=== PATIENT | male | born 1935 ===

== ENCOUNTER 2018-05-30 12:56 | Emergency (ER) | payer MEDICARE ==
[~2018-05-30] VITALS: Ht 154.9 cm; Wt 72.6 kg
--- NOTE | 2018-05-30 14:27 | Diagnostic Imaging Report ---
Examination: Single AP view of the chest. COMPARISON: None. INDICATION: Medical clearance, altered mental status DISCUSSION: The lungs are well-inflated. Left hemidiaphragmatic elevation with linear opacity in the left lower lobe. Right lung is clear. Tortuous thoracic aorta. Mild enlargement of the cardiac silhouette without overt pulmonary edema. No acute osseous abnormality. IMPRESSION: Elevated left hemidiaphragm with subsegmental atelectasis in the left lung base. Mild enlargement of the cardiac silhouette without vascular decompensation. Signed by: Dr. Brian Prasad M.D. on 05/30/2018 2:24 PM
[2018-05-30 14:31] LABS: BASOPHILS # (AUTO) 0.1 (0.0-0.1); BASOPHILS % 1.3 % (0.0-1.0); EOSINOPHILS # (AUTO) 0.3 (0.0-0.4); EOSINOPHILS % 4.3 % (0.0-6.0); HEMATOCRIT 37.1 % (38.2-49.6); HEMOGLOBIN 11.3 g/dL (14.0-18.0); LYMPHOCYTES # (AUTO) 1.7 (1.0-3.2); LYMPHOCYTES % 25.5 % (18.0-39.1); MEAN CORPUSCULAR HEMOGLOBIN 28.8 pg (28-32); MEAN CORPUSCULAR HGB CONC 30.5 g/dL (31-35); MEAN CORPUSCULAR VOLUME 94.4 fL (81-99); MONOCYTES # (AUTO) 0.7 (0.2-0.8); MONOCYTES % 10.9 % (4.4-11.3); NEUTROPHILS # (AUTO) 3.9 (2.1-6.9); NEUTROPHILS % 57.7 % (38.7-80.0); PLATELET COUNT 179 x10e3/uL (140-360); RED BLOOD COUNT 3.93 x10e6/uL (4.3-5.7); RED CELL DISTRIBUTION WIDTH 14.4 % (11.7-14.4)
[2018-05-30 14:36] LABS: ANION GAP 10.6 mmol/L (8-16); BLOOD UREA NITROGEN 27 mg/dL (7-26); BUN/CREATININE RATIO 33 (6-25); CALCIUM 9.8 mg/dL (8.4-10.2); CARBON DIOXIDE 23 mmol/L (22-29); CHLORIDE 108 mmol/L (98-107); CREATININE, SERUM 0.83 mg/dL (0.72-1.25); EST GLOMERULAR FILTRATION RATE > 60 ML/MIN (60-); GLUCOSE 86 mg/dL (74-118); POTASSIUM 3.6 mmol/L (3.5-5.1); SODIUM 138 mmol/L (136-145)
[2018-05-30 14:56] LABS: BILIRUBIN,URINE NEGATIVE (NEGATIVE); CLARITY,URINE SL CLOUDY (CLEAR); COLOR,URINE YELLOW (YELLOW); KETONES,URINE NEGATIVE (NEGATIVE); LEUKOCYTE ESTERASE ,URINE TRACE (NEGATIVE); NITRITE,URINE NEGATIVE (NEGATIVE); PROTEIN,URINE DIPSTICK TRACE (NEGATIVE); URINE UROBILINOGEN 0.2 mg/dL (0.2 - 1)
[2018-05-30 15:06] LABS: BACTERIA,URINE MODERATE /HPF; CALCIUM OXALATE CRYSTALS,UR FEW (FEW); EPITHELIAL CELLS,URINE FEW /LPF; MUCUS,URINE MODERATE (RARE)
[2018-05-30 15:41] VITALS: BP 138/79
== END 2018-05-30 16:02 | disposition home or self-care (01) ==
LOC: ER 12:56
DX: F31.60 Bipolar disorder, current episode mixed, unspecified (principal); N30.90 Cystitis, unspecified without hematuria
CPT/HCPCS: 36415; 71045; 80048; 81001; 85025; 99284

== ENCOUNTER 2018-06-01 14:00 | Inpatient (IN) | payer MEDICARE ==
[~2018-06-01] VITALS: Ht 170.2 cm; Wt 65.0 kg
[2018-06-01] MEDS ORDERED: PANTOPRAZOLE 40 MG 10ML VIAL IV STA (14:49)
[2018-06-01] MEDS ORDERED: PIPER-TAZ 3.375 GM 50 ML IV ONE (15:00)
[2018-06-01] MEDS ORDERED: VANCOMYCIN 1GM/NS 250 ML 250 ML IV ONE (15:00)
[2018-06-01] MEDS ORDERED: LORAZEPAM INJ 2 MG/ML VIAL IV ONE (15:00)
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
[2018-06-01 15:20] LABS: BASOPHILS # (AUTO) 0.1 (0.0-0.1); BASOPHILS % 1.5 % (0.0-1.0); EOSINOPHILS # (AUTO) 0.3 (0.0-0.4); EOSINOPHILS % 4.7 % (0.0-6.0); HEMATOCRIT 34.7 % (38.2-49.6); HEMOGLOBIN 11.1 g/dL (14.0-18.0); LYMPHOCYTES # (AUTO) 1.6 (1.0-3.2); LYMPHOCYTES % 27.5 % (18.0-39.1); MEAN CORPUSCULAR HEMOGLOBIN 28.6 pg (28-32); MEAN CORPUSCULAR VOLUME 89.4 fL (81-99); MONOCYTES # (AUTO) 0.9 (0.2-0.8); MONOCYTES % 15.3 % (4.4-11.3); NEUTROPHILS % 50.8 % (38.7-80.0); PLATELET COUNT 191 x10e3/uL (140-360); RED BLOOD COUNT 3.88 x10e6/uL (4.3-5.7); RED CELL DISTRIBUTION WIDTH 14.3 % (11.7-14.4)
[2018-06-01 15:30] LABS: INR 1.2; PROTHROMBIN TIME 14.3 seconds (11.9-14.5)
[2018-06-01 15:31] LABS: PARTIAL THROMBOPLASTIN TIME 36.4 seconds (23.8-35.5)
[2018-06-01 15:38] LABS: ALANINE AMINOTRANSFERASE 10 IU/L (0-55); ALBUMIN 2.9 g/dL (3.5-5.0); ALBUMIN/GLOBULIN RATIO 0.7 (0.8-2.0); ALKALINE PHOSPHATASE 59 IU/L (40-150); ANION GAP 15.1 mmol/L (8-16); BLOOD UREA NITROGEN 19 mg/dL (7-26); BUN/CREATININE RATIO 25 (6-25); CALCIUM 9.9 mg/dL (8.4-10.2); CARBON DIOXIDE 22 mmol/L (22-29); CHLORIDE 112 mmol/L (98-107); CREATINE KINASE 238 IU/L (30-200); CREATININE, SERUM 0.76 mg/dL (0.72-1.25); EST GLOMERULAR FILTRATION RATE > 60 ML/MIN (60-); GLUCOSE 89 mg/dL (74-118); MAGNESIUM 1.3 MG/DL (1.3-2.1); POTASSIUM 3.1 mmol/L (3.5-5.1); SODIUM 146 mmol/L (136-145)
[2018-06-01] MEDS ORDERED: POTASSIUM CHLORIDE 20MEQ/15ML UDC PO ONE (16:45)
[2018-06-01] MEDS ORDERED: ONDANSETRON HCL INJ 2MG/ML 2ML 2 MG/ML VIAL IV PRN (17:00)
[2018-06-01] MEDS ORDERED: MORPHINE SULFATE 2 MG/ML SYR 1ML IV PRN (17:00)
--- NOTE | 2018-06-01 18:41 | Diagnostic Imaging Report ---
EXAMINATION: CHEST SINGLE (PORTABLE) INDICATION: \S\AMS \S\[id number] \S\1800 COMPARISON: Chest radiograph 05/30/2018 FINDINGS: AP view TUBES and LINES: None. LUNGS: Lungs are well inflated. Increased interstitial lung markings in both lung bases may represent atelectasis. There is no evidence of pneumonia or pulmonary edema. PLEURA: No pleural effusion or pneumothorax. HEART AND MEDIASTINUM: The cardiac silhouette is within normal limits. Tortuous thoracic aorta. BONES AND SOFT TISSUES: Mild deformity of the left lower ribs, cannot exclude fracture. Soft tissues are unremarkable. UPPER ABDOMEN: No free air under the diaphragm. IMPRESSION: Mild deformity of the left lower ribs may be positional but cannot exclude fracture. Correlate with the region of pain. If clinical concern, consider further evaluation with left-sided rib series. Signed by: Dr. Karolyn Heath M.D. on 06/01/2018 6:37 PM
--- NOTE | 2018-06-01 18:42 | Diagnostic Imaging Report ---
PELVIS X-RAY - 1 VIEW HISTORY: \S\FALL \S\[id number] \S\1800 COMPARISON: None available. FINDINGS: Bones: No acute displaced fracture. Osseous alignment is within normal limits. Joints: The joint spaces are well-maintained. Soft tissues: The soft tissues appear unremarkable. IMPRESSION: No acute radiographic abnormality. Signed by: Dr. Karolyn Heath M.D. on 06/01/2018 6:39 PM
[2018-06-01] MEDS: FAMOTIDINE 20 MG/2 ML VIAL IV SCH (19:17)
--- NOTE | 2018-06-01 19:39 | Diagnostic Imaging Report ---
EXAMINATION: Head CT without contrast. HISTORY:Altered mental status, fall. COMPARISON:None. TECHNIQUE: Multidetector axial images were obtained from the foramen magnum to the vertex without contrast. The images were reconstructed using brain and bone algorithms. Thin section brain images were reformatted into coronal and sagittal planes. Dose modulation, iterative reconstruction, and/or weight based adjustment of the mA/kV was utilized to reduce the radiation dose to as low as reasonably achievable. Intravenous contrast: None IMAGE QUALITY: Acceptable. FINDINGS: Skull/scalp: No lytic or blastic. lesions. No surgical changes. Parenchyma: Nonspecific bilateral frontoparietal patchy white matter hypodensity are likely related to small vessel ischemic changes. Focal hypodensity in left singh radiata, right posterior periventricular white matter and left subinsular region represents old lacunar infarct. No acute hemorrhage, mass or acute major vascular territorial infarct. Arteries: No density suggestive of thrombosis. Dural sinuses: No abnormal density suggestive of thrombosis. Ventricles: Mild compensated dilatation due to volume loss. No hydrocephalus. Extra-axial spaces: No abnormal density. Brain volume: Generalized age-related cerebral volume loss. Craniocervical junction: No mass, Chiari malformation, or basilar invagination. Sella: No mass. Paranasal/mastoid sinuses: Mild mucosal thickening in right maxillary sinus and ethmoid sinus. Nonspecific superficial soft tissue defect in the left prezygomatic region at approximately measures 1.5 cm in maximum AP dimension may represent scar or ulceration. Mild left premaxillary soft tissue thickening. IMPRESSION: No acute intracranial abnormality. Mild supratentorial white matter microvascular ischemic changes and chronic lacunar infarcts as detailed above. Generalized age-related cerebral volume loss. Signed by: Dr. Terri Watkins M.D. on 06/01/2018 7:36 PM
[2018-06-01] MEDS ORDERED: VITAMIN C500 M1 PO (19:59)
[2018-06-01] MEDS ORDERED: FOLIC ACID1 MG PO (19:59)
[2018-06-01] MEDS ORDERED: METOPROLOL TART50 MG PO (19:59)
[2018-06-01] MEDS ORDERED: CHLORDIAZEPOXID25 MG PO (19:59)
[2018-06-01] MEDS ORDERED: ELIQUIS PO (19:59)
[2018-06-01] MEDS ORDERED: ULTRAM50 MG PO (19:59)
[2018-06-01] MEDS ORDERED: MULTI-VITAMIN1 EACH (19:59)
[2018-06-01] MEDS ORDERED: NAMENDA10 MG (19:59)
[2018-06-01] MEDS ORDERED: THIAMINE HCL100 MG PO (19:59)
[2018-06-01] MEDS ORDERED: OMEPRAZOLE40 MG PO (19:59)
[2018-06-01] MEDS ORDERED: LISINOPRIL10 MG PO (19:59)
[2018-06-01] MEDS ORDERED: ZINC SULFATE220 MG PO (19:59)
[2018-06-01] MEDS ORDERED: ATIVAN1 MG PO (19:59)
[2018-06-01 20:00] VITALS: BP 159/87
--- NOTE | 2018-06-01 20:06 | NUR ---
PT ARRIVING TO UNIT IN [facility]CH[facility] WITH STAFF TRANSPORT, PT RESTING WITH EYES CLOSED, NO DISTRESS NOTED, PT OPENS EYES WITH TACTILE STIMULATION, PT AAOX2-3, ASSESSMENT COMPLETE, WOUNDS NOTED TO LEFT CHEST, LEFT CHEEK, BILATERAL KNEES, BILATERAL EDEMA NOTED TO FEET WITH SHEDDING OF SKIN, WOUND CARE PROVIDED, BED LOCKED AND LOW, BILATERAL HEEL PROTECTORS APPLIED, AIR MATTRESS ACTIVATED, HEELS FLOATED FROM BED, PT HAS SLURRED SPEECH NOTED WITH MILD INTERMITTED AGITATION, PT COOPERATIVE, BED ALARM ACTIVATED, CALL LIGHT IN REACH, INSTRUCTED TO CALL WITH NEEDS
[2018-06-01 20:10] VITALS: BP 168/87
[2018-06-01] MEDS: PIPER-TAZ 3.375 GM 50 ML IV SCH (21:52)
[2018-06-01] MEDS ORDERED: SODIUM CHLORIDE 0.9% 250ML 250 ML ONE (21:52)
--- NOTE | 2018-06-01 23:50 | NUR ---
PRN GIVEN FOR PAIN
[2018-06-02] VITALS (8 sets, daily range): BP systolic 100–176; BP diastolic 52–95
[2018-06-02 00:31] LABS: CREATINE KINASE MB 8.5 ng/mL (0-5.0)
[2018-06-02] MEDS: PIPER-TAZ 3.375 GM 50 ML IV SCH ×4 (02:29→21:00)
--- NOTE | 2018-06-02 03:47 | NUR ---
PT RESTING IN BED WITH EYES CLOSED, NO DISTRESS NOTED, RISE AND FALL OF CHEST/ABD BREATHING NOTED, BED LOCKED AND LOW, CALL LIGHT IN REACH, BED ALARM ACTIVATED
[2018-06-02 05:17] LABS: BASOPHILS # (AUTO) 0.1 (0.0-0.1); BASOPHILS % 1.4 % (0.0-1.0); EOSINOPHILS # (AUTO) 0.3 (0.0-0.4); EOSINOPHILS % 6.1 % (0.0-6.0); HEMATOCRIT 32.2 % (38.2-49.6); HEMOGLOBIN 10.3 g/dL (14.0-18.0); LYMPHOCYTES # (AUTO) 1.7 (1.0-3.2); LYMPHOCYTES % 32.7 % (18.0-39.1); MEAN CORPUSCULAR HEMOGLOBIN 28.5 pg (28-32); MONOCYTES # (AUTO) 0.6 (0.2-0.8); NEUTROPHILS # (AUTO) 2.4 (2.1-6.9); NEUTROPHILS % 47.6 % (38.7-80.0); PLATELET COUNT 178 x10e3/uL (140-360); RED BLOOD COUNT 3.62 x10e6/uL (4.3-5.7); RED CELL DISTRIBUTION WIDTH 14.3 % (11.7-14.4)
[2018-06-02 05:37] LABS: ALANINE AMINOTRANSFERASE 10 IU/L (0-55); ALBUMIN 2.5 g/dL (3.5-5.0); ALBUMIN/GLOBULIN RATIO 0.7 (0.8-2.0); ALKALINE PHOSPHATASE 52 IU/L (40-150); ANION GAP 15.5 mmol/L (8-16); BLOOD UREA NITROGEN 15 mg/dL (7-26); BUN/CREATININE RATIO 19 (6-25); CALCIUM 9.3 mg/dL (8.4-10.2); CARBON DIOXIDE 20 mmol/L (22-29); CHLORIDE 116 mmol/L (98-107); CHOL/HDL RATIO 4.4 (3.9-4.7); CHOLESTEROL 164 MD/DL (0-199); CREATINE KINASE 132 IU/L (30-200); CREATININE, SERUM 0.77 mg/dL (0.72-1.25); EST GLOMERULAR FILTRATION RATE > 60 ML/MIN (60-); GLUCOSE 83 mg/dL (74-118); HDL CHOLESTEROL 37 MG/DL (40-60); LDL CHOLESTEROL 114 MG/DL (60-130); MAGNESIUM 1.3 MG/DL (1.3-2.1); POTASSIUM 3.5 mmol/L (3.5-5.1); SODIUM 148 mmol/L (136-145); TRIGLYCERIDES 67 MG/DL (0-149)
[2018-06-02] MEDS: FAMOTIDINE 20 MG/2 ML VIAL IV SCH ×2 (06:00→17:17)
--- NOTE | 2018-06-02 06:35 | NUR ---
PT RESTING IN BED ALERT WITH MILD CONFUSING NOTED, PT DENIES NEEDS, BED LOCKED AND LOW, BED ALARM ON, CALL LIGHT IN REACH
--- NOTE | 2018-06-02 08:30 | NUR ---
Received patient and alert, flight of ideas and calm but agitated and belligerant at times, presenting as unsafe, call light within reach, bed alarms in place.
--- NOTE | 2018-06-02 09:56 | NUR ---
Patient denies pains, bed alarms in place, call light within reach, making vulgar statements to staff but tolerated meds, attempting to get up and put his clothes on. Call to attending to report situation and left message.
--- NOTE | 2018-06-02 10:14 | NUR ---
Call back from attending and orders in place for 1:1 sitter and for seroquel,
--- NOTE | 2018-06-02 10:15 | NUR ---
Reviewed home meds with attending on the phone and restarted some
[2018-06-02] MEDS: QUETIAPINE FUMARATE 25 MG TAB PO SCH ×2 (10:22→17:00)
[2018-06-02] MEDS: TRAMADOL HCL 50 MG TAB PO SCH ×3 (10:22→23:11)
[2018-06-02] MEDS: LORAZEPAM INJ 2 MG/ML VIAL IV PRN (11:45)
[2018-06-02] MEDS: METOPROLOL TARTRATE 50 MG TAB PO SCH ×2 (15:00→21:00)
--- NOTE | 2018-06-02 17:04 | NUR ---
Patient responded to antianxiety medication positively
[2018-06-02] MEDS: PANTOPRAZOLE SOD 40 MG TABEC PO SCH (18:22)
[2018-06-02] MEDS: LISINOPRIL 10 MG TAB PO SCH (18:23)
--- NOTE | 2018-06-02 18:24 | NUR ---
Wound care provided to wounds on left cheek, bilateral knees and chest area and dressings applied
--- NOTE | 2018-06-02 19:10 | NUR ---
REPORT RECEIVED FROM OFF GOING NURSE, PT RESTING IN BED WITH EYES CLOSED, RISE AND FALL OF CHEST BREATHING NOTED, 1:1 SITTER AT BEDSIDE, BED ALARM ACTIVATED, PT BEING MONITORED, STABLE UPON DEPARTURE
--- NOTE | 2018-06-02 19:50 | NUR ---
SPOKE WITH DR. ZAPATA REGARDING ORDERED CONSULT, MADE AWARE, NO ORDERS GIVEN
--- NOTE | 2018-06-02 21:19 | History and Physical ---
PRIMARY CARE PHYSICIAN: Unknown. CHIEF COMPLAINT: Confusion. HISTORY OF PRESENT ILLNESS: This is an 82-year-old man, found on the floor at home, unclear as to what is the etiology of his symptom, but patient does have a history of bipolar disorder, brought to the hospital, found to have multiple ulcers throughout his body including his face. Patient is admitted for further evaluation and management. PAST MEDICAL HISTORY: Bipolar disorder, hypertension, alcoholism, anxiety disorder, dementia, Eliquis use, and GERD. PAST SURGICAL HISTORY: Unknown. ALLERGIES: PER ELECTRONIC MEDICAL RECORDS. FAMILY/SOCIAL HISTORY: Patient apparently lives alone. Does use alcohol, unclear as to quantity. Unknown cigarette history. MEDICATIONS: Per electronic medical records. REVIEW OF SYSTEMS: Unobtainable at this time. PHYSICAL EXAM VITAL SIGNS: Have been reviewed. GENERAL APPEARANCE: A tired-appearing man, resting in bed. HEENT: Anicteric. CARDIOVASCULAR: Normal S1 and S2. LUNGS: Bilateral breath sounds. ABDOMEN: Soft and nontender. EXTREMITIES: No edema. SKIN: Dry. He has deep ulcers on the left facial region, left chest wall, bilateral knees, and he has ulcers also on his back. PSYCHIATRIC: Flat affect, sedated. LABS: Reviewed. MEDICATIONS: Reviewed. ASSESSMENT: An 82-year-old man 1. Deep ulcers diffusely. 2. Alcoholism. 3. Fall. 4. Physical decondition. 5. Hypokalemia. 6. Hypernatremia. 7. Normocytic anemia. 8. Hypertension. 9. Acute psychosis. 10. Bipolar disorder. 11. Gastroesophageal reflux disease. PLAN 1. Control psychosis with Seroquel and lorazepam. 2. Psychiatric consultation. 3. Treat hypertension. 4. We will consult wound care, Dr. Grullon to assist with management of chronic wounds. 5. Obtain urine toxicology. 6. Obtain alcohol level in the blood. 7. [facility] facility evaluation. 8. We will treat with folic acid and thiamine. 9. We will use SCDs for DVT prophylaxis. 10. Use PPI for GI prophylaxis. 11. Physical therapy consultation. Job#: [id number] LPA
[2018-06-02 23:05] LABS: AMPHETAMINES SCREEN,URINE NEGATIVE (NEGATIVE); PHENCYCLIDINE SCREEN,URINE NEGATIVE (NEGATIVE)
[2018-06-02 23:06] LABS: BENZODIAZEPINES SCREEN,URINE POSITIVE (NEGATIVE)
[2018-06-03] VITALS (8 sets, daily range): BP systolic 121–175; BP diastolic 67–98
[2018-06-03] MEDS: PIPER-TAZ 3.375 GM 50 ML IV SCH ×5 (03:00→23:34)
[2018-06-03] MEDS: TRAMADOL HCL 50 MG TAB PO SCH ×3 (05:41→17:54)
[2018-06-03] MEDS: LORAZEPAM INJ 2 MG/ML VIAL IV PRN (05:41)
[2018-06-03] MEDS: FAMOTIDINE 20 MG/2 ML VIAL IV SCH ×2 (05:41→17:25)
--- NOTE | 2018-06-03 05:42 | NUR ---
PRN GIVEN FOR UNCONTROLLED AGITATION, PT YELLING IN CONFUSION AND CURSING STAFF, ATTEMPTING TO GET OUT OF BED
[2018-06-03] MEDS ORDERED: THIAMINE HCL 100 MG TAB PO SCH (09:00)
[2018-06-03] MEDS ORDERED: FOLIC ACID 1 MG TAB PO SCH (09:00)
[2018-06-03] MEDS: PANTOPRAZOLE SOD 40 MG TABEC PO SCH (09:35)
[2018-06-03] MEDS: FOLIC ACID 1 MG TAB PO SCH (09:35)
[2018-06-03] MEDS: MULTIVITAMINS/MINERALS TAB PO SCH (09:35)
[2018-06-03] MEDS: QUETIAPINE FUMARATE 25 MG TAB PO SCH ×2 (09:35→17:24)
[2018-06-03] MEDS: ZINC SULFATE 220 MG CAP PO SCH (09:35)
[2018-06-03] MEDS: THIAMINE HCL 100 MG TAB PO SCH (09:35)
[2018-06-03] MEDS: LISINOPRIL 10 MG TAB PO SCH ×2 (09:36→17:24)
[2018-06-03] MEDS: METOPROLOL TARTRATE 50 MG TAB PO SCH ×4 (09:36→22:34)
--- NOTE | 2018-06-03 14:18 | NUR ---
Patient has been calm and cooperative but just woke up and agitated, striking at staff at this time and attempted to redirect but has vulgar language, will medicate as ordered.
--- NOTE | 2018-06-03 14:52 | NUR ---
Wound care as ordered, dressings changed and no signs of infection, wounds beefy red. Patient OOB to recliner in the room , 1:[address]
[2018-06-03] MEDS: ZINC OXIDE 30 GM TUBE TOP SCH (17:24)
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
--- NOTE | 2018-06-03 19:31 | NUR ---
Received patient resting quietly. No s/s of pain or discomfort. Patient is resting quietly in recliner. Sitter is at chair side. IV to right forearm remains patent.
--- NOTE | 2018-06-03 20:41 | NUR ---
[id number] Progress Note Magnolia Tran, HEAVY EQUIPMENT SALES MANAGER-C
--- NOTE | 2018-06-03 22:38 | Progress Note ---
DATE: June 03, 2018 TIME OF SERVICE: 12:25. OVERNIGHT: No acute events. REVIEW OF SYSTEMS: Unreliable. PHYSICAL EXAMINATION VITAL SIGNS: T 96.7, P 99, R 16, BP 150/67, and SpO2 98% on room air. GENERAL APPEARANCE: This is tired-appearing man, resting supine in bed. HEENT: Normocephalic. No sinus tenderness. Positive lesions to the left cheek. Beefy red wound base with well demarcated wound edges. Nares patent. Oral mucosa moist and intact. NECK: Trachea midline without JVD. CV: S1 and S2 auscultated without extra cardiac sounds. LUNGS: Bilateral breath sounds, moderate in all tran. ABDOMEN: Soft, nontender, no distention or guarding. EXTREMITIES: No edema. Dry skin with multiple lesions. Crusting to lower extremities. SKIN: Dry. Notable ulcer as above to the left cheek, at bilateral knees. Sacral ulcer noted. Left chest wall ulcer with dressing which is clean and dry. PSYCHIATRIC: Labile conversation with flat affect. NEUROLOGIC: Alert, not oriented. Difficulty following 1-step commands. No motor defect noted on gross examination. LABS: Toxicology positive for opiate, barbiturate and benzodiazepine. Previous values reviewed, notable for elevated CK-MB. Triglycerides and cholesterol within limit. H and H 10.3 and 32.2 respectively on Monday's labs. MEDICATIONS 1. Ultram 50 mg p.o. q.6. 2. Pepcid 20 mg IV q.12. 3. Zinc oxide to wounds b.i.d. 4. Prinivil 20 mg p.o. b.i.d. 5. Seroquel 12.5 mg p.o. b.i.d. 6. Metoprolol 75 mg p.o. t.i.d. 7. Zosyn q.6 hours IV. 8. P.o. zinc 220 daily. 9. Thiamine 100 mg p.o. daily. 10. Protonix 40 mg a.c. breakfast. 11. MDI p.o. daily. 12. P.r.n. Ativan. 13. P.r.n. morphine. 14. Folic acid 1 mg p.o. daily. 15. P.r.n. Zofran. ASSESSMENT AND PLAN: This is an 82-year-old man with; 1. Deep ulcers scattered at face, chest wall, bilateral knees. In addition, the patient has DVT like old wound lesions to lower extremities. Wound consult reviewed and appreciated. 2. Ethanol/alcoholism. Has alcohol less than 10 upon review. Continue B vitamin repletion. 3. Fall. Physical therapy is consulting at bedside today during examination. 4. Poor physical deconditioning. Continue PT evaluation and treat. 5. Hypokalemia. Monitor and replace as needed. 6. Hypernatremia, asymptomatic. Continue to monitor. 7. Normocytic anemia. We will follow values in a.m. 8. Hypertension. Patient with unknown medication compliance prior to admission. We will continue current regimen prior to considering titration. 9. Acute psychosis. 10. Bipolar disorder. Psychiatric consultation pending for both acute psychosis and bipolar disorder 11. Gastroesophageal reflux disease. Continue with PPI. 12. Prophylaxis. Continue with Protonix and SCDs. 13. Disposition: SNF evaluation pending, case management notes reviewed with ATS case resource manager and process has been assigned. Continue wound care, follow up values in a.m. Dictated By: Mary Tran NP Job#: [id number] PRINCESS
[2018-06-04] VITALS (8 sets, daily range): BP systolic 147–163; BP diastolic 63–86
--- NOTE | 2018-06-04 00:40 | NUR ---
Patient resting quietly in bed. No distress noted. Bed alarm intact. Sitter at bedside.
[2018-06-04] MEDS: PIPER-TAZ 3.375 GM 50 ML IV SCH ×3 (02:57→16:36)
[2018-06-04] MEDS: TRAMADOL HCL 50 MG TAB PO SCH ×4 (05:44→17:39)
[2018-06-04] MEDS: FAMOTIDINE 20 MG/2 ML VIAL IV SCH ×2 (05:45→17:38)
[2018-06-04 06:06] LABS: BASOPHILS # (AUTO) 0.1 (0.0-0.1); BASOPHILS % 1.6 % (0.0-1.0); EOSINOPHILS # (AUTO) 0.6 (0.0-0.4); EOSINOPHILS % 10.3 % (0.0-6.0); HEMATOCRIT 33.8 % (38.2-49.6); HEMOGLOBIN 10.5 g/dL (14.0-18.0); LYMPHOCYTES # (AUTO) 1.8 (1.0-3.2); LYMPHOCYTES % 31.8 % (18.0-39.1); MEAN CORPUSCULAR HEMOGLOBIN 28.5 pg (28-32); MEAN CORPUSCULAR HGB CONC 31.1 g/dL (31-35); MEAN CORPUSCULAR VOLUME 91.8 fL (81-99); MONOCYTES # (AUTO) 0.8 (0.2-0.8); MONOCYTES % 13.7 % (4.4-11.3); NEUTROPHILS # (AUTO) 2.3 (2.1-6.9); NEUTROPHILS % 42.4 % (38.7-80.0); PLATELET COUNT 169 x10e3/uL (140-360); RED BLOOD COUNT 3.68 x10e6/uL (4.3-5.7); RED CELL DISTRIBUTION WIDTH 14.2 % (11.7-14.4)
[2018-06-04 06:12] LABS: ALANINE AMINOTRANSFERASE 9 IU/L (0-55); ALBUMIN 2.4 g/dL (3.5-5.0); ALBUMIN/GLOBULIN RATIO 0.7 (0.8-2.0); ALKALINE PHOSPHATASE 43 IU/L (40-150); ANION GAP 14.3 mmol/L (8-16); BLOOD UREA NITROGEN 10 mg/dL (7-26); BUN/CREATININE RATIO 12 (6-25); CALCIUM 8.9 mg/dL (8.4-10.2); CARBON DIOXIDE 21 mmol/L (22-29); CHLORIDE 113 mmol/L (98-107); CREATININE, SERUM 0.81 mg/dL (0.72-1.25); EST GLOMERULAR FILTRATION RATE > 60 ML/MIN (60-); GLUCOSE 74 mg/dL (74-118); POTASSIUM 3.3 mmol/L (3.5-5.1); SODIUM 145 mmol/L (136-145)
--- NOTE | 2018-06-04 08:00 | NUR ---
PATIENT IS ALERT TO SELF AND IS IN STABLE CONDITION WITH NO S/S OF RESPIRATORY DISTRESS. NO PAIN VOICED. HEEL PROTECTORS APPLIED. SITTER PRESENT IN ROOM. CALL LIGHT WITHIN REACH, INSTRUCTED TO CALL FOR ASSISTANCE NEEDED.
[2018-06-04] MEDS: PANTOPRAZOLE SOD 40 MG TABEC PO SCH (08:54)
[2018-06-04] MEDS: FOLIC ACID 1 MG TAB PO SCH (08:54)
[2018-06-04] MEDS: LISINOPRIL 10 MG TAB PO SCH (08:55)
[2018-06-04] MEDS: METOPROLOL TARTRATE 50 MG TAB PO SCH ×2 (08:55→15:00)
[2018-06-04] MEDS: ZINC SULFATE 220 MG CAP PO SCH (08:55)
[2018-06-04] MEDS: MULTIVITAMINS/MINERALS TAB PO SCH (08:55)
[2018-06-04] MEDS: THIAMINE HCL 100 MG TAB PO SCH (08:55)
[2018-06-04] MEDS: QUETIAPINE FUMARATE 25 MG TAB PO SCH ×2 (08:55→17:39)
[2018-06-04] MEDS: ZINC OXIDE 30 GM TUBE TOP SCH ×2 (08:55→17:39)
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
[2018-06-04] MEDS: HALOPERIDOL LACTATE 5 MG/ML VIAL IM PRN (13:17)
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
--- NOTE | 2018-06-04 14:08 | NUR ---
WOUND CARE CONSULTATION. 82 YEAR OLD MALE ADMITTED TO [facility] WITH DX OF BIPOLAR AFFECTIVE DISORDER WITH PS. HEAD TO TOE SKIN ASSESSMENT PERFORMED TODAY, PT PRESENTS WITH MULTIPLE ULCERS THROUGHOUT HIS BODY. MEASUREMENT AND DESCRIPTIONS ARE FOLLOWS: 1- LEFT BUCCAL, 2.2X3.5X0.2CM 100% GRANULAR. 2- LEFT 1ST MET HEAD. 1X1X0.1CM 100% ESCHAR. 3- RIGHT 5TH MET HEAD, 1X1X0.1CM 100% ESCHAR.. 4- LEFT CHEST: 7X8X.2CM. 100% GRANULAR. 5- RIGHT KNEE, 3X2.5X0.2 100% GRANULAR. 5- LEFT KNEE, 2X2.5X0.2CM 100% GRANULAR. 6- RIGHT ELBOW: 0.9X0.9X0.2, 100% GRANULAR. 7-BLANCHABLE REDNESS TO SACRUM . LABS: WBC: 5.53 ALB: 2.[address] SHIRLEY IN THE CASE, ORDERS IN CHART FOR RECOMMENDATIONS : CONTINUE WITH PURACOL TO ALL GRANULAR ULCERS INCLUDING THE CHEST ONE, CONTINUE WITH HYDROGEL TO ESCHARS ON RIGHTS 1 5TH MET HEAD AND AND LEFT 1ST MET HEAD. CONTINUE WITH ALTERNATING LOW AIR LOSS MATTRESS. MONITOR REDNESS ON SACRUM, MAY USE A FOAM DRESSING FOR EXTRA PRTECTION. CONTINUE WITH BILATERAL HEEL PROTECTORS AND PILLOW SUSPENSIONS. ENCOURAGE PT TO TURN EVERY 2 HOURS AND PRN. THANKS FOR THIS CONSULTATION. Addendum: 06/04/18 at 1434 by Sugey Ramesh RN Amended: Links added.
--- NOTE | 2018-06-04 14:17 | NUR ---
CALLED PCP CHANDRAKANT TREJO BUT HE HAS NO EMERGENCY CONTACTS LISTED WITH THEM PER THE MANAGER FEDERAL.
--- NOTE | 2018-06-04 14:26 | NUR ---
CALLED AND SPOKE WITH RATNA CHAVEZ [phone] NEIGHBOR AND HE STATES THE BEST PERSON TO SPEAK WITH IS MAYCO.
--- NOTE | 2018-06-04 15:37 | NUR ---
CALLED DR. LUO REGARDING METOPROLOL MEDICATION AND THE PATIENT'S HR OF 56. DR. LUO SAID TO HOLD THIS DOSE. ASKED DR. LUO FOR HR PARAMETER FOR METOPROLOL MEDICATION - NEW ORDER TO HOLD METOPROLOL DOSE IF HR <55.
--- NOTE | 2018-06-04 15:39 | NUR ---
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 [phone], DAUGHTER EPI AVENDANO STATES SHE WILL COME SEE THE PATIENT WHEN SHE LEAVES [facility] WITH HER MOTHER TO SEE IF SHE CAN VISIT HIM AND GET SOMETHING ABOUT HIS FAMILY IN [facility] FROM HIM. SHE DOES STATES THAT HE HAS A NIECE BUT SHE IS IN [facility] AND SHE HAS TWIN DAUGHTERS BUT CANNOT REMEMBER NAMES OR NUMBERS. SHE WILL ALSO LOOK AT HOME FOR FURTHER INFORMATION AND CALL BACK WITH ANY INFORMATION. CALLED [facility] OFFICE TO SEE IF PT HAS A RECORD OF EMERGENCY CONTACTS WITH THEM MR SHEETS STATES HE DOES NOT HAVE ANY INFORMATION FOR THAT NAME.
--- NOTE | 2018-06-04 16:08 | NUR ---
LESVIA FROM [facility] OFFICE CALLED BACK WITH SISTER MICHELLE RUSLAN AND NIECE CARISSA MERCER LOCATED AT [address] [facility] LISTED IN HIS LAST WILL AND TESTAMENT FROM SEP 06, 1995.
[2018-06-04] MEDS: LISINOPRIL 20 MG TAB PO SCH (17:39)
--- NOTE | 2018-06-04 19:18 | NUR ---
PATIENT IS SLEEPING IN BED- IN STABLE CONDITION WITH NO S/S OF RESPIRATORY DISTRESS. NO PAIN VOICED. SITTER PRESENT IN ROOM. HEEL PROTECTORS AND SCD'S APPLIED. CALL LIGHT WITHIN REACH, INSTRUCTED TO CALL FOR ASSISTANCE NEEDED. REPORT GIVEN TO ONCOMING NURSE.
--- NOTE | 2018-06-04 23:50 | Progress Note ---
DATE: June 04, 2018 TIME OF SERVICE: 1:35 p.m. OVERNIGHT: No events. REVIEW OF SYSTEMS: Unreliable. PHYSICAL EXAMINATION VITAL SIGNS: Reviewed. GENERAL: A tired-appearing man, resting in bed. HEENT: Anicteric. CARDIOVASCULAR: Normal S1, S2. LUNGS: Moderate breath sounds. ABDOMEN: Soft, nontender. EXTREMITIES: No edema. SKIN: He has deep ulcers on the left facial region and left chest wall. He has also on his back and other sites. PSYCHIATRIC: Flat affect. NEUROLOGIC: Alert, awake . LABS: Reviewed. MEDICATIONS: Reviewed. ASSESSMENT AND PLAN: An 82-year-old man. 1. Deep ulcers, diffuse. 2. Alcoholism. 3. Fall. 4. Physical deconditioning. 5. Hypokalemia. 6. Hypernatremia. 7. Normocytic anemia. 8. Hypertension. 9. Acute psychosis. 10. Bipolar disorder. 11. Gastroesophageal reflux disease. 12. Deep ulcer, diffuse, most of them are stage 3. PLAN 1. Continue treatment for psychosis. 2. Continue local wound care. 3. Continue antibiotics. 4. Continue nutritional support. 5. Skilled facility placement. 6. Appreciate psychiatric input. Job#: [id number] CQ
[2018-06-05] VITALS (8 sets, daily range): BP systolic 139–193; BP diastolic 71–96
[2018-06-05] MEDS: TRAMADOL HCL 50 MG TAB PO SCH ×4 (00:28→17:37)
[2018-06-05] MEDS: PIPER-TAZ 3.375 GM 50 ML IV SCH ×4 (03:24→21:40)
[2018-06-05] MEDS: FAMOTIDINE 20 MG/2 ML VIAL IV SCH ×2 (05:13→17:34)
--- NOTE | 2018-06-05 07:30 | NUR ---
PATIENT IS IN STABLE CONDITION WITH NO S/S OF RESPIRATORY DISTRESS. NO PAIN VOICED. WOUND DRESSINGS ARE DRY AND INTACT. HEEL PROTECTORS AND SCD'S APPLIED. SITTER PRESENT IN ROOM. CALL LIGHT IS WITHIN REACH OF PATIENT, PATIENT INSTRUCTED TO CALL FOR ASSISTANCE NEEDED.
[2018-06-05] MEDS ORDERED: POTASSIUM CHLORIDE 20MEQ/15ML UDC PO ONE (09:00)
[2018-06-05] MEDS: FOLIC ACID 1 MG TAB PO SCH (09:15)
[2018-06-05] MEDS: PANTOPRAZOLE SOD 40 MG TABEC PO SCH (09:15)
[2018-06-05] MEDS: MULTIVITAMINS/MINERALS TAB PO SCH (09:16)
[2018-06-05] MEDS: METOPROLOL TARTRATE 50 MG TAB PO SCH ×3 (09:16→21:40)
[2018-06-05] MEDS: ZINC SULFATE 220 MG CAP PO SCH (09:16)
[2018-06-05] MEDS: LISINOPRIL 20 MG TAB PO SCH ×2 (09:16→16:21)
[2018-06-05] MEDS: QUETIAPINE FUMARATE 25 MG TAB PO SCH ×2 (09:16→16:21)
[2018-06-05] MEDS: THIAMINE HCL 100 MG TAB PO SCH (09:16)
[2018-06-05] MEDS: ZINC OXIDE 30 GM TUBE TOP SCH ×2 (09:41→17:34)
[2018-06-05] MEDS: LORAZEPAM INJ 2 MG/ML VIAL IV PRN (12:05)
[2018-06-05] MEDS: HALOPERIDOL LACTATE 5 MG/ML VIAL IM PRN (12:25)
--- NOTE | 2018-06-05 14:05 | NUR ---
PATIENT BLOOD PRESSURE IS ELEVATED - REASSESSED BP 176/81 AND HR 68. CALL PLACED OUT TO DR. LUO REGARDING BP MEDICATION- AWAITING FOR CALLBACK.
[2018-06-05] MEDS ORDERED: LABETALOL HCL 20 ML ONE (14:24)
[2018-06-05] MEDS: LABETALOL HCL 5 MG/ML 20ML VIAL IV PRN (14:29)
--- NOTE | 2018-06-05 14:30 | NUR ---
RECEIVED CALLBACK FROM DR. LUO AT 1424- NEW ORDERS RECEIVED.
--- NOTE | 2018-06-05 15:14 | Progress Note ---
DATE: June 05, 2018 Patient evaluated and events noted. INTERVAL HISTORY: Patient is currently lying on his bed. He is alert, awake, oriented to self only. He is confused but not agitated. He claimed that he is sleeping and eating well. He claimed that he is taking his medications and denies any side effects from his medications. He denies any hallucinations and/or any suicidal ideations. As per the staff, patient has been intermittently confused and agitated. He is doing better now. IMPRESSION: [place] I: Unspecified psychosis/unspecified dementia with behavioral disturbances. PLAN OF CARE 1. Continue Seroquel. 2. Continue p.r.n. Seroquel. 3. Continue p.r.n. Ativan. 4. Continue p.r.n. IM Haldol. 5. Monitor for agitation. Job#: [id number] LICHA
--- NOTE | 2018-06-05 15:40 | NUR ---
SPOKE WITH BRITTNEY SMITH ABOUT PT HOME, SHE REPORTS SHE HAS PERSONALLY GONE TO THE HOME AND IT IS CLEAN AND LIVABLE. HE HAS UTILITIES. SHE WILL ASSIST WITH PLACING MALE PROVIDERS WITH HIM, WE WILL NEED TO CALL AND REINSTATE HOME HEALTH WITH [facility] UPON DISCHARGE. SHE WILL SEE PT SAME DATE OF DISCHARGE TO FOLLOW UP IN THE COMMUNITY. GAVE ALL INFORMATION FOUND IN RESEARCHING BACKGROUND OF PT TO APS.
--- NOTE | 2018-06-05 17:38 | Progress Note ---
DATE: June 05, 2018 MEDICINE PROGRESS NOTE TIME OF SERVICE: 7 a.m. SUBJECTIVE: Overnight no events. REVIEW OF SYSTEMS: Unreliable. VITAL SIGNS: Reviewed. PHYSICAL EXAMINATION GENERAL APPEARANCE: A tired-appearing man resting in bed. HEENT: Anicteric. CARDIOVASCULAR: Normal S1/S2. LUNGS: Moderate breath sounds. ABDOMEN: Soft, nontender. EXTREMITIES: No edema. SKIN: He has deep ulcers on the left facial region and left chest wall, bilateral knees and multiple other sites. Has at least stage 3 ulcers. PSYCHIATRIC: Flat affect. NEUROLOGICALLY: Awake. LABS: Reviewed. MEDICATIONS: Reviewed. ASSESSMENT: An 82-year-old man. 1. Stage 3 ulcers on multiple sites of the body. 2. Alcoholism. 3. Fall. 4. Physical deconditioning. 5. Hypokalemia. 6. Hypernatremia. 7. Normocytic anemia. 8. Hypertension. 9. Acute psychosis. 10. Bipolar disorder. 11. Gastroesophageal reflux disease. PLAN 1. Continue local wound care. 2. Continue treatment for acute psychosis. 3. Continue IV Zosyn. 4. Follow up metabolic acidosis. 5. Recheck electrolytes later this evening. 6. Discharge planning. Job#: [id number] EV
--- NOTE | 2018-06-05 19:21 | NUR ---
PATIENT IS RESTING IN BED- IN STABLE CONDITION WITH NO S/S OF RESPIRATORY DISTRESS. NO PAIN VOICED. WOUND DRESSINGS INTACT. DIAPER APPLIED. HEEL PROTECTORS AND SCD'S APPLIED. SITTER PRESENT IN ROOM. CALL LIGHT IS WITHIN REACH OF PATIENT, PATIENT INSTRUCTED TO CALL FOR ASSISTANCE NEEDED. REPORT GIVEN TO ONCOMING NURSE.
--- NOTE | 2018-06-05 19:36 | NUR ---
PT IS RESTING IN BED WITH 1:1 SITTER AT BEDSIDE. NO RESPIRATORY DISTRESS NOTED. BED IN THE LOWEST POSITION, LOCKED, BED ALARM ON, AND CALL LIGHT WITHIN REACH. WILL CONTINUE TO MONITOR.
[2018-06-05] MEDS ORDERED: SODIUM CHLORIDE 0.9% 50ML 50 ML ONE (21:26)
[2018-06-06] VITALS (7 sets, daily range): BP systolic 131–195; BP diastolic 74–92
--- NOTE | 2018-06-06 00:26 | NUR ---
PT REFUSE TO OPEN MOUTH TO TAKE MEDICINE.
[2018-06-06] MEDS: LABETALOL HCL 5 MG/ML 20ML VIAL IV PRN (01:46)
[2018-06-06] MEDS: PIPER-TAZ 3.375 GM 50 ML IV SCH ×4 (03:14→21:40)
[2018-06-06] MEDS: FAMOTIDINE 20 MG/2 ML VIAL IV SCH ×2 (06:20→18:00)
[2018-06-06] MEDS: TRAMADOL HCL 50 MG TAB PO SCH ×5 (06:25→23:41)
[2018-06-06] MEDS: PANTOPRAZOLE SOD 40 MG TABEC PO SCH (07:30)
[2018-06-06] MEDS: FOLIC ACID 1 MG TAB PO SCH (08:00)
[2018-06-06] MEDS: MULTIVITAMINS/MINERALS TAB PO SCH (08:00)
[2018-06-06] MEDS: LISINOPRIL 20 MG TAB PO SCH ×2 (08:00→16:30)
[2018-06-06] MEDS: METOPROLOL TARTRATE 50 MG TAB PO SCH ×4 (08:00→23:38)
[2018-06-06] MEDS: ZINC SULFATE 220 MG CAP PO SCH (08:00)
[2018-06-06] MEDS: QUETIAPINE FUMARATE 25 MG TAB PO SCH ×4 (08:00→22:40)
[2018-06-06] MEDS: THIAMINE HCL 100 MG TAB PO SCH (08:00)
--- NOTE | 2018-06-06 10:00 | NUR ---
ASSISTED PT UP TO BR MOD ASSIST ,DOES NOT FOLLOW COMMANDS WELL,
--- NOTE | 2018-06-06 11:31 | NUR ---
PT BACK IN BED BED ALARM ON LEVEL 2
--- NOTE | 2018-06-06 12:28 | NUR ---
PT REFUSED NOON MEDICATION
[2018-06-06] MEDS: ZINC OXIDE 30 GM TUBE TOP SCH ×2 (13:00→17:00)
--- NOTE | 2018-06-06 13:53 | Progress Note ---
DATE: June 06, 2018 PSYCHIATRIC PROGRESS NOTE SUBJECTIVE: Patient evaluated and events noted. INTERVAL HISTORY: Patient is currently lying on his bed. He is alert, awake, oriented to self only. He does not know where he is. He is intermittently restless and agitated as per the nursing staff. He claims that he has been sleeping and eating well. He denies any hallucinations and/or any suicidal ideations. He claims that he is taking his medications and denies any side effects from them. Patient has poor short-term memory. He does not know the date and the events that led to his current hospitalization. As per the nursing staff, patient has been intermittently agitated and threatening towards the staff. He is also sometimes sexually inappropriate and making inappropriate comments to the staff. DIAGNOSIS AXIS I: Unspecified psychosis/unspecified dementia with behavioral disturbances. PLAN OF CARE 1. Increase Seroquel to 3 times a day. 2. Continue p.r.n. Seroquel. 3. Continue p.r.n. Ativan. 4. Continue p.r.n. IM Haldol. 5. Add Namenda 5 mg p.o. daily for dementia. 6. Add Depakote 250 mg p.o. b.i.d. for inappropriate and impulsive behavior. 7. Monitor for agitation. Based on this clinical assessment, patient does not have the capacity to make decisions regarding his discharge planning at this time. He needs to be in a supervised setting. Job#: [id number] EV
--- NOTE | 2018-06-06 13:55 | Progress Note ---
DATE: June 06, 2018 TIME: 7:30 a.m. OVERNIGHT: No events. REVIEW OF SYSTEMS: Unreliable. VITAL SIGNS: Reviewed. PHYSICAL EXAMINATION GENERAL APPEARANCE: A tired-appearing man resting in bed. HEENT: Anicteric. CARDIOVASCULAR: Normal S1 and S2. LUNGS: Moderate breath sounds. ABDOMEN: Soft, nontender. EXTREMITIES: No edema. SKIN: He has deep ulcers on the left facial region, left chest wall, bilateral knees and multiple other lesions. The ulcers are stage 3. PSYCHIATRIC: Flat affect. NEUROLOGIC: Awake. Oriented times 3. Moves all extremities. LABS: Reviewed. MEDICATIONS: Reviewed. ASSESSMENT: An 82-year-old man. 1. Stage-3 ulcers on multiple sites of the body. 2. Alcoholism. 3. Fall. 4. Physical deconditioning. 5. Hypokalemia. 6. Hypernatremia. 7. Normocytic anemia. 8. Hypertension. 9. Acute psychosis and bipolar disorder. 10. Gastroesophageal reflux disease. PLAN 1. Continue local wound care. 2. Continue antibiotics. 3. Continue antipsychotic medication. 4. Replace electrolytes as appropriate. Obtain potassium level now and replace as appropriate. 5. Discharge planning. Discharge to skilled facility once approved. Job#: [id number]
--- NOTE | 2018-06-06 14:30 | NUR ---
DRSGR CHANGED ORDERED PT TOLERATED WELL,DENIES PAIN
--- NOTE | 2018-06-06 16:35 | NUR ---
Nutrition Intervention Note RD Recommendation(s) for Physician: - Continue Cardiac diet - Recommend Ensure Enlive BID for adequacy - Recommend Vitamin C 500 mg BID to promote wound healing - Recommend Jethro 1 packet BID to promote wound healing Plan of Care: RD following, ONS, monitor adequacy and tolerance Nutrition reason for involvement: LOS RD Assessment: 06/06: 82 YOM admitted for bipolar disorder with multiple stage III ulcers on body per MD notes and PMH of ETOH abuse, HTN, bipolar disorder, dementia, and anxiety. Pt with bouts of confusion, at time of visit reports good appetite and po intake- noted 25-75% meal intake since admit. RN reports no GI distress or difficulties chewing or swallowing. Pt does not know UBW, denies wt loss. No family at bedside currently. Principal Problems/Diagnoses: Bipolar disorder, HTN, GERD, anemia, deconditioning, hypernatremia PMH: ETOH abuse, HTN, bipolar disorder, dementia, and anxiety GI: WDL Skin: Multiple stage III ulcers on body per MD notes, noted 1 wound to knee per skin assessment- not pressure related Labs: (06/06) K 3.6, (06/04) Na 145, BUN 10, Cr 0.81, Gluc 74, Ca 8.9 Meds: MVI with minerals, folic acid, thiamine, abx, seroquel, zofran Ht: 67 in Wt: 136 lb BMI: 21.3 IBW: 148 lb Malnutrition Evaluation (06/06/18) The patient does not meet criteria for a specified degree of malnutrition at this time. Will re-evaluate at follow-up as appropriate. Nutrition Prescription (Diet Order): Cardiac Estimated Nutritional Needs: 4653-7072 calories/day (25-35 kcal/kg CBW) 62-93 g protein/day (1-1.5 g pro/kg CBW) Diet Adequacy: Not meeting calorie needs, Not meeting protein needs Diet Education Needs Assessment: Diet education indicated, but patient not appropriate for education at this time. Nutrition Care Level: Moderate Nutrition Diagnosis: Inadequate energy and protein intake related to current medical conditions as evidenced by multiple wounds and not meeting needs. Goal: Patient will meet 75-100% of estimated needs by follow up Progress: N/A Interventions: Mineral modified diet, Commercial beverage, Multivitamin/mineral supplement therapy Monitoring/Evaluation: Total energy intake, Total protein intake, Modified diet, Liquid supplement Signed: Aminata Hobson RD, LD
--- NOTE | 2018-06-06 16:45 | Consultation ---
DICTATION ENDS ABRUPTLY REASON FOR CONSULTATION: Multiple wounds, infected. HPI: This patient is known to me from previously. He was in [place]. He is an 82-year-old white male who was originally found Job#: [id number] CATRINA
--- NOTE | 2018-06-06 16:53 | Consultation ---
DATE OF CONSULTATION: June 06, 2018 HISTORY OF PRESENT ILLNESS: This patient is well known to me from before. He is an 82-year-old white male who was found on the floor at home for some time. The patient has history of bipolar disorder, does not able to provide any meaningful information. History of alcoholism, anxiety, hypertension, dementia. He was originally in [place] with multiple wounds and the patient was seen by wound care. He was seen by me and he was also seen by psych. The patient was in the hospital during his discharge to skilled care facility. Apparently, the patient was coming back again here at this time and he was seen by wound care. He was not able to provide any meaningful information of his wounds, also have multiple wounds on the bilateral legs, stage I on sacral, on the hand. The patient was admitted. Wound care was consulted. Infectious disease was asked to see him today to make a recommendation to his antibiotic. Patient does not really provide any meaningful information. PAST MEDICAL HISTORY: As mentioned above. PAST SURGICAL HISTORY: Multiple debridement. ALLERGIES: NKA. SOCIAL HISTORY: Apparently, no smoking, drug abuse or alcohol use, but he used to be a heavy drinker. REVIEW OF SYSTEMS: Could not be obtained. PHYSICAL EXAMINATION GENERAL: He is alert, confused. VITALS: Stable. Currently afebrile. HEENT: Not icteric. NECK: Supple. CHEST: Clear bilateral. COR: S1, S2. No murmur. ABDOMEN: Soft. Bowel sounds present. EXTREMITIES: He has multiple wounds. All documented in the wound care notes. LABORATORY DATA: Reviewed. The patient old records reviewed. When he was in [place], apparently he had sepsis, atrial fibrillation, DVT, dementia. He had acute kidney failure, which resolved, gastroesophageal reflux disease, bipolar disorder. IMPRESSION AND PLAN 1. Multiple wounds, infected. Wound care is following. He is currently on piperacillin and tazobactam. At the present time, I do not see any pus drainage. I do not see any redness in the wounds. His blood culture is negative. Wound cultures showed some gram-positive cocci. He says it is getting better with the current choice of antibiotic. We will follow. We will discuss with wound care. Further recommendations to follow up. 2. Dementia. 3. History of bipolar. 4. Anemia of chronic disease. 5. Prognosis is guarded. Job#: [id number] VAS
[2018-06-06] MEDS ORDERED: VALPROATE 250MG/5ML ORAL LIQ 5ml GT SCH (17:00)
--- NOTE | 2018-06-06 19:35 | NUR ---
Visited patient in room during nursing rounds. Patient asleep but easily arousable. Patient is alert and oriented x2 (person and place). Patient appear calm at this time. Bed alarm active (level 2). Will monitor patient closely.
--- NOTE | 2018-06-06 21:20 | NUR ---
Held Seroquel 12.5mg PO. Patient appears very sleepy and just barely wakes up when asked question and quickly goes back to sleep.
[2018-06-06] MEDS ORDERED: SODIUM CHLORIDE 0.9% 50ML 50 ML ONE (21:37)
--- NOTE | 2018-06-06 22:15 | NUR ---
Patient awake and more appear more lucid. Patient appears calm and has no discomfort at this time. Bed alarm active (Level 2).
--- NOTE | 2018-06-06 22:40 | NUR ---
Patient confused and attempted to get up and out of bed on his own. Bed alarm rang and nurses and leadite man at bedside quickly and assisted patient back in bed. Patient then give Seroquel 12.5mg PO (as ordered in [facility]). Bed alarm activated zone 2. Will monitor patient closely.
[2018-06-07] VITALS (7 sets, daily range): BP systolic 135–191; BP diastolic 76–93
[2018-06-07] MEDS ORDERED: SODIUM CHLORIDE 0.9% 50ML 50 ML ONE ×2 (02:56→21:56)
[2018-06-07] MEDS: PIPER-TAZ 3.375 GM 50 ML IV SCH ×4 (03:13→21:30)
[2018-06-07] MEDS: TRAMADOL HCL 50 MG TAB PO SCH ×3 (05:56→18:00)
[2018-06-07] MEDS: FAMOTIDINE 20 MG/2 ML VIAL IV SCH ×2 (05:57→17:47)
--- NOTE | 2018-06-07 07:45 | NUR ---
PT IN BED SLEEPING NO S/S DISCOMFORT.
[2018-06-07] MEDS: PANTOPRAZOLE SOD 40 MG TABEC PO SCH (08:00)
--- NOTE | 2018-06-07 08:58 | Consultation ---
DATE OF CONSULTATION: June 07, 2018 CHIEF COMPLAINT: Facial wound. HISTORY OF PRESENT ILLNESS: The patient is an 82-year-old male with history of bipolar disorder, was found at home with face down for unknown durations. The patient was subsequently diagnosed with pressure ulcer on face and trunk as well as extremities, and after debridement and wound care, has current open wound on the face and trunk and consultation requested for possible wound coverage with skin graft. PAST MEDICAL HISTORY: As mentioned is significant for hypertension, alcoholism, dementia, bipolar disorder. SURGICAL HISTORY: Recent debridement of wound on face and trunk and extremity. ALLERGIES: HE HAD NO DRUG ALLERGY. SOCIAL HABITS: The patient has a history of alcohol abuse. REVIEW OF SYSTEMS: Unremarkable. EXAM VITAL SIGNS: Stable, afebrile. GENERAL: Patient is awake, responsive, in no apparent distress. HEENT: He has a 3 x 4 cm wound on the left face with clean wound base overlying the cheek bones with clean wound base with no bony exposure. Minimal inflammation. NECK: Supple. LUNGS: Clear. HEART: Regular rate and rhythm. ABDOMEN: Soft. EXTREMITIES: Without cyanosis or edema. ASSESSMENT: Pressure ulcers which has been debrided and progressive healing. PLAN: Continue wound care with ointment to promote natural healing. No need for skin grafting. Thank you for consultation. Job#: [id number] YANCY
[2018-06-07] MEDS: THIAMINE HCL 100 MG TAB PO SCH (09:00)
[2018-06-07] MEDS: FOLIC ACID 1 MG TAB PO SCH (09:00)
[2018-06-07] MEDS: LISINOPRIL 20 MG TAB PO SCH ×2 (09:00→17:00)
[2018-06-07] MEDS: ZINC OXIDE 30 GM TUBE TOP SCH ×2 (09:00→17:00)
[2018-06-07] MEDS: QUETIAPINE FUMARATE 25 MG TAB PO SCH ×3 (09:00→22:00)
[2018-06-07] MEDS: ZINC SULFATE 220 MG CAP PO SCH (09:00)
[2018-06-07] MEDS: METOPROLOL TARTRATE 50 MG TAB PO SCH ×3 (09:00→22:00)
[2018-06-07] MEDS: MEMANTINE 10 MG TAB PO SCH (09:00)
[2018-06-07] MEDS: MULTIVITAMINS/MINERALS TAB PO SCH (09:00)
--- NOTE | 2018-06-07 10:13 | Progress Note ---
DATE: June 07, 2018 TIME: 8:50 a.m. SUBJECTIVE: Overnight, the patient attempted to get out of bed. REVIEW OF SYSTEMS: Unreliable. PHYSICAL EXAMINATION VITAL SIGNS: Reviewed. GENERAL: A tired appearing man, resting in a chair. HEENT: Anicteric. CARDIOVASCULAR: Normal S1, S2. LUNGS: Moderate breath sounds. ABDOMEN: Soft. EXTREMITIES: No edema. SKIN: He has deep ulcers on the left facial region, left chest wall, bilateral knees and multiple other regions. Stage III ulcers. PSYCHIATRIC: Flat affect. NEUROLOGICAL: Alert, awake, oriented times 3. He moves all extremities. LABS: Reviewed. MEDICATIONS: Reviewed. ASSESSMENT: An 82-year-old man: 1. Stage III ulcer on multiple body sites/facial defect due to ulcer. 2. Alcoholism. 3. Fall. 4. Physical deconditioning. 5. Electrolyte derangement. 6. Normocytic anemia. 7. Hypotension. 8. Acute psychosis and bipolar disorder. 9. Gastroesophageal reflux disease. PLAN 1. Continue local wound care. 2. Continue antibiotic. 3. Surgical consultation for possible skin graft to the face. 4. to the facial wound/defect. 5. Follow up labs. 6. Physical therapy. 7. Discharge planning. Job#: [id number] YANCY
--- NOTE | 2018-06-07 11:55 | NUR ---
Visit made by the Spiritual Care Department Pastoral Visitor, Pee Morgan. PV provided pastoral presence, hospitality, and supportive listening. Pastoral Visitor informed pt/family of the scope of Conservation Science Teacher Services and availability. TISHA DE LUNA Manager [employer] Spiritual Care Department O: [phone] Pager: [phone] ([phone] number calling from)
--- NOTE | 2018-06-07 12:45 | NUR ---
spoke with dr benz re; pt having tremors orders written
--- NOTE | 2018-06-07 13:30 | NUR ---
PHYSICAL THERAPY HERE AMBULATED PT IN [place] ,PT STARTED SCREAMING TO TECH WANTED TO GO INTO ANOTHER PT ROOM AND THEY WOULD NOT LET HIM AND HE STARTED SCREAMIMNG AND TRYING TO GO IN ,ASSSISTED PT BACK TO BED MAX ASSIST.
[2018-06-07] MEDS: HYDRALAZINE HCL 25 MG TAB PO SCH ×2 (15:00→22:39)
--- NOTE | 2018-06-07 16:31 | NUR ---
CALL MADE TO THE MAT TEAM @ [phone]. SPOKE Khushbu CABELLO. GAVE NURSING STATION # AND MY CONTACT INFO FOR F/U.
--- NOTE | 2018-06-07 17:47 | NUR ---
PT UP IN BED EATING,MAT TEAM HERE TO EVALUATE.
--- NOTE | 2018-06-07 19:00 | NUR ---
MAT team personal service representative on the unit and just visited patient for evaluation on possible transfer to Psych Facility. Notes and official evaluation results pending.
[2018-06-07] MEDS: LORAZEPAM INJ 2 MG/ML VIAL IV PRN (19:29)
--- NOTE | 2018-06-07 19:29 | NUR ---
Patient visited in room and appear very agitated. Patient alert and oriented x1-2 (name and/or place). Patient getting very aggressive and thus was given Ativan 0.5mg IV (as ordered in EMAR prn). Bed alarm kept on level 2. Otherwise, no sign of distress or any discomfort at this time. Will monitor patient closely.
--- NOTE | 2018-06-07 19:32 | NUR ---
Bri (daysscft RN) spoke to nurse (from [facility] facility) and gave report regarding patient.
--- NOTE | 2018-06-07 21:04 | NUR ---
Received phone call from nurse (Alvin) of [facility] in [place], [place] regarding possible acceptance of patient to their facility. Alvin initially requested for pictures of wounds to faxed but nurse (Sigifredo) informed that it would not be appropriate to send pictures via fax and that it would be a possible HIPPA violation. Alvin decided he will drop by next day (06/09/18) around 9AM and assess patient himself for eligibility to their facility. Addendum: 06/08/18 at 0117 by Sigifredo Louise RN correction on visit day from Alvin - 06/08/18 instead of 06/09/18
--- NOTE | 2018-06-07 21:27 | NUR ---
Received phone call from MAT Team plastic products sales representative Lauri. Lauri Esquivel (nurse from [facility]) set to visit patient in AM (06/08/18).
[2018-06-07] MEDS ORDERED: SODIUM CHLORIDE 0.9% 250ML 250 ML ONE (23:11)
[2018-06-08] VITALS (8 sets, daily range): BP systolic 126–186; BP diastolic 60–86
[2018-06-08] MEDS ORDERED: SODIUM CHLORIDE 0.9% 50ML 50 ML ONE ×2 (03:15→06:07)
[2018-06-08] MEDS: PIPER-TAZ 3.375 GM 50 ML IV SCH ×3 (03:21→15:16)
[2018-06-08] MEDS: TRAMADOL HCL 50 MG TAB PO SCH ×4 (06:00→18:00)
[2018-06-08] MEDS: FAMOTIDINE 20 MG/2 ML VIAL IV SCH ×2 (06:00→17:20)
[2018-06-08 06:14] LABS: ANION GAP 15.1 mmol/L (8-16); BLOOD UREA NITROGEN 9 mg/dL (7-26); BUN/CREATININE RATIO 10 (6-25); CALCIUM 8.9 mg/dL (8.4-10.2); CARBON DIOXIDE 23 mmol/L (22-29); CHLORIDE 114 mmol/L (98-107); CREATININE, SERUM 0.94 mg/dL (0.72-1.25); EST GLOMERULAR FILTRATION RATE > 60 ML/MIN (60-); GLUCOSE 95 mg/dL (74-118); POTASSIUM 3.1 mmol/L (3.5-5.1); SODIUM 149 mmol/L (136-145)
--- NOTE | 2018-06-08 06:26 | Progress Note ---
DATE: June 08, 2018 TIME: 5:53 a.m. OVERNIGHT: No events noted. REVIEW OF SYSTEMS: Unreliable. PHYSICAL EXAMINATION VITAL SIGNS: Reviewed. GENERAL: A tired appearing man, resting in bed. HEENT: Anicteric. CARDIOVASCULAR: Normal S1, S2. LUNGS: Moderate breath sounds. ABDOMEN: Soft. EXTREMITIES: No edema. SKIN: He has deep ulcers on the left facial region, left chest wall region, bilateral knees and multiple other regions. Stage III ulcers. PSYCHIATRIC: Flat affect. NEUROLOGICAL: Awake, alert, and appropriate. LABS: Reviewed. MEDICATIONS: Reviewed. ASSESSMENT: An 82-year-old man 1. Stage III ulcer on multiple body sites/facial defect due to ulcer. 2. Alcoholism. 3. Fall. 4. Physical deconditioning. 5. Electrolyte derangement. 6. Normocytic anemia. 7. Hypotension. 8. Acute psychosis and bipolar disorder. 9. Gastroesophageal reflux disease. PLAN 1. Continue supportive care. 2. Continue local wound care. 3. Continue antibiotics. 4. Discharge planning: He has . We will await further discharge plan to skilled facility. Job#: [id number]
--- NOTE | 2018-06-08 07:26 | NUR ---
patient sleeping in bed, Not in any distress, bed alarm on,
[2018-06-08] MEDS: METOPROLOL TARTRATE 50 MG TAB PO SCH ×3 (08:46→22:06)
[2018-06-08] MEDS: LISINOPRIL 20 MG TAB PO SCH ×2 (08:46→17:16)
[2018-06-08] MEDS: FOLIC ACID 1 MG TAB PO SCH (08:46)
[2018-06-08] MEDS: QUETIAPINE FUMARATE 25 MG TAB PO SCH ×3 (08:46→22:06)
[2018-06-08] MEDS: HYDRALAZINE HCL 25 MG TAB PO SCH ×3 (08:46→22:06)
[2018-06-08] MEDS: ZINC SULFATE 220 MG CAP PO SCH (08:46)
[2018-06-08] MEDS: MULTIVITAMINS/MINERALS TAB PO SCH (08:46)
[2018-06-08] MEDS: MEMANTINE 10 MG TAB PO SCH (08:46)
[2018-06-08] MEDS: THIAMINE HCL 100 MG TAB PO SCH (08:46)
[2018-06-08] MEDS: PANTOPRAZOLE SOD 40 MG TABEC PO SCH (08:48)
[2018-06-08] MEDS: ZINC OXIDE 30 GM TUBE TOP SCH ×2 (09:05→17:20)
--- NOTE | 2018-06-08 09:42 | NUR ---
patient sitting up in bed, eating breakfast. tolerated with his morning meds, bed alarm on
--- NOTE | 2018-06-08 09:55 | NUR ---
Notified Dr Michel regarding low potassium, new orders recvd
--- NOTE | 2018-06-08 10:40 | NUR ---
Mr Esquivel(nurse) [facility] here for Assessment on patient, Had look on patient's wound, He stated patient have stage 2 wound(on chest & face) , also he is on IV antibiotic, they dont have IV treatment over there so he will talk with his DON first and will let know about their acceptance .
[2018-06-08] MEDS: LORAZEPAM INJ 2 MG/ML VIAL IV PRN (10:52)
--- NOTE | 2018-06-08 10:52 | NUR ---
Rechecked BP its 114/63 . patient agitated, tried to redirect him, screaming , PRN med for agitation given, he refused SCDs
[2018-06-08] MEDS: POTASSIUM CHLORIDE 20 MEQ TAB CR PO SCH ×2 (12:23→15:05)
[2018-06-08] MEDS ORDERED: POTASSIUM CHLORIDE 20 MEQ TAB CR PO ONE (15:30)
--- NOTE | 2018-06-08 17:45 | NUR ---
Dressing changed on face, chest and both knees, tolerated well, denies any pain
--- NOTE | 2018-06-08 17:55 | NUR ---
Patient awake, Refused tramadol, denies any pain,
--- NOTE | 2018-06-08 22:01 | NUR ---
BED ALARM WENT OFF, UPON ASSESSMENT, THE PATIENT WAS OBSERVED STANDING BETWEEN THE SIDE RAILS. HE WAS TRYING TO WALK AND HIS GAIT IS VERY UNSTEADY. ASSISTED TO THE WHEELCHAIR AND NOW SITTING AT THE NURSES STATION FOR CLOSE OBSERVATION. POCKET OPERATOR NOTIFY FOR PATIENT SAFETY, SITTER NOW PROVIDED.
[2018-06-09] VITALS (8 sets, daily range): BP systolic 106–162; BP diastolic 58–78
[2018-06-09] MEDS: TRAMADOL HCL 50 MG TAB PO SCH ×2 (00:17→05:48)
--- NOTE | 2018-06-09 02:08 | NUR ---
PATIENT IS SOUNDLY ASLEEP, NO DISTRESS OBSERVED. SITTER AT THE BEDSIDE.
[2018-06-09 05:38] LABS: HEMATOCRIT 35.5 % (38.2-49.6); HEMOGLOBIN 11.1 g/dL (14.0-18.0)
[2018-06-09] MEDS: FAMOTIDINE 20 MG/2 ML VIAL IV SCH ×2 (05:48→18:35)
[2018-06-09 05:55] LABS: ANION GAP 15.4 mmol/L (8-16); BLOOD UREA NITROGEN 9 mg/dL (7-26); BUN/CREATININE RATIO 11 (6-25); CALCIUM 9.1 mg/dL (8.4-10.2); CARBON DIOXIDE 20 mmol/L (22-29); CHLORIDE 114 mmol/L (98-107); CREATININE, SERUM 0.83 mg/dL (0.72-1.25); EST GLOMERULAR FILTRATION RATE > 60 ML/MIN (60-); GLUCOSE 95 mg/dL (74-118); MAGNESIUM 1.2 MG/DL (1.3-2.1); PHOSPHORUS 2.6 MG/DL (2.3-4.7); POTASSIUM 3.4 mmol/L (3.5-5.1); SODIUM 146 mmol/L (136-145)
--- NOTE | 2018-06-09 06:42 | NUR ---
PATIENT IS SOUNDLY ASLEEP, EASY TO AROUSE. CALL LIGHT IN EASY REACH, SITTER WITH THE PATIENT.
--- NOTE | 2018-06-09 07:22 | NUR ---
PATIENT IN BED RESTING WITH EYES CLOSED, NO RESPIRATORY DISTRESS OBSERVED. SITTER AT BED SIDE. DRESSING INTACT TO FACE, KNEES, AND ELBOW. BED IN LOWER POSITION, CALL LIGHT AT REACH.
[2018-06-09] MEDS: PANTOPRAZOLE SOD 40 MG TABEC PO SCH (07:46)
--- NOTE | 2018-06-09 09:14 | Progress Note ---
DATE: June 09, 2018 TIME: 5:45 a.m. OVERNIGHT: Patient became agitated again and attempted to get out of bed. Sitter was reinstituted. REVIEW OF SYSTEMS: Unreliable. OBJECTIVE VITAL SIGNS: Reviewed. GENERAL: A tired appearing man, resting in bed. HEENT: Anicteric. CARDIOVASCULAR: Normal S1 and S2. LUNGS: Moderate breath sounds. ABDOMEN: Soft, nontender, and nondistended. EXTREMITIES: No edema. SKIN: He has multiple deep ulcers on the left facial region, left chest wall, bilateral knees, and multiple other regions. He has stage III ulcers. PSYCHIATRIC: Flat affect. NEUROLOGICAL: Awake, alert, and appropriate at this time. LABS: Reviewed. MEDICATIONS: Reviewed. ASSESSMENT: An 82-year-old man: 1. Stage III ulcer on multiple body sites/facial defect due to ulcer. 2. Alcoholism. 3. Fall. 4. Physical deconditioning. 5. Electrolyte derangement. 6. Normocytic anemia. 7. Hypotension. 8. Acute psychosis and bipolar disorder. 9. Gastroesophageal reflux disease. PLAN 1. Continue supportive care. 2. Continue sitter at this time. 3. Obtain labs for BNP, H and H, and electrolytes. 4. Psychiatric medication adjustment per psychiatry. 5. Monitor closely. Job#: [id number] NILA
[2018-06-09] MEDS: LISINOPRIL 20 MG TAB PO SCH ×2 (09:22→17:21)
[2018-06-09] MEDS: ZINC OXIDE 30 GM TUBE TOP SCH ×2 (09:22→17:21)
[2018-06-09] MEDS: HYDRALAZINE HCL 25 MG TAB PO SCH ×3 (09:22→21:09)
[2018-06-09] MEDS: QUETIAPINE FUMARATE 25 MG TAB PO SCH ×3 (09:22→21:09)
[2018-06-09] MEDS: MEMANTINE 10 MG TAB PO SCH (09:22)
[2018-06-09] MEDS: ZINC SULFATE 220 MG CAP PO SCH (09:22)
[2018-06-09] MEDS: FOLIC ACID 1 MG TAB PO SCH (09:22)
[2018-06-09] MEDS: METOPROLOL TARTRATE 50 MG TAB PO SCH ×3 (09:22→21:00)
[2018-06-09] MEDS: MULTIVITAMINS/MINERALS TAB PO SCH (09:22)
[2018-06-09] MEDS: THIAMINE HCL 100 MG TAB PO SCH (09:22)
--- NOTE | 2018-06-09 11:20 | NUR ---
PATIENT AMBULATING SLOWLY IN HALLWAY WITH PHYSICAL THERAPY, NO RESPIRATORY DISTRESS OBSERVED. WILL CONTINUE TO MONITOR.
[2018-06-09] MEDS: PIPER-TAZ 3.375 GM 50 ML IV SCH ×2 (14:52→21:11)
[2018-06-09] MEDS: LORAZEPAM INJ 2 MG/ML VIAL IV PRN (17:42)
[2018-06-09] MEDS: HALOPERIDOL LACTATE 5 MG/ML VIAL IM PRN (18:00)
[2018-06-09] MEDS ORDERED: POTASSIUM CHLORIDE 20 MEQ TAB CR PO NR (19:30)
--- NOTE | 2018-06-09 19:59 | NUR ---
Report received from AM nurse,walking round done. Patient alert/oriented x3 but little confused.Denied pain and no SOB. No respiratory distress noted. Sitter 1:1 in the bedside. Bed in lower position,locked. Call bel within reach. Will continue to monitor.
[2018-06-10] VITALS (8 sets, daily range): BP systolic 102–164; BP diastolic 54–91
[2018-06-10] MEDS: HALOPERIDOL LACTATE 5 MG/ML VIAL IM PRN ×2 (01:35→13:20)
[2018-06-10] MEDS: PIPER-TAZ 3.375 GM 50 ML IV SCH ×3 (05:58→21:21)
[2018-06-10] MEDS: FAMOTIDINE 20 MG/2 ML VIAL IV SCH ×2 (05:58→19:04)
[2018-06-10] MEDS: LABETALOL HCL 5 MG/ML 20ML VIAL IV PRN (05:59)
--- NOTE | 2018-06-10 07:19 | NUR ---
Report given to AM nurse,walking round done.
--- NOTE | 2018-06-10 07:22 | NUR ---
PATIENT IN BED RESTING WITH NO RESPIRATORY DISTRESS. DRESSING INTACT TO MULTIPLE WOUNDS. BED IN LOWER POSITION , CALL LIGHT AT REACH.
[2018-06-10] MEDS: PANTOPRAZOLE SOD 40 MG TABEC PO SCH (07:49)
[2018-06-10] MEDS: FOLIC ACID 1 MG TAB PO SCH (09:09)
[2018-06-10] MEDS: MULTIVITAMINS/MINERALS TAB PO SCH (09:09)
[2018-06-10] MEDS: HYDRALAZINE HCL 25 MG TAB PO SCH ×3 (09:09→21:03)
[2018-06-10] MEDS: METOPROLOL TARTRATE 50 MG TAB PO SCH ×3 (09:09→21:03)
[2018-06-10] MEDS: MEMANTINE 10 MG TAB PO SCH (09:09)
[2018-06-10] MEDS: LISINOPRIL 20 MG TAB PO SCH ×2 (09:10→17:14)
[2018-06-10] MEDS: QUETIAPINE FUMARATE 25 MG TAB PO SCH ×3 (09:10→21:03)
[2018-06-10] MEDS: ZINC OXIDE 30 GM TUBE TOP SCH ×2 (09:10→17:14)
[2018-06-10] MEDS: THIAMINE HCL 100 MG TAB PO SCH (09:10)
[2018-06-10] MEDS: ZINC SULFATE 220 MG CAP PO SCH (09:10)
[2018-06-10 10:12] LABS: ANION GAP 13.3 mmol/L (8-16); BLOOD UREA NITROGEN 11 mg/dL (7-26); BUN/CREATININE RATIO 13 (6-25); CARBON DIOXIDE 24 mmol/L (22-29); CHLORIDE 115 mmol/L (98-107); CREATININE, SERUM 0.88 mg/dL (0.72-1.25); EST GLOMERULAR FILTRATION RATE > 60 ML/MIN (60-); GLUCOSE 125 mg/dL (74-118); POTASSIUM 3.3 mmol/L (3.5-5.1); SODIUM 149 mmol/L (136-145)
[2018-06-10] MEDS: QUETIAPINE FUMARATE 25 MG TAB PO PRN (12:25)
--- NOTE | 2018-06-10 13:51 | NUR ---
PATIENT NOTED WITH AGITATION, PRN MEDICATION ADMINISTERED ORDERED. IN BED WATCHING TV AT THIS TIME, WILL CONTINUE TO MONITOR.
[2018-06-10] MEDS: LORAZEPAM INJ 2 MG/ML VIAL IV PRN (14:15)
--- NOTE | 2018-06-10 15:30 | NUR ---
SPOKE WITH DR VALERIO HERNÁNDEZ REGARDING PATIENT'S LOW B/P AND MEDICATIONS HELD, NO NEW ORDER RECEIVED.
[2018-06-10] MEDS ORDERED: POTASSIUM CHLORIDE 20MEQ/100ML 100 ML IV ONE (16:45)
--- NOTE | 2018-06-10 17:13 | NUR ---
[id number] Progress Note Magnolia Tran PRINTING SUPERVISOR-C
--- NOTE | 2018-06-10 19:20 | NUR ---
Walking round performed and observed patient lying in bed A&Ox2. Denies pain/discomfort at this time. No concerns voiced at this time. Sitter 1:1 at bed side. bed in lowest/locked position. Side rails are upx2 and call light in reach.
[2018-06-10] MEDS: SODIUM CHLORIDE 0.9% 1000ML 500 ML IV SCH (20:42)
--- NOTE | 2018-06-10 22:10 | Progress Note ---
DATE: June 10, 2018 TIME: 11:45 a.m. OVERNIGHT: Patient continues with intermittent agitation with one-to-one sitter at bedside. REVIEW OF SYSTEMS: Unreliable. PHYSICAL EXAMINATION VITAL SIGNS: T 97.5, P 68, R 20, BP 102/54, and SpO2 on room air 95%. GENERAL APPEARANCE: This is a very tired-appearing man, resting in bed. HEENT: Normocephalic. No sinus tenderness. Nares patent. Oral mucosa dry and intact. NECK: Trachea midline without JVD. CV: S1 and S2 auscultated without clicks, murmurs, or rubs. LUNGS: Bilateral breath sounds. CTA with moderate excursion. ABDOMEN: Soft, nontender, and nondistended. EXTREMITIES: No edema present. SKIN: Dressings to left chest wall, bilateral knees, lower extremities, and left facial region dressings clean, dry, and intact. PSYCHIATRIC: Flat affect with labile conversational arch. Easily agitated during exam. NEUROLOGIC: Awake, alert, and answers questions appropriately with redirection. LABS: AKILAH 149, K 3.3, CL 115, CO2 of 24, GAP 13.3, and BUN is 11 with a.m. glucose 125. Prior days, H and H 11.1 and 35.5, stable. MEDICATIONS 1. Zosyn q.8 hours IV. 2. P.r.n. Ativan 3. P.r.n. Haldol. 4. P.r.n. Seroquel. 5. Schedule Seroquel 12.5 b.i.d. 6. Lisinopril b.i.d. 20 mg by mouth. 7. Topical diazoxide per protocol for wounds. 8. Zinc sulfate 220 mg p.o. daily. 9. Thiamine 100 mg p.o. daily. 10. Hydralazine 50 mg scheduled p.o. t.i.d. 11. Namenda 5 mg p.o. daily. 12. MVI 1 p.o. daily. 13. Metoprolol 75 mg p.o. t.i.d. 14. Folic acid 1 mg p.o. daily. 15. Protonix 40 mg a.c. breakfast by mouth. 16. P.r.n. IV labetalol. 17. Q.12 hour Pepcid IV. 18. Q.4 hour IV Zofran. ASSESSMENT AND PLAN: This is an 82-year-old man 1. Stage III ulcer on multiple body sites to include facial wound; wound care consulting, continue treatment. ID consult concerning wounds appreciated. 2. Alcoholism. Supportive care with sitter, supportive nutritional p.o. regimen as well. 3. Fall with physical deconditioning. Continue supportive care. 4. Electrolyte derangement. K replaced this a.m. Follow values in the morning. 5. Normocytic anemia. We will follow up H and H. 6. Hypotension. Monitor closely. Hold meds as indicated. 7. Acute psychosis and bipolar disorder. Psychiatric medication per psychiatry. 8. Gastroesophageal reflux disease. IV Pepcid. 9. Prophylaxis. IV Pepcid and sequential compression devices 10. Disposition: Case management notes reviewed. Continue with one-to-one sitter for agitation and with psychiatric input. DICTATED BY: Mary Tran NP Job#: [id number] RODO
[2018-06-11 00:37] VITALS: BP 153/87
[2018-06-11] MEDS: SODIUM CHLORIDE 0.9% 1000ML 500 ML IV SCH ×3 (02:45→22:45)
[2018-06-11 04:00] VITALS: BP 126/78
[2018-06-11] MEDS: FAMOTIDINE 20 MG/2 ML VIAL IV SCH ×2 (05:22→17:00)
[2018-06-11] MEDS: PIPER-TAZ 3.375 GM 50 ML IV SCH ×3 (05:23→22:00)
[2018-06-11 07:41] VITALS: BP 139/67
[2018-06-11] MEDS: ZINC OXIDE 30 GM TUBE TOP SCH ×2 (08:30→16:20)
[2018-06-11 08:52] LABS: ANION GAP 14.5 mmol/L (8-16); BLOOD UREA NITROGEN 10 mg/dL (7-26); BUN/CREATININE RATIO 11 (6-25); CALCIUM 9.1 mg/dL (8.4-10.2); CARBON DIOXIDE 22 mmol/L (22-29); CHLORIDE 114 mmol/L (98-107); CREATININE, SERUM 0.91 mg/dL (0.72-1.25); EST GLOMERULAR FILTRATION RATE > 60 ML/MIN (60-); GLUCOSE 93 mg/dL (74-118); POTASSIUM 3.5 mmol/L (3.5-5.1); SODIUM 147 mmol/L (136-145)
[2018-06-11] MEDS: HYDRALAZINE HCL 25 MG TAB PO SCH ×3 (09:21→21:06)
[2018-06-11] MEDS: PANTOPRAZOLE SOD 40 MG TABEC PO SCH (09:21)
[2018-06-11] MEDS: FOLIC ACID 1 MG TAB PO SCH (09:21)
[2018-06-11] MEDS: QUETIAPINE FUMARATE 25 MG TAB PO SCH ×2 (09:22→16:20)
[2018-06-11] MEDS: METOPROLOL TARTRATE 50 MG TAB PO SCH ×4 (09:22→21:07)
[2018-06-11] MEDS: ZINC SULFATE 220 MG CAP PO SCH (09:22)
[2018-06-11] MEDS: THIAMINE HCL 100 MG TAB PO SCH (09:22)
[2018-06-11] MEDS: MULTIVITAMINS/MINERALS TAB PO SCH (09:22)
[2018-06-11] MEDS: LISINOPRIL 20 MG TAB PO SCH ×2 (09:22→16:20)
[2018-06-11] MEDS: MEMANTINE 10 MG TAB PO SCH (09:22)
[2018-06-11 11:42] VITALS: BP 126/86
--- NOTE | 2018-06-11 12:20 | Progress Note ---
DATE: June 11, 2018 PSYCHIATRIC PROGRESS NOTE INTERVAL HISTORY: Patient evaluated and events noted. Patient is currently lying on his bed. He is alert, awake, oriented to situation. He is less anxious, but continues to be confused at times. He claims that he is sleeping and eating well. He denies any hallucinations and/or any suicidal ideations. He is taking his medications and denies any side effects from his medications. As per the nursing staff, patient is intermittently confused, but not agitated or inappropriate. He is tolerating his medications well. DIAGNOSIS AXIS I: Unspecified psychosis/unspecified dementia with behavioral disturbances. PLAN OF CARE 1. Continue Seroquel. 2. Continue p.r.n. Seroquel. 3. Continue p.r.n. Ativan. 4. Continue p.r.n. IM Haldol. 5. Continue Namenda. 6. Monitor for agitation. Job#: [id number] VAS
--- NOTE | 2018-06-11 13:00 | NUR ---
SPOKE WITH MIGUEL ÁNGEL MUNGUIA WITH THE MAT TEAM, WHOM STATES THIS PT IS BEING DENIED DUE TO THE MEDICAL TREATMENT NEEDED TO CARE FOR HIM. SHE STATES WE NEED TO GET WOUND CARE D/C'D AND WE CAN GET HIM ACCEPTED. HE IS BEING CONSIDERED NOW AT [facility] AND [facility]. [facility]UE TO NOT BEING ABLE TO ACCOMMODATE. DISCUSSED WITH TEAM. WHEN MEDICAL TREATMENT IS DC'D THEN CAN FAX TO [phone].
[2018-06-11] MEDS: HALOPERIDOL LACTATE 5 MG/ML VIAL IM PRN ×2 (13:10→23:00)
--- NOTE | 2018-06-11 13:20 | NUR ---
Wound care given per MD's orders. No signs of infection noted at this time. Bed locked and in low position, call light within reach, 1:[address], will continue to monitor.
[2018-06-11] MEDS ORDERED: ZIPRASIDONE 20 MG VIAL IM ONE (15:15)
[2018-06-11 15:59] VITALS: BP 140/72
--- NOTE | 2018-06-11 16:03 | NUR ---
MAT Team contacted facility stating that patient got denied by [facility], and got reinitiated to [facility]. Will continue to monitor.
--- NOTE | 2018-06-11 17:30 | Progress Note ---
DATE: June 11, 2018 MEDICINE PROGRESS NOTE TIME OF SERVICE: 9:15 a.m. SUBJECTIVE: Overnight no events. REVIEW OF SYSTEMS: Unreliable. VITAL SIGNS: Have been reviewed. PHYSICAL EXAMINATION GENERAL APPEARANCE: A tired-appearing man resting in bed. HEENT: Anicteric. CARDIOVASCULAR: Normal S1/S2. LUNGS: Moderate breath sounds. ABDOMEN: Soft, nontender, nondistended. EXTREMITIES: No edema. SKIN: He has multiple ulcers stage 3. He has a deep fascial ulcer on the left facial region and a left chest deep ulcer, bilateral knee ulcers and various other ulcers. PSYCHIATRIC: Flat affect. NEUROLOGICALLY: Awake, appropriate. LABS: Reviewed. MEDICATIONS: Reviewed. ASSESSMENT: An 82-year-old man. 1. Stage 3 ulcers on multiple body sites/facial defect due to ulcer. 2. Alcoholism. 3. Fall. 4. Physical deconditioning. 5. Electrolyte derangement. 6. Normocytic anemia. 7. Hypotension. 8. Acute psychosis and bipolar disorder. 9. Gastroesophageal reflux disease. 10. Hypernatremia. PLAN 1. Continue medication regimen. Defer to Psychiatry regarding management of psychiatric medications. 2. Sitter as needed. 3. Continue to follow labs. 4. Patient is improving. 5. Continue local wound care. 6. Discharge planning to skilled facility. 7. Follow up sodium level. Job#: [id number] EV
--- NOTE | 2018-06-11 19:08 | NUR ---
RECEIVED PT IN BED CONFUSED RESPIRATIONS ARE EVEN AND UNLABORED .MULTIPLE WOUNDS WITH DRESSING .SITTER AT THE BEDSIDE .CALL GAMBOA WITH IN REACH .CONTINUE TO MONITOR
[2018-06-11 20:00] VITALS: BP 134/63
[2018-06-12] VITALS: BP 145/78
[2018-06-12 01:40] VITALS: BP 145/78
[2018-06-12 04:00] VITALS: BP 151/76
--- NOTE | 2018-06-12 06:14 | NUR ---
PT RESTING NO ACUTE DISTRESS NOTED SITTER NEAR TO THE BEDSIDE .CALL GAMBOA WITH IN REACH .CONTINUE TO MONITOR
[2018-06-12] MEDS: PIPER-TAZ 3.375 GM 50 ML IV SCH ×3 (06:49→22:00)
[2018-06-12] MEDS: FAMOTIDINE 20 MG/2 ML VIAL IV SCH ×2 (06:49→17:42)
--- NOTE | 2018-06-12 07:19 | NUR ---
REPORT GIVEN TO THE ON COMING NURSE.
[2018-06-12 07:52] VITALS: BP 162/98
[2018-06-12] MEDS: ZIPRASIDONE 20 MG VIAL IM PRN (08:00)
[2018-06-12] MEDS: HYDRALAZINE HCL 25 MG TAB PO SCH ×3 (08:35→21:00)
[2018-06-12] MEDS: PANTOPRAZOLE SOD 40 MG TABEC PO SCH (08:35)
[2018-06-12] MEDS: FOLIC ACID 1 MG TAB PO SCH (08:35)
[2018-06-12] MEDS: MEMANTINE 10 MG TAB PO SCH (08:36)
[2018-06-12] MEDS: MULTIVITAMINS/MINERALS TAB PO SCH (08:36)
[2018-06-12] MEDS: LISINOPRIL 20 MG TAB PO SCH ×2 (08:36→17:00)
[2018-06-12] MEDS: QUETIAPINE FUMARATE 25 MG TAB PO SCH ×2 (08:36→17:00)
[2018-06-12] MEDS: ZINC OXIDE 30 GM TUBE TOP SCH ×2 (08:36→17:42)
[2018-06-12] MEDS: THIAMINE HCL 100 MG TAB PO SCH (08:36)
[2018-06-12] MEDS: ZINC SULFATE 220 MG CAP PO SCH (08:36)
[2018-06-12] MEDS: METOPROLOL TARTRATE 50 MG TAB PO SCH ×3 (08:36→21:00)
--- NOTE | 2018-06-12 11:00 | NUR ---
Wound care given per MD's orders, patient tolerated well. Bed locked and in low position, call light within reach, will continue to monitor.
[2018-06-12 11:52] VITALS: BP 152/81
[2018-06-12] MEDS: SODIUM CHLORIDE 0.9% 1000ML 500 ML IV SCH (13:30)
--- NOTE | 2018-06-12 13:43 | NUR ---
SPOKE WITH DR ZAPATA WHOM STATES PT IS UNABLE TO MAKE SOUND DECISIONS AND NEEDS MAIL MESSENGER CARE SUGGESTED TO SEND CLINICALS TO [facility], [facility] TO [phone]
--- NOTE | 2018-06-12 15:12 | NUR ---
LEFT NOTE ON CHART FOR DR LUO TO COMPLETE A NOTE ON MENTAL CAPACITY OF THIS PT.
--- NOTE | 2018-06-12 15:48 | NUR ---
PUTTING DISCHARGE ON HOLD REQUESTING DR LUO TO DO A CAPACITY TO GET AND EMERGENCY GUARDIANSHIP STARTED.
[2018-06-12 15:59] VITALS: BP 175/80
[2018-06-12] MEDS: HALOPERIDOL LACTATE 5 MG/ML VIAL IM PRN (16:30)
--- NOTE | 2018-06-12 16:30 | NUR ---
Patient started getting agitated, when attempted to give water to follow oral medications, patient swung arm and spilled water at nurse on duty, patient re-assured without success.
--- NOTE | 2018-06-12 19:36 | NUR ---
RECEIVED PT IN BED AOX1 .NO ACUTE DISTRESS NOTED .PT DENIES PAIN .SITTER AT THE SIDE OF THE BED .CALL GAMBOA WITH IN REACH,
[2018-06-13] VITALS (7 sets, daily range): BP systolic 123–175; BP diastolic 60–82
[2018-06-13] MEDS: SODIUM CHLORIDE 0.9% 1000ML 500 ML IV SCH ×3 (02:23→14:20)
[2018-06-13] MEDS: PIPER-TAZ 3.375 GM 50 ML IV SCH ×3 (06:20→21:12)
[2018-06-13] MEDS: FAMOTIDINE 20 MG/2 ML VIAL IV SCH ×2 (06:20→17:26)
--- NOTE | 2018-06-13 06:32 | NUR ---
PT CONFUSED BUT RESTED DURING THE NIGHT .NO ACUTE DISTRESS NOTED .CONTINUE TO MONITOR
--- NOTE | 2018-06-13 07:25 | NUR ---
RECEIVED PATIENT RESTING IN BED. NO S/S OF DISTRESS NOTED. SITTER AT BEDSIDE. CALL LIGHT WITHIN REACH. BED IN THE LOWEST POSITION. BED ALARM ON.
--- NOTE | 2018-06-13 07:46 | NUR ---
REPORT GIVEN TO THE ON COMING NURSE
[2018-06-13] MEDS: FOLIC ACID 1 MG TAB PO SCH (08:56)
[2018-06-13] MEDS: METOPROLOL TARTRATE 50 MG TAB PO SCH ×3 (08:56→20:49)
[2018-06-13] MEDS: HYDRALAZINE HCL 25 MG TAB PO SCH ×3 (08:56→20:49)
[2018-06-13] MEDS: MULTIVITAMINS/MINERALS TAB PO SCH (08:56)
[2018-06-13] MEDS: PANTOPRAZOLE SOD 40 MG TABEC PO SCH (08:56)
[2018-06-13] MEDS: QUETIAPINE FUMARATE 25 MG TAB PO SCH ×2 (08:57→17:03)
[2018-06-13] MEDS: LISINOPRIL 20 MG TAB PO SCH ×2 (08:57→17:03)
[2018-06-13] MEDS: ZINC SULFATE 220 MG CAP PO SCH (08:57)
[2018-06-13] MEDS: MEMANTINE 10 MG TAB PO SCH (08:57)
[2018-06-13] MEDS: THIAMINE HCL 100 MG TAB PO SCH (08:57)
[2018-06-13] MEDS: ZINC OXIDE 30 GM TUBE TOP SCH ×2 (08:59→17:03)
[2018-06-13] MEDS: ZIPRASIDONE 20 MG VIAL IM PRN ×2 (09:05→18:10)
--- NOTE | 2018-06-13 13:22 | NUR ---
SPOKE WITH DR ZAPATA AND HE STATES HE HAS ONLY SEEN THE PT 4 TIMES AND [address] IS NOT THE [address] TO START A GUARDIANSHIP PROCESS, HE STATES THE PT SHOULD GO TO [facility] AND BE FOLLOWED UP THERE. HE STATES THAT IF THERE ANY QUESTIONS THAT ADMINISTRATION SHOULD CALL HIM
--- NOTE | 2018-06-13 16:07 | NUR ---
Nutrition Intervention Note RD Recommendation(s) for Physician: - Consult TEST CONDUCTOR for evaluation for diet texture evaluation related to varied intake - Continue Cardiac diet - Recommend Ensure Enlive BID for adequacy - Recommend Vitamin C 500 mg BID to promote wound healing - Recommend Jethro 1 packet BID to promote wound healing Plan of Care: RD following, ONS, monitor adequacy and tolerance Nutrition reason for involvement: LOS RD Assessment: 06/13: Follow-up. Chart reviewed. Discussed with nursing. Visited pt in room who reports was sitting in chair for lunch. Sitter in room assisting pt with meal. Pt intake today 75 and 100%, per chart reviewed varied from 25-100%. Recs remain as above. Will cont to monitor. 06/06: 82 YOM admitted for bipolar disorder with multiple stage III ulcers on body per MD notes and PMH of ETOH abuse, HTN, bipolar disorder, dementia, and anxiety. Pt with bouts of confusion, at time of visit reports good appetite and po intake- noted 25-75% meal intake since admit. RN reports no GI distress or difficulties chewing or swallowing. Pt does not know UBW, denies wt loss. No family at bedside currently. Principal Problems/Diagnoses: Bipolar disorder, HTN, GERD, anemia, deconditioning, hypernatremia PMH: ETOH abuse, HTN, bipolar disorder, dementia, and anxiety GI: WDL Skin: Multiple stage III ulcers on body per MD notes, noted 1 wound to knee per skin assessment- not pressure related Labs: 06/13: Na 146, K 3.4, Mg 1.2 (06/06) K 3.6, (06/04) Na 145, BUN 10, Cr 0.81, Gluc 74, Ca 8.9 Meds: MVI with minerals, folic acid, thiamine, abx, seroquel, zofran Ht: 67 in Wt: 136 lb BMI: 21.3 IBW: 148 lb Malnutrition Evaluation (06/06/18) The patient does not meet criteria for a specified degree of malnutrition at this time. Will re-evaluate at follow-up as appropriate. Nutrition Prescription (Diet Order): Cardiac Estimated Nutritional Needs: 2258-2075 calories/day (25-35 kcal/kg CBW) 62-93 g protein/day (1-1.5 g pro/kg CBW) Diet Adequacy: meeting calorie needs, meeting protein needs Diet Education Needs Assessment: Diet education indicated, but patient not appropriate for education at this time. Nutrition Care Level: low Nutrition Diagnosis: Inadequate energy and protein intake related to current medical conditions as evidenced by multiple wounds and not meeting needs. Goal: Patient will meet 75-100% of estimated needs by follow up (goal met) Progress: meeting needs Interventions: Mineral modified diet, Commercial beverage, Multivitamin/mineral supplement therapy Monitoring/Evaluation: Total energy intake, Total protein intake, Modified diet, Liquid supplement Signed: Deirdre Mendes RD, JOSE R
[2018-06-13] MEDS: HALOPERIDOL LACTATE 5 MG/ML VIAL IM PRN (16:20)
--- NOTE | 2018-06-13 19:30 | NUR ---
patient recieved lying quietly in bed. patient appears to be sleeping at this time. respirations even and unlabored. ivf continue to infuse without difficulty. no signs of pain/discomfort noted. patient remains on 1:1 for safety. pm assessment complete. 1:1 instructed to call me for assistance when needed.
--- NOTE | 2018-06-13 19:39 | NUR ---
REPORT GIVEN TO ONCOMING NURSE. PATIENT RESTING IN BED. NO S/S OF DISTRESS NOTED. SITTER AT BEDSIDE. CALL LIGHT WITHIN REACH. BED IN THE LOWEST POSITION.
--- NOTE | 2018-06-13 22:27 | Progress Note ---
DATE: June 13, 2018 PSYCHIATRIC PROGRESS NOTE He is an 82-year-old male, in room #296. Patient evaluated and events noted. INTERVAL HISTORY: Patient is currently lying on his bed. He is alert, awake, oriented to self and situation. He states that he is feeling better. He is less anxious and denies feeling depressed. He denies any hallucinations and/or any suicidal ideations. He claims that he is sleeping and eating well. Patient appears to have major cognitive deficits with poor memory. He does not have the capacity to make decisions regarding his treatment and discharge planning. As per the nursing staff, he has been intermittently restless, but not agitated. ASSESSMENT: 1. Unspecified psychosis. 2. Unspecified dementia with behavioral disturbances. PLAN OF CARE: Continue current medications. I recommended patient should be discharged in a supervised setting like a SNF or a [facility] since in my clinical opinion patient is not able to take care of himself and needs help with his ADLs. This was conveyed to the nursing staff and case management. Job#: [id number]
[2018-06-14] VITALS (10 sets, daily range): BP systolic 107–167; BP diastolic 63–89
[2018-06-14] MEDS: LABETALOL HCL 5 MG/ML 20ML VIAL IV PRN (00:09)
[2018-06-14] MEDS: PIPER-TAZ 3.375 GM 50 ML IV SCH ×3 (05:10→22:07)
[2018-06-14] MEDS: FAMOTIDINE 20 MG/2 ML VIAL IV SCH ×2 (05:10→17:10)
--- NOTE | 2018-06-14 07:15 | NUR ---
RECEIVED PATIENT RESTING IN BED. NO S/S OF DISTRESS NOTED. SITTER AT BEDSIDE. CALL LIGHT WITHIN REACH. BED ALARM ON. BED IN THE LOWEST POSITION.
--- NOTE | 2018-06-14 07:32 | NUR ---
PUT GUARDIANSHIP FORM ON CHART FOR DR LUO.
[2018-06-14] MEDS: FOLIC ACID 1 MG TAB PO SCH (08:18)
[2018-06-14] MEDS: MULTIVITAMINS/MINERALS TAB PO SCH (08:18)
[2018-06-14] MEDS: HYDRALAZINE HCL 25 MG TAB PO SCH ×3 (08:18→21:00)
[2018-06-14] MEDS: PANTOPRAZOLE SOD 40 MG TABEC PO SCH (08:18)
[2018-06-14] MEDS: METOPROLOL TARTRATE 50 MG TAB PO SCH ×3 (08:18→21:00)
[2018-06-14] MEDS: MEMANTINE 10 MG TAB PO SCH (08:18)
[2018-06-14] MEDS: ZINC SULFATE 220 MG CAP PO SCH (08:19)
[2018-06-14] MEDS: QUETIAPINE FUMARATE 25 MG TAB PO SCH ×2 (08:19→17:02)
[2018-06-14] MEDS: THIAMINE HCL 100 MG TAB PO SCH (08:19)
[2018-06-14] MEDS: LISINOPRIL 20 MG TAB PO SCH ×2 (08:19→17:02)
[2018-06-14] MEDS: ZINC OXIDE 30 GM TUBE TOP SCH ×2 (08:19→17:02)
[2018-06-14] MEDS: ZIPRASIDONE 20 MG VIAL IM PRN ×2 (08:19→17:32)
--- NOTE | 2018-06-14 08:29 | NUR ---
FAXED GUARDIANSHIP REFERRAL TO [phone]
--- NOTE | 2018-06-14 08:33 | Progress Note ---
DATE: June 13, 2018 TIME: 7:15 a.m. OVERNIGHT: No change. REVIEW OF SYSTEMS: Unreliable. PHYSICAL EXAMINATION VITAL SIGNS: Reviewed. GENERAL: A tired-appearing man resting in bed. HEENT: Anicteric. CARDIOVASCULAR: Normal S1 and S2. LUNGS: Moderate breath sounds. ABDOMEN: Soft and nontender. EXTREMITIES: No edema. SKIN: Dry. He has multiple ulcers, stage 3. He has a defect in the left facial region. He has left chest wall defect. He has ulcers on the knees. PSYCHIATRIC: Flat affect. NEUROLOGIC: Awake. LABS: Reviewed. MEDICATIONS: Reviewed. ASSESSMENT: An 82-year-old man with: 1. Unspecified psychosis. 2. Acute psychosis and bipolar disorder. 3. Alcoholism. 4. Stage 3 ulcers on multiple body sites. 5. Fall. 6. Physical deconditioning. 7. Electrolyte derangement. 8. Normocytic anemia. 9. Hypotension. 10. Hypernatremia. 11. Gastroesophageal reflux disease. PLAN 1. Continue supportive care. 2. Guardianship being initiated. 3. Continue local wound care. 4. Continue sitter as needed. Job#: [id number] [place]
--- NOTE | 2018-06-14 08:33 | Progress Note ---
DATE: June 12, 2018 TIME OF SERVICE: 7 a.m. SUBJECTIVE: Overnight, no change. REVIEW OF SYSTEMS: Unobtainable. PHYSICAL EXAMINATION VITAL SIGNS: Reviewed. GENERAL: A tired-appearing man, resting in man. HEENT: Anicteric. CARDIOVASCULAR: Normal S1, S2. Loud murmurs. ABDOMEN: Soft, nontender, nondistended. EXTREMITIES: No edema. SKIN: Dry. Multiple ulcers, stage III defect in the left facial region and left chest wall and knees. PSYCHIATRIC: Flat affect. NEUROLOGICAL: Awake. LABS: Reviewed. MEDICATIONS: Reviewed. ASSESSMENT AND PLAN: An 82-year-old man. 1. Unspecified psychosis. 2. Stage III ulcer, multiple body sites. 3. Alcoholism. 4. Fall. 5. Physical deconditioning. 6. Electrolyte derangement. 7. Normocytic anemia. 8. Hypotension. 9. Acute psychosis. 10. Bipolar disorder. 11. Gastroesophageal reflux disease. 12. Hypernatremia. PLAN 1. Continue medication regimen. 2. Followup sodium level. 3. Continue supportive care. 4. Continue psychiatric care. 5. Will need guardianship. Job#: [id number]
--- NOTE | 2018-06-14 08:39 | Progress Note ---
DATE: June 14, 2018 TIME: 8 a.m. OVERNIGHT: No change. REVIEW OF SYSTEMS: Unreliable. PHYSICAL EXAMINATION VITAL SIGNS: Reviewed. GENERAL: A tired-appearing man resting in bed. HEENT: Anicteric. CARDIOVASCULAR: Normal S1 and S2. LUNGS: He has moderate breath sounds. ABDOMEN: Soft, nontender and nondistended. EXTREMITIES: No edema. SKIN: He has multiple ulcers. Defect on the left facial region. Left chest wall defect. He has ulcers on bilateral knees. PSYCHIATRIC: Flat affect. NEUROLOGY: Awake. MENTAL STATUS EXAM: The patient unable to perform this exam due to challenges with writing. In terms of questioning, he does not know what year it is, date or time. He does not know where he is. The patient cannot count backwards from 100. The patient cannot repeat no ifs, ands or buts. The patient unable to read any written direction. The patient unable to make up a sentence when instructed to. Mini mental status exam is incomplete. LABS: Reviewed. MEDICATIONS: Reviewed. ASSESSMENT: An 82-year-old man with: 1. Unspecific psychosis/acute psychosis/bipolar disorder. 2. Alcoholism. 3. Fall/physical deconditioning. 4. Electrolyte derangement/hypernatremia. 5. Normocytic anemia. 6. Hypotension. 7. Gastroesophageal reflux disease. PLAN 1. Guardianship papers initiated. 2. Continue sitter p.r.n. 3. Continue psychiatric medications. 4. Continue local wound care. 5. Continue supportive care. 6. Mini mental state exam was not performed. Please review above under physical exam. Job#: [id number] ZAYRA
[2018-06-14] MEDS: SODIUM CHLORIDE 0.9% 1000ML 500 ML IV SCH ×2 (10:45→20:45)
[2018-06-14] MEDS: QUETIAPINE FUMARATE 25 MG TAB PO PRN (15:02)
--- NOTE | 2018-06-14 19:04 | NUR ---
REPORT GIVEN TO ONCOMING NURSE. PATIENT IS RESTING IN BED. NO S/S OF DISTRESS NOTED. SITTER AT BEDSIDE. CALL LIGHT WITHIN REACH. BED IN THE LOWEST POSITION.
--- NOTE | 2018-06-14 19:49 | NUR ---
PT IS RESTING IN BED. 1:1 SITTER AT BEDSIDE. NO RESPIRATORY DISTRESS NOTED. BED IN THE LOWEST POSITION, LOCKED, BED ALARM ON, AND CALL LIGHT WITHIN REACH. WILL CONTINUE TO MONITOR.
--- NOTE | 2018-06-14 19:50 | NUR ---
RECEIVED REPORT. PATIENT SLEEPING IN BED. NO S/S OF DISTRESS NOTED. SITTER AT BEDSIDE. BED LOCKED AND IN LOWEST POSITION, CALL LIGHT WITHIN EASY REACH. WILL CONTINUE TO MONITOR THE PATIENT.
[2018-06-15] VITALS: BP_SYST 170; BP_DIAS 81; BP_DIAS 87
[2018-06-15] MEDS: QUETIAPINE FUMARATE 25 MG TAB PO PRN (01:17)
[2018-06-15] MEDS: LABETALOL HCL 5 MG/ML 20ML VIAL IV PRN ×4 (01:17→21:47)
[2018-06-15] MEDS: ZIPRASIDONE 20 MG VIAL IM PRN ×2 (02:00→21:22)
[2018-06-15 05:00] VITALS: BP_SYST 176; BP_DIAS 92; BP_DIAS 96
[2018-06-15] MEDS: FAMOTIDINE 20 MG/2 ML VIAL IV SCH ×2 (06:02→17:19)
[2018-06-15] MEDS: PIPER-TAZ 3.375 GM 50 ML IV SCH ×3 (06:02→21:21)
[2018-06-15 06:12] LABS: BASOPHILS # (AUTO) 0.1 (0.0-0.1); BASOPHILS % 1.4 % (0.0-1.0); EOSINOPHILS # (AUTO) 0.5 (0.0-0.4); EOSINOPHILS % 8.4 % (0.0-6.0); HEMATOCRIT 31.3 % (38.2-49.6); HEMOGLOBIN 10.3 g/dL (14.0-18.0); LYMPHOCYTES # (AUTO) 2.2 (1.0-3.2); LYMPHOCYTES % 34.6 % (18.0-39.1); MEAN CORPUSCULAR HEMOGLOBIN 28.3 pg (28-32); MEAN CORPUSCULAR HGB CONC 32.9 g/dL (31-35); MONOCYTES # (AUTO) 0.8 (0.2-0.8); NEUTROPHILS # (AUTO) 2.8 (2.1-6.9); NEUTROPHILS % 43.4 % (38.7-80.0); PLATELET COUNT 181 x10e3/uL (140-360); RED BLOOD COUNT 3.64 x10e6/uL (4.3-5.7); RED CELL DISTRIBUTION WIDTH 14.9 % (11.7-14.4)
[2018-06-15 06:35] LABS: BLOOD UREA NITROGEN 9 mg/dL (7-26); BUN/CREATININE RATIO 11 (6-25); CALCIUM 8.7 mg/dL (8.4-10.2); CARBON DIOXIDE 20 mmol/L (22-29); CHLORIDE 114 mmol/L (98-107); CREATININE, SERUM 0.82 mg/dL (0.72-1.25); EST GLOMERULAR FILTRATION RATE > 60 ML/MIN (60-); GLUCOSE 88 mg/dL (74-118); SODIUM 144 mmol/L (136-145)
[2018-06-15] MEDS: SODIUM CHLORIDE 0.9% 1000ML 500 ML IV SCH ×2 (06:45→16:45)
[2018-06-15 08:00] VITALS: BP 189/83
[2018-06-15] MEDS: HYDRALAZINE HCL 25 MG TAB PO SCH (08:54)
[2018-06-15] MEDS: FOLIC ACID 1 MG TAB PO SCH (08:54)
[2018-06-15] MEDS: PANTOPRAZOLE SOD 40 MG TABEC PO SCH (08:54)
[2018-06-15] MEDS: THIAMINE HCL 100 MG TAB PO SCH (08:55)
[2018-06-15] MEDS: METOPROLOL TARTRATE 50 MG TAB PO SCH ×2 (08:55→21:00)
[2018-06-15] MEDS: LISINOPRIL 20 MG TAB PO SCH ×3 (08:55→17:19)
[2018-06-15] MEDS: MEMANTINE 10 MG TAB PO SCH (08:55)
[2018-06-15] MEDS: ZINC SULFATE 220 MG CAP PO SCH (08:55)
[2018-06-15] MEDS: QUETIAPINE FUMARATE 25 MG TAB PO SCH ×3 (08:55→17:19)
[2018-06-15] MEDS: MULTIVITAMINS/MINERALS TAB PO SCH (08:55)
[2018-06-15] MEDS: ZINC OXIDE 30 GM TUBE TOP SCH ×2 (08:55→17:19)
[2018-06-15 12:00] VITALS: BP 138/62
[2018-06-15] MEDS ORDERED: HYDRALAZINE HCL 25 MG TAB PO SCH ×2 (13:00→15:00)
[2018-06-15] MEDS ORDERED: POTASSIUM CHLORIDE 20 MEQ TAB CR PO NR (13:30)
[2018-06-15] MEDS ORDERED: HYDRALAZINE HCL 100 MG TABLET PO SCH (14:00)
[2018-06-15 16:00] VITALS: BP 136/60
[2018-06-15] MEDS: HALOPERIDOL LACTATE 5 MG/ML VIAL IM PRN (18:15)
--- NOTE | 2018-06-15 19:15 | NUR ---
patient recieved awake, alert, lying quietly in bed. vss. no c/o pain noted. 1:1 noted at the bedside for safety. pm assessment complete. 1:1 instructed to call for assistance when needed.
[2018-06-15 20:00] VITALS: BP 188/83
[2018-06-15] MEDS: HYDRALAZINE HCL 100 MG TABLET PO SCH (21:00)
[2018-06-16] VITALS (8 sets, daily range): BP systolic 131–186; BP diastolic 60–89
[2018-06-16] MEDS: LABETALOL HCL 5 MG/ML 20ML VIAL IV PRN ×2 (05:00→16:36)
[2018-06-16 05:08] LABS: BASOPHILS # (AUTO) 0.1 (0.0-0.1); BASOPHILS % 1.2 % (0.0-1.0); EOSINOPHILS # (AUTO) 0.5 (0.0-0.4); EOSINOPHILS % 8.8 % (0.0-6.0); HEMATOCRIT 31.8 % (38.2-49.6); HEMOGLOBIN 10.3 g/dL (14.0-18.0); LYMPHOCYTES # (AUTO) 2.2 (1.0-3.2); LYMPHOCYTES % 37.9 % (18.0-39.1); MEAN CORPUSCULAR HEMOGLOBIN 27.9 pg (28-32); MEAN CORPUSCULAR HGB CONC 32.4 g/dL (31-35); MEAN CORPUSCULAR VOLUME 86.2 fL (81-99); MONOCYTES # (AUTO) 0.7 (0.2-0.8); MONOCYTES % 12.6 % (4.4-11.3); NEUTROPHILS # (AUTO) 2.3 (2.1-6.9); NEUTROPHILS % 39.3 % (38.7-80.0); PLATELET COUNT 193 x10e3/uL (140-360); RED BLOOD COUNT 3.69 x10e6/uL (4.3-5.7); RED CELL DISTRIBUTION WIDTH 14.8 % (11.7-14.4)
[2018-06-16] MEDS: FAMOTIDINE 20 MG/2 ML VIAL IV SCH ×2 (05:14→18:34)
[2018-06-16] MEDS: PIPER-TAZ 3.375 GM 50 ML IV SCH (05:14)
[2018-06-16 05:33] LABS: ANION GAP 13.8 mmol/L (8-16); BLOOD UREA NITROGEN 9 mg/dL (7-26); BUN/CREATININE RATIO 11 (6-25); CALCIUM 9.1 mg/dL (8.4-10.2); CARBON DIOXIDE 21 mmol/L (22-29); CHLORIDE 113 mmol/L (98-107); CREATININE, SERUM 0.82 mg/dL (0.72-1.25); EST GLOMERULAR FILTRATION RATE > 60 ML/MIN (60-); GLUCOSE 92 mg/dL (74-118); SODIUM 145 mmol/L (136-145)
[2018-06-16 05:34] LABS: POTASSIUM 2.8 mmol/L (3.5-5.1)
[2018-06-16] MEDS ORDERED: POTASSIUM CHLORIDE 20 MEQ TAB CR PO STA (07:34)
[2018-06-16] MEDS: PANTOPRAZOLE SOD 40 MG TABEC PO SCH (08:02)
[2018-06-16] MEDS: MULTIVITAMINS/MINERALS TAB PO SCH (08:03)
[2018-06-16] MEDS: NIFEDIPINE CR 30 MG TAB PO SCH ×2 (08:03→20:44)
[2018-06-16] MEDS: FOLIC ACID 1 MG TAB PO SCH (08:03)
[2018-06-16] MEDS: HYDRALAZINE HCL 100 MG TABLET PO SCH ×3 (08:03→20:42)
[2018-06-16] MEDS: METOPROLOL TARTRATE 50 MG TAB PO SCH ×2 (08:03→20:43)
[2018-06-16] MEDS: MEMANTINE 10 MG TAB PO SCH (08:03)
[2018-06-16] MEDS: LISINOPRIL 20 MG TAB PO SCH ×2 (08:03→17:00)
[2018-06-16] MEDS: QUETIAPINE FUMARATE 25 MG TAB PO SCH ×2 (08:04→17:54)
[2018-06-16] MEDS: ZINC SULFATE 220 MG CAP PO SCH (08:04)
[2018-06-16] MEDS: THIAMINE HCL 100 MG TAB PO SCH (08:04)
[2018-06-16] MEDS: ZINC OXIDE 30 GM TUBE TOP SCH ×2 (08:04→17:54)
[2018-06-16] MEDS: ZIPRASIDONE 20 MG VIAL IM PRN (09:50)
--- NOTE | 2018-06-16 12:38 | NUR ---
no tx K+ too low today, pt is also with agitation Addendum: 06/16/18 at 1238 by Anand Keller PTA Amended: Links added.
[2018-06-16] MEDS: HALOPERIDOL LACTATE 5 MG/ML VIAL IM PRN (13:50)
--- NOTE | 2018-06-16 19:00 | NUR ---
Received change of shift report from AM nurse. Walking rounds completed.
[2018-06-16] MEDS ORDERED: HALOPERIDOL LACTATE 5 MG/ML VIAL IM ONE (19:30)
--- NOTE | 2018-06-16 21:00 | NUR ---
Patient slightly agitated with sitter at bedside. AAOx1. Drying to left side of face and knees bilaterally clean, dry and intact. Sitter at bedside. 22G to right FA wrapped and intact. Med given per MD order to help with agitation.BP WNL. Continue monitor.
[2018-06-16] MEDS: QUETIAPINE FUMARATE 25 MG TAB PO PRN (22:24)
[2018-06-17] VITALS (7 sets, daily range): BP systolic 96–135; BP diastolic 53–66
--- NOTE | 2018-06-17 | NUR ---
Patient resting quitly at this time. Meds effective. Continue monitor.
--- NOTE | 2018-06-17 00:25 | Progress Note ---
DATE: June 16, 2018 TIME: 1:30 p.m. OVERNIGHT: No events. REVIEW OF SYSTEMS: Not obtainable. OBJECTIVE VITAL SIGNS: Reviewed. GENERAL: A tired-appearing man resting in bed. HEENT: Anicteric. CARDIOVASCULAR: Normal S1 and S2. No murmur. LUNGS: Moderate breath sounds. ABDOMEN: Soft, nontender, and nondistended. EXTREMITIES: No edema. SKIN: He has multiple ulcers. Left facial defect. He has dressing in place. He has left chest wall ulcer with a dressing in place. He has bilateral knee ulcers with dressing in place. SKIN: Dry. PSYCHIATRIC: Flat affect. NEUROLOGICAL: Awake. LABS: Reviewed. MEDICATIONS: Reviewed. ASSESSMENT: This is an 82-year-old man with: 1. Unspecific psychosis/acute psychosis/bipolar disorder. 2. Alcoholism. 3. Fall/physical deconditioning. 4. Electrolyte derangement and hyponatremia. 5. Normocytic anemia. 6. Gastroesophageal reflux disease. 7. Stage III ulcers. PLAN 1. Guardianship papers have been initiated. 2. Continue local wound care. 3. Continue sitter. 4. Monitor closely. Job#: [id number] NILA
--- NOTE | 2018-06-17 00:30 | Progress Note ---
DATE: June 15, 2018 TIME: 7:00 a.m. OVERNIGHT: No events. REVIEW OF SYSTEMS: Unreliable. OBJECTIVE VITAL SIGNS: Reviewed. GENERAL: A tired-appearing man, resting in bed. HEENT: Anicteric. CARDIOVASCULAR: Normal S1 and S2. No murmur. LUNGS: Normal breath sounds. ABDOMEN: Soft and nontender. EXTREMITIES: No edema. SKIN: He has multiple ulcers. He has defects in the left facial region and left chest wall with dressing in place and bilateral knees are dressed. NEUROLOGICAL: Awake, moving his extremities. PSYCHIATRIC: Flat affect. LABS: Reviewed. MEDICATIONS: Reviewed. ASSESSMENT: This is an 82-year-old man with: 1. Unspecified psychosis/acute psychosis/bipolar disorder. 2. Alcoholism. 3. Fall and physical deconditioning. 4. Electrolyte derangement. 5. Hypernatremia. 6. Normocytic anemia. 7. Hypotension. 8. Gastroesophageal reflux disease. PLAN 1. Guardianship papers are pending. 2. Continue sitter. 3. Continue psychiatric medications. 4. Discharge planning. Job#: [id number] SYLVAIN
--- NOTE | 2018-06-17 04:33 | NUR ---
Patient resting quitly with no c/o at this time. Continue monitor for changes.
[2018-06-17] MEDS: FAMOTIDINE 20 MG/2 ML VIAL IV SCH ×2 (05:41→17:10)
[2018-06-17] MEDS: LISINOPRIL 20 MG TAB PO SCH ×2 (08:25→17:10)
[2018-06-17] MEDS: THIAMINE HCL 100 MG TAB PO SCH (08:25)
[2018-06-17] MEDS: FOLIC ACID 1 MG TAB PO SCH (08:25)
[2018-06-17] MEDS: HYDRALAZINE HCL 100 MG TABLET PO SCH ×3 (08:25→20:53)
[2018-06-17] MEDS: PANTOPRAZOLE SOD 40 MG TABEC PO SCH (08:25)
[2018-06-17] MEDS: METOPROLOL TARTRATE 50 MG TAB PO SCH ×2 (08:25→20:53)
[2018-06-17] MEDS: NIFEDIPINE CR 30 MG TAB PO SCH ×2 (08:25→20:53)
[2018-06-17] MEDS: QUETIAPINE FUMARATE 25 MG TAB PO SCH ×2 (08:25→17:10)
[2018-06-17] MEDS: MULTIVITAMINS/MINERALS TAB PO SCH (08:25)
[2018-06-17] MEDS: ZINC SULFATE 220 MG CAP PO SCH (08:25)
[2018-06-17] MEDS: MEMANTINE 10 MG TAB PO SCH (08:25)
[2018-06-17] MEDS: ZINC OXIDE 30 GM TUBE TOP SCH ×2 (08:26→17:10)
[2018-06-17] MEDS: HALOPERIDOL LACTATE 5 MG/ML VIAL IM PRN ×2 (09:21→15:45)
[2018-06-17] MEDS: QUETIAPINE FUMARATE 25 MG TAB PO PRN (14:00)
[2018-06-17] MEDS: SODIUM CHLORIDE 0.9% 1000ML 500 ML IV SCH (17:10)
--- NOTE | 2018-06-17 17:45 | NUR ---
[id number] Progress Note Magnolia Tran INSPECTOR RETURNED MATERIALS-C
--- NOTE | 2018-06-17 19:04 | NUR ---
Received change of shift report from AM nurse. Walking rounds completed.
--- NOTE | 2018-06-17 19:28 | Progress Note ---
DATE: June 17, 2018 TIME OF SERVICE: 1720. OVERNIGHT: No new events. REVIEW OF SYSTEMS: Non-obtainable. OBJECTIVE VITAL SIGNS: Temperature 97.9, pulse 69, blood pressure 96/53, SpO2 92% on room air. GENERAL APPEARANCE: This is a very tired-appearing man, resting supine in bed. HEENT: Normocephalic. Lesion to left cheek. Nares patent. Oral mucosa is moist and intact. Trachea midline. CV: S1 and S2 without clicks, murmurs, or rubs. Heart tones are distinct. Cap refill within normal limits. LUNGS: Bilateral breath sounds are moderate, somewhat diminished at bases. ABDOMEN: Soft, nontender, nondistended. EXTREMITIES: No edema. SKIN: Multiple ulcers continue with clean and dry dressings in place to include the left ischial region, left chest wall, and bilateral knees. NEUROLOGICAL: Awake, answers questions appropriately intermittently, follows one-step commands. PSYCHIATRIC: Flat affect. LABS: Reviewed. MEDICATIONS 1. Seroquel 25 mg p.o. b.i.d. 2. NS at 50 mL an hour IV. 3. Lisinopril 20 mg p.o. b.i.d. 4. Topical zinc oxide. 5. IV Pepcid q.12 hour. 6. Haldol 2 mg q.6 p.r.n. 7. Hydralazine 100 mg p.o. t.i.d. 8. P.r.n. Seroquel. 9. Nifedipine 50 mg p.o. q.12. 10. Metoprolol 100 mg p.o. q.12. 11. Namenda 5 mg p.o. q.d. 12. Thiamine 100 mg p.o. q.d. 13. Protonix 40 mg a.c. breakfast p.o. 14. Daily MVI. 15. Daily folic acid. 16. P.r.n. labetalol 17. P.r.n. Geodon. 18. P.r.n. Zofran. ASSESSMENT AND PLAN: This is an 82-year-old man with; 1. Unspecified psychosis/acute psychosis bipolar disorder. 2. Alcoholism, withdrawal in the past. 3. Fall with physical deconditioning. 4. Electrolyte derangement. Followup values. 5. Hyponatremia. Follow values. 6. Normocytic anemia. Continue to monitor conservatively. 7. Hypertension. Continue to monitor intermittent episodes. 8. Gastroesophageal reflux disease. 9. Prophylaxis. SCDs and Protonix. DISPOSITION: Continue sitter with guardianship papers pending. Continue psychiatric medications. Discharge planning pending assignment of guardian. Job#: [id number] CATRINA
--- NOTE | 2018-06-17 21:00 | NUR ---
Patient in bed resting quitly. Patient AAOx1.IV 22G right FA KVO. Patient has 1:1 sitter. Multiple wounds on left face, bilateral knees and chx. Dressing change q daily on day shift.
--- NOTE | 2018-06-17 21:00 | NUR ---
Patient in bed resting quitly at this time. Denies pain or discomfort at this time. Patient very cooperative.
[2018-06-18] VITALS (7 sets, daily range): BP systolic 96–118; BP diastolic 53–68
--- NOTE | 2018-06-18 01:55 | NUR ---
Patient resting quitly at this time, No noted change in the condition. RA with good sats.
[2018-06-18] MEDS: FAMOTIDINE 20 MG/2 ML VIAL IV SCH ×2 (05:43→17:13)
--- NOTE | 2018-06-18 07:10 | NUR ---
RECEIVED PATIENT RESTING IN BED. NO S/S OF DISTRESS NOTED. SITTER AT BEDSIDE. CALL LIGHT WITHIN REACH. BED IN THE LOWEST POSITION.
[2018-06-18] MEDS ORDERED: POTASSIUM CHLORIDE 20 MEQ TAB CR PO NR (08:00)
[2018-06-18] MEDS: FOLIC ACID 1 MG TAB PO SCH (09:00)
[2018-06-18] MEDS: HYDRALAZINE HCL 100 MG TABLET PO SCH ×3 (09:00→21:00)
[2018-06-18] MEDS: NIFEDIPINE CR 30 MG TAB PO SCH ×2 (09:00→21:00)
[2018-06-18] MEDS: THIAMINE HCL 100 MG TAB PO SCH (09:00)
[2018-06-18] MEDS: QUETIAPINE FUMARATE 25 MG TAB PO SCH ×2 (09:00→17:00)
[2018-06-18] MEDS: METOPROLOL TARTRATE 50 MG TAB PO SCH ×2 (09:00→21:00)
[2018-06-18] MEDS: ZIPRASIDONE 20 MG VIAL IM PRN ×2 (09:00→17:00)
[2018-06-18] MEDS: PANTOPRAZOLE SOD 40 MG TABEC PO SCH (09:00)
[2018-06-18] MEDS: ZINC SULFATE 220 MG CAP PO SCH (09:00)
[2018-06-18] MEDS: LISINOPRIL 20 MG TAB PO SCH ×2 (09:00→17:00)
[2018-06-18] MEDS: MULTIVITAMINS/MINERALS TAB PO SCH (09:00)
[2018-06-18] MEDS: MEMANTINE 10 MG TAB PO SCH (09:00)
[2018-06-18] MEDS: ZINC OXIDE 30 GM TUBE TOP SCH ×2 (09:00→16:50)
--- NOTE | 2018-06-18 11:54 | Progress Note ---
DATE: June 18, 2018 TIME: 8:26 a.m. OVERNIGHT: No events. REVIEW OF SYSTEMS: Unreliable. PHYSICAL EXAMINATION VITAL SIGNS: Reviewed. GENERAL: A tired-appearing man resting in bed. HEENT: Anicteric. CARDIOVASCULAR: Normal S1 and S2. LUNGS: Moderate breath sounds. ABDOMEN: Soft, nontender and nondistended. EXTREMITIES: No edema. SKIN: He has multiple ulcers and defect of the left facial region and left chest wall. He has bilateral knee ulcers with dressing in place. Clean and dry. PSYCHIATRIC: Flat affect. LABS: Reviewed. MEDICATIONS: Reviewed. ASSESSMENT: An 82-year-old man with: 1. Unspecified psychosis/acute psychosis with bipolar disorder. 2. Alcoholism. 3. Fall and physical deconditioning. 4. Electrolyte derangement and hypernatremia. 5. Normocytic anemia. 6. Hypotension. 7. Gastroesophageal reflux disease. PLAN 1. Guardianship papers are pending. 2. Continue sitter. 3. Continue psychiatric medications. 4. Discharge planning. 5. Replace potassium. Job#: [id number] NV
--- NOTE | 2018-06-18 17:11 | NUR ---
ATTEMPTED TO ADMINISTER MEDICATIONS. PATIENT KEPT SPITTING THEM OUT.
[2018-06-19 00:14] VITALS: BP 119/48
[2018-06-19] MEDS: ZIPRASIDONE 20 MG VIAL IM PRN ×2 (04:48→15:58)
[2018-06-19] MEDS: FAMOTIDINE 20 MG/2 ML VIAL IV SCH ×2 (06:43→17:36)
[2018-06-19 07:15] VITALS: BP 140/55
--- NOTE | 2018-06-19 07:15 | NUR ---
RECEIVED PATIENT RESTING IN BED. NO S/S OF DISTRESS NOTED. SITTER AT BEDSIDE. CALL LIGHT WITHIN REACH. BED IN THE LOWEST POSITION.
[2018-06-19 07:38] VITALS: BP 140/55
[2018-06-19 07:39] LABS: ANION GAP 13.6 mmol/L (8-16); BLOOD UREA NITROGEN 19 mg/dL (7-26); BUN/CREATININE RATIO 18 (6-25); CALCIUM 9.2 mg/dL (8.4-10.2); CARBON DIOXIDE 21 mmol/L (22-29); CHLORIDE 112 mmol/L (98-107); CREATININE, SERUM 1.08 mg/dL (0.72-1.25); EST GLOMERULAR FILTRATION RATE > 60 ML/MIN (60-); GLUCOSE 89 mg/dL (74-118); POTASSIUM 3.6 mmol/L (3.5-5.1); SODIUM 143 mmol/L (136-145)
[2018-06-19] MEDS: ZINC OXIDE 30 GM TUBE TOP SCH ×2 (09:19→17:36)
[2018-06-19] MEDS: NIFEDIPINE CR 30 MG TAB PO SCH ×2 (09:29→21:00)
[2018-06-19] MEDS: QUETIAPINE FUMARATE 25 MG TAB PO SCH ×2 (09:29→17:36)
[2018-06-19] MEDS: PANTOPRAZOLE SOD 40 MG TABEC PO SCH (09:29)
[2018-06-19] MEDS: LISINOPRIL 20 MG TAB PO SCH ×2 (09:29→16:14)
[2018-06-19] MEDS: THIAMINE HCL 100 MG TAB PO SCH (09:29)
[2018-06-19] MEDS: METOPROLOL TARTRATE 50 MG TAB PO SCH ×2 (09:29→21:00)
[2018-06-19] MEDS: FOLIC ACID 1 MG TAB PO SCH (09:29)
[2018-06-19] MEDS: MULTIVITAMINS/MINERALS TAB PO SCH (09:29)
[2018-06-19] MEDS: HYDRALAZINE HCL 100 MG TABLET PO SCH ×3 (09:29→21:00)
[2018-06-19] MEDS: MEMANTINE 10 MG TAB PO SCH (09:29)
[2018-06-19] MEDS: ZINC SULFATE 220 MG CAP PO SCH (09:29)
[2018-06-19 11:40] VITALS: BP 127/62
--- NOTE | 2018-06-19 15:11 | NUR ---
SPOKE WITH APS BRITTNEY MERCER. EXPLAINED TO HER THAT WE FILED FOR GUARDIANSHIP. SHE AGREES THAT THIS PATIENT IS NOT ABLE TO MAKE SAFE DECISIONS. SHE WILL FOLLOW UP WITH THE GUARDIANSHIP COURT TO SEE WHERE WE ARE IN THE PROCESS FOR HIS PROCESS. SHE STATES THAT ONCE THE AD LIETUM IS ASSIGNED HE SHOULD BE ABLE OT DISCHARGE TO A FACILITY AND THEY CAN MAKE CERTAIN THE PT WILL BE RESPONSIBLE FOR ANY INCURRED COST ASSOCIATED WITH HIS POST CARE. SHE WILL CALL TO FOLLOW UP.
[2018-06-19 16:15] VITALS: BP 143/71
--- NOTE | 2018-06-19 19:00 | NUR ---
REPORT GIVEN TO ONCOMING NURSE. PATIENT IS RESTING IN BED. SITTER AT BEDSIDE. NO S/S OF DISTRESS NOTED. CALL LIGHT WITHIN REACH. BED IN THE LOWEST POSITION.
[2018-06-19 20:00] VITALS: BP 115/65
--- NOTE | 2018-06-19 23:14 | Progress Note ---
DATE: June 19, 2018 TIME: 7:35 a.m. OVERNIGHT: No events. REVIEW OF SYSTEMS: Unobtainable. PHYSICAL EXAM VITAL SIGNS: Reviewed. GENERAL: A tired-appearing man resting in bed. HEENT: Anicteric. CARDIOVASCULAR: Normal S1, S2. LUNGS: Moderate breath sounds. ABDOMEN: Soft, nontender, nondistended. EXTREMITIES: No edema. SKIN: Dry. He has multiple ulcers stage 3. Has also on the left facial region with the defect on left chest wall and also on the bilateral knees. PSYCHIATRIC: Flat affect. NEUROLOGIC: Awake, alert. LABS: Reviewed. MEDICATIONS: Reviewed. ASSESSMENT: An 82-year-old man. 1. Unspecified psychosis/acute psychosis with bipolar disorder. 2. Alcoholism. 3. Fall and physical deconditioning. 4. Electrolyte derangement and hypernatremia. 5. Normocytic anemia. 6. Gastroesophageal reflux disease. 7. Hypotension. PLAN 1. Guardianship papers are pending. 2. Continue sitter. 3. Continue psychiatric medications. 4. Discharge planning. 5. Check basic metabolic panel. Job#: [id number] CQ
[2018-06-20] VITALS (7 sets, daily range): BP systolic 111–168; BP diastolic 52–74
[2018-06-20] MEDS: FAMOTIDINE 20 MG/2 ML VIAL IV SCH ×2 (05:43→18:41)
[2018-06-20] MEDS: ZINC SULFATE 220 MG CAP PO SCH (08:16)
[2018-06-20] MEDS: PANTOPRAZOLE SOD 40 MG TABEC PO SCH (08:16)
[2018-06-20] MEDS: THIAMINE HCL 100 MG TAB PO SCH (08:16)
[2018-06-20] MEDS: NIFEDIPINE CR 30 MG TAB PO SCH ×2 (08:16→21:00)
[2018-06-20] MEDS: HYDRALAZINE HCL 100 MG TABLET PO SCH ×3 (08:16→21:00)
[2018-06-20] MEDS: FOLIC ACID 1 MG TAB PO SCH (08:16)
[2018-06-20] MEDS: MULTIVITAMINS/MINERALS TAB PO SCH (08:16)
[2018-06-20] MEDS: METOPROLOL TARTRATE 50 MG TAB PO SCH ×2 (08:16→21:00)
[2018-06-20] MEDS: QUETIAPINE FUMARATE 25 MG TAB PO SCH ×2 (08:17→17:10)
[2018-06-20] MEDS: LISINOPRIL 20 MG TAB PO SCH ×2 (08:17→17:10)
[2018-06-20] MEDS: ZINC OXIDE 30 GM TUBE TOP SCH ×2 (08:20→17:10)
--- NOTE | 2018-06-20 09:06 | NUR ---
Patient resting in bed, wound dressings are intact, not agitated this time, had all morning medications, denies any pain, Sitter at bed side
--- NOTE | 2018-06-20 10:39 | Progress Note ---
DATE: June 20, 2018 INTERVAL HISTORY: Patient was evaluated and events noted. Upon evaluation today, the patient is found to be lying on his bed. He is alert, awake and oriented to self. He is restless and anxious, but not agitated. He is sleeping and eating fair. He is taking his medications without any reported side effects. As per the nursing staff, the patient has been intermittently confused, but not agitated. He is mostly manageable. I spoke with Dr. Michel, and discussed his treatment and discharge plan. I am informed that he is awaiting guardianship so that he can be transferred to a [facility]. ASSESSMENT: Unspecified psychosis/unspecified dementia with behavioral disturbances. PLAN OF CARE 1. Monitor for agitation. 2. Continue Haldol 2 mg IM q.6 h. p.r.n. for agitation. 3. Increase Namenda to 5 mg b.i.d. 4. Continue Seroquel 25 mg p.o. q.6 h. p.r.n. for agitation. 5. Continue Seroquel 25 mg p.o. b.i.d. 6. Continue Geodon 10 mg IM q.8 h. p.r.n. for agitation. Job#: [id number] ZAYRA
--- NOTE | 2018-06-20 12:14 | NUR ---
RD Recommendation(s) for Physician: - Consult DEPARTMENT OPERATIONS MANAGER for evaluation for diet texture evaluation related to varied intake - Continue Cardiac diet - Recommend Ensure Enlive BID for adequacy - Recommend Vitamin C 500 mg BID to promote wound healing - Recommend Jethro 1 packet BID to promote wound healing Plan of Care: RD following, ONS, monitor adequacy and tolerance Nutrition reason for involvement: LOS RD Assessment: 06/20: Follow-up. Chart reviewed. Visited pt in room who was awake and alert, unable to provide information on intake. Discussed with sitter in room who assisted pt with meal and she reports 80% intake this am. Intake remains varied, appetite appears fair. Pt is awating guardianship and placement per noted. Recs remain as above, discussed with nursing. Weight appears stable since 06/03. Will cont to monitor. 06/13: Follow-up. Chart reviewed. Discussed with nursing. Visited pt in room who reports was sitting in chair for lunch. Sitter in room assisting pt with meal. Pt intake today 75 and 100%, per chart reviewed varied from 25-100%. Recs remain as above. Will cont to monitor. 06/06: 82 YOM admitted for bipolar disorder with multiple stage III ulcers on body per MD notes and PMH of ETOH abuse, HTN, bipolar disorder, dementia, and anxiety. Pt with bouts of confusion, at time of visit reports good appetite and po intake- noted 25-75% meal intake since admit. RN reports no GI distress or difficulties chewing or swallowing. Pt does not know UBW, denies wt loss. No family at bedside currently. Principal Problems/Diagnoses: Bipolar disorder, HTN, GERD, anemia, deconditioning, hypernatremia PMH: ETOH abuse, HTN, bipolar disorder, dementia, and anxiety GI: WDL Skin: Multiple stage III ulcers on body per MD notes, noted 1 wound to knee per skin assessment- not pressure related Labs: 06/20: Na 143, K 3.6, Bun 19, Cr 1.08, glucose 89 06/13: Na 146, K 3.4, Mg 1.2 (06/06) K 3.6, (06/04) Na 145, BUN 10, Cr 0.81, Gluc 74, Ca 8.9 Meds: MVI with minerals, folic acid, thiamine, abx, seroquel, zofran Ht: 67 in Wt: 136 lb BMI: 21.3 IBW: 148 lb Malnutrition Evaluation (06/06/18) The patient does not meet criteria for a specified degree of malnutrition at this time. Will re-evaluate at follow-up as appropriate. Nutrition Prescription (Diet Order): Cardiac Estimated Nutritional Needs: 5447-3007 calories/day (25-35 kcal/kg CBW) 62-93 g protein/day (1-1.5 g pro/kg CBW) Diet Adequacy: meeting calorie needs, meeting protein needs Diet Education Needs Assessment: Diet education indicated, but patient not appropriate for education at this time. Nutrition Care Level: low Nutrition Diagnosis: Inadequate energy and protein intake related to current medical conditions as evidenced by multiple wounds and not meeting needs. Goal: Patient will meet 75-100% of estimated needs by follow up (goal met) Progress: meeting needs Interventions: Mineral modified diet, Commercial beverage, Multivitamin/mineral supplement therapy Monitoring/Evaluation: Total energy intake, Total protein intake, Modified diet, Liquid supplement Signed: Deirdre Mendes RD, JOSE R
[2018-06-20] MEDS: MEMANTINE 10 MG TAB PO SCH (17:10)
--- NOTE | 2018-06-20 19:11 | NUR ---
Patient visited in room during nursing rounds. Patient appear sleepy but arousable. Patient able to answer question appropriately but alert and oriented x2 (Person and place). Sitter at bedside per MD order (for possible agitation and safety reasons). Will monitor patient closely.
--- NOTE | 2018-06-20 22:31 | Progress Note ---
DATE: June 20, 2018 TIME: 7 a.m. OVERNIGHT: No change. REVIEW OF SYSTEMS: Unobtainable. VITAL SIGNS: Reviewed. PHYSICAL EXAMINATION GENERAL: A tired-appearing man resting in bed. HEENT: Anicteric. CARDIOVASCULAR: Normal S1, S2. LUNGS: Moderate breath sounds. ABDOMEN: Soft, nontender. EXTREMITIES: No edema. SKIN: He has multiple ulcers, stage 3, on the left facial region, left chest wall and bilateral knees. The skin is dry. PSYCHIATRIC: Flat affect. NEUROLOGIC: He moves all extremities. LABS: Reviewed. MEDICATIONS: Reviewed. ASSESSMENT: An 82-year-old man. 1. Unspecified psychosis/acute psychosis with bipolar disorder. 2. Alcoholism. 3. Fall and physical deconditioning. 4. Electrolyte derangement. 5. Normocytic anemia. 6. Gastroesophageal reflux disease. PLAN 1. Guardianship papers are pending. 2. Continue sitter. 3. Continue psychiatric medications. 4. Check potassium level. Job#: [id number]
[2018-06-21] VITALS (12 sets, daily range): BP systolic 114–158; BP diastolic 53–83
[2018-06-21] MEDS: FAMOTIDINE 20 MG/2 ML VIAL IV SCH ×2 (06:24→18:43)
--- NOTE | 2018-06-21 08:05 | NUR ---
patient resting in bed, Alert with no distress, sitter at bed side
--- OUTSIDE RECORDS SUMMARY | 2018-06-21 08:05 | XMS REPORT | Continuity of Care Document ---
Author Author [facility] Organization [facility] Address [address] [place] [address] Phone Unavailable Care Team Providers Care Bottle Machine Operator Name Role Phone CARISSA SEBASTIAN MD PCP Advance Directives Directive Response Recorded Date/Time Does the patient have an advance directive? No 05/30/18 2:02pm If yes, is advance directive on file with [facility]? No 05/30/18 2:02pm If not on file with [facility] will patient provide a copy? No 05/30/18 2:02pm Do you have a Directive to Physician? No 05/30/18 2:02pm Do you have a Medical Power of Recording Studio Set Up Worker? No 05/30/18 2:02pm Do you have an out of hospital Do Not Resuscitate Order? No 05/30/18 2:02pm Do you have any special needs we should be aware of? No 05/30/18 2:02pm Do you have a support person here with you today? No 05/30/18 2:02pm Did patient receive Notice of Privacy Practices? Yes 05/30/18 2:02pm Did patient receive patient rights and responsibilities? Yes 05/30/18 2:02pm Problems No problem information available. Medications No medication information available. Social History Smoking Status Start Date Stop Date Former smoker Hospital Discharge Instructions No hospital discharge instruction information available. Plan of Care Discharge Date 05/30/18 4:02pm Disposition HOME, SELF-CARE Condition at Discharge Stable Instructions/Education Provided Urinary Tract Infection - Men Forms Provided Work/School Excuse Prescriptions See Medication Section Referrals CARISSA SEBASTIAN MD Order Date: Call for an appointment Address: [id number] [place] [address] Additional Instructions/Education DIAGNOSIS: UTI FOLLOW UP WITH PCP IN 1 WEEK TAKE MEDICATIONS PRESCRIBED Functional Status No functional status information available. Allergies, Adverse Reactions, Alerts No allergy information available. Immunizations No immunization information available. Vital Signs Acute Vital Signs Vital Response Date/Time Pulse Pulse Rate (adult) 74 bpm (60 - 90) 05/30/2018 3:41pm Respiratory Rate 16 bpm (12 - 24) 05/30/2018 3:41pm Blood Pressure 138/79 mm Hg 05/30/2018 3:41pm Height 5 ft 1 in 05/30/2018 1:00pm Weight 160 lb 05/30/2018 1:00pm Body Mass Index 30.2 kg/m^2 05/30/2018 1:00pm Results Laboratory Results Test Name Result Units Flags Reference Collection Date/Time Result Date/ Time Comments White Blood Count 6.70 x10e3/uL 4.8-10.8 05/30/2018 2:00pm 05/30/2018 2 :31pm Red Blood Count 3.93 x10e6/uL L 4.3-5.7 05/30/2018 2:00pm 05/30/2018 2: 31pm Hemoglobin 11.3 g/dL L 14.0-18.0 05/30/2018 2:00pm 05/30/2018 2:31pm Hematocrit 37.1 % L 38.2-49.6 05/30/2018 2:00pm 05/30/2018 2:31pm Mean Corpuscular Volume 94.4 fL 81-99 05/30/2018 2:00pm 05/30/2018 2: 31pm Mean Corpuscular Hemoglobin 28.8 pg 28-32 05/30/2018 2:00pm 05/30/2018 2:31pm Mean Corpuscular Hemoglobin Concent 30.5 g/dL L 31-35 05/30/2018 2:00pm 05/30/2018 2:31pm Red Cell Distribution Width 14.4 % 11.7-14.4 05/30/2018 2:00pm 2017 2:31pm Platelet Count 179 x10e3/uL 140-360 05/30/2018 2:00pm 05/30/2018 2: 31pm Neutrophils (%) (Auto) 57.7 % 38.7-80.0 05/30/2018 2:00pm 05/30/2018 2: 31pm Lymphocytes (%) (Auto) 25.5 % 18.0-39.1 05/30/2018 2:00pm 05/30/2018 2: 31pm Monocytes (%) (Auto) 10.9 % 4.4-11.3 05/30/2018 2:00pm 05/30/2018 2: 31pm Eosinophils (%) (Auto) 4.3 % 0.0-6.0 05/30/2018 2:00pm 05/30/2018 2: 31pm Basophils (%) (Auto) 1.3 % H 0.0-1.0 05/30/2018 2:00pm 05/30/2018 2: 31pm IM GRANULOCYTES % 0.3 % 0.0-1.0 05/30/2018 2:00pm 05/30/2018 2:31pm Neutrophils # (Auto) 3.9 2.1-6.9 05/30/2018 2:00pm 05/30/2018 2:31pm Lymphocytes # (Auto) 1.7 1.0-3.2 05/30/2018 2:00pm 05/30/2018 2:31pm Monocytes # (Auto) 0.7 0.2-0.8 05/30/2018 2:00pm 05/30/2018 2:31pm Eosinophils # (Auto) 0.3 0.0-0.4 05/30/2018 2:00pm 05/30/2018 2:31pm Basophils # (Auto) 0.1 0.0-0.1 05/30/2018 2:00pm 05/30/2018 2:31pm Absolute Immature Granulocyte (auto 0.02 x10e3/uL 0-0.1 05/30/2018 2: 00pm 05/30/2018 2:31pm Urine Color YELLOW YELLOW 05/30/2018 2:15pm 05/30/2018 2:56pm Urine Clarity SL CLOUDY H CLEAR 05/30/2018 2:15pm 05/30/2018 2:56pm Urine Specific [place] 1.025 1.010-1.025 05/30/2018 2:15pm 2017 2:56pm Urine pH 6 5 - 7 05/30/2018 2:15pm 05/30/2018 2:56pm Urine Leukocyte Esterase TRACE H NEGATIVE 05/30/2018 2:15pm 2017 2:56pm Urine Nitrite NEGATIVE NEGATIVE 05/30/2018 2:15pm 05/30/2018 2:56pm Urine Protein TRACE H NEGATIVE 05/30/2018 2:15pm 05/30/2018 2:56pm Urine Glucose (UA) NEGATIVE NEGATIVE 05/30/2018 2:15pm 05/30/2018 2: 56pm Urine Ketones NEGATIVE NEGATIVE 05/30/2018 2:15pm 05/30/2018 2:56pm Urine Urobilinogen 0.2 mg/dL 0.2 - 1 05/30/2018 2:15pm 05/30/2018 2: 56pm Urine Bilirubin NEGATIVE NEGATIVE 05/30/2018 2:15pm 05/30/2018 2: 56pm Urine Blood NEGATIVE NEGATIVE 05/30/2018 2:15pm 05/30/2018 2:56pm Urine WBC 11-20 /HPF H 0-5 05/30/2018 2:15pm 05/30/2018 3:06pm Urine RBC NONE /HPF 0-5 05/30/2018 2:15pm 05/30/2018 3:06pm Urine Bacteria MODERATE /HPF H NONE 05/30/2018 2:15pm 05/30/2018 3:06pm Urine Epithelial Cells FEW /LPF NONE 05/30/2018 2:15pm 05/30/2018 3: 06pm Urine Calcium Oxalate Crystals FEW FEW 05/30/2018 2:15pm 05/30/2018 3 :06pm Urine Mucus MODERATE H RARE 05/30/2018 2:15pm 05/30/2018 3:06pm Sodium Level 138 mmol/L 136-145 05/30/2018 2:00pm 05/30/2018 2:40pm Potassium Level 3.6 mmol/L 3.5-5.1 05/30/2018 2:00pm 05/30/2018 2:40pm Chloride Level 108 mmol/L H 98-107 05/30/2018 2:00pm 05/30/2018 2:40pm Carbon Dioxide Level 23 mmol/L 22-29 05/30/2018 2:00pm 05/30/2018 2: 40pm Anion Gap 10.6 mmol/L 8-16 05/30/2018 2:00pm 05/30/2018 2:40pm Blood Urea Nitrogen 27 mg/dL H 7-05/30/2018 2:00pm 05/30/2018 2:40pm Creatinine 0.83 mg/dL 0.72-1.25 05/30/2018 2:00pm 05/30/2018 2:40pm BUN/Creatinine Ratio 33 H 6-05/30/2018 2:00pm 05/30/2018 2:40pm Estimat Glomerular Filtration Rate > 60 ML/MIN 60- 05/30/2018 2:00pm 2:40pm Ranges were taken from the National Kidney Disease Education Program and the National [employer] literature. Reference ranges: 60 or greater: Normal 16-59 (for 3 consecutive months): Chronic kidney disease 15 or less: Kidney failure Glucose Level 86 mg/dL 74-118 05/30/2018 2:00pm 05/30/2018 2:40pm Calcium Level 9.8 mg/dL 8.4-10.2 05/30/2018 2:00pm 05/30/2018 2:40pm Procedures No procedure information available. Encounters Encounter Location Arrival/Admit Date Discharge/Depart Date Attending Provider Departed Emergency Room [facility] 05/30/18 12:56pm 05/30 4:02pm EMMA CARDONA MD
--- OUTSIDE RECORDS SUMMARY | 2018-06-21 08:05 | XMS REPORT ---
[facility] Address Unknown Phone Unavailable Care Team Providers Care Free Lance Model Name Role Phone BHAVIN LUO Unavailable Unavailable EMMA CARDONA Unavailable Unavailable Problems This patient has no known problems. Allergies, Adverse Reactions, Alerts This patient has no known allergies or adverse reactions. Medications This patient has no known medications. Results Test Description Test Time Test Comments Text Results Atomic Results Result Comments CT BRAIN WO 2018-06-01 19:30:00 [place] [address] Patient Name: LEXII ARIZA MR #: [id number] : 1935 Age/Sex: 82/M Req #: [id number] Adm Physician: BHAVIN LUO MD Ordered by: SHANITA RICHARDS MD Report #: [id number] Location: [facility] Room/Bed: [place] [address] Procedure: [id number] CT/CT BRAIN WO Exam Date: Exam Time: REPORT STATUS: Signed EXAMINATION: Head CT without contrast. HISTORY:Altered mental status, fall. COMPARISON:None. TECHNIQUE: Multidetector axial images were obtained from the foramen magnum to the vertex without contrast. The images were reconstructed using brain and bone algorithms. Thin section brain images were reformatted into coronal and sagittal planes. Dose modulation, iterative reconstruction , and/or weight based adjustment of the mA/kV was utilized to reduce the radiation dose to as low as reasonably achievable. Intravenous contrast: None IMAGE QUALITY: Acceptable. FINDINGS: Skull/scalp: No lytic or blastic. lesions. No surgical changes. Parenchyma: Nonspecific bilateral frontoparietal patchy white matter hypodensity are likely related to small vessel ischemic changes. Focal hypodensity in left singh radiata, right posterior periventricular white matter and left subinsular region represents old lacunar infarct. No acute hemorrhage, mass or acute major vascular territorial infarct. Arteries: No density suggestive of thrombosis. Dural sinuses: No abnormal density suggestive of thrombosis. Ventricles: Mild compensated dilatation due to volume loss. No hydrocephalus. Extra-axial spaces: No abnormal density. Brain volume: Generalized age-related cerebral volume loss. Craniocervical junction: No mass, Chiari malformation, or basilar invagination. Sella: No mass. Paranasal/mastoid sinuses: Mild mucosal thickening in right maxillary sinus and ethmoid sinus. Nonspecific superficial soft tissue defect in the left prezygomatic region at approximately measures 1.5 cm in maximum AP dimension may represent scar or ulceration. Mild left premaxillary soft tissue thickening. IMPRESSION: No acute intracranial abnormality. Mild supratentorial white matter microvascular ischemic changes and chronic lacunar infarcts as detailed above. Generalized age-related cerebral volume loss. Signed by: Dr. Terri Watkins M.D. on 06/01/2018 7:36 PM Dictated By: TERRI WATKINS MD 35 Transcribed By: MIRACLE on 06/01/181935 COPY TO: SHANITA RICHARDS MD PELVIS AP 1-2 VIEWS 2018-06-01 18:37:00 [place] [address] Patient Name: LEXII ARIZA MR #: [id number] : 1935 Age/Sex: 82/M Req #: [id number] Adm Physician: BHAVIN LUO MD Ordered by: SHANITA RICHARDS MD Report #: [id number] Location: [facility] Room/Bed : [place] [address] Procedure: DX/PELVIS AP 1-2 VIEWS Exam Date: 06/01/18 Exam Time: 1800 REPORT STATUS: Signed PELVIS X-RAY - 1 VIEW HISTORY: COMPARISON: None available. FINDINGS: Bones: No acute displaced fracture. Osseous alignment is within normal limits. Joints: The joint spaces are well-maintained. Soft tissues: The soft tissues appear unremarkable. IMPRESSION: No acute radiographic abnormality. Signed by: Dr. Ganesh Patton M.D. on 06/01/2018 6:39 PM Dictated By: GANESH PATTON MD 38 Transcribed By: MIRACLE on 06/01/181838 COPY TO: SHANITA RICHARDS MD CHEST SINGLE (PORTABLE) 2018-06-01 18:35:00 [place] [address] Patient Name: LEXII ARIZA MR #: [id number] : 1935 Age/Sex: 82 /M Req #: [id number] Adm Physician: BHAVIN LUO MD Ordered by: SHANITA RICHARDS MD Report #: [id number] Location: [facility] Room/Bed : [place] [address] Procedure: DX/CHEST SINGLE ( PORTABLE) Exam Date: 06/01/18 Exam Time: 1800 REPORT STATUS: Signed EXAMINATION: CHEST SINGLE (PORTABLE) INDICATION: COMPARISON: Chest radiograph 05/30/2018 FINDINGS: AP view TUBES and LINES: None. LUNGS: Lungs are well inflated. Increased interstitial lung markings in both lung bases may represent atelectasis. There is no evidence of pneumonia or pulmonary edema. PLEURA: No pleural effusion or pneumothorax. HEART AND MEDIASTINUM: The cardiac silhouette is within normal limits. Tortuous thoracic aorta. BONES AND SOFT TISSUES: Mild deformity of the left lower ribs, cannot exclude fracture. Soft tissues are unremarkable. UPPER ABDOMEN: No free air under the diaphragm. IMPRESSION: Mild deformity of the left lower ribs may be positional but cannot exclude fracture. Correlate with the region of pain. If clinical concern, consider further evaluation with left-sided rib series. Signed by: Dr. Ganesh Patton M.D. on 06/01/2018 6:37 PM Dictated By: GANESH PATTON MD 36 COPY TO: SHANITA RICHARDS MD CHEST SINGLE (PORTABLE) 2018-05-30 14:22:00 [place] [address] Patient Name: LEXII ARIZA MR #: [id number] : 1935 Age/Sex: 82 /M Req #: [id number] Adm Physician: Ordered by: EMMA CARDONA MD Report #: [id number] Location: ER Room/Bed: Procedure: [id number] DX/CHEST SINGLE (PORTABLE) Exam Date: Exam Time: REPORT STATUS: Signed Examination: Single AP view of the chest. COMPARISON: None. INDICATION: Medical clearance, altered mental status DISCUSSION: The lungs are well- inflated. Left hemidiaphragmatic elevation with linear opacity in the left lower lobe. Right lung is clear. Tortuous thoracic aorta. Mild enlargement of the cardiac silhouette without overt pulmonary edema. No acute osseous abnormality. IMPRESSION: Elevated left hemidiaphragm with subsegmental atelectasis in the left lung base. Mild enlargement of the cardiac silhouette without vascular decompensation. Signed by: Dr. Sergo Yadav M.D. on 05/30/2018 2:24 PM Dictated By: SERGO YADAV MD 1424 Transcribed By: MIRACLE on 05/30/18 1427 COPY TO: EMMA CARDONA MD
[2018-06-21] MEDS: NIFEDIPINE CR 30 MG TAB PO SCH ×2 (09:00→20:23)
[2018-06-21] MEDS: MULTIVITAMINS/MINERALS TAB PO SCH (09:00)
[2018-06-21] MEDS: LISINOPRIL 20 MG TAB PO SCH ×2 (09:00→17:00)
[2018-06-21] MEDS: ZINC SULFATE 220 MG CAP PO SCH (09:00)
[2018-06-21] MEDS: THIAMINE HCL 100 MG TAB PO SCH (09:00)
[2018-06-21] MEDS: FOLIC ACID 1 MG TAB PO SCH (09:31)
[2018-06-21] MEDS: HYDRALAZINE HCL 100 MG TABLET PO SCH ×3 (09:31→20:23)
[2018-06-21] MEDS: PANTOPRAZOLE SOD 40 MG TABEC PO SCH (09:31)
[2018-06-21] MEDS: METOPROLOL TARTRATE 50 MG TAB PO SCH ×2 (09:32→20:23)
[2018-06-21] MEDS: QUETIAPINE FUMARATE 25 MG TAB PO SCH ×2 (09:32→17:00)
[2018-06-21] MEDS: MEMANTINE 10 MG TAB PO SCH ×2 (09:32→17:00)
[2018-06-21] MEDS: ZINC OXIDE 30 GM TUBE TOP SCH ×2 (09:33→17:34)
--- NOTE | 2018-06-21 13:05 | NUR ---
Patient not swallowing well, pocketing food on mouth and spiting out, notified Dr Michel, new order recvd
--- NOTE | 2018-06-21 18:20 | NUR ---
patient resting in bed, not agitated, not swallowing well , bed side swallow eval done
--- NOTE | 2018-06-21 19:20 | NUR ---
Patient visited in room during nursing rounds. Sitter (Gabby) in room as ordered by MD for patient safety and patient having intermittent confusion. Bed alarm active. No distress or discomfort noted on patient. Willl monitor patient closely.
[2018-06-22] VITALS (7 sets, daily range): BP systolic 129–169; BP diastolic 64–75
[2018-06-22] MEDS: FAMOTIDINE 20 MG/2 ML VIAL IV SCH ×2 (06:00→17:23)
--- NOTE | 2018-06-22 07:22 | NUR ---
PATIENT IN BED RESTING WITH EYES CLOSED, NO RESPIRATORY DISTRESS OBSERVED. DRESSING INTACT TO LEFT FACE.1:1 SITTER AT BED SIDE, BED IN LOWER POSITION, CALL LIGHT AT REACH.
[2018-06-22] MEDS: PANTOPRAZOLE SOD 40 MG TABEC PO SCH (07:30)
[2018-06-22] MEDS: LISINOPRIL 20 MG TAB PO SCH ×2 (09:00→17:23)
[2018-06-22] MEDS: QUETIAPINE FUMARATE 25 MG TAB PO SCH ×2 (09:00→17:23)
[2018-06-22] MEDS: MULTIVITAMINS/MINERALS TAB PO SCH (09:00)
[2018-06-22] MEDS: FOLIC ACID 1 MG TAB PO SCH (09:00)
[2018-06-22] MEDS: HYDRALAZINE HCL 100 MG TABLET PO SCH ×3 (09:00→21:00)
[2018-06-22] MEDS: THIAMINE HCL 100 MG TAB PO SCH (09:00)
[2018-06-22] MEDS: NIFEDIPINE CR 30 MG TAB PO SCH ×2 (09:00→21:12)
[2018-06-22] MEDS: ZINC SULFATE 220 MG CAP PO SCH (09:00)
[2018-06-22] MEDS: MEMANTINE 10 MG TAB PO SCH ×2 (09:00→17:23)
[2018-06-22] MEDS: METOPROLOL TARTRATE 50 MG TAB PO SCH ×3 (09:00→21:12)
[2018-06-22 09:52] LABS: BASOPHILS # (AUTO) 0.1 (0.0-0.1); BASOPHILS % 0.5 % (0.0-1.0); EOSINOPHILS # (AUTO) 0.2 (0.0-0.4); EOSINOPHILS % 1.6 % (0.0-6.0); HEMATOCRIT 32.9 % (38.2-49.6); HEMOGLOBIN 10.4 g/dL (14.0-18.0); LYMPHOCYTES # (AUTO) 1.9 (1.0-3.2); LYMPHOCYTES % 17.8 % (18.0-39.1); MEAN CORPUSCULAR HEMOGLOBIN 28.3 pg (28-32); MEAN CORPUSCULAR HGB CONC 31.6 g/dL (31-35); MEAN CORPUSCULAR VOLUME 89.4 fL (81-99); MONOCYTES # (AUTO) 1.3 (0.2-0.8); MONOCYTES % 12.9 % (4.4-11.3); NEUTROPHILS # (AUTO) 6.9 (2.1-6.9); NEUTROPHILS % 66.9 % (38.7-80.0); PLATELET COUNT 196 x10e3/uL (140-360); RED BLOOD COUNT 3.68 x10e6/uL (4.3-5.7); RED CELL DISTRIBUTION WIDTH 15.3 % (11.7-14.4)
--- NOTE | 2018-06-22 09:55 | NUR ---
PATIENT OFF UNIT TO RADIOLOGY.
--- NOTE | 2018-06-22 10:12 | NUR ---
PATIENT BACK TO UNIT FROM RADIOLOGY
[2018-06-22 10:13] LABS: ANION GAP 16.6 mmol/L (8-16); BLOOD UREA NITROGEN 20 mg/dL (7-26); BUN/CREATININE RATIO 26 (6-25); CALCIUM 9.4 mg/dL (8.4-10.2); CARBON DIOXIDE 20 mmol/L (22-29); CHLORIDE 108 mmol/L (98-107); CREATININE, SERUM 0.78 mg/dL (0.72-1.25); EST GLOMERULAR FILTRATION RATE > 60 ML/MIN (60-); GLUCOSE 93 mg/dL (74-118); POTASSIUM 3.6 mmol/L (3.5-5.1); SODIUM 141 mmol/L (136-145)
--- NOTE | 2018-06-22 10:20 | NUR ---
SPOKE WITH MD REGARDING ELEVATED TEMP, NEW ORDERS RECEIVED. MD NOTIFIED OF PATIENT NPO STATUS AND PO MED HELD.
[2018-06-22] MEDS: ZINC OXIDE 30 GM TUBE TOP SCH ×2 (10:26→17:23)
[2018-06-22] MEDS ORDERED: VANCOMYCIN 1GM/NS 250 ML 250 ML IV ONE (11:00)
--- NOTE | 2018-06-22 11:30 | NUR ---
PATIENT AMBULATING IN HALLWAY WITH PHYSICAL THERAPY, NO RESPIRATORY DISTRESS OBSERVED. WILL CONTINUE TO MONITOR.
[2018-06-22] MEDS: CEFEPIME HCL 1 GM VIAL IV SCH (12:17)
--- NOTE | 2018-06-22 12:37 | Diagnostic Imaging Report ---
PROCEDURE: Frontal and lateral views of the chest. COMPARISON: Chest radiograph 06/01/18. INDICATIONS: ASPIRATION FINDINGS: Lines/tubes: None. Lungs: There is increased consolidative opacity in the left mid and lower lung zones. The right lung is clear. No evidence of pulmonary edema. Pleura: Possible small left pleural effusion. No evidence of pneumothorax. Heart and mediastinum: The cardiomediastinal silhouette is unchanged. Bones: No acute bony abnormality. IMPRESSION: Increasing consolidative opacity in the left mid and lower lung zone, consistent with clinical history of aspiration. Follow-up chest radiograph is suggested in 6-8 weeks to assess for resolution. Dictated by: NUZHAT LANTIGUA M.D. on 06/22/2018 at 11:28 Electronically approved by: NUZHAT LANTIGUA M.D. on 06/22/2018 at 11:28
--- NOTE | 2018-06-22 12:56 | Progress Note ---
DATE: June 22, 2018 PSYCHIATRIC PROGRESS NOTE SUBJECTIVE: Patient evaluated and events noted. INTERVAL HISTORY: Patient is currently lying on his bed. He is alert, awake, oriented to situation. He knows that he is in the hospital but does not know why. He is feeling better. He is less anxious and less depressed. He is not agitated. He is taking his medications and denies any side effects from them. He denies any hallucinations and/or any suicidal ideations. As per the staff, patient has been less agitated and less irritable. His behavior is mostly improved. He is sleeping and eating well. ASSESSMENT 1. Unspecified psychosis. 2. Unspecified dementia with behavioral disturbances. PLAN OF CARE 1. Monitor for agitation. 2. Continue p.r.n. IM Haldol. 3. Continue Namenda 5 mg p.o. b.i.d. 4. Continue p.r.n. Seroquel. 5. Continue Seroquel 25 mg p.o. b.i.d. 6. Continue Geodon 10 mg IM q.8 h. p.r.n. for agitation. Job#: [id number] EV
[2018-06-22] MEDS: ZIPRASIDONE 20 MG VIAL IM PRN (14:10)
--- NOTE | 2018-06-22 14:29 | NUR ---
SPOKE WITH BRITTNEY MERCER WHOM STATES HER APS CASE WILL BE CLOSED DUE TO HIM BEING IN THE HOSPITAL. SHE STATES SHE SPOKE WITH THE [employer] AND HE HASNT BEEN ASSIGNED A FORMSTONE FITTER THERE OF YET. SHE ASKS THAT SHE BE NOTIFIED OF WHERE HE GOES WHEN HE DISCHARGES SO SHE CAN REOPEN HIS CASE AND FOLLOW TO MAKE CERTAIN HE IS SAFE. EMAILED FITNESS ASSISTANT AND WAITING ON RESPONSE.
--- NOTE | 2018-06-22 15:26 | NUR ---
PATIENT ASSISTED WITH DIAPER CHANGE, HAD A BM. REPOSITIONED IN BED. CALL LIGHT AT REACH, SITTER AT BED SIDE.
[2018-06-23] VITALS (7 sets, daily range): BP systolic 98–154; BP diastolic 58–65
[2018-06-23] MEDS: FAMOTIDINE 20 MG/2 ML VIAL IV SCH ×2 (05:39→18:07)
--- NOTE | 2018-06-23 07:19 | NUR ---
PATIENT IN BED RESTING WITH EYES CLOSED, NO RESPIRATORY DISTRESS OBSERVED. HEEL PROTECTOR IN PLACE, DRESSING INTACT TO LEFT FACE. BED IN LOWER POSITION, CALL LIGHT AT REACH. SITTER AT BED SIDE.
[2018-06-23] MEDS: PANTOPRAZOLE SOD 40 MG TABEC PO SCH (08:10)
[2018-06-23] MEDS: METOPROLOL TARTRATE 50 MG TAB PO SCH ×2 (09:31→21:47)
[2018-06-23] MEDS: MEMANTINE 10 MG TAB PO SCH ×2 (09:31→18:06)
[2018-06-23] MEDS: HYDRALAZINE HCL 100 MG TABLET PO SCH ×3 (09:31→21:47)
[2018-06-23] MEDS: MULTIVITAMINS/MINERALS TAB PO SCH (09:31)
[2018-06-23] MEDS: FOLIC ACID 1 MG TAB PO SCH (09:31)
[2018-06-23] MEDS: CEFEPIME HCL 1 GM VIAL IV SCH (09:31)
[2018-06-23] MEDS: ZINC SULFATE 220 MG CAP PO SCH (09:32)
[2018-06-23] MEDS: LISINOPRIL 20 MG TAB PO SCH ×2 (09:32→17:00)
[2018-06-23] MEDS: THIAMINE HCL 100 MG TAB PO SCH (09:32)
[2018-06-23] MEDS: NIFEDIPINE CR 30 MG TAB PO SCH ×2 (09:32→21:48)
[2018-06-23] MEDS: QUETIAPINE FUMARATE 25 MG TAB PO SCH ×2 (09:32→18:06)
[2018-06-23] MEDS: ZINC OXIDE 30 GM TUBE TOP SCH ×2 (09:33→17:20)
--- NOTE | 2018-06-23 13:42 | NUR ---
PATIENT AMBULATED IN ROOM WITH PHYSICAL THERAPY, SITTING IN CHAIR WATCHING TV, CALL LIGHT AT REACH. SITTER AT BED SIDE.
--- NOTE | 2018-06-23 17:20 | NUR ---
PATIENT SITTING UP IN BED EATING DINNER, NO SWALLOWING DIFFICULTY OBSERVED. CALL LIGHT AT REACH.
--- NOTE | 2018-06-23 19:17 | NUR ---
PT IS SLEEPING IN BED WITH 1:1 SITTER AT BEDSIDE. NO RESPIRATORY DISTRESS NOTED. BED IN THE LOWEST POSITION, LOCK, AND CALL LIGHT WITHIN REACH. WILL CONTINUE TO MONITOR.
[2018-06-24] VITALS (8 sets, daily range): BP systolic 93–133; BP diastolic 53–68
--- NOTE | 2018-06-24 01:37 | Progress Note ---
DATE: June 21, 2018 TIME: 8:10 a.m. OVERNIGHT: No events. REVIEW OF SYSTEMS: Unobtainable. PHYSICAL EXAMINATION GENERAL: A tired-appearing man resting in bed. VITAL SIGNS: Reviewed. HEENT: Anicteric. CARDIOVASCULAR: Normal S1 and S2. LUNGS: Normal breath sounds. ABDOMEN: Soft and nontender. EXTREMITIES: No edema. SKIN: Dry. He has multiple ulcers, stage 3, on the face, chest, and knees. PSYCHIATRIC: Flat affect. LABS: Reviewed. MEDICATIONS: Reviewed. ASSESSMENT: An 82-year-old man with: 1. Unspecified psychosis/acute psychosis with bipolar disorder. 2. Alcoholism. 3. Fall and physical deconditioning. PLAN 1. Guardianship papers are pending. 2. Continue sitter. Job#: [id number] GAU
--- NOTE | 2018-06-24 01:38 | Progress Note ---
DATE: June 22, 2018 TIME: 8:10 a.m. OVERNIGHT: No events. REVIEW OF SYSTEMS: Unobtainable. PHYSICAL EXAMINATION GENERAL: A tired-appearing man resting in bed. VITAL SIGNS: Reviewed. HEENT: Anicteric. CARDIOVASCULAR: Normal S1 and S2. LUNGS: Normal breath sounds. ABDOMEN: Soft and nontender. EXTREMITIES: No edema. SKIN: He has multiple ulcers, stage 3, on the left face, left chest, and knees. PSYCHIATRIC: Flat affect. LABS: Reviewed. MEDICATIONS: Reviewed. ASSESSMENT: An 82-year-old man with: 1. Acute psychosis with bipolar disorder. 2. Alcoholism. 3. Fall and physical deconditioning. 4. Electrolyte derangement PLAN 1. Guardianship papers are pending. 2. Continue sitter. 3. Continue local wound care. Job#: [id number] SYLVAIN
--- NOTE | 2018-06-24 01:40 | Progress Note ---
DATE: June 23, 2018 TIME: 8:10 a.m. OVERNIGHT: No events. REVIEW OF SYSTEMS: Unobtainable. PHYSICAL EXAMINATION GENERAL: A tired-appearing man resting in bed. VITAL SIGNS: Reviewed. HEENT: Anicteric. CARDIOVASCULAR: Normal S1 and S2. LUNGS: Normal breath sounds. ABDOMEN: Soft and nontender. EXTREMITIES: No edema. SKIN: Dry. He has multiple ulcers, stage 3, on the left face, left chest, and bilateral knees. PSYCHIATRIC: Flat affect. LABS: Reviewed. MEDICATIONS: Reviewed. ASSESSMENT: An 82-year-old man with: 1. Acute psychosis and bipolar disorder. 2. Fall and physical deconditioning. 3. Electrolyte derangement. 4. Fever, dysphagia, and aspiration. PLAN 1. Aspiration precautions. 2. Guardianship papers are pending. 3. Continue sitter. 4. Continue local wound care. 5. Obtain blood cultures, urinalysis, and chest x-ray. Job#: [id number] SYLVAIN
[2018-06-24] MEDS: QUETIAPINE FUMARATE 25 MG TAB PO PRN (04:32)
[2018-06-24] MEDS: FAMOTIDINE 20 MG/2 ML VIAL IV SCH ×2 (05:06→18:01)
--- NOTE | 2018-06-24 05:57 | NUR ---
PT IS RESTING IN BED. NO ACUTE EVENT OCCURRED THROUGHOUT THE NIGHT. BED IN LOWEST POSITION, LOCKED, AND CALL LIGHT WITHIN REACH. WILL CONTINUE TO MONITOR.
[2018-06-24] MEDS: PANTOPRAZOLE SOD 40 MG TABEC PO SCH (08:30)
--- NOTE | 2018-06-24 08:45 | NUR ---
PATIENT SITTING UP IN BED, ASSISTED WITH BREAKFAST BY THE SITTER. DENIED PAIN AT THIS TIME. BED IN LOWER POSITION AND LOCKED. CALL LIGHT AT REACH.
[2018-06-24] MEDS: HYDRALAZINE HCL 100 MG TABLET PO SCH ×3 (09:00→22:13)
[2018-06-24] MEDS: NIFEDIPINE CR 30 MG TAB PO SCH ×2 (09:00→22:14)
[2018-06-24] MEDS: METOPROLOL TARTRATE 50 MG TAB PO SCH ×2 (09:00→22:13)
[2018-06-24] MEDS: LISINOPRIL 20 MG TAB PO SCH ×2 (09:00→17:30)
[2018-06-24] MEDS: MEMANTINE 10 MG TAB PO SCH ×2 (09:21→17:50)
[2018-06-24] MEDS: FOLIC ACID 1 MG TAB PO SCH (09:21)
[2018-06-24] MEDS: ZINC OXIDE 30 GM TUBE TOP SCH ×2 (09:21→17:50)
[2018-06-24] MEDS: CEFEPIME HCL 1 GM VIAL IV SCH (09:21)
[2018-06-24] MEDS: MULTIVITAMINS/MINERALS TAB PO SCH (09:21)
[2018-06-24] MEDS: ZINC SULFATE 220 MG CAP PO SCH (09:21)
[2018-06-24] MEDS: QUETIAPINE FUMARATE 25 MG TAB PO SCH ×2 (09:21→17:50)
[2018-06-24] MEDS: THIAMINE HCL 100 MG TAB PO SCH (09:22)
--- NOTE | 2018-06-24 10:45 | NUR ---
AM B/P MEDICATION HELD DUE TO LOW B/P. MD NOTIFIED, NEW ORDER RECEIVED TO HOLD B/P MEDICATION FOR SYSTOLIC LESS THAN 120.
--- NOTE | 2018-06-24 15:25 | NUR ---
PATIENT ASSISTED WITH DIAPER CHANGE, HAD A BM. REPOSITIONED IN BED, BED IN LOWER POSITION, CALL LIGHT AT REACH. SITTER AT BED SIDE.
--- NOTE | 2018-06-24 17:12 | NUR ---
[id number] I.M. Progress Note Haylee Tran, VOLUNTEER SERVICES ASSISTANT-C
--- NOTE | 2018-06-24 19:35 | NUR ---
PT IS RESTING IN BED WITH 1:1 SITTER AT BEDSIDE. NO RESPIRATORY DISTRESS NOTED. BED IN THE LOWEST POSITION, LOCK, BED ALARM ON, AND CALL LIGHT WITHIN REACH. WILL CONTINUE TO MONITOR.
--- NOTE | 2018-06-24 21:02 | Progress Note ---
DATE: June 24, 2018 TIME OF SERVICE: 12:30 p.m. OVERNIGHT: No acute events. REVIEW OF SYSTEMS: Unreliable. PHYSICAL EXAMINATION VITAL SIGNS: T 98.7, P 70, R 20, BP 103/55, and SpO2 96% on RA. GENERAL: This is a very tired-appearing man, resting supine in bed. HEENT: Normocephalic without sinus tenderness. Oral mucous moist and intact. NECK: Trachea midline. CV: S1, S2 with regular rate. No clicks, murmurs, or rubs. LUNGS: Bilateral breath sounds are clear in all tran with fair excursion. ABDOMEN: Soft, nontender, and nondistended. EXTREMITIES: No edema. SKIN: Dry. Multiple ulcers covered by clean and dry dressing on the left face, left chest at diaphragm area and bilateral knees. PSYCHIATRIC: Flat affect. LABS: Reviewed. MEDICATIONS: Reviewed. ASSESSMENT AND PLAN: This is an 82-year-old man with: 1. Acute psychosis and bipolar disorder. Psychiatric recommendations were reviewed. Continue treatment plan. 2. Fall and physical deconditioning. Continue sitter. 3. Electrolyte derangement. We will obtain values and follow up in the a.m. 4. Fever, dysphagia, and aspiration. White count within normal limits. Follow up electrolytes values in the morning. Patient without febrile episodes times 48 hours. Continue local wound care with aspiration precautions. Guardianship papers are pending. Prior CXR with increasing consolidative opacity in the left mid and lower lung zones consistent with a clinical history of aspiration. Radiology recommends follow up in 6 to 8 weeks to assess for resolution. Dictated by: Mary Tran NP Job#: [id number] VAS
[2018-06-25] VITALS (7 sets, daily range): BP systolic 122–169; BP diastolic 62–79
[2018-06-25] MEDS: FAMOTIDINE 20 MG/2 ML VIAL IV SCH ×2 (05:24→18:00)
--- NOTE | 2018-06-25 06:38 | NUR ---
PT IS RESTING IN BED. NO ACUTE EVENT OCCURRED THROUGHOUT THE NIGHT. 1:1 SITTER AT BEDSIDE. BED IN LOWEST POSITION, LOCKED, AND CALL LIGHT WITHIN REACH. WILL CONTINUE TO MONITOR.
--- NOTE | 2018-06-25 07:45 | NUR ---
PT UP IN BED SLEEPING,NO DISTRES NTOED.
--- NOTE | 2018-06-25 08:30 | NUR ---
PT UP IN BED VERY PLEASANT,NO AGITATION NOTED.SITTER AT BEDSIDE
[2018-06-25] MEDS: THIAMINE HCL 100 MG TAB PO SCH (08:45)
[2018-06-25] MEDS: ZINC OXIDE 30 GM TUBE TOP SCH ×2 (08:45→17:00)
[2018-06-25] MEDS: NIFEDIPINE CR 30 MG TAB PO SCH ×2 (08:45→21:00)
[2018-06-25] MEDS: CEFEPIME HCL 1 GM VIAL IV SCH (08:45)
[2018-06-25] MEDS: MEMANTINE 10 MG TAB PO SCH ×2 (08:45→17:00)
[2018-06-25] MEDS: MULTIVITAMINS/MINERALS TAB PO SCH (08:45)
[2018-06-25] MEDS: QUETIAPINE FUMARATE 25 MG TAB PO SCH ×2 (08:45→17:00)
[2018-06-25] MEDS: LISINOPRIL 20 MG TAB PO SCH ×2 (08:45→17:00)
[2018-06-25] MEDS: HYDRALAZINE HCL 100 MG TABLET PO SCH ×3 (08:45→21:00)
[2018-06-25] MEDS: FOLIC ACID 1 MG TAB PO SCH (08:45)
[2018-06-25] MEDS: PANTOPRAZOLE SOD 40 MG TABEC PO SCH (08:45)
[2018-06-25] MEDS: METOPROLOL TARTRATE 50 MG TAB PO SCH ×2 (08:45→21:00)
[2018-06-25] MEDS: ZINC SULFATE 220 MG CAP PO SCH (08:45)
--- NOTE | 2018-06-25 12:30 | NUR ---
REFUSED TO AMBULATE WITH PHYSICAL THERAPY
--- NOTE | 2018-06-25 18:19 | NUR ---
PT RESTING NO DISTRESS NTOED.1;1 SITTER AT BEDSIDE
--- NOTE | 2018-06-25 19:10 | NUR ---
patient recieved awake, alert x1. patient very inappropriate verbally. 1:1 remains at the bedside for safety. pm assessment complete. 1:1 instructed to call for assistance when needed.
--- NOTE | 2018-06-25 21:00 | NUR ---
patient refuses to take pm bp medications. bp stable at this time. will continue to monitor closely.
[2018-06-26] VITALS (8 sets, daily range): BP systolic 140–170; BP diastolic 72–84
--- NOTE | 2018-06-26 05:12 | NUR ---
patient medicated with labetalol 5mg ivp for bp 170/82 at this time.
[2018-06-26] MEDS: FAMOTIDINE 20 MG/2 ML VIAL IV SCH ×2 (05:17→18:00)
[2018-06-26] MEDS: LABETALOL HCL 5 MG/ML 20ML VIAL IV PRN (05:17)
[2018-06-26] MEDS: PANTOPRAZOLE SOD 40 MG TABEC PO SCH (07:30)
--- NOTE | 2018-06-26 07:30 | NUR ---
PT UP IN BED AGITATED,REFUSES ASSISTANCE,BED ALARM ON
[2018-06-26] MEDS: NIFEDIPINE CR 30 MG TAB PO SCH ×2 (09:00→20:20)
[2018-06-26] MEDS: MULTIVITAMINS/MINERALS TAB PO SCH (09:00)
[2018-06-26] MEDS: METOPROLOL TARTRATE 50 MG TAB PO SCH ×2 (09:00→20:20)
[2018-06-26] MEDS: CEFEPIME HCL 1 GM VIAL IV SCH (09:00)
[2018-06-26] MEDS: MEMANTINE 10 MG TAB PO SCH ×2 (09:00→17:00)
[2018-06-26] MEDS: FOLIC ACID 1 MG TAB PO SCH (09:00)
[2018-06-26] MEDS: THIAMINE HCL 100 MG TAB PO SCH (09:00)
[2018-06-26] MEDS: ZINC SULFATE 220 MG CAP PO SCH (09:00)
[2018-06-26] MEDS: LISINOPRIL 20 MG TAB PO SCH ×2 (09:00→17:00)
[2018-06-26] MEDS: HYDRALAZINE HCL 100 MG TABLET PO SCH ×3 (09:00→20:20)
[2018-06-26] MEDS: QUETIAPINE FUMARATE 25 MG TAB PO SCH ×2 (09:00→17:00)
[2018-06-26] MEDS: ZINC OXIDE 30 GM TUBE TOP SCH ×2 (09:00→17:00)
--- NOTE | 2018-06-26 12:30 | NUR ---
PT YELLING AND SLAPPING AT STAFF,MEDICATED.
[2018-06-26] MEDS: QUETIAPINE FUMARATE 25 MG TAB PO PRN ×2 (12:35→20:20)
--- NOTE | 2018-06-26 14:48 | NUR ---
PT UP IN BED REFUSES MEDICATED SPITTING IT OUT
--- NOTE | 2018-06-26 17:46 | NUR ---
PT SLEEPING REFUSES TO EAT OR TAKE MEDICATION.1;1 SITTER AT BEDSIDE
--- NOTE | 2018-06-26 19:29 | NUR ---
WALKING ROUNDS PERFORMED, RECEIVED PT (L) SIDE LAYING SEMI FOWLERS IN BED, AAOX1, RR EVEN AND NON-LABORED, ON RA. NO S/SX OF DISTRESS OR AGITATION NOTED. 1:1 SITTER AT BEDSIDE. LEFT PT (L) SIDE LAYING SEMI FOWLERS IN BED, BED IN LOW LOCKED POSITION, SIDE RAILS UPX3, CALL LIGHT AND PHONE WITHIN REACH.
--- NOTE | 2018-06-26 20:30 | Progress Note ---
DATE: June 25, 2018 TIME: 8:15 a.m. OVERNIGHT: No events. REVIEW OF SYSTEMS: Unobtainable. PHYSICAL EXAMINATION: VITAL SIGNS: Reviewed. GENERAL APPEARANCE: Tired-appearing man resting in bed. HEENT: Anicteric. CARDIOVASCULAR: Normal S1 and S2. LUNGS: Moderate breath sounds. ABDOMEN: Soft, nontender. EXTREMITIES: No edema. SKIN: Dry. He has multiple ulcers, stage 3, on the face, left chest, and knees. PSYCHIATRIC: Flat affect. LABS: Reviewed. MEDICATIONS: Reviewed. ASSESSMENT: An 82-year-old man. 1. Acute psychosis and bipolar disorder. 2. Fall and physical deconditioning. 3. Electrolyte derangement. 4. Dysphagia. PLAN: 1. Continue current care. 2. Guardianship papers are pending. 3. Continue sitter. Job#: [id number]
--- NOTE | 2018-06-26 20:35 | Progress Note ---
DATE: June 26, 2018 TIME: 8:30 a.m. OVERNIGHT: No events. REVIEW OF SYSTEMS: Unobtainable. PHYSICAL EXAMINATION: VITAL SIGNS: Reviewed. GENERAL APPEARANCE: Tired-appearing man resting in bed. HEENT: Anicteric. CARDIOVASCULAR: Normal S1 and S2. LUNGS: Moderate breath sounds. ABDOMEN: Soft, nontender. SKIN: He has multiple ulcers, stage 3, on the left face, left chest, and knees. PSYCHIATRIC: Flat affect. LABS: Reviewed. MEDICATIONS: Reviewed. ASSESSMENT: An 82-year-old man. 1. Acute psychosis and bipolar disorder. 2. Fall and physical deconditioning. 3. Electrolyte derangement. PLAN: 1. Continue sitter. 2. Guardianship papers are pending. 3. Continue medical treatment. Job#: [id number]
[2018-06-27] VITALS (9 sets, daily range): BP systolic 98–136; BP diastolic 53–73
[2018-06-27] MEDS: QUETIAPINE FUMARATE 25 MG TAB PO PRN (05:00)
--- NOTE | 2018-06-27 05:00 | NUR ---
dressing change performed to (L) cheek, anterior chest, (R) elbow, bilateral knees, lateral and medial (R) foot, lateral (L) foot. Pt very combative while dressing change being performed.
[2018-06-27] MEDS: FAMOTIDINE 20 MG/2 ML VIAL IV SCH ×2 (05:23→18:03)
--- NOTE | 2018-06-27 07:25 | NUR ---
PATIENT IN BED RESTING WITH EYES CLOSED, NO RESPIRATORY DISTRESS OBSERVED. SITTER AT BED SIDE, CALL LIGHT AT REACH.
[2018-06-27] MEDS: PANTOPRAZOLE SOD 40 MG TABEC PO SCH (07:54)
[2018-06-27] MEDS: CEFEPIME HCL 1 GM VIAL IV SCH (09:22)
[2018-06-27] MEDS: HYDRALAZINE HCL 100 MG TABLET PO SCH ×3 (09:54→21:48)
[2018-06-27] MEDS: FOLIC ACID 1 MG TAB PO SCH (09:54)
[2018-06-27] MEDS: MULTIVITAMINS/MINERALS TAB PO SCH (09:55)
[2018-06-27] MEDS: LISINOPRIL 20 MG TAB PO SCH ×2 (09:55→17:51)
[2018-06-27] MEDS: THIAMINE HCL 100 MG TAB PO SCH (09:55)
[2018-06-27] MEDS: MEMANTINE 10 MG TAB PO SCH ×2 (09:55→17:51)
[2018-06-27] MEDS: NIFEDIPINE CR 30 MG TAB PO SCH ×2 (09:55→21:49)
[2018-06-27] MEDS: ZINC SULFATE 220 MG CAP PO SCH (09:55)
[2018-06-27] MEDS: METOPROLOL TARTRATE 50 MG TAB PO SCH ×2 (09:55→21:49)
[2018-06-27] MEDS: QUETIAPINE FUMARATE 25 MG TAB PO SCH ×2 (09:55→17:51)
[2018-06-27] MEDS: ZINC OXIDE 30 GM TUBE TOP SCH ×2 (09:56→17:34)
--- NOTE | 2018-06-27 13:34 | NUR ---
RD Recommendation(s) for Physician: - Consult CAMPUS ADMINISTRATOR for evaluation for diet texture evaluation related to varied intake - Continue Cardiac diet - Recommend Ensure Enlive BID for adequacy - Recommend Vitamin C 500 mg BID to promote wound healing - Recommend Jethro 1 packet BID to promote wound healing Plan of Care: Sign off, please consult as needed. Nutrition reason for involvement: LOS RD Assessment: 06/27: Follow-up. Chart reviewed. Discussed with nursing who reports pt is tolerating current diet without difficulty. Intake remains varied, per report pt ate >75% of breakfast and 50% of lunch. Recs remain as above. Upon chart review pt weight appears stable, on 06/03/18 wt of 135 lb and 06/27 136.6 indicating adequate nutrition. Sign off, consult as needed. 06/20: Follow-up. Chart reviewed. Visited pt in room who was awake and alert, unable to provide information on intake. Discussed with sitter in room who assisted pt with meal and she reports 80% intake this am. Intake remains varied, appetite appears fair. Pt is awating guardianship and placement per noted. Recs remain as above, discussed with nursing. Weight appears stable since 06/03. Will cont to monitor. 06/13: Follow-up. Chart reviewed. Discussed with nursing. Visited pt in room who reports was sitting in chair for lunch. Sitter in room assisting pt with meal. Pt intake today 75 and 100%, per chart reviewed varied from 25-100%. Recs remain as above. Will cont to monitor. 06/06: 82 YOM admitted for bipolar disorder with multiple stage III ulcers on body per MD notes and PMH of ETOH abuse, HTN, bipolar disorder, dementia, and anxiety. Pt with bouts of confusion, at time of visit reports good appetite and po intake- noted 25-75% meal intake since admit. RN reports no GI distress or difficulties chewing or swallowing. Pt does not know UBW, denies wt loss. No family at bedside currently. Principal Problems/Diagnoses: Bipolar disorder, HTN, GERD, anemia, deconditioning, hypernatremia PMH: ETOH abuse, HTN, bipolar disorder, dementia, and anxiety GI: WDL Skin: Multiple stage III ulcers on body per MD notes, noted 1 wound to knee per skin assessment- not pressure related Labs: 06/27: reviewed 06/20: Na 143, K 3.6, Bun 19, Cr 1.08, glucose 89 06/13: Na 146, K 3.4, Mg 1.2 (06/06) K 3.6, (06/04) Na 145, BUN 10, Cr 0.81, Gluc 74, Ca 8.9 Meds: MVI with minerals, folic acid, thiamine, abx, seroquel, zofran Ht: 67 in Wt: 136 lb BMI: 21.3 IBW: 148 lb Malnutrition Evaluation (06/06/18) The patient does not meet criteria for a specified degree of malnutrition at this time. Will re-evaluate at follow-up as appropriate. Nutrition Prescription (Diet Order): Cardiac Estimated Nutritional Needs: [id number] calories/day (25-35 kcal/kg CBW) 62-93 g protein/day (1-1.5 g pro/kg CBW) Diet Adequacy: meeting calorie needs, meeting protein needs Diet Education Needs Assessment: Diet education indicated, but patient not appropriate for education at this time. Nutrition Care Level: low Nutrition Diagnosis: Inadequate energy and protein intake related to current medical conditions as evidenced by multiple wounds and not meeting needs. Goal: Patient will meet 75-100% of estimated needs by follow up (goal met) Progress: meeting needs Interventions: Mineral modified diet, Commercial beverage, Multivitamin/mineral supplement therapy Monitoring/Evaluation: Total energy intake, Total protein intake, Modified diet, Liquid supplement Signed: Deirdre Mendes RD, JOSE R
--- NOTE | 2018-06-27 14:29 | Progress Note ---
DATE: June 27, 2018 PSYCHIATRIC PROGRESS NOTE SUBJECTIVE: Patient evaluated and events noted. INTERVAL HISTORY: Patient is currently lying on his bed. He is sleeping but arousable. He is not able to answer any questions at this time. He has a 1:1 sitter who reported that the patient has been confused and intermittently agitated. He is not eating very well. No other behavioral problems are reported at this time. ASSESSMENT 1. Unspecified psychosis. 2. Unspecified dementia with behavioral disturbances. PLAN OF CARE 1. Monitor for agitation. 2. Continue p.r.n. IM Haldol. 3. Continue p.r.n. Seroquel. 4. Continue p.r.n. Geodon. 5. Continue scheduled Namenda. 6. Continue scheduled Seroquel. Job#: [id number]
[2018-06-27] MEDS: ZIPRASIDONE 20 MG VIAL IM PRN (19:18)
--- NOTE | 2018-06-27 19:21 | NUR ---
PT IS TRYING TO SPIT ON STAFF, TRYING TO HIT STAFF MEMBERS, AND SCRATCH THE PCT ON HER FOREARM. MEDICATION GIVEN PER NOV. WILL CONTINUE TO MONITOR.
--- NOTE | 2018-06-27 19:29 | NUR ---
PT IS RESTING IN BED WITH 1:1 SITTER AT BEDSIDE. NO RESPIRATORY DISTRESS NOTED. BED IN THE LOWEST POSITION, LOCK, AND CALL LIGHT WITHIN REACH. WILL CONTINUE TO MONITOR.
[2018-06-28] VITALS (10 sets, daily range): BP systolic 91–180; BP diastolic 50–89
[2018-06-28] MEDS: FAMOTIDINE 20 MG/2 ML VIAL IV SCH ×2 (06:17→18:03)
--- NOTE | 2018-06-28 07:18 | NUR ---
PATIENT IN BED WITH HEAD OF BED ELEVATED WATCHING TV, NO S/S OF PAIN OR DISCOMFORT. BED IN LOWER POSITION AND LOCKED. CALL LIGHT AT REACH. SITTER AT BED SIDE.
[2018-06-28] MEDS: PANTOPRAZOLE SOD 40 MG TABEC PO SCH (07:30)
[2018-06-28] MEDS: MULTIVITAMINS/MINERALS TAB PO SCH (09:37)
[2018-06-28] MEDS: FOLIC ACID 1 MG TAB PO SCH (09:37)
[2018-06-28] MEDS: CEFEPIME HCL 1 GM VIAL IV SCH (09:37)
[2018-06-28] MEDS: HYDRALAZINE HCL 100 MG TABLET PO SCH ×3 (09:37→21:00)
[2018-06-28] MEDS: METOPROLOL TARTRATE 50 MG TAB PO SCH ×2 (09:37→21:00)
[2018-06-28] MEDS: MEMANTINE 10 MG TAB PO SCH ×2 (09:38→17:29)
[2018-06-28] MEDS: QUETIAPINE FUMARATE 25 MG TAB PO SCH ×2 (09:38→17:30)
[2018-06-28] MEDS: LISINOPRIL 20 MG TAB PO SCH ×2 (09:38→17:30)
[2018-06-28] MEDS: ZINC SULFATE 220 MG CAP PO SCH (09:39)
[2018-06-28] MEDS: ZINC OXIDE 30 GM TUBE TOP SCH ×2 (09:39→17:30)
[2018-06-28] MEDS: THIAMINE HCL 100 MG TAB PO SCH (09:39)
[2018-06-28] MEDS: NIFEDIPINE CR 30 MG TAB PO SCH ×2 (09:39→21:00)
--- NOTE | 2018-06-28 11:13 | NUR ---
PATIENT AMBULATED IN THE ROOM WITH PHYSICAL THERAPY. BACK IN BED WITH CALL LIGHT AT REACH. SITTER AT BED SIDE.
--- NOTE | 2018-06-28 16:12 | NUR ---
DRESSING CHANGED TO MULTIPLE WOUNDS ORDERED, PATIENT TOLERATED WELL.IN BED RESTING WITH NO RESPIRATORY DISTRESS, CALL LIGHT AT REACH.
[2018-06-28] MEDS: LABETALOL HCL 5 MG/ML 20ML VIAL IV PRN (22:39)
[2018-06-29] VITALS (10 sets, daily range): BP systolic 102–141; BP diastolic 56–79
[2018-06-29] MEDS: FAMOTIDINE 20 MG/2 ML VIAL IV SCH ×2 (05:41→18:00)
--- NOTE | 2018-06-29 06:17 | NUR ---
PT IS RESTING IN BED WITH 1:1 SITTER AT BEDSIDE. NO ACUTE EVENT OCCURRED THROUGHOUT THE NIGHT. BED IN LOWEST POSITION, LOCKED, AND CALL LIGHT WITHIN REACH. WILL CONTINUE TO MONITOR.
[2018-06-29 06:54] LABS: BASOPHILS # (AUTO) 0.1 (0.0-0.1); EOSINOPHILS # (AUTO) 0.3 (0.0-0.4); EOSINOPHILS % 5.1 % (0.0-6.0); HEMATOCRIT 33.1 % (38.2-49.6); HEMOGLOBIN 10.8 g/dL (14.0-18.0); LYMPHOCYTES # (AUTO) 2.1 (1.0-3.2); MEAN CORPUSCULAR HGB CONC 32.6 g/dL (31-35); MEAN CORPUSCULAR VOLUME 85.8 fL (81-99); MONOCYTES # (AUTO) 0.6 (0.2-0.8); MONOCYTES % 10.2 % (4.4-11.3); NEUTROPHILS # (AUTO) 2.9 (2.1-6.9); NEUTROPHILS % 48.5 % (38.7-80.0); PLATELET COUNT 276 x10e3/uL (140-360); RED BLOOD COUNT 3.86 x10e6/uL (4.3-5.7); RED CELL DISTRIBUTION WIDTH 14.7 % (11.7-14.4)
[2018-06-29 07:14] LABS: ANION GAP 16.4 mmol/L (8-16); BLOOD UREA NITROGEN 15 mg/dL (7-26); BUN/CREATININE RATIO 19 (6-25); CALCIUM 9.5 mg/dL (8.4-10.2); CARBON DIOXIDE 20 mmol/L (22-29); CHLORIDE 110 mmol/L (98-107); CREATININE, SERUM 0.77 mg/dL (0.72-1.25); EST GLOMERULAR FILTRATION RATE > 60 ML/MIN (60-); GLUCOSE 103 mg/dL (74-118); MAGNESIUM 1.5 MG/DL (1.3-2.1); PHOSPHORUS 3.1 MG/DL (2.3-4.7); POTASSIUM 3.4 mmol/L (3.5-5.1); SODIUM 143 mmol/L (136-145)
[2018-06-29] MEDS: CEFEPIME HCL 1 GM VIAL IV SCH (08:42)
[2018-06-29] MEDS: FOLIC ACID 1 MG TAB PO SCH (08:42)
[2018-06-29] MEDS: PANTOPRAZOLE SOD 40 MG TABEC PO SCH (08:42)
[2018-06-29] MEDS: QUETIAPINE FUMARATE 25 MG TAB PO SCH ×2 (08:43→17:00)
[2018-06-29] MEDS: NIFEDIPINE CR 30 MG TAB PO SCH ×2 (08:43→20:22)
[2018-06-29] MEDS: MEMANTINE 10 MG TAB PO SCH ×2 (08:43→17:00)
[2018-06-29] MEDS: MULTIVITAMINS/MINERALS TAB PO SCH (08:43)
[2018-06-29] MEDS: METOPROLOL TARTRATE 50 MG TAB PO SCH ×2 (08:43→20:22)
[2018-06-29] MEDS: THIAMINE HCL 100 MG TAB PO SCH (08:44)
[2018-06-29] MEDS: ZINC OXIDE 30 GM TUBE TOP SCH ×2 (08:44→18:11)
[2018-06-29] MEDS: ZINC SULFATE 220 MG CAP PO SCH (08:44)
--- NOTE | 2018-06-29 09:50 | NUR ---
Pt received resting in bed with sitter at bedside for safety precautions. Pt with wounds to left chest wall, left cheek, right elbow, and bilateral knees. Dressing changes done as ordered. Alert and oriented to person, confused and combative at times. Oriented to staff and surroundings. Encouraged to press call solorio if help needed. Pt verbalized understanding of teaching but needs frequent re-orientation. Fall precautions maintained. Call solorio within reach. All meds given as ordered. Will monitor.
--- NOTE | 2018-06-29 10:00 | NUR ---
Pt threw a cup of Milk on nurse. Pt advised to refrain from such behavior. Charge nurse aware. Will monitor
[2018-06-29] MEDS ORDERED: POTASSIUM CHLORIDE 20 MEQ TAB CR PO STA (10:03)
[2018-06-29] MEDS ORDERED: POTASSIUM CHLORIDE 20 MEQ TAB CR PO SCH (10:30)
[2018-06-29] MEDS: LISINOPRIL 20 MG TAB PO SCH ×2 (12:01→17:00)
[2018-06-29] MEDS: HYDRALAZINE HCL 100 MG TABLET PO SCH ×3 (12:01→20:22)
--- NOTE | 2018-06-29 18:13 | NUR ---
Attempted several times without success to give pt his meds (including KCL). Pt spitting out his meds. Dr. Michel notified. Will follow up labs in the Am
--- NOTE | 2018-06-29 19:00 | NUR ---
patient recieved awake, alert, confused, lying quietly in bed. vss. no c/o pain noted. 1:1 noted at the bedside. pm assessment complete. 1:1 instructed to call for assistance when needed.
--- NOTE | 2018-06-29 20:22 | NUR ---
patient refuses to take pm bp medications at this time. will attempt to give at later time.
[2018-06-30] VITALS (9 sets, daily range): BP systolic 119–148; BP diastolic 57–82
[2018-06-30] MEDS: FAMOTIDINE 20 MG/2 ML VIAL IV SCH ×2 (05:19→18:00)
[2018-06-30 06:14] LABS: BASOPHILS # (AUTO) 0.1 (0.0-0.1); BASOPHILS % 1.3 % (0.0-1.0); EOSINOPHILS # (AUTO) 0.3 (0.0-0.4); EOSINOPHILS % 5.2 % (0.0-6.0); HEMATOCRIT 34.7 % (38.2-49.6); HEMOGLOBIN 11.2 g/dL (14.0-18.0); LYMPHOCYTES # (AUTO) 1.8 (1.0-3.2); LYMPHOCYTES % 32.4 % (18.0-39.1); MEAN CORPUSCULAR HEMOGLOBIN 27.9 pg (28-32); MEAN CORPUSCULAR HGB CONC 32.3 g/dL (31-35); MEAN CORPUSCULAR VOLUME 86.5 fL (81-99); MONOCYTES # (AUTO) 0.6 (0.2-0.8); MONOCYTES % 10.2 % (4.4-11.3); NEUTROPHILS # (AUTO) 2.8 (2.1-6.9); NEUTROPHILS % 50.7 % (38.7-80.0); PLATELET COUNT 268 x10e3/uL (140-360); RED BLOOD COUNT 4.01 x10e6/uL (4.3-5.7); RED CELL DISTRIBUTION WIDTH 14.7 % (11.7-14.4)
[2018-06-30 06:36] LABS: ALANINE AMINOTRANSFERASE 11 IU/L (0-55); ALBUMIN 2.8 g/dL (3.5-5.0); ALBUMIN/GLOBULIN RATIO 0.7 (0.8-2.0); ALKALINE PHOSPHATASE 51 IU/L (40-150); ANION GAP 16.6 mmol/L (8-16); BLOOD UREA NITROGEN 15 mg/dL (7-26); BUN/CREATININE RATIO 21 (6-25); CALCIUM 9.9 mg/dL (8.4-10.2); CARBON DIOXIDE 22 mmol/L (22-29); CHLORIDE 110 mmol/L (98-107); CREATININE, SERUM 0.72 mg/dL (0.72-1.25); EST GLOMERULAR FILTRATION RATE > 60 ML/MIN (60-); GLUCOSE 84 mg/dL (74-118); POTASSIUM 3.6 mmol/L (3.5-5.1); SODIUM 145 mmol/L (136-145)
[2018-06-30] MEDS: PANTOPRAZOLE SOD 40 MG TABEC PO SCH (08:47)
[2018-06-30] MEDS: METOPROLOL TARTRATE 50 MG TAB PO SCH ×2 (08:47→21:00)
[2018-06-30] MEDS: HYDRALAZINE HCL 100 MG TABLET PO SCH ×3 (08:47→21:00)
[2018-06-30] MEDS: FOLIC ACID 1 MG TAB PO SCH (08:47)
[2018-06-30] MEDS: ZINC OXIDE 30 GM TUBE TOP SCH ×2 (08:48→17:21)
[2018-06-30] MEDS: NIFEDIPINE CR 30 MG TAB PO SCH ×2 (08:48→21:00)
[2018-06-30] MEDS: ZINC SULFATE 220 MG CAP PO SCH (08:48)
[2018-06-30] MEDS: THIAMINE HCL 100 MG TAB PO SCH (08:48)
[2018-06-30] MEDS: MEMANTINE 10 MG TAB PO SCH ×2 (08:48→17:20)
[2018-06-30] MEDS: LISINOPRIL 20 MG TAB PO SCH ×2 (08:48→17:21)
[2018-06-30] MEDS: MULTIVITAMINS/MINERALS TAB PO SCH (08:48)
[2018-06-30] MEDS: QUETIAPINE FUMARATE 25 MG TAB PO SCH ×2 (08:48→17:21)
--- NOTE | 2018-06-30 09:00 | NUR ---
All meds given as ordered. Sitter at bedside. Pt resting in bed without s/s of distress. Will monitor
--- NOTE | 2018-06-30 19:10 | NUR ---
patient recieved awake, alert, lying quietly in bed. vss. no c/o pain noted. 1:1 remains at the bedside for safety. pm assessment complete. 1:1 instructed to call for assistance when needed.
[2018-07-01] VITALS (11 sets, daily range): BP systolic 118–139; BP diastolic 62–89
--- NOTE | 2018-07-01 01:00 | NUR ---
attempted twice to place iv. patient agitated and unwilling to allow iv to be placed at this time.
--- NOTE | 2018-07-01 06:24 | Progress Note ---
DATE: June 27, 2018 TIME: 9:07 a.m. OVERNIGHT: No events. REVIEW OF SYSTEMS: Unobtainable. PHYSICAL EXAMINATION VITAL SIGNS: Reviewed. GENERAL APPEARANCE: A tired-appearing man, resting in bed. HEENT: Anicteric. CARDIOVASCULAR: Normal S1 and S2. LUNGS: Moderate breath sounds. ABDOMEN: Soft and nontender. EXTREMITIES: No edema. SKIN: He has multiple ulcers, stage 3, on the face, left chest, and knees. PSYCHIATRIC: Flat affect. NEUROLOGICAL: Awake. LABS: Reviewed. MEDICATIONS: Reviewed. ASSESSMENT: An 82-year-old man with: 1. Acute psychosis and bipolar disorder. 2. Fall and physical deconditioning. 3. Electrolyte derangement. PLAN 1. Continue sitter. 2. Continue guardianship papers. 3. Followup and continue medical treatment. Job#: [id number] ZAK
--- NOTE | 2018-07-01 07:00 | Progress Note ---
DATE: June 28, 2018 TIME: 7:00 a.m. OVERNIGHT: No events. REVIEW OF SYSTEMS: Unobtainable. PHYSICAL EXAMINATION VITAL SIGNS: Reviewed. GENERAL APPEARANCE: A tired-appearing man, resting in bed. HEENT: Anicteric. CARDIOVASCULAR: Normal S1 and S2. LUNGS: Moderate breath sounds. ABDOMEN: Soft and nontender. EXTREMITIES: No edema. SKIN: He has multiple ulcers, stage 3, on the face, chest, and knees. PSYCHIATRIC: Flat affect. LABS: Reviewed. MEDICATIONS: Reviewed. ASSESSMENT: An 82-year-old man with: 1. Acute psychosis and bipolar disorder. 2. Fall and physical deconditioning. 3. Electrolyte derangement. PLAN 1. Continue sitter. 2. Continue guardianship papers. 3. Continue medical treatment. Job#: [id number] ZAK
--- NOTE | 2018-07-01 07:02 | Progress Note ---
DATE: June 30, 2018 TIME: 7:00 a.m. OVERNIGHT: No events. REVIEW OF SYSTEMS: Unobtainable. PHYSICAL EXAMINATION VITAL SIGNS: Reviewed. GENERAL APPEARANCE: A tired-appearing man, resting in bed. HEENT: Anicteric. CARDIOVASCULAR: Normal S1 and S2. LUNGS: Moderate breath sounds. ABDOMEN: Soft and nontender. EXTREMITIES: No edema. SKIN: Multiple ulcers, stage 3, left face, left chest, and knees. PSYCHIATRIC: Flat affect. LABS: Reviewed. MEDICATIONS: Reviewed. ASSESSMENT: An 82-year-old man with: 1. Acute psychosis and bipolar disorder. 2. Fall and physical deconditioning. 3. Electrolyte derangement. PLAN 1. Continue sitter. 2. Continue guardianship papers. 3. Continue medical treatment. Job#: [id number] ZAK
--- NOTE | 2018-07-01 07:02 | Progress Note ---
DATE: June 29, 2018 TIME: 7:00 a.m. OVERNIGHT: No events. REVIEW OF SYSTEMS: Unobtainable. PHYSICAL EXAMINATION VITAL SIGNS: Reviewed. GENERAL APPEARANCE: A tired-appearing man, resting in bed. HEENT: Anicteric. CARDIOVASCULAR: Normal S1 and S2. LUNGS: Moderate breath sounds. ABDOMEN: Soft and nontender. EXTREMITIES: No edema. SKIN: He has multiple ulcers, stage 3, on the left face, left chest, and knees. LABS: Reviewed. MEDICATIONS: Reviewed. ASSESSMENT: An 82-year-old man with: 1. Acute psychosis and bipolar disorder. 2. Fall and physical deconditioning. 3. Electrolyte derangement. PLAN 1. Continue sitter. 1. Continue guardianship papers. 2. Continue medical treatment. Job#: [id number] ZAK
--- NOTE | 2018-07-01 09:00 | NUR ---
Pt resting in bed. Dressing changed to left cheek, right elbow, left chest wall and bilateral knees. All meds given as ordered. Emotional support given. Fall precautions maintained. Will monitor
[2018-07-01] MEDS: NIFEDIPINE CR 30 MG TAB PO SCH ×2 (09:07→21:00)
[2018-07-01] MEDS: QUETIAPINE FUMARATE 25 MG TAB PO SCH ×2 (09:07→17:00)
[2018-07-01] MEDS: FOLIC ACID 1 MG TAB PO SCH (09:07)
[2018-07-01] MEDS: THIAMINE HCL 100 MG TAB PO SCH (09:07)
[2018-07-01] MEDS: PANTOPRAZOLE SOD 40 MG TABEC PO SCH (09:07)
[2018-07-01] MEDS: METOPROLOL TARTRATE 50 MG TAB PO SCH ×2 (09:07→21:00)
[2018-07-01] MEDS: ZINC SULFATE 220 MG CAP PO SCH (09:07)
[2018-07-01] MEDS: LISINOPRIL 20 MG TAB PO SCH ×2 (09:07→17:00)
[2018-07-01] MEDS: ZINC OXIDE 30 GM TUBE TOP SCH ×2 (09:07→17:11)
[2018-07-01] MEDS: MULTIVITAMINS/MINERALS TAB PO SCH (09:07)
[2018-07-01] MEDS: HYDRALAZINE HCL 100 MG TABLET PO SCH ×3 (09:07→21:00)
[2018-07-01] MEDS: MEMANTINE 10 MG TAB PO SCH ×2 (09:07→17:00)
[2018-07-01] MEDS: FAMOTIDINE 20 MG TAB PO SCH ×2 (09:07→16:30)
--- NOTE | 2018-07-01 12:19 | NUR ---
[id number] Progress note Magnolia Tran NP-C
--- NOTE | 2018-07-01 13:39 | Progress Note ---
DATE: July 01, 2018 TIME OF SERVICE: 12:15. OVERNIGHT: No acute events. REVIEW OF SYSTEMS: Unremarkable. PHYSICAL EXAMINATION VITAL SIGNS: T 97.0, P 67, R 18, BP 139/89, SpO2 of 98%. GENERAL APPEARANCE: This is a tired-appearing man, resting in bed. HEENT: Normocephalic, arcus senilis, oral mucosa dry and intact with poor dentition, trachea midline. CV: S1 and S2 without extra cardiac sounds. LUNGS: Moderate breath sounds in all tran with fair excursion during the activity. ABDOMEN: Soft, not tender, not distended. EXTREMITIES: Without edema. 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 PSYCHIATRIC: Flat affect. LABS: Reviewed. MEDICATIONS: Reviewed. ASSESSMENT AND PLAN: This is an 82-year-old man with; 1. Acute psychosis and bipolar disorder. Psychiatric input and management noted. 2. Fall and physical deconditioning. Continue sitter at bedside. 3. Electrolyte derangement, stable. 4. Prophylaxis, Protonix and sequential compression devices. DISPOSITION: Continue one-to-one sitter, medical treatment with pending guardianship papers in process. Dictated by: Mary Tran NP Job#: [id number] KARMA
--- NOTE | 2018-07-01 19:00 | NUR ---
patient recieved awake, alert, sitting up in bed eating. vss. no c/o pain noted. no iv access noted at this time. 1:1 remains at the bedside for safety. 1:1 instructed to call for assistance when needed.
--- NOTE | 2018-07-01 21:00 | NUR ---
patient refuses to take 2100 bp medications. patient hit them out of my hand and yelled, " No! I don't want that. Go away! "
[2018-07-02] VITALS (7 sets, daily range): BP systolic 97–176; BP diastolic 54–88
[2018-07-02 06:45] LABS: BASOPHILS # (AUTO) 0.1 (0.0-0.1); BASOPHILS % 1.2 % (0.0-1.0); EOSINOPHILS # (AUTO) 0.3 (0.0-0.4); HEMATOCRIT 39.6 % (38.2-49.6); HEMOGLOBIN 12.6 g/dL (14.0-18.0); MEAN CORPUSCULAR HEMOGLOBIN 27.9 pg (28-32); MEAN CORPUSCULAR HGB CONC 31.8 g/dL (31-35); MEAN CORPUSCULAR VOLUME 87.8 fL (81-99); RED BLOOD COUNT 4.51 x10e6/uL (4.3-5.7)
[2018-07-02 07:14] LABS: ANION GAP 15.5 mmol/L (8-16); BLOOD UREA NITROGEN 17 mg/dL (7-26); BUN/CREATININE RATIO 22 (6-25); CALCIUM 9.9 mg/dL (8.4-10.2); CARBON DIOXIDE 24 mmol/L (22-29); CHLORIDE 110 mmol/L (98-107); CREATININE, SERUM 0.77 mg/dL (0.72-1.25); EST GLOMERULAR FILTRATION RATE > 60 ML/MIN (60-); GLUCOSE 97 mg/dL (74-118); MAGNESIUM 1.5 MG/DL (1.3-2.1); POTASSIUM 3.5 mmol/L (3.5-5.1); SODIUM 146 mmol/L (136-145)
--- NOTE | 2018-07-02 07:20 | NUR ---
PATIENT IN BED RESTING WITH EYES CLOSED, NO RESPIRATORY DISTRESS OBSERVED. DRESSING INTACT TO LEFT FACE. BED IN LOWER POSITION, CALL LIGHT AT REACH. SITTER AT BED SIDE.
[2018-07-02 07:36] LABS: LYMPHOCYTES # (AUTO) 1.8 (1.0-3.2); LYMPHOCYTES % 37.7 % (18.0-39.1); MONOCYTES # (AUTO) 0.5 (0.2-0.8); MONOCYTES % 10.5 % (4.4-11.3); NEUTROPHILS # (AUTO) 2.2 (2.1-6.9); NEUTROPHILS % 44.4 % (38.7-80.0); PLATELET COUNT 251 x10e3/uL (140-360)
[2018-07-02] MEDS: FAMOTIDINE 20 MG TAB PO SCH ×2 (08:18→17:00)
[2018-07-02] MEDS: PANTOPRAZOLE SOD 40 MG TABEC PO SCH (08:18)
[2018-07-02] MEDS: HYDRALAZINE HCL 100 MG TABLET PO SCH ×3 (09:10→21:00)
[2018-07-02] MEDS: FOLIC ACID 1 MG TAB PO SCH (09:10)
[2018-07-02] MEDS: MULTIVITAMINS/MINERALS TAB PO SCH (09:11)
[2018-07-02] MEDS: MEMANTINE 10 MG TAB PO SCH ×2 (09:11→17:33)
[2018-07-02] MEDS: METOPROLOL TARTRATE 50 MG TAB PO SCH ×2 (09:11→21:00)
[2018-07-02] MEDS: NIFEDIPINE CR 30 MG TAB PO SCH ×2 (09:12→21:00)
[2018-07-02] MEDS: THIAMINE HCL 100 MG TAB PO SCH (09:12)
[2018-07-02] MEDS: QUETIAPINE FUMARATE 25 MG TAB PO SCH ×2 (09:12→17:33)
[2018-07-02] MEDS: ZINC OXIDE 30 GM TUBE TOP SCH ×2 (09:12→17:33)
[2018-07-02] MEDS: LISINOPRIL 20 MG TAB PO SCH ×2 (09:12→17:33)
[2018-07-02] MEDS: ZINC SULFATE 220 MG CAP PO SCH (09:12)
--- NOTE | 2018-07-02 12:15 | NUR ---
PATIENT IN BED RESTING, NO DISTRESS NOTED. 1:1 SITTER AT BED SIDE.
--- NOTE | 2018-07-02 19:15 | NUR ---
patient recieved awake, alert, lying quietly in bed. vss. no c/o pain noted at this time. 1:1 noted at the bedside. pm assessment complete. 1:1 instructed to call for assistance when needed.
[2018-07-03] VITALS: BP 121/67
--- NOTE | 2018-07-03 | NUR ---
patient appears to be resting quietly. no signs of pain/discomfort noted. 1:1 remains at bedside for patient safety.
[2018-07-03 04:00] VITALS: BP 114/76
--- NOTE | 2018-07-03 05:00 | NUR ---
dressings to bilateral knees, left chest and left face changed at this time. bed bath given and skin care provided.
--- NOTE | 2018-07-03 06:54 | NUR ---
Progress Note: see dictation.
--- NOTE | 2018-07-03 07:17 | NUR ---
PATIENT IN BED RESTING WITH NO S/S OF PAIN OR DISCOMFORT. DRESSING INTACT TO MULTIPLE WOUNDS. SITTER AT BED SIDE. BED IN LOWER POSITION, CALL LIGHT AT REACH.
[2018-07-03 07:23] VITALS: BP 169/101
--- NOTE | 2018-07-03 07:41 | NUR ---
07/02/18 at 715am IM-Progress note TIME: 7:00 a.m. OVERNIGHT: No events. REVIEW OF SYSTEMS: Unobtainable. PHYSICAL EXAMINATION VITAL SIGNS: Reviewed. GENERAL APPEARANCE: A tired-appearing man, resting in bed. HEENT: Anicteric. CARDIOVASCULAR: Normal S1 and S2. LUNGS: Moderate breath sounds. ABDOMEN: Soft and nontender. EXTREMITIES: No edema. SKIN: Multiple ulcers, stage 3, left face, left chest, and knees. PSYCHIATRIC: Flat affect. LABS: Reviewed. MEDICATIONS: Reviewed. ASSESSMENT: An 82-year-old man with: 1. Acute psychosis and bipolar disorder. 2. Fall and physical deconditioning. 3. Electrolyte derangement. PLAN 1. Continue sitter. 2. Continue guardianship papers. 3. Continue medical treatment. 07/02 cont current care; comfortable; Uvaldo Michel MD, PhD.
--- NOTE | 2018-07-03 07:42 | NUR ---
07/03/18 at 742am IM-Progress note OVERNIGHT: No events. REVIEW OF SYSTEMS: Unobtainable. PHYSICAL EXAMINATION VITAL SIGNS: Reviewed. GENERAL APPEARANCE: A tired-appearing man, resting in bed. HEENT: Anicteric. CARDIOVASCULAR: Normal S1 and S2. LUNGS: Moderate breath sounds. ABDOMEN: Soft and nontender. EXTREMITIES: No edema. SKIN: Multiple ulcers, stage 3, left face, left chest, and knees. PSYCHIATRIC: Flat affect. LABS: Reviewed. MEDICATIONS: Reviewed. ASSESSMENT: An 82-year-old man with: 1. Acute psychosis and bipolar disorder. 2. Fall and physical deconditioning. 3. Electrolyte derangement. PLAN 1. Continue sitter. 2. Continue guardianship papers. 3. Continue medical treatment. 07/02 cont current care; comfortable; 07/03 no events; cont care; Uvaldo Michel MD, PhD.
[2018-07-03] MEDS: FAMOTIDINE 20 MG TAB PO SCH ×2 (08:00→16:44)
[2018-07-03 08:05] VITALS: BP 169/101
[2018-07-03] MEDS: ZINC OXIDE 30 GM TUBE TOP SCH (09:00)
--- NOTE | 2018-07-03 10:30 | NUR ---
PATIENT REFUSED AM MEDICATION AFTER 2 ATTEMPTS. NOW STATING " COME BACK LATER". IN BED RESTING WITH NO S/S OF DISCOMFORT. WILL CONTINUE TO MONITOR.
[2018-07-03] MEDS: MEMANTINE 10 MG TAB PO SCH ×2 (11:30→17:37)
[2018-07-03] MEDS: LISINOPRIL 20 MG TAB PO SCH ×2 (11:30→17:37)
[2018-07-03] MEDS: NIFEDIPINE CR 30 MG TAB PO SCH ×2 (11:30→21:00)
[2018-07-03] MEDS: METOPROLOL TARTRATE 50 MG TAB PO SCH ×2 (11:30→21:00)
[2018-07-03] MEDS: HYDRALAZINE HCL 100 MG TABLET PO SCH ×3 (11:30→21:00)
[2018-07-03] MEDS: QUETIAPINE FUMARATE 25 MG TAB PO SCH ×2 (11:30→17:37)
--- NOTE | 2018-07-03 11:35 | NUR ---
PATIENT TOOK ALL HIS AM MEDICATIONS. SITTING UP IN BED EATING LUNCH ASSISTED BY THE SITTER. BED IN LOWER POSITION, CALL LIGHT AT REACH.
--- NOTE | 2018-07-03 15:17 | NUR ---
PATIENT AMBULATED IN HALLWAY WITH PHYSICAL THERAPY. BACK TO RECLINING CHAIR, CALL LIGHT AT REACH, SITTER AT BED SIDE.
[2018-07-03 20:00] VITALS: BP 90/52
[2018-07-04] VITALS: BP 96/55
[2018-07-04 04:28] VITALS: BP 111/59
--- NOTE | 2018-07-04 07:04 | NUR ---
DOS: 07/04/18 at 704am IM-Progress note OVERNIGHT: No events. REVIEW OF SYSTEMS: Unobtainable. PHYSICAL EXAMINATION VITAL SIGNS: Reviewed. GENERAL APPEARANCE: A tired-appearing man, resting in bed. HEENT: Anicteric. CARDIOVASCULAR: Normal S1 and S2. LUNGS: Moderate breath sounds. ABDOMEN: Soft and nontender. EXTREMITIES: No edema. SKIN: Multiple ulcers, stage 3, left face, left chest, and knees. PSYCHIATRIC: Flat affect. LABS: Reviewed. MEDICATIONS: Reviewed. ASSESSMENT: An 82-year-old man with: 1. Acute psychosis and bipolar disorder. 2. Fall and physical deconditioning. 3. Electrolyte derangement. PLAN 1. Continue sitter. 2. Continue guardianship papers. 3. Continue medical treatment. 07/02 cont current care; comfortable; 07/03 no events; cont care; 07/04 cont care; Uvaldo Michel MD, PhD.
[2018-07-04 08:00] VITALS: BP 125/59
--- NOTE | 2018-07-04 08:00 | NUR ---
Pt received resting in bed with sitter at bedside for safety precautions. Dressing to wounds intact. Alert and oriented to person, confused and combative at times. Oriented to staff and surroundings. Encouraged to press call solorio if help needed. Pt verbalized understanding of teaching but needs frequent re-orientation. Pt can be verbally disruptive at times. Encouraged to refrain from screaming. Fall precautions maintained. Call solorio within reach. Will monitor.
[2018-07-04] MEDS: HYDRALAZINE HCL 100 MG TABLET PO SCH ×3 (10:00→21:48)
[2018-07-04] MEDS: NIFEDIPINE CR 30 MG TAB PO SCH ×2 (10:00→21:48)
[2018-07-04] MEDS: METOPROLOL TARTRATE 50 MG TAB PO SCH ×2 (10:00→21:48)
[2018-07-04] MEDS: LISINOPRIL 20 MG TAB PO SCH ×2 (10:00→17:00)
[2018-07-04] MEDS: FAMOTIDINE 20 MG TAB PO SCH ×2 (10:00→16:30)
[2018-07-04] MEDS: MEMANTINE 10 MG TAB PO SCH ×2 (10:00→17:00)
[2018-07-04] MEDS: QUETIAPINE FUMARATE 25 MG TAB PO SCH ×2 (10:00→17:00)
[2018-07-04 11:09] VITALS: BP 124/59
--- NOTE | 2018-07-04 14:18 | Progress Note ---
DATE: July 04, 2018 PSYCHIATRIC PROGRESS NOTE SUBJECTIVE: Patient evaluated and events noted. INTERVAL HISTORY: Patient is currently lying on his bed. He is alert, awake, oriented to self. The patient is not agitated at this time. He is refusing to answer any questions in Bulgarian. As per the nursing staff, the patient has not been agitated. He is partially compliant with his medications and has been getting p.r.n. medications at times. He has no major side effects reported on these medications. ASSESSMENT 1. Unspecified psychosis. 2. Unspecified dementia with behavioral disturbances. PLAN OF CARE 1. Continue p.r.n. IM Geodon. 2. Continue scheduled Seroquel. 3. Continue p.r.n. Seroquel. 4. Continue Namenda. 5. We will continue to follow this patient on and off. He is awaiting placement at this time. Job#: [id number]
--- NOTE | 2018-07-04 16:24 | NUR ---
director and BRYON Colbert spoke with Noe Cuenca/[facility] legal records manager ([employer]:[phone]) who was given detailed information regarding status of guardianship. Patient has been assigned to [facility] [address] - [address]. Mr. Cuenca will begin with assisting in obtaining guardianship for this patient. We are continuing to await guardianship by the state. Will f/u with BRYON Sahni and Noe Cuenca regarding this patient.
--- NOTE | 2018-07-04 19:00 | NUR ---
Received patient awake, confused, with sitter at the bedside. Call light within reached, bed is locked and in low position.Will closely monitor
[2018-07-04 20:00] VITALS: BP 120/68
[2018-07-04 21:00] VITALS: BP 120/68
[2018-07-05] VITALS (9 sets, daily range): BP systolic 95–128; BP diastolic 53–75
--- NOTE | 2018-07-05 01:00 | NUR ---
wound dressing done
[2018-07-05] MEDS: LISINOPRIL 20 MG TAB PO SCH ×2 (07:29→15:42)
[2018-07-05] MEDS: HYDRALAZINE HCL 100 MG TABLET PO SCH ×3 (07:29→21:00)
[2018-07-05] MEDS: METOPROLOL TARTRATE 50 MG TAB PO SCH ×2 (07:29→23:44)
[2018-07-05] MEDS: MEMANTINE 10 MG TAB PO SCH ×2 (07:29→17:00)
[2018-07-05] MEDS: FAMOTIDINE 20 MG TAB PO SCH ×2 (07:29→16:30)
[2018-07-05] MEDS: QUETIAPINE FUMARATE 25 MG TAB PO SCH ×2 (07:29→17:00)
[2018-07-05] MEDS: NIFEDIPINE CR 30 MG TAB PO SCH ×2 (07:30→21:00)
--- NOTE | 2018-07-05 07:30 | NUR ---
Pt received resting in bed. Alert and oriented to person alone. BP meds held as per orders. Emotional support given. Call solorio within reach. Will monitor
--- NOTE | 2018-07-05 15:29 | Progress Note ---
DATE: July 05, 2018 SUBJECTIVE: Patient is doing well. He was ambulating with physical therapy actually with a walker. He actually looks great with no other issues. Discussed case with nursing staff. Patient is still here. He is waiting for guardianship to move forward. He will be here until then. OBJECTIVE VITAL SIGNS: Temperature is 96.6, pulse 69, respiratory rate is 16, blood pressure is 95/53, pulse ox 95% on room air. LAB FINDINGS: Show white count is 4.8, hemoglobin 12.6, hematocrit is 39.6 and platelets of 251. Coagulation: PT 14.3, INR 1.2, PTT 36.4. CHEMISTRY: Sodium 146, potassium is 3.5, chloride is 110, bicarb 24, anion gap of 13, BUN is 17, creatinine is 0.77, glucose is 97. His LFTs are normal. PHYSICAL EXAMINATION GENERAL: Not in acute distress. Alert, oriented x3, cooperative on examination. HEENT: Head: Normocephalic, atraumatic. Eyes: Pupils equally round and reactive to light bilaterally. Extraocular movements intact bilaterally. Neck was supple with good range of motion. Throat: No evidence of any erythema or exudates in the posterior pharynx. Has poor dentition. PULMONARY: Clear to auscultation bilaterally. No wheezing, no rales, no rhonchi, no crackles appreciated. CARDIOVASCULAR: Positive S1/S2. No murmurs, rubs or gallops appreciated. ABDOMEN: Soft, nondistended, nontender to palpation. Bowel sounds present. MUSCULOSKELETAL: Strength is 5/5 throughout. No evidence of any musculoskeletal deficit on examination. No weakness appreciated. NEUROLOGICAL: Cranial nerves 2-12 are grossly intact. No evidence of any neurological deficit on exam. SKIN: Intact. Warm to touch. Good capillary refill. PSYCHIATRIC: Normal affect and mood. EXTREMITIES: No edema. Good range of motion throughout. IMPRESSION 1. Acute psychosis with bipolar disorder. 2. Fall with medically deconditioned. 3. Chronic alcoholic. PLAN: At this time will continue with same plan of care. We are waiting for final guardianship approval. Psychiatry is following, and he will continue with antipsychotics. Continue with regular diet. Will continue to follow with the psychiatrist as well and continue to follow up with Case Management in relation to placement. Job#: [id number] EV
[2018-07-06] VITALS (9 sets, daily range): BP systolic 90–149; BP diastolic 57–84
--- NOTE | 2018-07-06 07:27 | NUR ---
PATIENT IN BED RESTING WITH NO S/S OF PAIN OR DISCOMFORT. DRESSING INTACT TO BILATERAL KNEES AND RIGHT ELBOW. BED IN LOWER POSITION, CALL LIGHT AT REACH. SITTER AT BED SIDE.
[2018-07-06] MEDS: FAMOTIDINE 20 MG TAB PO SCH ×2 (08:02→16:30)
[2018-07-06] MEDS: HYDRALAZINE HCL 100 MG TABLET PO SCH ×3 (09:08→20:09)
[2018-07-06] MEDS: METOPROLOL TARTRATE 50 MG TAB PO SCH ×2 (09:08→20:10)
[2018-07-06] MEDS: NIFEDIPINE CR 30 MG TAB PO SCH ×2 (09:09→20:10)
[2018-07-06] MEDS: QUETIAPINE FUMARATE 25 MG TAB PO SCH ×2 (09:09→17:34)
[2018-07-06] MEDS: LISINOPRIL 20 MG TAB PO SCH (09:09)
[2018-07-06] MEDS: MEMANTINE 10 MG TAB PO SCH ×2 (09:09→17:34)
--- NOTE | 2018-07-06 11:30 | NUR ---
PATIENT ASSISTED WITH DIAPER CHANGED, REPOSITIONED IN BED, CALL LIGHT AT REACH. SITTER AT BED SIDE.
--- NOTE | 2018-07-06 13:50 | Progress Note ---
DATE: July 06, 2018 SUBJECTIVE: The patient is seen at bedside with multiple friends. Will arrange for guardianship. OBJECTIVE VITAL SIGNS: Temperature 97.6, pulse 63, respiratory rate 20, blood pressure 116/72, pulse oximetry 98% on room air. GENERAL: In no acute distress, alert and oriented x3, cooperative on examination. HEENT: Head is normocephalic, atraumatic. Eyes: Pupils equal, round and reactive to light bilaterally. Extraocular movements intact bilaterally. Throat with no evidence of erythema or exudates in the posterior pharynx. He has poor dentition. NECK: Supple with good range of motion. PULMONARY: Clear to auscultation bilaterally. No wheezing, no rales, no rhonchi or crackles appreciated. CARDIOVASCULAR: Positive S1 and S2, no murmurs, rubs or gallops appreciated. ABDOMEN: Soft, nondistended, nontender on palpation. Bowel sounds were present. No evidence of any hepatosplenomegaly on examination. MUSCULOSKELETAL: Strength 5/5 throughout, no evidence of musculoskeletal deficit on exam. No weakness appreciated. NEUROLOGIC: Cranial nerves II-XII grossly intact. No evidence of neurological deficit on examination. SKIN: Intact. Warm to touch. Good capillary refill. EXTREMITIES: No edema. Good range of motion throughout. PSYCHIATRIC: Normal affect and mood. LABORATORY DATA: None. IMPRESSION 1. Acute psychosis with bipolar disorder. 2. Fall with medically deconditioned. 3. Chronic alcoholic. PLAN: At this time, awaiting for guardianship approval. Psychiatry is following. Continue current plan of care. Continue working with PT and OT. Job#: [id number]
--- NOTE | 2018-07-06 17:30 | NUR ---
PATIENT SITTING UP IN BED EATING DINNER, SITTER AT BED SIDE. CALL LIGHT AT REACH.
--- NOTE | 2018-07-06 19:10 | NUR ---
patient recieved awake, alert, sitting up in bed. vss. no c/o pain noted. 1:1 noted at the bedside. pm assessment complete. 1:1 instructed to call for assistance when needed.
[2018-07-07 03:38] VITALS: BP_SYST 101; BP_SYST 88; BP_DIAS 52; BP_DIAS 56
--- NOTE | 2018-07-07 07:22 | NUR ---
PATIENT IN BED RESTING WITH NO S/S OF PAIN OR DISCOMFORT. SITTER AT BED SIDE, BED IN LOWER POSITION, CALL LIGHT AT REACH.
[2018-07-07 07:25] VITALS: BP 108/75
[2018-07-07 07:48] VITALS: BP 108/75
[2018-07-07] MEDS: FAMOTIDINE 20 MG TAB PO SCH ×2 (07:53→17:00)
[2018-07-07] MEDS: NIFEDIPINE CR 30 MG TAB PO SCH ×2 (09:00→20:30)
[2018-07-07] MEDS: LISINOPRIL 20 MG TAB PO SCH ×2 (09:00→17:00)
[2018-07-07] MEDS: HYDRALAZINE HCL 100 MG TABLET PO SCH ×3 (09:00→20:30)
[2018-07-07] MEDS: METOPROLOL TARTRATE 50 MG TAB PO SCH ×2 (10:28→20:30)
[2018-07-07] MEDS: MEMANTINE 10 MG TAB PO SCH ×2 (10:28→18:10)
[2018-07-07] MEDS: QUETIAPINE FUMARATE 25 MG TAB PO SCH ×2 (10:28→18:10)
--- NOTE | 2018-07-07 11:00 | NUR ---
PHYSICAL THERAPY IN TO AMBULATE WITH PATIENT, BUT HE IS REFUSING ASSISTANCE. SITTER AT BED SIDE.
[2018-07-07 11:50] VITALS: BP 114/67
--- NOTE | 2018-07-07 14:54 | NUR ---
no tx pt very inappropriate and combative today Addendum: 07/07/18 at 1454 by Anand Keller PTA Amended: Links added.
[2018-07-07 15:47] VITALS: BP 104/59
--- NOTE | 2018-07-07 15:48 | NUR ---
PATIENT APPEARS TO BE RESTING QUIETLY, NO S/S OF DISCOMFORT NOTED. SITTER AT BED SIDE, CALL LIGHT AT REACH.
--- NOTE | 2018-07-07 16:05 | Progress Note ---
DATE: July 07, 2018 SUBJECTIVE: Patient is doing well. I discussed the case with nursing staff. No complaints at this time. Awaiting for guardianship. OBJECTIVE VITAL SIGNS: Temperature is 97.4, pulse 81, respiratory rate is 18, blood pressure is 114/67, pulse ox 97% on room air. LAB FINDINGS: None. PHYSICAL EXAMINATION GENERAL: Not in acute distress, alert and oriented x2, cooperative on exam. HEENT: Head normocephalic, atraumatic. Eyes; pupils are equal, round, and reactive to light bilaterally. Extraocular movements are intact bilaterally. Throat; no evidence of any erythema or exudates in the posterior pharynx, has poor dentition. NECK: Supple. Good range of motion. PULMONARY: Clear to auscultation bilaterally. No wheezing, no rales, no rhonchi, no crackles appreciated. CARDIOVASCULAR: Positive S1 and S2. No murmurs, rubs, or gallops appreciated. ABDOMEN: Soft, nondistended, nontender to palpation. Bowel sounds present. MUSCULOSKELETAL: Strength is 5/5 throughout. No evidence of any musculoskeletal deficit on examination. No weakness appreciated. NEUROLOGICAL: Cranial nerves II through XII grossly intact. No evidence of any neurological deficit on exam. SKIN: Intact. Warm to touch. Good capillary refill. PSYCHIATRIC: Normal affect and mood. EXTREMITIES: No edema. Good range of motion throughout. IMPRESSION 1. Acute psychosis with bipolar disorder. 2. Fall with underlying medical deconditioning and medially debilitated. 3. Chronic alcoholic. PLAN: Patient is still at baseline. No changes. Psychiatry is following. Awaiting for guardianship approval. Continue same plan of care. Continue working with PT and OT. Job#: [id number] CATRINA
[2018-07-07 20:08] VITALS: BP 97/56
[2018-07-08] VITALS (8 sets, daily range): BP systolic 95–159; BP diastolic 56–77
--- NOTE | 2018-07-08 07:16 | NUR ---
PATIENT IN BED RESTING WITH NO S/S OF PAIN OR DISCOMFORT. SITTER AT BED SIDE, BED IN LOWER POSITION, CALL LIGHT AT REACH.
[2018-07-08] MEDS: FAMOTIDINE 20 MG TAB PO SCH ×2 (07:51→16:53)
[2018-07-08] MEDS: METOPROLOL TARTRATE 50 MG TAB PO SCH ×2 (09:07→21:08)
[2018-07-08] MEDS: HYDRALAZINE HCL 100 MG TABLET PO SCH ×3 (09:07→21:00)
[2018-07-08] MEDS: NIFEDIPINE CR 30 MG TAB PO SCH ×2 (09:08→21:00)
[2018-07-08] MEDS: MEMANTINE 10 MG TAB PO SCH ×2 (09:08→17:00)
[2018-07-08] MEDS: QUETIAPINE FUMARATE 25 MG TAB PO SCH ×2 (09:08→17:00)
[2018-07-08] MEDS: LISINOPRIL 20 MG TAB PO SCH ×2 (09:08→17:00)
--- NOTE | 2018-07-08 11:07 | NUR ---
PATIENT ASSISTED WITH ADLS, REPOSITIONED IN BED. CALL LIGHT AT REACH, SITTER AT BED SIDE.
--- NOTE | 2018-07-08 14:47 | NUR ---
PATIENT C/O CONSTIPATION, NOTIFIED, NEW ORDER RECEIVED.
--- NOTE | 2018-07-08 14:56 | Progress Note ---
DATE: July 08, 2018 MEDICINE PROGRESS NOTE SUBJECTIVE: Patient is doing well today, sitting in a La-Z-Boy, watching through the window. He has no other complaints at this time. VITAL SIGNS: His temperature is 97.1, pulse 66, respiratory rate is 18, blood pressure is 95/56. LAB FINDINGS: None. PHYSICAL EXAMINATION GENERAL: Not in acute distress, alert and oriented x2, cooperative on examination. HEENT: Head normocephalic, atraumatic. Eyes; pupils are equal, round, and reactive to light bilaterally. Extraocular movements are intact bilaterally. Throat; no evidence of any erythema or exudates in the posterior pharynx, has poor dentition. NECK: Supple. Good range of motion. PULMONARY: Clear to auscultation bilaterally. No wheezing, no rales, no rhonchi, no crackles appreciated. CARDIOVASCULAR: Positive S1 and S2. No murmurs, rubs, or gallops appreciated. ABDOMEN: Soft, nondistended, nontender to palpation. Bowel sounds present. MUSCULOSKELETAL: Strength is 5/5 throughout. No evidence of any musculoskeletal deficit on examination. No weakness appreciated. NEUROLOGICAL: Cranial nerves II through XII grossly intact. No evidence of any neurological deficit on exam. SKIN: Intact. Warm to touch. Good capillary refill. PSYCHIATRIC: Normal affect and mood. EXTREMITIES: No edema. Good range of motion throughout. IMPRESSION 1. Acute psychosis with bipolar disorder. 2. Fall with underlying medical deconditioning and medially debilitated. 3. Chronic alcoholic. PLAN: At this time, he is at baseline with no changes. Psychiatry is following. We are awaiting for guardianship approval in which he has been here for several weeks now. Continue same plan of care. Continue working with PT and OT. Job#: [id number] EFREM
[2018-07-08] MEDS: DOCUSATE SODIUM 100 MG CAP PO SCH (17:00)
[2018-07-08] MEDS ORDERED: DOCUSATE SODIUM LIQD 100 MG/10 ML UDC NG SCH (17:00)
[2018-07-09] VITALS (8 sets, daily range): BP systolic 102–121; BP diastolic 53–71
[2018-07-09] MEDS: METOPROLOL TARTRATE 50 MG TAB PO SCH ×2 (08:05→20:30)
[2018-07-09] MEDS: HYDRALAZINE HCL 100 MG TABLET PO SCH ×3 (08:05→20:29)
[2018-07-09] MEDS: MEMANTINE 10 MG TAB PO SCH ×2 (09:00→18:08)
[2018-07-09] MEDS: NIFEDIPINE CR 30 MG TAB PO SCH ×2 (09:00→20:29)
[2018-07-09] MEDS: FAMOTIDINE 20 MG TAB PO SCH ×2 (09:00→17:56)
[2018-07-09] MEDS: LISINOPRIL 20 MG TAB PO SCH ×2 (09:00→16:48)
[2018-07-09] MEDS: QUETIAPINE FUMARATE 25 MG TAB PO SCH ×2 (09:00→18:08)
[2018-07-09] MEDS: DOCUSATE SODIUM 100 MG CAP PO SCH ×2 (09:00→18:08)
--- NOTE | 2018-07-09 15:30 | NUR ---
DOS: 07/09/18 at 3pm IM-Progress note OVERNIGHT: No events. REVIEW OF SYSTEMS: Unobtainable. PHYSICAL EXAMINATION VITAL SIGNS: Reviewed. GENERAL APPEARANCE: A tired-appearing man, resting in bed. HEENT: Anicteric. CARDIOVASCULAR: Normal S1 and S2. LUNGS: Moderate breath sounds. ABDOMEN: Soft and nontender. EXTREMITIES: No edema. SKIN: Multiple ulcers, stage 3, left face, left chest, and knees. PSYCHIATRIC: Flat affect. LABS: Reviewed. MEDICATIONS: Reviewed. ASSESSMENT: An 82-year-old man with: 1. Acute psychosis and bipolar disorder. 2. Fall and physical deconditioning. 3. Electrolyte derangement. PLAN 1. Continue sitter. 2. Continue guardianship papers. 3. Continue medical treatment. 07/02 cont current care; comfortable; 07/03 no events; cont care; 07/04 cont care; 07/09 cont supportive care; check labs in am. Uvaldo Michel MD, PhD.
--- NOTE | 2018-07-09 19:15 | NUR ---
patient recieved awake, alert, lying quietly in bed. vss. no c/o pain noted. pm assessment complete. 1:1 remains at the bedside for safety. 1:1 sitter instructed to call for assistance when needed.
--- NOTE | 2018-07-09 22:00 | NUR ---
patient able to ambulate to bathroom with assistance without difficulty. lrg soft brown bm noted at this time.
[2018-07-10 04:18] VITALS: BP 115/55
[2018-07-10 04:51] LABS: BASOPHILS # (AUTO) 0.1 (0.0-0.1); BASOPHILS % 1.4 % (0.0-1.0); EOSINOPHILS # (AUTO) 0.2 (0.0-0.4); EOSINOPHILS % 4.7 % (0.0-6.0); HEMATOCRIT 37.7 % (38.2-49.6); LYMPHOCYTES # (AUTO) 1.8 (1.0-3.2); MEAN CORPUSCULAR HEMOGLOBIN 27.9 pg (28-32); MEAN CORPUSCULAR HGB CONC 31.8 g/dL (31-35); MEAN CORPUSCULAR VOLUME 87.7 fL (81-99); MONOCYTES # (AUTO) 0.5 (0.2-0.8); MONOCYTES % 10.5 % (4.4-11.3); NEUTROPHILS # (AUTO) 1.7 (2.1-6.9); NEUTROPHILS % 40.4 % (38.7-80.0); PLATELET COUNT 168 x10e3/uL (140-360); RED CELL DISTRIBUTION WIDTH 15.4 % (11.7-14.4)
[2018-07-10 05:13] LABS: ANION GAP 11.1 mmol/L (8-16); CALCIUM 9.5 mg/dL (8.4-10.2); CREATININE, SERUM 1.2 mg/dL (0.72-1.25); POTASSIUM 3.1 mmol/L (3.5-5.1)
[2018-07-10] MEDS ORDERED: POTASSIUM CHLORIDE 20 MEQ TAB CR PO STA (05:45)
--- NOTE | 2018-07-10 06:41 | NUR ---
IM-Progress note OVERNIGHT: No events. REVIEW OF SYSTEMS: Unobtainable. PHYSICAL EXAMINATION VITAL SIGNS: Reviewed. GENERAL APPEARANCE: A tired-appearing man, resting in bed. HEENT: Anicteric. CARDIOVASCULAR: Normal S1 and S2. LUNGS: Moderate breath sounds. ABDOMEN: Soft and nontender. EXTREMITIES: No edema. SKIN: Multiple ulcers, stage 3, left face, left chest, and knees. PSYCHIATRIC: Flat affect. LABS: Reviewed. MEDICATIONS: Reviewed. ASSESSMENT: An 82-year-old man with: 1. Acute psychosis and bipolar disorder. 2. Fall and physical deconditioning. 3. Electrolyte derangement. PLAN 1. Continue sitter. 2. Continue guardianship papers. 3. Continue medical treatment. 07/02 cont current care; comfortable; 07/03 no events; cont care; 07/04 cont care; 07/09 cont supportive care; check labs in am. 07/10 FAY and hypokalemia- encourage to increase water intake to 8 glasses daily, replace K; BMP in am. Uvaldo Michel MD, PhD.
[2018-07-10 07:23] VITALS: BP 109/63
[2018-07-10 07:57] VITALS: BP 109/63
[2018-07-10] MEDS: LISINOPRIL 20 MG TAB PO SCH ×2 (09:00→17:00)
[2018-07-10] MEDS: METOPROLOL TARTRATE 50 MG TAB PO SCH ×2 (09:00→21:00)
[2018-07-10] MEDS: QUETIAPINE FUMARATE 25 MG TAB PO SCH ×2 (09:00→17:08)
[2018-07-10] MEDS: MEMANTINE 10 MG TAB PO SCH ×2 (09:00→17:07)
[2018-07-10] MEDS: NIFEDIPINE CR 30 MG TAB PO SCH ×2 (09:00→21:00)
[2018-07-10] MEDS: HYDRALAZINE HCL 100 MG TABLET PO SCH ×3 (09:00→21:00)
[2018-07-10] MEDS: FAMOTIDINE 20 MG TAB PO SCH ×2 (09:00→16:30)
[2018-07-10] MEDS: DOCUSATE SODIUM 100 MG CAP PO SCH ×2 (09:00→17:00)
[2018-07-10 11:21] VITALS: BP 134/65
[2018-07-10 15:27] VITALS: BP 124/68
[2018-07-11] VITALS (7 sets, daily range): BP systolic 89–175; BP diastolic 53–89
--- NOTE | 2018-07-11 06:10 | NUR ---
IM-Progress note 07/11/18 OVERNIGHT: No events. REVIEW OF SYSTEMS: Unobtainable. PHYSICAL EXAMINATION VITAL SIGNS: Reviewed. GENERAL APPEARANCE: A tired-appearing man, resting in bed. HEENT: Anicteric. CARDIOVASCULAR: Normal S1 and S2. LUNGS: Moderate breath sounds. ABDOMEN: Soft and nontender. EXTREMITIES: No edema. SKIN: Multiple ulcers, stage 3, left face, left chest, and knees. PSYCHIATRIC: Flat affect. LABS: Reviewed. MEDICATIONS: Reviewed. ASSESSMENT: An 82-year-old man with: 1. Acute psychosis and bipolar disorder. 2. Fall and physical deconditioning. 3. Electrolyte derangement. PLAN 1. Continue sitter. 2. Continue guardianship papers. 3. Continue medical treatment. 07/02 cont current care; comfortable; 07/03 no events; cont care; 07/04 cont care; 07/09 cont supportive care; check labs in am. 07/10 FAY and hypokalemia- encourage to increase water intake to 8 glasses daily, replace K; BMP in am. 07/11 f/u labs; cont sitter; Uvaldo Michel MD, PhD.
[2018-07-11 06:39] LABS: ANION GAP 11.7 mmol/L (8-16); BLOOD UREA NITROGEN 20 mg/dL (7-26); BUN/CREATININE RATIO 25 (6-25); CALCIUM 9.8 mg/dL (8.4-10.2); CARBON DIOXIDE 24 mmol/L (22-29); CHLORIDE 109 mmol/L (98-107); CREATININE, SERUM 0.81 mg/dL (0.72-1.25); EST GLOMERULAR FILTRATION RATE > 60 ML/MIN (60-); GLUCOSE 99 mg/dL (74-118); POTASSIUM 3.7 mmol/L (3.5-5.1); SODIUM 141 mmol/L (136-145)
--- NOTE | 2018-07-11 07:26 | NUR ---
PATIENT IS IN STABLE CONDITION WITH NO S/S OF RESPIRATORY DISTRESS. NO PAIN VOICED. DRESSING TO FACE AND UPPER ABD IS DRY AND INTACT. SITTER PRESENT IN ROOM. CALL LIGHT WITHIN REACH, INSTRUCTED TO CALL FOR ASSISTANCE NEEDED.
[2018-07-11] MEDS: DOCUSATE SODIUM 100 MG CAP PO SCH ×2 (09:30→17:04)
[2018-07-11] MEDS: FAMOTIDINE 20 MG TAB PO SCH ×2 (09:30→17:04)
[2018-07-11] MEDS: MEMANTINE 10 MG TAB PO SCH ×2 (09:30→17:04)
[2018-07-11] MEDS: HYDRALAZINE HCL 100 MG TABLET PO SCH ×3 (09:30→20:55)
[2018-07-11] MEDS: LISINOPRIL 20 MG TAB PO SCH ×2 (09:30→16:50)
[2018-07-11] MEDS: METOPROLOL TARTRATE 50 MG TAB PO SCH ×2 (09:30→20:55)
[2018-07-11] MEDS: QUETIAPINE FUMARATE 25 MG TAB PO SCH (09:31)
[2018-07-11] MEDS: NIFEDIPINE CR 30 MG TAB PO SCH ×2 (09:31→20:55)
--- NOTE | 2018-07-11 09:59 | NUR ---
SPOKE WITH LISANDRA RIOS [phone] TO GET UPDATE ON [employer] PROCESS. HE STATES THEY HAVE 45 DAYS FROM - 18 TO INVESTIGATE A NEED FOR [employer], FROM THERE THEY WILL APPLY FOR AN [employer] OPHTHALMOLOGIST THEN THE OPHTHALMOLOGIST HAS SO MANY DAYS TO MAKE A REFERRAL FOR [facility] FOR CHARGE. HE GOES ON TO STATE THAT THE COURT PROCESSER STATED THAT FACILITIES TRANSFER ALL THE TIME BETWEEN FACILITIES WITH OUT THIS PROCESS BEING COMPLETED, BUT HE STATES THIS CASE IS DIFFERENT SINCE THERE IS NO ONE TO GIVE CONSENT FOR ADMISSION AND HOLD PEOPLE AGAINST THEIR WILL. SO WE ARE STUCK IN A HOLDING PATTERN UNTIL THERE IS FURTHER ACTION FROM THE COURT.
--- NOTE | 2018-07-11 12:42 | NUR ---
WOUND DRESSINGS COMPLETED - PATIENT TOLERATED DRESSING CHANGE WELL.
--- NOTE | 2018-07-11 19:13 | NUR ---
PATIENT IS IN STABLE CONDITION WITH NO S/S OF RESPIRATORY DISTRESS. NO PAIN VOICED. SITTER PRESENT IN ROOM. WOUND DRESSING INTACT AND DRY. CALL LIGHT WITHIN REACH, INSTRUCTED TO CALL FOR ASSISTANCE NEEDED. REPORT GIVEN TO ONCOMING NURSE.
[2018-07-12] VITALS (7 sets, daily range): BP systolic 88–142; BP diastolic 54–81
--- NOTE | 2018-07-12 07:58 | NUR ---
PATIENT IS RESTING AND IS IN STABLE CONDITION WITH NO S/S OF RESPIRATORY DISTRESS. NO PAIN VOICED. SITTER PRESENT NEAR PATIENT'S BEDSIDE. CALL LIGHT WITHIN REACH, INSTRUCTED TO CALL FOR ASSISTANCE NEEDED.
[2018-07-12] MEDS: DOCUSATE SODIUM 100 MG CAP PO SCH ×2 (08:58→17:44)
[2018-07-12] MEDS: HYDRALAZINE HCL 100 MG TABLET PO SCH ×3 (08:58→21:33)
[2018-07-12] MEDS: FAMOTIDINE 20 MG TAB PO SCH ×2 (08:58→17:44)
[2018-07-12] MEDS: LISINOPRIL 20 MG TAB PO SCH ×2 (08:59→17:00)
[2018-07-12] MEDS: MEMANTINE 10 MG TAB PO SCH ×2 (08:59→17:44)
[2018-07-12] MEDS: METOPROLOL TARTRATE 50 MG TAB PO SCH ×2 (08:59→21:33)
[2018-07-12] MEDS: NIFEDIPINE CR 30 MG TAB PO SCH ×2 (09:00→21:33)
--- NOTE | 2018-07-12 09:16 | NUR ---
CALL PLACED OUT TO DR. ZAPATA REGARDING MEDICATION RENEWAL FOR SEROQUEL- AWAITING CALLBACK.
--- NOTE | 2018-07-12 11:04 | NUR ---
WOUND CARE COMPLETED- PATIENT TOLERATED DRESSING CHANGE WELL. PATIENT REPOSITION IN BED. SITTER PRESENT IN ROOM.
--- NOTE | 2018-07-12 14:58 | NUR ---
SPOKE WITH JUSTICE CABRERA [phone], SPOKE WITH HER AND GAVE HER ALL INFORMATION I HAVE RESEARCHED AND THE NIECE'S INFORMATION ADDRESS THAT I HAD RECEIVED AND ON FACEBOOK. SHE REQUESTED A FACESHEET, H AND P AND , MEDICATION LIST BE FAXED TO [phone]. SHE WILL COME TO THE FACILITY ON Monday07/16/2018 TO INTERVIEW THE PATIENT, SHE HAS MESSAGED THE NIECE ON FACEBOOK AND WILL GIVE UPDATE ON MONDAY IF SHE HEARS FROM HER, SHE STATES THE PROCESS IS SHE IS MOVING FORWARD AND WILL ASK THE COURTS NEXT WEEK TO PROCEED AND APPOINT A DERRICK OPERATOR TO BE ABLE TO TRANSFER PATIENT SOON DERRICK OPERATOR APPROVED.
--- NOTE | 2018-07-12 18:42 | NUR ---
PATIENT IS IN STABLE CONDITION WITH NO S/S OF RESPIRATORY DISTRESS. NO PAIN VOICED. WOUND DRESSINGS DRY AND INTACT. SITTER PRESENT IN ROOM. CALL LIGHT WITHIN REACH, INSTRUCTED TO CALL FOR ASSISTANCE NEEDED. REPORT GIVEN TO ONCOMING NURSE.
[2018-07-13] VITALS (7 sets, daily range): BP systolic 92–133; BP diastolic 55–65
--- NOTE | 2018-07-13 07:06 | NUR ---
IM-Progress note OVERNIGHT: No events. REVIEW OF SYSTEMS: Unobtainable. PHYSICAL EXAMINATION VITAL SIGNS: Reviewed. GENERAL APPEARANCE: A tired-appearing man, resting in bed. HEENT: Anicteric. CARDIOVASCULAR: Normal S1 and S2. LUNGS: Moderate breath sounds. ABDOMEN: Soft and nontender. EXTREMITIES: No edema. SKIN: Multiple ulcers, stage 3, left face, left chest, and knees. PSYCHIATRIC: Flat affect. LABS: Reviewed. MEDICATIONS: Reviewed. ASSESSMENT: An 82-year-old man with: 1. Acute psychosis and bipolar disorder. 2. Fall and physical deconditioning. 3. Electrolyte derangement. PLAN 1. Continue sitter. 2. Continue guardianship papers. 3. Continue medical treatment. 07/02 cont current care; comfortable; 07/03 no events; cont care; 07/04 cont care; 07/09 cont supportive care; check labs in am. 07/10 FAY and hypokalemia- encourage to increase water intake to 8 glasses daily, replace K; BMP in am. 07/11 f/u labs; cont sitter; 07/12 Large BM; cont sitter; f/u guardianship. 07/13 cont care; Uvaldo Michel MD, PhD.
[2018-07-13] MEDS: METOPROLOL TARTRATE 50 MG TAB PO SCH ×2 (09:00→20:58)
[2018-07-13] MEDS: HYDRALAZINE HCL 100 MG TABLET PO SCH ×3 (09:00→20:58)
[2018-07-13] MEDS: NIFEDIPINE CR 30 MG TAB PO SCH ×2 (09:00→20:58)
[2018-07-13] MEDS: LISINOPRIL 20 MG TAB PO SCH ×2 (09:00→16:41)
[2018-07-13] MEDS: DOCUSATE SODIUM 100 MG CAP PO SCH ×2 (09:35→16:41)
[2018-07-13] MEDS: MEMANTINE 10 MG TAB PO SCH ×2 (09:35→16:41)
[2018-07-13] MEDS: FAMOTIDINE 20 MG TAB PO SCH ×2 (09:35→16:41)
--- NOTE | 2018-07-13 11:00 | NUR ---
Wound care dressing done as ordered. Sitter at bedside for safety precautions. Will monitor
--- NOTE | 2018-07-13 12:06 | Progress Note ---
DATE: July 13, 2018 PSYCHIATRIC PROGRESS NOTE SUBJECTIVE: Patient evaluated and events noted. INTERVAL HISTORY: Patient is currently lying on his bed, resting. He is calm and cooperative. He has not been agitated. As per the one-to-one staff, the patient is doing better. He is confused, but not agitated at this time. He is eating and sleeping well. 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 PLAN OF CARE 1. Continue Namenda. 2. Add low-dose Seroquel p.r.n. for intermittent agitation. Job#: [id number]
[2018-07-13] MEDS ORDERED: MAGNESIUM HYDROXIDE 30 ML UDC PO PRN (17:00)
[2018-07-14] VITALS (7 sets, daily range): BP systolic 80–153; BP diastolic 53–78
--- NOTE | 2018-07-14 07:13 | NUR ---
IM-Progress note OVERNIGHT: No events. REVIEW OF SYSTEMS: Unobtainable. PHYSICAL EXAMINATION VITAL SIGNS: Reviewed. GENERAL APPEARANCE: A tired-appearing man, resting in bed. HEENT: Anicteric. CARDIOVASCULAR: Normal S1 and S2. LUNGS: Moderate breath sounds. ABDOMEN: Soft and nontender. EXTREMITIES: No edema. SKIN: Multiple ulcers, stage 3, left face, left chest, and knees. PSYCHIATRIC: Flat affect. LABS: Reviewed. MEDICATIONS: Reviewed. ASSESSMENT: An 82-year-old man with: 1. Acute psychosis and bipolar disorder. 2. Fall and physical deconditioning. 3. Electrolyte derangement. PLAN 1. Continue sitter. 2. Continue guardianship papers. 3. Continue medical treatment. 07/02 cont current care; comfortable; 07/03 no events; cont care; 07/04 cont care; 07/09 cont supportive care; check labs in am. 07/10 FAY and hypokalemia- encourage to increase water intake to 8 glasses daily, replace K; BMP in am. 07/11 f/u labs; cont sitter; 07/12 Large BM; cont sitter; f/u guardianship. 07/13 cont care; 07/14 cont supportive care; med adjustments by psych. Uvaldo Michel MD, PhD.
[2018-07-14] MEDS: HYDRALAZINE HCL 100 MG TABLET PO SCH ×3 (10:28→20:38)
[2018-07-14] MEDS: METOPROLOL TARTRATE 50 MG TAB PO SCH ×2 (10:28→21:20)
[2018-07-14] MEDS: LISINOPRIL 20 MG TAB PO SCH ×2 (10:28→16:12)
[2018-07-14] MEDS: DOCUSATE SODIUM 100 MG CAP PO SCH ×2 (10:28→16:37)
[2018-07-14] MEDS: FAMOTIDINE 20 MG TAB PO SCH ×2 (10:28→16:37)
[2018-07-14] MEDS: MEMANTINE 10 MG TAB PO SCH ×2 (10:28→16:37)
[2018-07-14] MEDS: NIFEDIPINE CR 30 MG TAB PO SCH ×2 (10:29→20:38)
--- NOTE | 2018-07-14 14:33 | NUR ---
pt refusing tx 2/2 eating lunch Addendum: 07/14/18 at 1434 by Anand Keller PTA Amended: Links added.
[2018-07-15] VITALS (7 sets, daily range): BP systolic 91–150; BP diastolic 53–75
--- NOTE | 2018-07-15 09:00 | NUR ---
Pt received resting in bed with sitter at bedside. All meds given as ordered. Call solorio within reach. Wound bed are clean, and [place], left open to air. Emotional support given. Call solorio within reach. Will monitor
[2018-07-15] MEDS: METOPROLOL TARTRATE 50 MG TAB PO SCH (09:03)
[2018-07-15] MEDS: MEMANTINE 10 MG TAB PO SCH ×2 (09:03→17:00)
[2018-07-15] MEDS: NIFEDIPINE CR 30 MG TAB PO SCH ×2 (09:03→20:31)
[2018-07-15] MEDS: FAMOTIDINE 20 MG TAB PO SCH ×2 (09:03→16:30)
[2018-07-15] MEDS: DOCUSATE SODIUM 100 MG CAP PO SCH ×2 (09:03→17:00)
[2018-07-15] MEDS: HYDRALAZINE HCL 100 MG TABLET PO SCH ×3 (09:03→20:31)
[2018-07-15] MEDS: LISINOPRIL 20 MG TAB PO SCH ×2 (09:03→17:00)
--- NOTE | 2018-07-15 09:48 | NUR ---
IM-Progress note OVERNIGHT: No events. REVIEW OF SYSTEMS: Unobtainable. PHYSICAL EXAMINATION VITAL SIGNS: Reviewed. GENERAL APPEARANCE: A tired-appearing man, resting in bed. HEENT: Anicteric. CARDIOVASCULAR: Normal S1 and S2. LUNGS: Moderate breath sounds. ABDOMEN: Soft and nontender. EXTREMITIES: No edema. SKIN: Multiple ulcers, stage 3, left face, left chest, and knees. PSYCHIATRIC: Flat affect. LABS: Reviewed. MEDICATIONS: Reviewed. ASSESSMENT: An 82-year-old man with: 1. Acute psychosis and bipolar disorder. 2. Fall and physical deconditioning. 3. Electrolyte derangement. PLAN 1. Continue sitter. 2. Continue guardianship papers. 3. Continue medical treatment. 07/02 cont current care; comfortable; 07/03 no events; cont care; 07/04 cont care; 07/09 cont supportive care; check labs in am. 07/10 FAY and hypokalemia- encourage to increase water intake to 8 glasses daily, replace K; BMP in am. 07/11 f/u labs; cont sitter; 07/12 Large BM; cont sitter; f/u guardianship. 07/13 cont care; 07/14 cont supportive care; med adjustments by psych. 07/15 check labs in am; doing ok Uvaldo Michel MD, PhD.
[2018-07-16] VITALS (10 sets, daily range): BP systolic 106–138; BP diastolic 62–75
[2018-07-16 06:26] LABS: BASOPHILS # (AUTO) 0.1 (0.0-0.1); EOSINOPHILS # (AUTO) 0.3 (0.0-0.4); HEMATOCRIT 34.4 % (38.2-49.6); LYMPHOCYTES # (AUTO) 2.1 (1.0-3.2); LYMPHOCYTES % 36.5 % (18.0-39.1); MEAN CORPUSCULAR HEMOGLOBIN 28.4 pg (28-32); MEAN CORPUSCULAR VOLUME 88.7 fL (81-99); MONOCYTES # (AUTO) 0.7 (0.2-0.8); MONOCYTES % 12.2 % (4.4-11.3); NEUTROPHILS # (AUTO) 2.6 (2.1-6.9); NEUTROPHILS % 45.1 % (38.7-80.0); PLATELET COUNT 185 x10e3/uL (140-360); RED BLOOD COUNT 3.88 x10e6/uL (4.3-5.7); RED CELL DISTRIBUTION WIDTH 15.9 % (11.7-14.4)
[2018-07-16 06:46] LABS: ANION GAP 8.4 mmol/L (8-16); BLOOD UREA NITROGEN 19 mg/dL (7-26); BUN/CREATININE RATIO 24 (6-25); CALCIUM 9.3 mg/dL (8.4-10.2); CARBON DIOXIDE 26 mmol/L (22-29); CHLORIDE 109 mmol/L (98-107); CREATININE, SERUM 0.79 mg/dL (0.72-1.25); EST GLOMERULAR FILTRATION RATE > 60 ML/MIN (60-); GLUCOSE 96 mg/dL (74-118); MAGNESIUM 1.7 MG/DL (1.3-2.1); POTASSIUM 3.4 mmol/L (3.5-5.1); SODIUM 140 mmol/L (136-145)
--- NOTE | 2018-07-16 07:30 | NUR ---
RECEIVED PATIENT RESTING IN BED. NO S/S OF DISTRESS NOTED. SITTER AT BEDSIDE. CALL LIGHT WITHIN REACH. BED IN THE LOWEST POSITION
[2018-07-16] MEDS: NIFEDIPINE CR 30 MG TAB PO SCH ×2 (09:24→21:38)
[2018-07-16] MEDS: LISINOPRIL 20 MG TAB PO SCH ×2 (09:24→17:10)
[2018-07-16] MEDS: DOCUSATE SODIUM 100 MG CAP PO SCH ×2 (09:24→17:09)
[2018-07-16] MEDS: HYDRALAZINE HCL 100 MG TABLET PO SCH ×3 (09:24→21:38)
[2018-07-16] MEDS: FAMOTIDINE 20 MG TAB PO SCH ×2 (09:24→17:09)
[2018-07-16] MEDS: MEMANTINE 10 MG TAB PO SCH ×2 (09:24→17:09)
--- NOTE | 2018-07-16 14:53 | NUR ---
JUSTICE CABRERA COURT APPRENTICESHIP REPRESENTATIVE [facility] [id number], , CAME TO SEE PT. HE WAS SAYING DEROGATORY NAMES FOR [facility] TO GET HER TO LEAVE, STATED HE DIDNT WANT TO SPEAK TO HER BECAUSE SHE WAS TOO BLACK. STATES HE WANTS TO BE FREE AND GO HOME. WAS ABLE TO GET HIM TO VERIFY HIS NAME AND DATE OF . HE KEPT SPITTING AT [facility]. JUSTICE STATES SHE WILL COMPLETE HER REPORT TODAY OR TOMORROW AND GIVE TO HER SUPERVISER TO SIGN OFF AND FORWARD TO [facility]. SHE STATES THEY HAVE 7 DAYS TO COMPLETE AND INVESTIGATION FROM THE DATE OF HER COMING IN, THEN THEY HAVE 30 DAYS TO APPOINT A [employer] WELCOME [employer]AG[employer] HOST/HOSTESS FROM THERE. SHE ALSO STATES SHE WILL SPEAK WITH [employer] AND [employer] [facility] TO SEE IF THEY WILL TEMPORARILY SIGN CONSENT TO MOVE FORWARD SINCE THE PROCESS HAS STARTED WITH [employer]. IF SHE AGREES WE CAN MOVE FORWARD. CALLED [facility] STATES TO REFAX UPDATED CLINICALS TO MOVE FORWARD. WILL REVIEW AT THAT TIME TO DETERMINE IF ABLE TO ACCEPT SINCE THE [facility] WAS STARTED. INTRODUCED APPRENTICESHIP REPRESENTATIVE TO DIRECTOR AND LET HER KNOW THE PROCESS. GAVE BUSINESS CARD FOR FUTURE USE.
[2018-07-16 16:29] LABS: CLARITY,URINE SL CLOUDY (CLEAR); COLOR,URINE YELLOW (YELLOW); KETONES,URINE NEGATIVE (NEGATIVE); LEUKOCYTE ESTERASE ,URINE NEGATIVE (NEGATIVE); NITRITE,URINE NEGATIVE (NEGATIVE); PROTEIN,URINE DIPSTICK NEGATIVE (NEGATIVE); URINE UROBILINOGEN 0.2 mg/dL (0.2 - 1)
[2018-07-16 16:30] LABS: BILIRUBIN,URINE NEGATIVE (NEGATIVE)
[2018-07-16 16:41] LABS: RBC,URINE 0-5 /HPF (0-5); WBC,URINE (MAN) 0-5 /HPF (0-5)
[2018-07-16 16:42] LABS: BACTERIA,URINE FEW /HPF; EPITHELIAL CELLS,URINE RARE /LPF
--- NOTE | 2018-07-16 19:54 | NUR ---
REPORT GIVEN TO ONCOMING NURSE. PATIENT RESTING IN BED. NO S/S OF DISTRESS NOTED. SITTER AT BEDSIDE. CALL LIGHT WITHIN REACH. BED IN THE LOWEST POSITION.
[2018-07-17] VITALS (8 sets, daily range): BP systolic 102–156; BP diastolic 56–74
--- NOTE | 2018-07-17 06:20 | NUR ---
PT IS RESTING IN BED WITH 1:1 SITTER AT BEDSIDE. NO ACUTE EVENT OCCURRED THROUGHOUT THE NIGHT. BED IN LOWEST POSITION, LOCKED, BED ALARM ON, AND CALL LIGHT WITHIN REACH. WILL CONTINUE TO MONITOR.
--- NOTE | 2018-07-17 07:25 | NUR ---
RECEIVED PATIENT RESTING IN BED. NO S/S OF DISTRESS NOTED. SITTER AT BEDSIDE. CALL LIGHT WITHIN REACH. BED IN THE LOWEST POSITION. BED ALARM ON
[2018-07-17] MEDS: LISINOPRIL 20 MG TAB PO SCH ×2 (08:46→17:23)
[2018-07-17] MEDS: HYDRALAZINE HCL 100 MG TABLET PO SCH ×3 (08:46→21:45)
[2018-07-17] MEDS: NIFEDIPINE CR 30 MG TAB PO SCH ×2 (08:47→21:45)
[2018-07-17] MEDS: DOCUSATE SODIUM 100 MG CAP PO SCH ×2 (09:30→17:23)
[2018-07-17] MEDS: FAMOTIDINE 20 MG TAB PO SCH ×2 (09:30→17:23)
[2018-07-17] MEDS: MEMANTINE 10 MG TAB PO SCH ×2 (09:30→17:23)
--- NOTE | 2018-07-17 16:49 | NUR ---
IM-Progress note OVERNIGHT: No events. REVIEW OF SYSTEMS: Unobtainable. PHYSICAL EXAMINATION VITAL SIGNS: Reviewed. GENERAL APPEARANCE: A tired-appearing man, resting in bed. HEENT: Anicteric. CARDIOVASCULAR: Normal S1 and S2. LUNGS: Moderate breath sounds. ABDOMEN: Soft and nontender. EXTREMITIES: No edema. SKIN: Multiple ulcers, stage 3, left face, left chest, and knees. PSYCHIATRIC: Flat affect. LABS: Reviewed. MEDICATIONS: Reviewed. ASSESSMENT: An 82-year-old man with: 1. Acute psychosis and bipolar disorder. 2. Fall and physical deconditioning. 3. Electrolyte derangement. PLAN 1. Continue sitter. 2. Continue guardianship papers. 3. Continue medical treatment. 07/02 cont current care; comfortable; 07/03 no events; cont care; 07/04 cont care; 07/09 cont supportive care; check labs in am. 07/10 FAY and hypokalemia- encourage to increase water intake to 8 glasses daily, replace K; BMP in am. 07/11 f/u labs; cont sitter; 07/12 Large BM; cont sitter; f/u guardianship. 07/13 cont care; 07/14 cont supportive care; med adjustments by psych. 07/15 check labs in am; doing ok 07/16 cont supportive care; 07/17 no events; check K. Uvaldo Michel MD, PhD.
--- NOTE | 2018-07-17 19:26 | NUR ---
REPORT GIVEN TO ONCOMING NURSE. PATIENT IS RESTING IN BED. SITTER AT BEDSIDE. NO S/S OF DISTRESS NOTED. CALL LIGHT WITHIN REACH. BED IN THE LOWEST POSITION. BED ALARM ON.
[2018-07-18] VITALS (7 sets, daily range): BP systolic 103–175; BP diastolic 51–88
[2018-07-18] MEDS: FAMOTIDINE 20 MG TAB PO SCH ×3 (07:30→16:30)
--- NOTE | 2018-07-18 07:30 | NUR ---
PT IN BED SLEPING,1;1 SITTER AT BEDSIDE
[2018-07-18] MEDS: DOCUSATE SODIUM 100 MG CAP PO SCH ×3 (09:00→17:00)
[2018-07-18] MEDS: HYDRALAZINE HCL 100 MG TABLET PO SCH ×4 (09:00→19:58)
[2018-07-18] MEDS: LISINOPRIL 20 MG TAB PO SCH ×3 (09:00→16:40)
[2018-07-18] MEDS: MEMANTINE 10 MG TAB PO SCH ×3 (09:00→17:00)
[2018-07-18] MEDS: NIFEDIPINE CR 30 MG TAB PO SCH ×2 (09:00→19:58)
--- NOTE | 2018-07-18 09:00 | NUR ---
PT SLEEPY REFUSES MEDICATION
--- NOTE | 2018-07-18 14:24 | NUR ---
ASSISTED PT UP TO CHAIR TOLERATED WELL
--- NOTE | 2018-07-18 18:05 | NUR ---
PT IN BED RESTING ,REFUSED TO TAKE EVENING MEDS,1;1 SITTER AT BEDSIDE.
[2018-07-19 03:44] VITALS: BP 98/62
--- NOTE | 2018-07-19 07:30 | NUR ---
PT IN BED SLEEPING NO S/S DISCOMFORT
[2018-07-19 08:05] VITALS: BP 145/83
[2018-07-19] MEDS: DOCUSATE SODIUM 100 MG CAP PO SCH ×2 (08:45→17:00)
[2018-07-19] MEDS: HYDRALAZINE HCL 100 MG TABLET PO SCH ×3 (08:45→20:20)
[2018-07-19] MEDS: LISINOPRIL 20 MG TAB PO SCH ×2 (08:45→17:00)
[2018-07-19] MEDS: NIFEDIPINE CR 30 MG TAB PO SCH ×2 (08:45→20:20)
[2018-07-19] MEDS: FAMOTIDINE 20 MG TAB PO SCH ×2 (08:45→16:30)
[2018-07-19] MEDS: MEMANTINE 10 MG TAB PO SCH ×2 (08:45→17:00)
--- NOTE | 2018-07-19 10:00 | NUR ---
1;1 SITTER AT BEDSIDE ,PT REFUSES TO AMBULATE WITH PHYSICAL THERAPY
[2018-07-19 12:23] VITALS: BP 115/66
--- NOTE | 2018-07-19 16:14 | NUR ---
IM-Progress note OVERNIGHT: No events. REVIEW OF SYSTEMS: Unobtainable. PHYSICAL EXAMINATION VITAL SIGNS: Reviewed. GENERAL APPEARANCE: A tired-appearing man, resting in bed. HEENT: Anicteric. CARDIOVASCULAR: Normal S1 and S2. LUNGS: Moderate breath sounds. ABDOMEN: Soft and nontender. EXTREMITIES: No edema. SKIN: Multiple ulcers, stage 3, left face, left chest, and knees. PSYCHIATRIC: Flat affect. LABS: Reviewed. MEDICATIONS: Reviewed. ASSESSMENT: An 82-year-old man with: 1. Acute psychosis and bipolar disorder. 2. Fall and physical deconditioning. 3. Electrolyte derangement. PLAN 1. Continue sitter. 2. Continue guardianship papers. 3. Continue medical treatment. 07/02 cont current care; comfortable; 07/03 no events; cont care; 07/04 cont care; 07/09 cont supportive care; check labs in am. 07/10 FAY and hypokalemia- encourage to increase water intake to 8 glasses daily, replace K; BMP in am. 07/11 f/u labs; cont sitter; 07/12 Large BM; cont sitter; f/u guardianship. 07/13 cont care; 07/14 cont supportive care; med adjustments by psych. 07/15 check labs in am; doing ok 07/16 cont supportive care; 07/17 no events; check K. 07/18 supportive care; 07/19 continue medicines; Uvaldo Michel MD, PhD.
[2018-07-19 16:21] VITALS: BP 107/61
--- NOTE | 2018-07-19 18:19 | NUR ---
LAYING IN BED QUIETLY,NO S/S DISCOMFORT.
[2018-07-19 20:00] VITALS: BP 127/60
[2018-07-20] VITALS (8 sets, daily range): BP systolic 102–140; BP diastolic 55–78
--- NOTE | 2018-07-20 04:16 | NUR ---
IM-Progress note OVERNIGHT: No events. REVIEW OF SYSTEMS: Unobtainable. PHYSICAL EXAMINATION VITAL SIGNS: Reviewed. GENERAL APPEARANCE: A tired-appearing man, resting in bed. HEENT: Anicteric. CARDIOVASCULAR: Normal S1 and S2. LUNGS: Moderate breath sounds. ABDOMEN: Soft and nontender. EXTREMITIES: No edema. SKIN: Multiple ulcers, stage 3, left face, left chest, and knees. PSYCHIATRIC: Flat affect. LABS: Reviewed. MEDICATIONS: Reviewed. ASSESSMENT: An 82-year-old man with: 1. Acute psychosis and bipolar disorder. 2. Fall and physical deconditioning. 3. Electrolyte derangement. PLAN 1. Continue sitter. 2. Continue guardianship papers. 3. Continue medical treatment. 07/02 cont current care; comfortable; 07/03 no events; cont care; 07/04 cont care; 07/09 cont supportive care; check labs in am. 07/10 FAY and hypokalemia- encourage to increase water intake to 8 glasses daily, replace K; BMP in am. 07/11 f/u labs; cont sitter; 07/12 Large BM; cont sitter; f/u guardianship. 07/13 cont care; 07/14 cont supportive care; med adjustments by psych. 07/15 check labs in am; doing ok 07/16 cont supportive care; 07/17 no events; check K. 07/18 supportive care; 07/19 continue medicines; 07/20 cont care; doing ok; cont meds and sitter; Uvaldo Michel MD, PhD.
[2018-07-20] MEDS: MEMANTINE 10 MG TAB PO SCH (09:07)
[2018-07-20] MEDS: DOCUSATE SODIUM 100 MG CAP PO SCH ×2 (09:07→17:22)
[2018-07-20] MEDS: FAMOTIDINE 20 MG TAB PO SCH ×2 (09:07→17:22)
[2018-07-20] MEDS: LISINOPRIL 20 MG TAB PO SCH ×2 (09:08→17:00)
[2018-07-20] MEDS: HYDRALAZINE HCL 100 MG TABLET PO SCH ×3 (09:08→21:58)
[2018-07-20] MEDS: NIFEDIPINE CR 30 MG TAB PO SCH ×2 (09:08→21:58)
--- NOTE | 2018-07-20 18:37 | NUR ---
PATIENT IS IN STABLE CONDITION WITH NO S/S OF RESPIRATORY DISTRESS. NO PAIN VOICED. SITTER PRESENT IN ROOM. CALL LIGHT IS WITHIN REACH, INSTRUCTED TO CALL FOR ASSISTANCE NEEDED. REPORT GIVEN TO ONCOMING NURSE.
--- NOTE | 2018-07-20 19:10 | NUR ---
Report received and walking rounds complete. Pt laying in bed with no signs of apparent distress. 1:[address] All safety measures ensured, bed alarm on and pt call solorio near.
[2018-07-21] VITALS (8 sets, daily range): BP systolic 105–126; BP diastolic 55–67
--- NOTE | 2018-07-21 07:20 | NUR ---
Report given to oncoming nurse.
--- NOTE | 2018-07-21 07:21 | NUR ---
PATIENT IS RESTING IN BED- IN STABLE CONDITION WITH NO S/S ORF RESPIRATORY DISTRESS. NO PAIN VOICED. SITTER PRESENT IN ROOM. CALL LIGHT WITHIN REACH, INSTRUCTED TO CALL FOR ASSISTANCE INSTRUCTED.
--- NOTE | 2018-07-21 08:01 | NUR ---
IM-Progress note OVERNIGHT: No events. REVIEW OF SYSTEMS: Unobtainable. PHYSICAL EXAMINATION VITAL SIGNS: Reviewed. GENERAL APPEARANCE: A tired-appearing man, resting in bed. HEENT: Anicteric. CARDIOVASCULAR: Normal S1 and S2. LUNGS: Moderate breath sounds. ABDOMEN: Soft and nontender. EXTREMITIES: No edema. SKIN: Multiple ulcers, stage 3, left face, left chest, and knees. PSYCHIATRIC: Flat affect. LABS: Reviewed. MEDICATIONS: Reviewed. ASSESSMENT: An 82-year-old man with: 1. Acute psychosis and bipolar disorder. 2. Fall and physical deconditioning. 3. Electrolyte derangement. PLAN 1. Continue sitter. 2. Continue guardianship papers. 3. Continue medical treatment. 07/02 cont current care; comfortable; 07/03 no events; cont care; 07/04 cont care; 07/09 cont supportive care; check labs in am. 07/10 FAY and hypokalemia- encourage to increase water intake to 8 glasses daily, replace K; BMP in am. 07/11 f/u labs; cont sitter; 07/12 Large BM; cont sitter; f/u guardianship. 07/13 cont care; 07/14 cont supportive care; med adjustments by psych. 07/15 check labs in am; doing ok 07/16 cont supportive care; 07/17 no events; check K. 07/18 supportive care; 07/19 continue medicines; 07/20 cont care; doing ok; cont meds and sitter; 07/21 no issues; cont care; check labs soon. Uvaldo Michel MD, PhD.
--- NOTE | 2018-07-21 08:20 | Progress Note ---
DATE: July 20, 2018 PSYCHIATRIC PROGRESS NOTE SUBJECTIVE: Patient is in the room with sitter. He is calm. He is not agitated or combative. He reports feeling fair. He denies any depression or anxiety. He denies any hallucinations. He denies any side effects from his medications. He is waiting for placement and guardianship as per nursing staff. Patient is somewhat making verbally inappropriate statement, but has not been acting out in any ways as per staff and nurse. He is doing fairly well as per nursing staff. ASSESSMENT: Unspecified psychosis/dementia. PLAN 1. Continue with Namenda 5 mg p.o. 2 times a day. 2. Continue with Seroquel 12.5 mg p.o. q.6h. p.r.n. 3. Monitor for mood and agitation. Dictated by: BERNARD Segundo Job#: [id number] NILA
[2018-07-21] MEDS: DOCUSATE SODIUM 100 MG CAP PO SCH ×2 (08:50→17:06)
[2018-07-21] MEDS: FAMOTIDINE 20 MG TAB PO SCH ×2 (08:50→17:06)
[2018-07-21] MEDS: HYDRALAZINE HCL 100 MG TABLET PO SCH ×3 (08:50→20:18)
[2018-07-21] MEDS: LISINOPRIL 20 MG TAB PO SCH ×2 (08:51→16:57)
[2018-07-21] MEDS: NIFEDIPINE CR 30 MG TAB PO SCH ×2 (08:51→20:18)
--- NOTE | 2018-07-21 18:56 | NUR ---
PATIENT IS IN STABLE CONDITION WITH NO S/S OF RESPIRATORY DISTRESS. NO PAIN VOICED. SITTER PRESENT IN ROOM BY PATIENT'S BEDSIDE. CALL LIGHT WITHIN REACH, INSTRUCTED TO CALL FOR ASSISTANCE INSTRUCTED. REPORT GIVEN TO ONCOMING NURSE.
--- NOTE | 2018-07-21 19:03 | NUR ---
Report received and walking rounds complete. Pt resting in bed and in no apparent distress. 1:[address] All safety measures ensured, bed alarm on, and pt call solorio near.
[2018-07-21] MEDS: ACETAMINOPHEN 325 MG TAB PO PRN (22:35)
--- NOTE | 2018-07-22 00:07 | NUR ---
Pt refused midnight vitals.
[2018-07-22 02:00] VITALS: BP 129/76
--- NOTE | 2018-07-22 07:13 | NUR ---
REPORT GIVEN TO ONCOMING NURSE.
[2018-07-22 08:01] VITALS: BP 122/79
[2018-07-22] MEDS: DOCUSATE SODIUM 100 MG CAP PO SCH ×2 (08:39→17:00)
[2018-07-22] MEDS: HYDRALAZINE HCL 100 MG TABLET PO SCH ×3 (08:39→20:04)
[2018-07-22] MEDS: FAMOTIDINE 20 MG TAB PO SCH ×2 (08:39→16:30)
[2018-07-22] MEDS: LISINOPRIL 20 MG TAB PO SCH ×2 (08:40→17:00)
[2018-07-22] MEDS: NIFEDIPINE CR 30 MG TAB PO SCH ×2 (08:40→20:04)
[2018-07-22 12:18] VITALS: BP_SYST 109; BP_SYST 112; BP_DIAS 63; BP_DIAS 72
[2018-07-22 15:52] VITALS: BP 92/50
--- NOTE | 2018-07-22 18:51 | NUR ---
PATIENT IS IN STABLE CONDITION WITH NO S/S OF RESPIRATORY DISTRESS. NO PAIN VOICED. SITTER PRESENT IN ROOM. CALL LIGHT WITHIN REACH, INSTRUCTED TO CALL FOR ASSISTANCE INSTRUCTED. REPORT GIVEN TO ONCOMING NURSE.
[2018-07-22 19:45] VITALS: BP 106/59
[2018-07-22 20:00] VITALS: BP 106/59
[2018-07-23] VITALS (7 sets, daily range): BP systolic 97–139; BP diastolic 57–79
[2018-07-23 05:23] LABS: BASOPHILS # (AUTO) 0.1 (0.0-0.1); BASOPHILS % 0.9 % (0.0-1.0); EOSINOPHILS # (AUTO) 0.2 (0.0-0.4); EOSINOPHILS % 3.8 % (0.0-6.0); HEMATOCRIT 34.6 % (38.2-49.6); HEMOGLOBIN 11.1 g/dL (14.0-18.0); LYMPHOCYTES # (AUTO) 1.8 (1.0-3.2); LYMPHOCYTES % 31.9 % (18.0-39.1); MEAN CORPUSCULAR HEMOGLOBIN 28.4 pg (28-32); MEAN CORPUSCULAR HGB CONC 32.1 g/dL (31-35); MEAN CORPUSCULAR VOLUME 88.5 fL (81-99); MONOCYTES # (AUTO) 0.8 (0.2-0.8); MONOCYTES % 13.8 % (4.4-11.3); NEUTROPHILS # (AUTO) 2.8 (2.1-6.9); NEUTROPHILS % 49.4 % (38.7-80.0); PLATELET COUNT 166 x10e3/uL (140-360); RED BLOOD COUNT 3.91 x10e6/uL (4.3-5.7); RED CELL DISTRIBUTION WIDTH 15.7 % (11.7-14.4)
[2018-07-23 05:41] LABS: ANION GAP 13.7 mmol/L (8-16); BLOOD UREA NITROGEN 23 mg/dL (7-26); BUN/CREATININE RATIO 23 (6-25); CALCIUM 9.7 mg/dL (8.4-10.2); CARBON DIOXIDE 24 mmol/L (22-29); CHLORIDE 107 mmol/L (98-107); CREATININE, SERUM 1.02 mg/dL (0.72-1.25); EST GLOMERULAR FILTRATION RATE > 60 ML/MIN (60-); GLUCOSE 93 mg/dL (74-118); MAGNESIUM 1.7 MG/DL (1.3-2.1); POTASSIUM 3.7 mmol/L (3.5-5.1); SODIUM 141 mmol/L (136-145)
--- NOTE | 2018-07-23 07:16 | NUR ---
Report given to oncoming nurse.
[2018-07-23] MEDS: FAMOTIDINE 20 MG TAB PO SCH ×2 (07:30→17:07)
[2018-07-23] MEDS: ARTIFICIAL TEARS (OPTH) 15 ML BTL OU SCH ×2 (09:00→17:07)
[2018-07-23] MEDS: DOCUSATE SODIUM 100 MG CAP PO SCH ×2 (09:00→17:07)
[2018-07-23] MEDS: LISINOPRIL 20 MG TAB PO SCH ×2 (09:00→17:00)
[2018-07-23] MEDS: HYDRALAZINE HCL 100 MG TABLET PO SCH ×3 (09:00→20:49)
[2018-07-23] MEDS: NIFEDIPINE CR 30 MG TAB PO SCH ×2 (09:00→20:49)
--- NOTE | 2018-07-23 09:15 | NUR ---
DOS: 06/21/18 at 615pm IM-Progress note OVERNIGHT: No events. REVIEW OF SYSTEMS: Unobtainable. PHYSICAL EXAMINATION VITAL SIGNS: Reviewed. GENERAL APPEARANCE: A tired-appearing man, resting in bed. HEENT: Anicteric. CARDIOVASCULAR: Normal S1 and S2. LUNGS: Moderate breath sounds. ABDOMEN: Soft and nontender. EXTREMITIES: No edema. SKIN: Multiple ulcers, stage 3, left face, left chest, and knees. PSYCHIATRIC: Flat affect. LABS: Reviewed. MEDICATIONS: Reviewed. ASSESSMENT: An 82-year-old man with: 1. Acute psychosis and bipolar disorder. 2. Fall and physical deconditioning. 3. Electrolyte derangement. PLAN 1. Continue sitter. 2. Continue guardianship papers. 3. Continue medical treatment. 07/02 cont current care; comfortable; 07/03 no events; cont care; 07/04 cont care; 07/09 cont supportive care; check labs in am. 07/10 FAY and hypokalemia- encourage to increase water intake to 8 glasses daily, replace K; BMP in am. 07/11 f/u labs; cont sitter; 07/12 Large BM; cont sitter; f/u guardianship. 07/13 cont care; 07/14 cont supportive care; med adjustments by psych. 07/15 check labs in am; doing ok 07/16 cont supportive care; 07/17 no events; check K. 07/18 supportive care; 07/19 continue medicines; 07/20 cont care; doing ok; cont meds and sitter; 07/21 no issues; cont care; check labs soon. 07/22 no events; cont care; Uvaldo Michel MD, PhD.
[2018-07-23] MEDS: QUETIAPINE FUMARATE 25 MG TAB PO PRN (13:00)
--- NOTE | 2018-07-23 13:27 | Progress Note ---
DATE: July 23, 2018 PSYCHIATRIC PROGRESS NOTE SUBJECTIVE: Patient is evaluated and events noted. Vital signs reviewed. The patient is in the room with a sitter. The patient is angry, verbally accusatory tone. He is speaking in his language. He does speak Lao, but refuses to talk today. He is pointing fingers. He is not eating well. The patient intermittently makes inappropriate statements to staff. He is refusing his medication. Sitter reports the patient has not been combative, but he is verbally abusive. His medication for dementia has been dropped. The patient is currently waiting for guardianship and placement. ASSESSMENT: Unspecified psychosis/dementia. PLAN 1. Restart Namenda 5 mg p.o. b.i.d. 2. Continue with Seroquel 12.5 mg p.o. q.6 h. p.r.n. 3. Add Seroquel 12.5 mg p.o. nightly. 4. Monitor for mood and agitation. Dictated by: BERNARD Segundo Job#: [id number]
[2018-07-23] MEDS: MEMANTINE 10 MG TAB PO SCH (17:07)
--- NOTE | 2018-07-23 19:10 | NUR ---
Patient visited during nursing rounds. Patient alert and oriented x0-1. Patient tends to get agitated. Sitter (THOR Arroyo) at bedside as per MD order. No distress or discomfort observed on patient. No IV access (MD aware). Will monitor patient closely.
[2018-07-23] MEDS: QUETIAPINE FUMARATE 25 MG TAB PO SCH (20:49)
[2018-07-24 03:51] VITALS: BP 106/59
[2018-07-24] MEDS: FAMOTIDINE 20 MG TAB PO SCH ×2 (07:30→16:00)
[2018-07-24 07:43] VITALS: BP 105/65
[2018-07-24] MEDS: LISINOPRIL 20 MG TAB PO SCH ×2 (09:00→16:00)
[2018-07-24] MEDS: DOCUSATE SODIUM 100 MG CAP PO SCH ×2 (09:00→16:00)
[2018-07-24] MEDS: MEMANTINE 10 MG TAB PO SCH ×2 (09:00→16:00)
[2018-07-24] MEDS: HYDRALAZINE HCL 100 MG TABLET PO SCH ×3 (09:00→21:00)
[2018-07-24] MEDS: NIFEDIPINE CR 30 MG TAB PO SCH ×2 (09:00→21:00)
[2018-07-24] MEDS: ARTIFICIAL TEARS (OPTH) 15 ML BTL OU SCH ×2 (09:24→16:00)
[2018-07-24 11:00] VITALS: BP 122/70
[2018-07-24 16:00] VITALS: BP 150/90
--- NOTE | 2018-07-24 19:05 | NUR ---
RECEIVED PT IN BED WITH SITTER 1:1 AT BEDSIDE. PT IS AWAKE AND ALERT. NO RESP DISTRESS AT THIS TIME. DENIES PAIN. BED LOCKED IN LOWEST POSITION, SIDE RAILS X2 UP, AND YELLOW SOCKS ON.
[2018-07-24 20:00] VITALS: BP 101/61
[2018-07-24 20:11] VITALS: BP 109/61
[2018-07-24] MEDS: QUETIAPINE FUMARATE 25 MG TAB PO SCH (21:48)
[2018-07-25] VITALS (8 sets, daily range): BP systolic 92–137; BP diastolic 52–77
--- NOTE | 2018-07-25 07:13 | Progress Note ---
DATE: July 24, 2018 PSYCHIATRIC PROGRESS NOTE The patient was evaluated and events noted. The patient is in the room with sitter. He is calm today. He is still yelling loudly. He is not answering questions. He has not been combative or agitated. He is waiting for placement. Staff reports the patient's appetite has been poor today. No agitation. No side effects of medications seen. ASSESSMENT: Unspecified psychosis. PLAN: Continue with current medications. Monitor for mood. Discussed with nursing staff. DICTATED BY BERNARD REES Job#: [id number] ZAYRA
--- NOTE | 2018-07-25 07:41 | NUR ---
PATIENT IS ALERT TO SELF AND IS IN STABLE CONDITION WITH NO S/S OF RESPIRATORY DISTRESS. NO PAIN VOICED. HEEL PROTECTORS APPLIED. SITTER PRESENT BY BEDSIDE. BED ALARM ON. CALL LIGHT WITHIN REACH, INSTRUCTED TO CALL FOR ASSISTANCE NEEDED.
--- NOTE | 2018-07-25 07:58 | NUR ---
IM-Progress note OVERNIGHT: No events. REVIEW OF SYSTEMS: Unobtainable. PHYSICAL EXAMINATION VITAL SIGNS: Reviewed. GENERAL APPEARANCE: A tired-appearing man, resting in bed. HEENT: Anicteric. CARDIOVASCULAR: Normal S1 and S2. LUNGS: Moderate breath sounds. ABDOMEN: Soft and nontender. EXTREMITIES: No edema. SKIN: Multiple ulcers, stage 3, left face, left chest, and knees. PSYCHIATRIC: Flat affect. LABS: Reviewed. MEDICATIONS: Reviewed. ASSESSMENT: An 82-year-old man with: 1. Acute psychosis and bipolar disorder. 2. Fall and physical deconditioning. 3. Electrolyte derangement. PLAN 1. Continue sitter. 2. Continue guardianship papers. 3. Continue medical treatment. 07/02 cont current care; comfortable; 07/03 no events; cont care; 07/04 cont care; 07/09 cont supportive care; check labs in am. 07/10 FAY and hypokalemia- encourage to increase water intake to 8 glasses daily, replace K; BMP in am. 07/11 f/u labs; cont sitter; 07/12 Large BM; cont sitter; f/u guardianship. 07/13 cont care; 07/14 cont supportive care; med adjustments by psych. 07/15 check labs in am; doing ok 07/16 cont supportive care; 07/17 no events; check K. 07/18 supportive care; 07/19 continue medicines; 07/20 cont care; doing ok; cont meds and sitter; 07/21 no issues; cont care; check labs soon. 07/22 no events; cont care 07/23 labs rev'd; 07/24 cont care; 07/25 doing ok; sitter; Uvaldo Michel MD, PhD.
[2018-07-25] MEDS: DOCUSATE SODIUM 100 MG CAP PO SCH ×2 (08:37→16:03)
[2018-07-25] MEDS: FAMOTIDINE 20 MG TAB PO SCH ×2 (08:37→16:03)
[2018-07-25] MEDS: HYDRALAZINE HCL 100 MG TABLET PO SCH ×3 (08:37→21:00)
[2018-07-25] MEDS: MEMANTINE 10 MG TAB PO SCH ×2 (08:37→16:03)
[2018-07-25] MEDS: NIFEDIPINE CR 30 MG TAB PO SCH ×2 (08:37→21:00)
[2018-07-25] MEDS: LISINOPRIL 20 MG TAB PO SCH ×2 (08:37→16:03)
[2018-07-25] MEDS: ARTIFICIAL TEARS (OPTH) 15 ML BTL OU SCH ×2 (09:19→16:03)
--- NOTE | 2018-07-25 12:49 | NUR ---
JAYCOB AND RN ATTEMPTED TO SIT PATIENT IN RECLINER TO EAT BUT PATIENT BEGAN TO SCREAM AND SAY NO. PATIENT REPOSITION IN BED AND HOB ELEVATED SO PATIENT CAN EAT. SITTER PRESENT IN ROOM.
--- NOTE | 2018-07-25 15:11 | Progress Note ---
DATE: July 25, 2018 PSYCHIATRIC PROGRESS NOTE Patient evaluated and events noted. Patient is in the room with a sitter. He is calm but intermittently verbally aggressive, yelling out. He states that he is doing okay, denies any depression. He does not appear to have any hallucination. He is not combative or aggressive. He is eating well as per nursing staff. He is taking his medications and no serious side effects seen. ASSESSMENT: Unspecified psychosis/dementia. PLAN 1. Continue with Namenda 5 mg p.o. b.i.d. 2. Continue with Seroquel 12.5 mg p.o. nightly. 3. Continue with Seroquel 12.5 mg p.o. q.6 h. p.r.n. 4. Monitor for mood. Dictated by: BERNARD Segundo Job#: [id number] EV
--- NOTE | 2018-07-25 19:20 | NUR ---
PATIENT IS IN STABLE CONDITION WITH NO S/S OF RESPIRATORY DISTRESS. UPON END OF SHIFT ROUNDING, WITH NIGHT NURSE, PATIENT C/O OF LOWER LEG DISCOMFORT. SITTER PRESENT IN ROOM. CALL LIGHT IS WITHIN REACH, INSTRUCTED TO CALL FOR ASSISTANCE NEEDED. REPORT GIVEN TO ONCOMING NURSE.
--- NOTE | 2018-07-25 19:25 | NUR ---
RECEIVED PT IN BED AWAKE AND ALERT. SITTER AT BEDSIDE. C/O OF PAIN TO L FOOT. NO OPEN WOUNDS. PAIN MEDICATION AVAILABLE. NO S/S OF RESP DISTRESS. CALL LIGHT WITHN REACH AND INSTRUCTED TO CALL FOR ASSISTANCE.
[2018-07-25] MEDS: ACETAMINOPHEN 325 MG TAB PO PRN (21:37)
[2018-07-25] MEDS: QUETIAPINE FUMARATE 25 MG TAB PO SCH (21:37)
[2018-07-26] VITALS (8 sets, daily range): BP systolic 107–124; BP diastolic 58–68
--- NOTE | 2018-07-26 07:05 | NUR ---
PATIENT IS IN STABLE CONDITION WITH NO S/S OF RESPIRATORY DISTRESS. NO PAIN VOICED. SITTER PRESENT IN ROOM. HEEL PROTECTORS APPLIED. BED ALARM APPLIED. CALL LIGHT IS WITHIN REACH, INSTRUCTED TO CALL FOR ASSISTANCE NEEDED. REPORT GIVEN TO ONCOMING NURSE.
[2018-07-26] MEDS: FAMOTIDINE 20 MG TAB PO SCH ×2 (07:30→16:30)
[2018-07-26] MEDS: NIFEDIPINE CR 30 MG TAB PO SCH ×2 (08:13→22:01)
[2018-07-26] MEDS: LISINOPRIL 20 MG TAB PO SCH ×2 (08:13→17:00)
[2018-07-26] MEDS: HYDRALAZINE HCL 100 MG TABLET PO SCH ×3 (08:13→22:00)
[2018-07-26] MEDS: ARTIFICIAL TEARS (OPTH) 15 ML BTL OU SCH ×2 (08:28→17:00)
[2018-07-26] MEDS: DOCUSATE SODIUM 100 MG CAP PO SCH ×2 (09:00→17:00)
[2018-07-26] MEDS: MEMANTINE 10 MG TAB PO SCH ×2 (09:00→17:00)
--- NOTE | 2018-07-26 09:00 | NUR ---
PATIENT REFUSED TO TURN ON HIS RIGHT SIDE AT 0900 TURNING TIME- PATIENT REMAINS ON HIS BACK AT THIS TIME. SITTER PRESENT IN ROOM.
--- NOTE | 2018-07-26 15:59 | NUR ---
CALLED AND LEFT MESSAGE TO JUSTICE CABRERA [phone] TO PLEASE RETURN CALL AND SEE IF THERE IS AN UPDATE ON THIS CASE.
--- NOTE | 2018-07-26 19:05 | NUR ---
PATIENT IS IN STABLE CONDITION WITH NO S/S OF RESPIRATORY DISTRESS. NO PAIN VOICED. SITTER PRESENT IN ROOM. CALL LIGHT WITHIN REACH, INSTRUCTED TO CALL FOR ASSISTANCE NEEDED. REPORT GIVEN TO ONCOMING NURSE.
--- NOTE | 2018-07-26 19:15 | NUR ---
RECEIVED PT IN BED AWAKE AND ALERT. SITTER AT BEDSIDE. NO S/S OF RESP DISTRESS. CALL LIGHT WITHIN REACH AND INSTRUCTED TO CALL FOR ASSISTANCE.
[2018-07-26] MEDS: QUETIAPINE FUMARATE 25 MG TAB PO SCH (22:01)
[2018-07-27] VITALS (7 sets, daily range): BP systolic 91–130; BP diastolic 51–76
[2018-07-27] MEDS: FAMOTIDINE 20 MG TAB PO SCH ×2 (08:20→16:30)
[2018-07-27] MEDS: QUETIAPINE FUMARATE 25 MG TAB PO SCH ×2 (08:39→21:00)
[2018-07-27] MEDS: NIFEDIPINE CR 30 MG TAB PO SCH ×2 (08:39→21:00)
[2018-07-27] MEDS: ARTIFICIAL TEARS (OPTH) 15 ML BTL OU SCH ×2 (08:40→17:00)
[2018-07-27] MEDS: DOCUSATE SODIUM 100 MG CAP PO SCH ×2 (08:40→17:00)
[2018-07-27] MEDS: MEMANTINE 10 MG TAB PO SCH ×2 (08:40→17:00)
[2018-07-27] MEDS: LISINOPRIL 20 MG TAB PO SCH ×2 (08:40→17:00)
[2018-07-27] MEDS: HYDRALAZINE HCL 100 MG TABLET PO SCH ×3 (08:40→21:00)
--- NOTE | 2018-07-27 12:54 | NUR ---
IM-Progress note DOS 07/26/18 at 5pm OVERNIGHT: No events. REVIEW OF SYSTEMS: Unobtainable. PHYSICAL EXAMINATION VITAL SIGNS: Reviewed. GENERAL APPEARANCE: A tired-appearing man, resting in bed. HEENT: Anicteric. CARDIOVASCULAR: Normal S1 and S2. LUNGS: Moderate breath sounds. ABDOMEN: Soft and nontender. EXTREMITIES: No edema. SKIN: Multiple ulcers, stage 3, left face, left chest, and knees. PSYCHIATRIC: Flat affect. LABS: Reviewed. MEDICATIONS: Reviewed. ASSESSMENT: An 82-year-old man with: 1. Acute psychosis and bipolar disorder. 2. Fall and physical deconditioning. 3. Electrolyte derangement. PLAN 1. Continue sitter. 2. Continue guardianship papers. 3. Continue medical treatment. 07/02 cont current care; comfortable; 07/03 no events; cont care; 07/04 cont care; 07/09 cont supportive care; check labs in am. 07/10 FAY and hypokalemia- encourage to increase water intake to 8 glasses daily, replace K; BMP in am. 07/11 f/u labs; cont sitter; 07/12 Large BM; cont sitter; f/u guardianship. 07/13 cont care; 07/14 cont supportive care; med adjustments by psych. 07/15 check labs in am; doing ok 07/16 cont supportive care; 07/17 no events; check K. 07/18 supportive care; 07/19 continue medicines; 07/20 cont care; doing ok; cont meds and sitter; 07/21 no issues; cont care; check labs soon. 07/22 no events; cont care 07/23 labs rev'd; 07/24 cont care; 07/25 doing ok; sitter; 07/26 no events; cont care and await guardianship papers. Uvaldo Michel MD, PhD.
--- NOTE | 2018-07-27 17:05 | NUR ---
patient resting in bed, refused dinner , refused all evening medications, shouting to nurse and sitter, tried to redirect him,
--- NOTE | 2018-07-27 19:00 | NUR ---
patient recieved lying quietly in bed. vss. no signs of pain or discomfort noted. 1:1 sitter remains at patients bedside for safety. sitter instructed to call for assistance when needed.
[2018-07-28] VITALS (7 sets, daily range): BP systolic 126–153; BP diastolic 60–89
--- NOTE | 2018-07-28 | NUR ---
patient appears to be resting quietly. no signs of pain/discomfort noted. 1:1 sitter remains at the bedside for safety.
[2018-07-28] MEDS: LISINOPRIL 20 MG TAB PO SCH ×2 (09:16→17:00)
[2018-07-28] MEDS: NIFEDIPINE CR 30 MG TAB PO SCH ×2 (09:16→21:00)
[2018-07-28] MEDS: MEMANTINE 10 MG TAB PO SCH ×2 (09:16→17:00)
[2018-07-28] MEDS: DOCUSATE SODIUM 100 MG CAP PO SCH ×2 (09:16→17:00)
[2018-07-28] MEDS: HYDRALAZINE HCL 100 MG TABLET PO SCH ×3 (09:16→21:00)
[2018-07-28] MEDS: FAMOTIDINE 20 MG TAB PO SCH ×2 (09:16→16:30)
[2018-07-28] MEDS: ARTIFICIAL TEARS (OPTH) 15 ML BTL OU SCH ×2 (09:16→17:00)
[2018-07-28] MEDS: QUETIAPINE FUMARATE 25 MG TAB PO SCH ×2 (09:16→21:00)
[2018-07-29] VITALS (7 sets, daily range): BP systolic 133–167; BP diastolic 74–88
--- NOTE | 2018-07-29 03:29 | NUR ---
Patient laying in bed with HOB slightly elevated. Confused. Sitter at the bedside. Patient refused all meds. No sob noted. No acute distress noted. Bed at lowest position and locked. Call solorio within reach. Patient denies of any pain at this moment, 0/10. Patient stable at this time, will continue to monitor.
--- NOTE | 2018-07-29 05:35 | NUR ---
IM-Progress note OVERNIGHT: No events. REVIEW OF SYSTEMS: Unobtainable. PHYSICAL EXAMINATION VITAL SIGNS: Reviewed. GENERAL APPEARANCE: A tired-appearing man, resting in bed. HEENT: Anicteric. CARDIOVASCULAR: Normal S1 and S2. LUNGS: Moderate breath sounds. ABDOMEN: Soft and nontender. EXTREMITIES: No edema. SKIN: Multiple ulcers, stage 3, left face, left chest, and knees. PSYCHIATRIC: Flat affect. LABS: Reviewed. MEDICATIONS: Reviewed. ASSESSMENT: An 82-year-old man with: 1. Acute psychosis and bipolar disorder. 2. Fall and physical deconditioning. 3. Electrolyte derangement. PLAN 1. Continue sitter. 2. Continue guardianship papers. 3. Continue medical treatment. 07/02 cont current care; comfortable; 07/03 no events; cont care; 07/04 cont care; 07/09 cont supportive care; check labs in am. 07/10 FAY and hypokalemia- encourage to increase water intake to 8 glasses daily, replace K; BMP in am. 07/11 f/u labs; cont sitter; 07/12 Large BM; cont sitter; f/u guardianship. 07/13 cont care; 07/14 cont supportive care; med adjustments by psych. 07/15 check labs in am; doing ok 07/16 cont supportive care; 07/17 no events; check K. 07/18 supportive care; 07/19 continue medicines; 07/20 cont care; doing ok; cont meds and sitter; 07/21 no issues; cont care; check labs soon. 07/22 no events; cont care 07/23 labs rev'd; 07/24 cont care; 07/25 doing ok; sitter; 07/26 no events; cont care and await guardianship papers. 07/27 doing well; cont care; 07/28 cont care. check labs on Monday. 07/29 cont care; Uvaldo Michel MD, PhD.
[2018-07-29] MEDS: FAMOTIDINE 20 MG TAB PO SCH ×2 (07:30→16:30)
[2018-07-29] MEDS: QUETIAPINE FUMARATE 25 MG TAB PO SCH ×2 (09:00→21:05)
[2018-07-29] MEDS: LISINOPRIL 20 MG TAB PO SCH ×2 (09:00→17:00)
[2018-07-29] MEDS: ARTIFICIAL TEARS (OPTH) 15 ML BTL OU SCH ×2 (09:00→17:00)
[2018-07-29] MEDS: DOCUSATE SODIUM 100 MG CAP PO SCH ×2 (09:00→17:00)
[2018-07-29] MEDS: MEMANTINE 10 MG TAB PO SCH ×2 (09:00→17:00)
[2018-07-29] MEDS: HYDRALAZINE HCL 100 MG TABLET PO SCH ×3 (09:00→21:06)
[2018-07-29] MEDS: NIFEDIPINE CR 30 MG TAB PO SCH ×2 (09:00→21:06)
--- NOTE | 2018-07-29 14:32 | NUR ---
Patient refused to Turn him in bed, refused all morning meds, was trying to spit to nurse and sitter, redirected him.
--- NOTE | 2018-07-29 16:42 | NUR ---
Patient was so agitated, yelling , spitting to nurse and sitter, Paged and new order recvd from [facility] 10mg im 1 dose, and he will see patient tomorrow
[2018-07-29] MEDS ORDERED: ZIPRASIDONE 20 MG VIAL IM ONE (17:15)
--- NOTE | 2018-07-29 20:07 | NUR ---
RECEIVED PT IN BED ALERT .NO ACUTE DISTRESS NOTED .SITTER AT THE BEDSIDE .CALL LIGHT WITH IN REACH.CONTINUE T MONITOR
[2018-07-30] VITALS (10 sets, daily range): BP systolic 103–141; BP diastolic 56–86
[2018-07-30 05:53] LABS: BASOPHILS % 0.7 % (0.0-1.0); EOSINOPHILS # (AUTO) 0.4 (0.0-0.4); EOSINOPHILS % 6.2 % (0.0-6.0); HEMATOCRIT 33.5 % (38.2-49.6); HEMOGLOBIN 10.7 g/dL (14.0-18.0); LYMPHOCYTES # (AUTO) 1.7 (1.0-3.2); LYMPHOCYTES % 29.3 % (18.0-39.1); MEAN CORPUSCULAR HEMOGLOBIN 27.9 pg (28-32); MEAN CORPUSCULAR HGB CONC 31.9 g/dL (31-35); MEAN CORPUSCULAR VOLUME 87.2 fL (81-99); MONOCYTES # (AUTO) 0.6 (0.2-0.8); MONOCYTES % 10.1 % (4.4-11.3); NEUTROPHILS % 53.5 % (38.7-80.0); PLATELET COUNT 181 x10e3/uL (140-360); RED BLOOD COUNT 3.84 x10e6/uL (4.3-5.7); RED CELL DISTRIBUTION WIDTH 15.1 % (11.7-14.4)
[2018-07-30 06:14] LABS: ANION GAP 10.5 mmol/L (8-16); BLOOD UREA NITROGEN 23 mg/dL (7-26); BUN/CREATININE RATIO 27 (6-25); CALCIUM 9.9 mg/dL (8.4-10.2); CARBON DIOXIDE 25 mmol/L (22-29); CHLORIDE 109 mmol/L (98-107); CREATININE, SERUM 0.84 mg/dL (0.72-1.25); EST GLOMERULAR FILTRATION RATE > 60 ML/MIN (60-); GLUCOSE 93 mg/dL (74-118); MAGNESIUM 2.1 MG/DL (1.3-2.1); POTASSIUM 3.5 mmol/L (3.5-5.1); SODIUM 141 mmol/L (136-145)
--- NOTE | 2018-07-30 06:25 | NUR ---
PT SLEPT DURING THE NIGHT .SITTER NEAR TO THE BEDSIDE .CONTINUE TO MONITOR
--- NOTE | 2018-07-30 07:20 | NUR ---
REPORT GIVEN ON COMING NURSE
--- NOTE | 2018-07-30 07:22 | NUR ---
PATIENT IN BED RESTING WITH EYES CLOSED, NO RESPIRATORY DISTRESS OBSERVED. WOUNDS TO LEFT FACE, KNEES, RIGHT ELBOW DRY, OPEN TO AIR. 1:1 SITTER AT BED SIDE. CALL LIGHT AT REACH.
[2018-07-30] MEDS: FAMOTIDINE 20 MG TAB PO SCH ×3 (07:30→18:00)
[2018-07-30] MEDS: NIFEDIPINE CR 30 MG TAB PO SCH ×2 (09:00→20:53)
[2018-07-30] MEDS: HYDRALAZINE HCL 100 MG TABLET PO SCH ×3 (09:00→20:53)
[2018-07-30] MEDS: LISINOPRIL 20 MG TAB PO SCH ×2 (09:00→18:00)
[2018-07-30] MEDS: ARTIFICIAL TEARS (OPTH) 15 ML BTL OU SCH ×2 (10:30→18:00)
[2018-07-30] MEDS: QUETIAPINE FUMARATE 25 MG TAB PO SCH ×2 (10:30→20:54)
[2018-07-30] MEDS: DOCUSATE SODIUM 100 MG CAP PO SCH ×2 (10:30→18:00)
[2018-07-30] MEDS: MEMANTINE 10 MG TAB PO SCH ×2 (10:30→18:00)
--- NOTE | 2018-07-30 10:30 | NUR ---
PATIENT ASSISTED WITH BREAKFAST, REPOSITIONED IN BED. CALL LIGHT AT REACH.
--- NOTE | 2018-07-30 12:18 | Progress Note ---
DATE: July 27, 2018 PSYCHIATRIC PROGRESS NOTE Patient evaluated and events noted. Patient is in the room with a sitter. He is uncooperative. Today the staff reports the patient is doing better. He is taking his medication. He is not throwing things at staff. He is not yelling at them as much. He is more compliant with the medication, and no side effects are seen. ASSESSMENT: Unspecified psychosis/dementia. PLAN 1. Continue with Namenda 5 mg p.o. b.i.d. 2. Continue with Seroquel 12.5 mg p.o. q.12 h. 3. Continue with Seroquel p.r.n. p.o. 4. Monitor for mood. 5. Monitor for agitation. Dictated by: BERNARD Segundo Job#: [id number]
--- NOTE | 2018-07-30 12:21 | Progress Note ---
DATE: July 30, 2018 PSYCHIATRIC PROGRESS NOTE Patient evaluated and events noted. Patient is in the room. He has a sitter. He is uncooperative. He spit at the staff on Monday. He is yelling at staff. He is agitated and combative. He is taking his medications and no serious side effects seen. ASSESSMENT: Unspecified psychosis/dementia. PLAN 1. Increase Seroquel schedule. 2. Continue Seroquel p.r.n. 3. Namenda for agitation. Dictated by: BERNARD Segundo Job#: [id number]
--- NOTE | 2018-07-30 12:40 | Progress Note ---
DATE: July 26, 2018 PSYCHIATRIC PROGRESS NOTE SUBJECTIVE: Patient evaluated and events noted. Patient is in the room. He has a lot of organized situation. He is alert, awake, and oriented to self. He is intermittently agitated. He is throwing food at staff, yelling at staff. He is uncooperative and then will be getting some medications. He is receiving medication at that time and no serious side effects seen. ASSESSMENT: Unspecified psychosis/unspecified dementia. PLAN 1. To continue with Seroquel 12.5 mg p.o. q.6 hours. p.r.n. 2. Increase Seroquel from 12.5 mg p.o. q.h.s. to q.12 hours. 3. Monitor for mood. 4. . Dictated by: BERNARD Segundo Job#: [id number] CATRINA
--- NOTE | 2018-07-30 16:30 | NUR ---
PATIENT ASSISTED WITH DIAPER CHANGE, REPOSITIONED IN BED. CALL LIGHT AT REACH.
[2018-07-30] MEDS: QUETIAPINE FUMARATE 25 MG TAB PO PRN (17:10)
--- NOTE | 2018-07-30 19:00 | NUR ---
patient recieved lying quietly in bed. eyes closed, respirations even and unlabored. no signs of pain or discomfort noted. pm assessment complete. 1:1 instructed to call for assistance when needed.
[2018-07-31 00:03] VITALS: BP 88/52
[2018-07-31 03:18] VITALS: BP 97/56
[2018-07-31] MEDS: NIFEDIPINE CR 30 MG TAB PO SCH ×2 (09:00→21:00)
[2018-07-31] MEDS: HYDRALAZINE HCL 100 MG TABLET PO SCH ×3 (09:00→21:00)
[2018-07-31] MEDS: ARTIFICIAL TEARS (OPTH) 15 ML BTL OU SCH ×2 (09:00→17:00)
[2018-07-31] MEDS: DOCUSATE SODIUM 100 MG CAP PO SCH ×2 (09:00→17:00)
[2018-07-31] MEDS: MEMANTINE 10 MG TAB PO SCH ×2 (09:49→17:00)
[2018-07-31] MEDS: LISINOPRIL 20 MG TAB PO SCH ×2 (09:49→17:00)
[2018-07-31] MEDS: QUETIAPINE FUMARATE 25 MG TAB PO SCH ×3 (09:49→21:00)
[2018-07-31] MEDS ORDERED: LORAZEPAM 0.5 MG TAB PO PRN (10:00)
[2018-07-31] MEDS ORDERED: QUETIAPINE FUMARATE 25 MG TAB PO PRN (10:00)
[2018-07-31] MEDS: HALOPERIDOL LACTATE 5 MG/ML VIAL IM PRN ×2 (10:29→20:59)
--- NOTE | 2018-07-31 11:13 | Progress Note ---
DATE: July 31, 2018 PSYCHIATRIC PROGRESS NOTE Patient evaluated and events noted. Patient is in the room. He is screaming. He is yelling. He is saying "no good" repeatedly. He is not answering questions. As per the nurse and the staff, he has been yelling. He is spitting out his medication. He has been cursing some. He has been spitting at the staff. He is not compliant with medications at times. He is agitated and combative. ASSESSMENT: Unspecified psychosis/dementia. PLAN 1. Increase Seroquel from 25 mg p.o. q.12 to 3 times a day. 2. Increase Seroquel 12.5 q.6 p.r.n. to 25 mg p.o. q.6 h. p.r.n. 3. Add Haldol p.r.n. IM. 4. Add Ativan p.r.n. IM. 5. Continue Namenda 5 mg p.o. b.i.d. 6. I called the pharmacy to see if Zyprexa Zydis is available, but unfortunately it is not available in this hospital. 7. Discussed with nursing staff. 8. Monitor for mood and agitation. Dictated by: BERNARD Segundo Job#: [id number]
--- NOTE | 2018-07-31 19:00 | NUR ---
patient recieved awake, alert, lying quietly in bed. vss. no c/o pain noted. 1:1 sitter remains at the bedside for safety. pm assessment complete. 1:1 sitter instructed to call for assistance when needed.
--- NOTE | 2018-07-31 19:01 | NUR ---
PATIENT IN STABLE CONDITION WITH NO S/S OF RESPIRATORY DISTRESS. NO PAIN VOICED. SITTER PRESENT IN ROOM. CALL LIGHT IS WITHIN REACH, PATIENT INSTRUCTED TO CALL FOR ASSISTANCE NEEDED. REPORT GIVEN TO ONCOMING NURSE.
[2018-07-31 19:50] VITALS: BP 145/78
--- NOTE | 2018-07-31 20:59 | NUR ---
patient medicated with haldol 2mg im for extreme agitation. will continue to monitor. 1:1 remains at bedside.
[2018-07-31 23:41] VITALS: BP 111/63
[2018-08-01 04:00] VITALS: BP 145/72
[2018-08-01 07:56] VITALS: BP 141/71
[2018-08-01 08:00] VITALS: BP 141/71
--- NOTE | 2018-08-01 08:15 | NUR ---
IM-Progress note OVERNIGHT: No events. REVIEW OF SYSTEMS: Unobtainable. PHYSICAL EXAMINATION VITAL SIGNS: Reviewed. GENERAL APPEARANCE: A tired-appearing man, resting in bed. HEENT: Anicteric. CARDIOVASCULAR: Normal S1 and S2. LUNGS: Moderate breath sounds. ABDOMEN: Soft and nontender. EXTREMITIES: No edema. SKIN: Multiple ulcers, stage 3, left face, left chest, and knees. PSYCHIATRIC: Flat affect. LABS: Reviewed. MEDICATIONS: Reviewed. ASSESSMENT: An 82-year-old man with: 1. Acute psychosis and bipolar disorder. 2. Fall and physical deconditioning. 3. Electrolyte derangement. PLAN 1. Continue sitter. 2. Continue guardianship papers. 3. Continue medical treatment. 07/02 cont current care; comfortable; 07/03 no events; cont care; 07/04 cont care; 07/09 cont supportive care; check labs in am. 07/10 FAY and hypokalemia- encourage to increase water intake to 8 glasses daily, replace K; BMP in am. 07/11 f/u labs; cont sitter; 07/12 Large BM; cont sitter; f/u guardianship. 07/13 cont care; 07/14 cont supportive care; med adjustments by psych. 07/15 check labs in am; doing ok 07/16 cont supportive care; 07/17 no events; check K. 07/18 supportive care; 07/19 continue medicines; 07/20 cont care; doing ok; cont meds and sitter; 07/21 no issues; cont care; check labs soon. 07/22 no events; cont care 07/23 labs rev'd; 07/24 cont care; 07/25 doing ok; sitter; 07/26 no events; cont care and await guardianship papers. 07/27 doing well; cont care; 07/28 cont care. check labs on Monday. 07/29 cont care; 07/30 at 1155am: no change; continue sitter; supportive care. 07/31 @ 609am: no events; cont care; 08/01 stable; cont care. Uvaldo Michel MD, PhD.
[2018-08-01] MEDS: NIFEDIPINE CR 30 MG TAB PO SCH ×2 (09:00→16:47)
[2018-08-01] MEDS: DOCUSATE SODIUM 100 MG CAP PO SCH ×2 (09:00→16:46)
[2018-08-01] MEDS: QUETIAPINE FUMARATE 25 MG TAB PO SCH ×3 (09:00→21:32)
[2018-08-01] MEDS: LISINOPRIL 20 MG TAB PO SCH ×2 (09:00→16:47)
[2018-08-01] MEDS: HYDRALAZINE HCL 100 MG TABLET PO SCH ×3 (09:00→21:32)
[2018-08-01] MEDS: MEMANTINE 10 MG TAB PO SCH ×2 (09:00→16:46)
--- NOTE | 2018-08-01 10:30 | NUR ---
Multiple attempts made to administer medication and patient refused all times. Pt is not agitated at this time he just refusing to take his am medications.
[2018-08-01] MEDS: ARTIFICIAL TEARS (OPTH) 15 ML BTL OU SCH ×2 (10:32→16:46)
[2018-08-01 12:01] VITALS: BP 138/75
[2018-08-01 16:03] VITALS: BP 123/64
--- NOTE | 2018-08-01 19:20 | NUR ---
Patient visited in room during nursing rounds. Patient alert and oriented x1-2. No distress or discomfort noted. Has 1:1 (sitter) care per MD order. Patient appear calm and eating dinner well. Will monitor patient closely.
[2018-08-01 20:00] VITALS: BP 123/73
[2018-08-02] VITALS (7 sets, daily range): BP systolic 105–125; BP diastolic 54–73
--- NOTE | 2018-08-02 07:30 | NUR ---
Received pt in bed with eyes closed. AOx1 to himself. Pt is calm right now and resting quietly.
[2018-08-02] MEDS: ARTIFICIAL TEARS (OPTH) 15 ML BTL OU SCH ×2 (09:00→17:00)
[2018-08-02] MEDS: NIFEDIPINE CR 30 MG TAB PO SCH ×2 (09:00→20:53)
[2018-08-02] MEDS: LISINOPRIL 20 MG TAB PO SCH ×2 (09:00→17:00)
[2018-08-02] MEDS: MEMANTINE 10 MG TAB PO SCH ×2 (09:00→17:00)
[2018-08-02] MEDS: DOCUSATE SODIUM 100 MG CAP PO SCH ×2 (09:00→17:00)
[2018-08-02] MEDS: QUETIAPINE FUMARATE 25 MG TAB PO SCH ×3 (09:00→20:54)
[2018-08-02] MEDS: HYDRALAZINE HCL 100 MG TABLET PO SCH ×3 (09:00→20:53)
[2018-08-02] MEDS: LORAZEPAM INJ 2 MG/ML VIAL IM PRN (10:14)
--- NOTE | 2018-08-02 18:00 | NUR ---
Pt in bed. he is calm at this time. Denies any pain at this time. Pt became very agitated this morning and he received IM ativan and he calmed down. NO behavioral issue the rest of the shift.
[2018-08-03 04:00] VITALS: BP 100/69
--- NOTE | 2018-08-03 07:35 | NUR ---
RECEIVED PATIENT RESTING IN BED, SITTER AT BEDSIDE. NO S/S OF DISTRESS NOTED. CALL LIGHT WITHIN REACH, BED IN THE LOWEST POSITION.
[2018-08-03 08:21] VITALS: BP 157/77
[2018-08-03] MEDS: NIFEDIPINE CR 30 MG TAB PO SCH ×2 (09:33→21:00)
[2018-08-03] MEDS: HYDRALAZINE HCL 100 MG TABLET PO SCH ×3 (09:33→21:00)
[2018-08-03] MEDS: ARTIFICIAL TEARS (OPTH) 15 ML BTL OU SCH ×2 (09:33→17:00)
[2018-08-03] MEDS: MEMANTINE 10 MG TAB PO SCH ×2 (09:33→17:00)
[2018-08-03] MEDS: QUETIAPINE FUMARATE 25 MG TAB PO SCH ×3 (09:33→23:14)
[2018-08-03] MEDS: DOCUSATE SODIUM 100 MG CAP PO SCH ×2 (09:33→17:00)
[2018-08-03] MEDS: LISINOPRIL 20 MG TAB PO SCH ×2 (09:33→17:00)
[2018-08-03 11:11] VITALS: BP 157/77
--- NOTE | 2018-08-03 12:59 | Progress Note ---
DATE: August 03, 2018 PSYCHIATRIC PROGRESS NOTE Patient evaluated and events noted. Patient is in a room with sitter. He is sleeping. He is refusing to answer questions. However, he is calm, pleasant. He ate all his breakfast today as per the sitter. He is intermittently yelling out but not combative. He received 1 dose of medication yesterday morning but nothing last night. He appears to be improving in agitation, and he is intermittently getting his Seroquel. No side effects seen. ASSESSMENT: Unspecified psychosis/dementia. PLAN 1. Continue with Seroquel 25 mg p.o. 3 times a day. 2. Continue with Namenda 5 mg p.o. b.i.d. 3. Continue with Ativan 0.5 mg IM q.6 h. p.r.n. 4. Continue with Haldol 2 mg IM q.6 h. p.r.n. 5. Continue with Ativan 0.5 mg p.o. q.6 h. p.r.n. 6. Continue with Seroquel 25 mg p.o. q.6 h. p.r.n. 7. As per Dr. Feliz, patient did not do well on Depakote; so, will not give this medication. 8. Monitor for agitation. Dictated by: BERNARD Segundo Job#: [id number] EV
--- NOTE | 2018-08-03 13:07 | Progress Note ---
DATE: August 01, 2018 PSYCHIATRIC PROGRESS NOTE Patient evaluated and events noted. Patient is in the room. He is alert, awake and oriented to self. He is doing fair. He is intermittently agitated. He is less combative. He is still getting p.r.n. medication at times. He is receiving his medication with no serious side effect seen. ASSESSMENT: Unspecified psychosis/dementia. PLAN 1. Continue with Seroquel 25 mg p.o. 3 times a day. 2. Continue with Seroquel 25 mg p.o. q.6 h. p.r.n. 3. Continue Haldol p.r.n. and Ativan p.r.n. 4. Continue Namenda 5 mg p.o. b.i.d. 5. Monitor for mood and agitation. Dictated by: BERNARD Segundo Job#: [id number]
--- NOTE | 2018-08-03 15:34 | Progress Note ---
DATE: August 03, 2018 MEDICINE PROGRESS NOTE SUBJECTIVE: Patient is doing well today with no other complaints. The sitter at bedside reports he has been sleeping more today than usual. OBJECTIVE VITALS: Stable. There was no concern by the nursing staff. Temperature 96.8, pulse 100, respiratory rate 19, blood pressure 157/77, pulse oximetry 99% on room air. LAB FINDINGS: None. MICROBIOLOGY: None. PHYSICAL EXAMINATION GENERAL: Not in acute distress. Alert, oriented x3, cooperative on examination. HEENT: Head: Normocephalic, atraumatic. Eyes: Pupils are equal and reactive to light bilaterally. Extraocular movements intact bilaterally. NECK: Supple with good range of motion. THROAT: No evidence of any erythema or exudates in the posterior pharynx. Has poor dentition. PULMONARY: Clear to auscultation bilaterally. No wheezing, no rales, no rhonchi, no crackles appreciated. CARDIOVASCULAR: Positive S1/S2. No murmurs, rubs or gallops appreciated. ABDOMEN: Soft, nondistended, nontender to palpation. Bowel sounds present. MUSCULOSKELETAL: Strength is 5/5 throughout. No evidence of any musculoskeletal deficit on examination. No weakness appreciated. NEUROLOGICAL: Cranial nerves II through XII are grossly intact. No evidence of any neurological deficit on exam. SKIN: Intact. Warm to touch. Good capillary refill. PSYCHIATRIC: Normal affect and mood. EXTREMITIES: No edema. Good range of motion throughout. IMPRESSION 1. Acute psychosis with bipolar disorder. 2. Falls secondary to physical deconditioning. 3. Electrolyte derangement. PLAN: We are still waiting on guardianship paperwork. He has been here for significant number of weeks. Once a guardian has been assigned, the patient will be ready for discharge. Job#: [id number]
[2018-08-03 15:40] VITALS: BP 111/66
[2018-08-03 16:00] VITALS: BP 111/66
[2018-08-03] MEDS: HALOPERIDOL LACTATE 5 MG/ML VIAL IM PRN (18:10)
--- NOTE | 2018-08-03 18:12 | NUR ---
PATIENT AGITATED, YELLING AT SITTER, AND BECOMING AGGRESSIVE. ATTEMPTED TO ADMINISTER ATIVAN PO, PATIENT SPIT OUT MEDICATION. HALDOL PER SCHEDULE ADMINISTERED.
--- NOTE | 2018-08-03 19:39 | NUR ---
REPORT GIVEN TO ONCOMING NURSE. PATIENT IS IN STABLE CONDITION. NO S/S OF DISTRESS NOTED. SITTER AT BEDSIDE. CALL LIGHT WITHIN REACH. BED IN THE LOWEST POSITION.
--- NOTE | 2018-08-03 19:59 | NUR ---
RECEIVED PT IN BED SLEEPING .NO ACUTE DISTRESS NOTED CALL LIGHT WITH IN REACH . SITTER NEAR TO THE BEDSIDE.CONTINUE TO MONITOR
[2018-08-03 20:00] VITALS: BP 106/66
[2018-08-04] VITALS (7 sets, daily range): BP systolic 92–142; BP diastolic 47–94
[2018-08-04] MEDS: HALOPERIDOL LACTATE 5 MG/ML VIAL IM PRN (06:00)
--- NOTE | 2018-08-04 07:05 | NUR ---
PT WAS OFF AND ON AGITATED .GIVEN HALDOL IN IM .SITTER AT THE BEDSIDE .REPORT GIVEN TO THE ON COMING NURSE
--- NOTE | 2018-08-04 07:20 | NUR ---
RECEIVED PATIENT SITTING UP IN BED. NO S/S OF DISTRESS NOTED. SITTER AT BEDSIDE. CALL LIGHT WITHIN REACH. BED IN THE LOWEST POSITION.
[2018-08-04] MEDS: QUETIAPINE FUMARATE 25 MG TAB PO SCH ×3 (08:32→20:46)
[2018-08-04] MEDS: LISINOPRIL 20 MG TAB PO SCH ×2 (08:32→16:13)
[2018-08-04] MEDS: HYDRALAZINE HCL 100 MG TABLET PO SCH ×3 (08:32→20:46)
[2018-08-04] MEDS: NIFEDIPINE CR 30 MG TAB PO SCH ×2 (08:32→20:46)
[2018-08-04] MEDS: MEMANTINE 10 MG TAB PO SCH ×2 (08:32→16:12)
[2018-08-04] MEDS: DOCUSATE SODIUM 100 MG CAP PO SCH ×2 (08:32→16:12)
[2018-08-04] MEDS: ARTIFICIAL TEARS (OPTH) 15 ML BTL OU SCH ×2 (09:41→17:00)
--- NOTE | 2018-08-04 13:49 | NUR ---
SMALL SKIN TEAR NOTED TO UPPER LIP.
--- NOTE | 2018-08-04 16:39 | Progress Note ---
DATE: August 04, 2018 MEDICINE PROGRESS NOTE SUBJECTIVE: Patient is doing well and is at his baseline. We are still waiting for guardianship situation for him. LABS : None. PHYSICAL EXAMINATION VITAL SIGNS: Temperature is 97.7, pulse 75, respiratory rate is 20, blood pressure 107/62, and pulse ox 96% on room air. GENERAL: Not in acute distress, alert and oriented x3, cooperative on examination. HEENT: Head; normocephalic and atraumatic. Eyes; pupils are equal and reactive to light bilaterally. Extraocular movements intact bilaterally. Throat; no evidence of any erythema or exudates in the posterior pharynx. Has poor dentition. NECK: Supple. Good range of motion. PULMONARY: Clear to auscultation bilaterally. No wheezing, no rales, no rhonchi, no crackles appreciated. CARDIOVASCULAR: Positive S1, S2. No murmurs, rubs, or gallops appreciated. ABDOMEN: Soft, nondistended, nontender to palpation. Bowel sounds present. MUSCULOSKELETAL: Strength is 5/5 throughout. No evidence of any musculoskeletal deficit on examination. No weakness appreciated. NEUROLOGICAL: Cranial nerves II through XII are grossly intact. No evidence of any neurological deficit on exam. SKIN: Intact. Warm to touch. Good capillary refill. PSYCHIATRIC: Normal affect and mood. EXTREMITIES: No edema. Good range of motion throughout. IMPRESSION 1. Acute psychosis with bipolar disorder. 2. Falls secondary to physical and medical deconditioning. 3. Electrolyte derangement. PLAN: Continue same plan of care. Still awaiting for guardianships to be assigned for the patient. Job#: [id number] CATRINA
--- NOTE | 2018-08-04 19:08 | NUR ---
REPORT GIVEN TO ONCOMING NURSE. PATIENT IS IN STABLE CONDITION, NO ACUTE DISTRESS NOTED. SITTER AT BEDSIDE. CALL LIGHT WITHIN REACH. BED IN THE LOWEST POSITION.
[2018-08-05] VITALS (8 sets, daily range): BP systolic 91–125; BP diastolic 47–67
--- NOTE | 2018-08-05 07:30 | NUR ---
RECEIVED PATIENT RESTING IN BED. PATIENT IS RESTING IN BED. NO S/S OF DISTRESS NOTED. SITTER AT BEDSIDE. CALL LIGHT WITHIN REACH. BED IN THE LOWEST POSITION.
[2018-08-05] MEDS: LISINOPRIL 20 MG TAB PO SCH ×2 (08:12→17:00)
[2018-08-05] MEDS: HYDRALAZINE HCL 100 MG TABLET PO SCH ×3 (08:12→20:03)
[2018-08-05] MEDS: NIFEDIPINE CR 30 MG TAB PO SCH ×2 (08:12→20:03)
[2018-08-05] MEDS: QUETIAPINE FUMARATE 25 MG TAB PO SCH ×3 (08:21→20:03)
[2018-08-05] MEDS: DOCUSATE SODIUM 100 MG CAP PO SCH ×2 (08:21→16:52)
[2018-08-05] MEDS: MEMANTINE 10 MG TAB PO SCH ×2 (08:21→16:52)
[2018-08-05] MEDS: ARTIFICIAL TEARS (OPTH) 15 ML BTL OU SCH ×2 (09:00→16:52)
--- NOTE | 2018-08-05 16:16 | Progress Note ---
DATE: August 05, 2018 MEDICINE PROGRESS NOTE SUBJECTIVE: Patient is at baseline with no complaints. He is tolerating diet well. He is ambulating well with nursing staff. Still waiting on guardianship. LABS: None. PHYSICAL EXAMINATION VITAL SIGNS: Temperature is 97.6, pulse 82, respiratory rate is 20, blood pressure 106/61, pulse ox 97% on room air. GENERAL: Not in acute distress, alert and oriented x3, cooperative on examination. HEENT: Head: Normocephalic, atraumatic. Eyes: Pupils are equal, round, and reactive to light bilaterally. Extraocular movements intact bilaterally. Throat; no evidence of any erythema or exudates in the posterior pharynx. Has poor dentition. NECK: Supple. Good range of motion. PULMONARY: Clear to auscultation bilaterally. No wheezing, no rales, no rhonchi, no crackles appreciated. CARDIOVASCULAR: Positive S1, S2. No murmurs, rubs, or gallops appreciated. ABDOMEN: Soft, nondistended, nontender to palpation. Bowel sounds present. MUSCULOSKELETAL: Strength is 5/5 throughout. No evidence of any muscle deficits on examination. No weakness appreciated. NEUROLOGICAL: Cranial nerves II through XII are grossly intact. No evidence of any neurological deficit on exam. SKIN: Intact. Warm to touch. Good capillary refill. PSYCHIATRIC: Normal affect and mood. EXTREMITIES: No edema. Good range of motion throughout. IMPRESSION 1. Acute psychosis with bipolar disorder. 2. Fall secondary to physical and medical rehabilitation. 3. Electrolyte derangement. PLAN: Continue same plan of care. Still awaiting for guardianships to be assigned through the patient. Get CBC, BMP in the morning. Job#: [id number] LPA
--- NOTE | 2018-08-05 19:39 | NUR ---
REPORT GIVEN TO ONCOMING NURSE. PATIENT IS RESTING IN BED. NO ACUTE DISTRESS NOTED. SITTER AT BEDSIDE. CALL LIGHT WITHIN REACH. BED IN THE LOWEST POSITION.
[2018-08-06] VITALS (7 sets, daily range): BP systolic 116–173; BP diastolic 60–97
[2018-08-06 05:42] LABS: BASOPHILS # (AUTO) 0.1 (0.0-0.1); BASOPHILS % 0.7 % (0.0-1.0); EOSINOPHILS # (AUTO) 0.3 (0.0-0.4); HEMATOCRIT 34.8 % (38.2-49.6); HEMOGLOBIN 10.9 g/dL (14.0-18.0); LYMPHOCYTES # (AUTO) 1.6 (1.0-3.2); LYMPHOCYTES % 22.7 % (18.0-39.1); MEAN CORPUSCULAR HEMOGLOBIN 28.2 pg (28-32); MEAN CORPUSCULAR HGB CONC 31.3 g/dL (31-35); MEAN CORPUSCULAR VOLUME 89.9 fL (81-99); MONOCYTES # (AUTO) 0.7 (0.2-0.8); MONOCYTES % 9.4 % (4.4-11.3); NEUTROPHILS # (AUTO) 4.4 (2.1-6.9); NEUTROPHILS % 62.9 % (38.7-80.0); PLATELET COUNT 179 x10e3/uL (140-360); RED BLOOD COUNT 3.87 x10e6/uL (4.3-5.7); RED CELL DISTRIBUTION WIDTH 15.1 % (11.7-14.4)
[2018-08-06 06:14] LABS: ANION GAP 13.8 mmol/L (8-16); BLOOD UREA NITROGEN 22 mg/dL (7-26); BUN/CREATININE RATIO 25 (6-25); CALCIUM 9.3 mg/dL (8.4-10.2); CARBON DIOXIDE 23 mmol/L (22-29); CHLORIDE 110 mmol/L (98-107); CREATININE, SERUM 0.89 mg/dL (0.72-1.25); EST GLOMERULAR FILTRATION RATE > 60 ML/MIN (60-); GLUCOSE 98 mg/dL (74-118); POTASSIUM 3.8 mmol/L (3.5-5.1); SODIUM 143 mmol/L (136-145)
[2018-08-06] MEDS: LORAZEPAM INJ 2 MG/ML VIAL IM PRN (08:43)
[2018-08-06] MEDS: MEMANTINE 10 MG TAB PO SCH ×2 (09:00→17:00)
[2018-08-06] MEDS: NIFEDIPINE CR 30 MG TAB PO SCH ×2 (09:00→20:00)
[2018-08-06] MEDS: QUETIAPINE FUMARATE 25 MG TAB PO SCH ×3 (09:00→20:00)
[2018-08-06] MEDS: ARTIFICIAL TEARS (OPTH) 15 ML BTL OU SCH ×2 (09:00→17:00)
[2018-08-06] MEDS: DOCUSATE SODIUM 100 MG CAP PO SCH ×2 (09:00→17:00)
[2018-08-06] MEDS: HYDRALAZINE HCL 100 MG TABLET PO SCH ×3 (09:00→20:00)
--- NOTE | 2018-08-06 09:30 | NUR ---
Pt received resting in bed with sitter at bedside for safety precautions. Alert and oriented x3 with period of confusion, agitation. Pt speaks Sri Lankan or German when agitated. Oriented to staff and surroundings, and encouraged to press call solorio if help needed. Pt verbalized understanding of teaching. Refused Meds. Fall precautions maintained. Call solorio within reach. Will monitor.
[2018-08-06] MEDS: HALOPERIDOL LACTATE 5 MG/ML VIAL IM PRN (11:45)
--- NOTE | 2018-08-06 15:46 | Progress Note ---
DATE: August 06, 2018 SUBJECTIVE: Patient is doing well at his baseline. Still pending guardianship placement or appointed guardianship. OBJECTIVE VITAL SIGNS: Temperature is 98.1, pulse 87, respiratory rate is 18, blood pressure is 160/85, pulse ox 96% on room air. LAB FINDINGS: Reveal a white count 6.9, hemoglobin 7.9, hematocrit is 35, platelets of 179. COAGULATION: Normal. CHEMISTRY: Sodium was 143, potassium is 3.8, chloride 110, bicarb 23, anion gap of 13, BUN is 22, creatinine is 0.89, glucose 98, calcium 9.3. PHYSICAL EXAMINATION GENERAL: Not in acute distress. Alert, oriented x3, cooperative on examination. HEENT: Head: Normocephalic, atraumatic. Eyes: Pupils equally round and reactive to light bilaterally. Extraocular movements intact bilaterally. Neck was supple with good range of motion. Throat: No evidence of any erythema or exudates in the posterior pharynx. Has poor dentition. PULMONARY: Clear to auscultation bilaterally. No wheezing, no rales, no rhonchi, no crackles appreciated. CARDIOVASCULAR: Positive S1/S2. No murmurs, rubs or gallops appreciated. ABDOMEN: Soft, nondistended, nontender to palpation. Bowel sounds present. MUSCULOSKELETAL: Strength is 5/5 throughout. No evidence of any musculoskeletal deficit on examination. No weakness appreciated. NEUROLOGICAL: Cranial nerves 2-12 grossly intact. No evidence of any neurological deficit on exam. SKIN: Intact. Warm to touch. Good capillary refill. PSYCHIATRIC: Normal affect and mood. EXTREMITIES: No edema. Good range of motion throughout. IMPRESSION 1. Acute psychosis with bipolar disorder. 2. Fall secondary to physical and medical debilitated. 3. Electrolyte derangement. PLAN: Still waiting on guardianship. We will continue same plan of care. Labs were reviewed and stable. Continue to follow. Job#: [id number] EV
--- NOTE | 2018-08-06 18:19 | NUR ---
Pt refused all meds today. Emotional support given. Pt is verbally disruptive. Haldol & Ativan given as ordered. Will endorse to next shift
--- NOTE | 2018-08-06 19:15 | NUR ---
Patient visited in room during nursing rounds. Patient alert and oriented x1-2. Patient able to tell name, , location and time but still insisted he got some alcoholic drinks today. Informed patient he will not be getting any alcohol drinks tonight. Patient on 1:1 care per MD order. No IV access (MD aware). Will monitor patient closely.
[2018-08-07] VITALS (7 sets, daily range): BP systolic 112–141; BP diastolic 59–82
--- NOTE | 2018-08-07 08:18 | NUR ---
RECEIVED CALL FROM GASOL[employer] OPERATOR JESS CHUA [address] [facility] [address], [place] [address], . HE HAS BEEN ASSIGNED TO THIS PATIENTS CASE. GAVE BACKGROUND WITH INFORMATION GAINED SO FAR. HE STATES HE WILL COME SEE THE PATIENT AND ADVISE WHAT DIRECTION TO GO FROM HERE.
[2018-08-07] MEDS: ARTIFICIAL TEARS (OPTH) 15 ML BTL OU SCH ×2 (09:00→17:00)
[2018-08-07] MEDS: QUETIAPINE FUMARATE 25 MG TAB PO SCH ×3 (09:00→21:10)
[2018-08-07] MEDS: HYDRALAZINE HCL 100 MG TABLET PO SCH ×3 (09:00→21:10)
[2018-08-07] MEDS: DOCUSATE SODIUM 100 MG CAP PO SCH ×2 (09:00→21:10)
[2018-08-07] MEDS: NIFEDIPINE CR 30 MG TAB PO SCH ×2 (09:00→21:14)
[2018-08-07] MEDS: MEMANTINE 10 MG TAB PO SCH ×2 (09:00→21:10)
--- NOTE | 2018-08-07 09:00 | NUR ---
Pt received resting in bed. Alert and oriented x3. Pt refusing all meds unless he gets "Palinka" (Alcoholic drink). aware. Will monitor
--- NOTE | 2018-08-07 12:27 | NUR ---
MR. BUCKNER CAME TO SEE PATIENT. HE STATES HE GOING GOING TO CALL THE COURTS TODAY. HE STATES THAT HIS HOME WILL HAVE TO BE SOLD AND HIS ASSETS LIQUIDATED TO BE PUT INTO A SANZ FOR HIS CARE. 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 HE STATES THAT THE PT WILL BE SERVED FOR AN EMERGENCY HEARING WHERE THE COURT WILL ASK FOR AN ADLITUM CONSULTING ENGINEER OR GUARDIAN. HE STATES HE WILL POST HIS SANZ APPROXIMATELY 10 DAYS AFTER THAT. HE STATES WE WILL GET A SEALED LETTER OF GUARDIANSHIP TO BE KEPT WITH HIS RECORDS. HE BELIEVES THIS CAN TAKE 2 TO FOUR MORE WEEKS.
--- NOTE | 2018-08-07 15:33 | Progress Note ---
DATE: August 07, 2018 SUBJECTIVE: Patient doing well today with no other issues. Waiting for guardianship on this patient. OBJECTIVE VITAL SIGNS: Temperature is 97.1, pulse 94, respiratory rate is 18, blood pressure 117/65, pulse ox 95% on room air. LAB FINDINGS: Show white count of 6.9, hemoglobin 10.9, hematocrit is 35, platelets of 179. CHEMISTRY: Sodium 143, potassium 3.8, chloride 107, bicarb 23, anion gap of 13, BUN is 22, creatinine is 0.89, glucose is 98. PHYSICAL EXAMINATION GENERAL: Not in acute distress. Alert, oriented x3, cooperative on examination. HEENT: Head: Normocephalic, atraumatic. Eyes: Pupils equally round and reactive to light bilaterally. Extraocular movements intact bilaterally. Neck was supple with good range of motion. Throat: No evidence of any erythema or exudates in the posterior pharynx. Has poor dentition. PULMONARY: Clear to auscultation bilaterally. No wheezing, no rales, no rhonchi, no crackles appreciated. CARDIOVASCULAR: Positive S1/S2. No murmurs, rubs or gallops appreciated. ABDOMEN: Soft, nondistended, nontender to palpation. Bowel sounds present. MUSCULOSKELETAL: Strength is 5/5 throughout. No evidence of any musculoskeletal deficit on examination. No weakness appreciated. NEUROLOGICAL: Cranial nerves 2-12 grossly intact. No evidence of any neurological deficit on exam. SKIN: Intact. Warm to touch. Good capillary refill. PSYCHIATRIC: Normal affect and mood. EXTREMITIES: No edema. Good range of motion throughout. IMPRESSION 1. Acute psychosis with bipolar disorder. 2. Fall secondary to medically and physically debilitated. 3. Electrolyte derangement. 4. Awaiting guardianship. PLAN: Patient is at baseline. Labs reviewed and stable. Vital signs stable. Waiting for guardianship. Job#: [id number] EV
--- NOTE | 2018-08-07 15:45 | NUR ---
CM Director received call/email from CM stating patient has been appointed a Controls Designer (Bravo Suresh), per Risk Management. CM Director notified BRYON Sahni to begin process for transfer to psych facility. CM Director notified Misti Hodge CM. Unit CM/BRYON will continue to follow patient for ongoing assessment of discharge needs.
--- NOTE | 2018-08-07 18:23 | NUR ---
Pt resting in bed. Call solorio within reach. Sitter at bedside. No c/o discomfort noted or voiced. Will monitor
--- NOTE | 2018-08-07 19:06 | NUR ---
Patient visited in room during nursing rounds. Patient alert and oriented x1-2. Sitter at bedside per MD order. Patient appear calm and cooperative when asked questions. Will monitor patient closely.
[2018-08-08] VITALS (8 sets, daily range): BP systolic 112–132; BP diastolic 55–72
--- NOTE | 2018-08-08 07:21 | NUR ---
PATIENT IN BED RESTING WITH NO S/S OF PAIN OR DISCOMFORT. 1:1 SITTER AT BED SIDE. CALL LIGHT AT REACH.
[2018-08-08] MEDS: NIFEDIPINE CR 30 MG TAB PO SCH ×2 (09:00→20:00)
[2018-08-08] MEDS: HYDRALAZINE HCL 100 MG TABLET PO SCH ×3 (09:00→20:00)
[2018-08-08] MEDS: MEMANTINE 10 MG TAB PO SCH ×2 (09:22→17:45)
[2018-08-08] MEDS: QUETIAPINE FUMARATE 25 MG TAB PO SCH ×3 (09:22→20:03)
[2018-08-08] MEDS: DOCUSATE SODIUM 100 MG CAP PO SCH ×2 (09:22→17:45)
[2018-08-08] MEDS: ARTIFICIAL TEARS (OPTH) 15 ML BTL OU SCH ×2 (09:23→17:45)
--- NOTE | 2018-08-08 12:09 | NUR ---
PATIENT IN BED WATCHING TV, NO S/S OF PAIN OR DISCOMFORT NOTED. CALL LIGHT AT REACH.
--- NOTE | 2018-08-08 14:46 | Progress Note ---
DATE: August 08, 2018 MEDICINE PROGRESS NOTE SUBJECTIVE: Patient is doing well today with no complaints. OBJECTIVE VITAL SIGNS: Temperature 97.4, pulse 78, respiratory rate is 18, blood pressure 132/66, pulse ox 97% on room air. LABS: None. PHYSICAL EXAMINATION GENERAL: Not in acute distress. Alert, oriented x2, cooperative on examination. HEENT: Head: Normocephalic, atraumatic. Eyes: Pupils equally round and reactive to light bilaterally. Extraocular movements intact bilaterally. Neck was supple with good range of motion. Throat: No evidence of any erythema or exudates in the posterior pharynx. Has poor dentition. PULMONARY: Clear to auscultation bilaterally. No wheezing, no rales, no rhonchi, no crackles appreciated. CARDIOVASCULAR: Positive S1/S2. No murmurs, rubs or gallops appreciated. ABDOMEN: Soft, nondistended, nontender to palpation. Bowel sounds present. MUSCULOSKELETAL: Strength is 5/5 throughout. No evidence of any musculoskeletal deficit on examination. No weakness appreciated. NEUROLOGICAL: Cranial nerves 2-12 grossly intact. No evidence of any neurological deficit on exam. SKIN: Intact. Warm to touch. Good capillary refill. PSYCHIATRIC: Normal affect and mood. EXTREMITIES: No edema. Good range of motion throughout. IMPRESSION 1. Acute psychosis with bipolar disorder. 2. Fall secondary to medically and physically debilitated. 3. Electrolyte derangement. 4. Awaiting guardianship. PLAN: Continues at baseline. No changes. Labs reviewed and stable. Vital signs stable. Waiting for guardianship. Job#: [id number] EV
--- NOTE | 2018-08-08 16:42 | NUR ---
PATIENT SITTING UP IN BED EATING DINNER, NO COMPLAIN VOICED. 1;1 SITTER AT BED SIDE, CALL LIGHT AT REACH.
[2018-08-09] VITALS (8 sets, daily range): BP systolic 100–139; BP diastolic 58–87
--- NOTE | 2018-08-09 06:05 | NUR ---
PT IN BED RESTING WITH EYES CLOSED. NO S/S OF RESP DISTRESS. CALL LIGHT WITHIN REACH, BED LOCKED IN LOWEST POSITION. SITTER AT BEDSIDE.
--- NOTE | 2018-08-09 07:18 | NUR ---
PATIENT IN BED WATCHING TV, DENIED PAIN OR DISCOMFORT. 1:1 SITTER AT BED SIDE. BED IN LOWER POSITION, CALL LIGHT AT REACH.
[2018-08-09] MEDS: MEMANTINE 10 MG TAB PO SCH ×2 (09:00→16:25)
[2018-08-09] MEDS: NIFEDIPINE CR 30 MG TAB PO SCH ×2 (09:00→20:49)
[2018-08-09] MEDS: HYDRALAZINE HCL 100 MG TABLET PO SCH ×3 (09:00→20:48)
[2018-08-09] MEDS: QUETIAPINE FUMARATE 25 MG TAB PO SCH ×3 (09:00→20:49)
[2018-08-09] MEDS: DOCUSATE SODIUM 100 MG CAP PO SCH ×2 (09:00→16:25)
--- NOTE | 2018-08-09 09:37 | NUR ---
IM-Progress note OVERNIGHT: No events. REVIEW OF SYSTEMS: Unobtainable. PHYSICAL EXAMINATION VITAL SIGNS: Reviewed. GENERAL APPEARANCE: A tired-appearing man, resting in bed. HEENT: Anicteric. CARDIOVASCULAR: Normal S1 and S2. LUNGS: Moderate breath sounds. ABDOMEN: Soft and nontender. EXTREMITIES: No edema. SKIN: Multiple ulcers, stage 3, left face, left chest, and knees. PSYCHIATRIC: Flat affect. LABS: Reviewed. MEDICATIONS: Reviewed. ASSESSMENT: An 82-year-old man with: 1. Acute psychosis and bipolar disorder. 2. Fall and physical deconditioning. 3. Electrolyte derangement. PLAN 1. Continue sitter. 2. Continue guardianship papers. 3. Continue medical treatment. 07/02 cont current care; comfortable; 07/03 no events; cont care; 07/04 cont care; 07/09 cont supportive care; check labs in am. 07/10 FAY and hypokalemia- encourage to increase water intake to 8 glasses daily, replace K; BMP in am. 07/11 f/u labs; cont sitter; 07/12 Large BM; cont sitter; f/u guardianship. 07/13 cont care; 07/14 cont supportive care; med adjustments by psych. 07/15 check labs in am; doing ok 07/16 cont supportive care; 07/17 no events; check K. 07/18 supportive care; 07/19 continue medicines; 07/20 cont care; doing ok; cont meds and sitter; 07/21 no issues; cont care; check labs soon. 07/22 no events; cont care 07/23 labs rev'd; 07/24 cont care; 07/25 doing ok; sitter; 07/26 no events; cont care and await guardianship papers. 07/27 doing well; cont care; 07/28 cont care. check labs on Monday. 07/29 cont care; 07/30 at 1155am: no change; continue sitter; supportive care. 07/31 @ 609am: no events; cont care; 08/01 stable; cont care. 08/02 no events; stable; cont sitter; 08/09 cont supportive care; labs rev'd; cont sitter; await guardianship papers. Uvaldo Michel MD, PhD.
[2018-08-09] MEDS: ARTIFICIAL TEARS (OPTH) 15 ML BTL OU SCH ×2 (10:02→16:26)
--- NOTE | 2018-08-09 11:37 | NUR ---
PATIENT IN BED RESTING WITH EYES CLOSED, NO RESPIRATORY DISTRESS OBSERVED. CALL LIGHT AT REACH, 1:1 SITTER AT BED SIDE.
--- NOTE | 2018-08-09 14:04 | NUR ---
ONCOMING NURSE RECEIVED REPORT FROM RN. PATIENT IS IN STABLE CONDITION WITH NO S/S OF RESPIRATORY DISTRESS. NO PAIN VOICED. SITTER PRESENT IN ROOM. PATIENT AMBULATING TO THE RESTROOM WITH THE WALKER AND ASSISTANCE FROM THE SITTER. CALL LIGHT IS WITHIN REACH, INSTRUCTED TO CALL FOR ASSISTANCE NEEDED.
--- NOTE | 2018-08-09 19:45 | NUR ---
PT IS RESTING IN BED WITH 1:1 SITTER AT BEDSIDE. NO RESPIRATORY DISTRESS NOTED. BED IN THE LOWEST POSITION, LOCKED, AND CALL LIGHT WITHIN REACH. WILL CONTINUE TO MONITOR.
[2018-08-10] VITALS (8 sets, daily range): BP systolic 100–126; BP diastolic 58–88
--- NOTE | 2018-08-10 06:08 | NUR ---
PT REFUSE TO HAVE BED AND GROWN CHANGE. WILL CONTINUE TO MONITOR.
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
[2018-08-10] MEDS: NIFEDIPINE CR 30 MG TAB PO SCH ×2 (09:00→20:15)
[2018-08-10] MEDS: ARTIFICIAL TEARS (OPTH) 15 ML BTL OU SCH ×2 (09:00→17:50)
[2018-08-10] MEDS: HYDRALAZINE HCL 100 MG TABLET PO SCH ×3 (09:00→20:14)
[2018-08-10] MEDS: MEMANTINE 10 MG TAB PO SCH ×2 (10:35→17:50)
[2018-08-10] MEDS: DOCUSATE SODIUM 100 MG CAP PO SCH ×2 (10:35→17:50)
[2018-08-10] MEDS: QUETIAPINE FUMARATE 25 MG TAB PO SCH ×3 (10:36→20:22)
--- NOTE | 2018-08-10 14:48 | Progress Note ---
DATE: August 10, 2018 INFECTIOUS DISEASE PROGRESS NOTE SUBJECTIVE: Mr. Cunha is stable. No new problems. Confused. OBJECTIVE VITALS: Stable, afebrile. HEENT: Negative. PULMONARY: Negative. NECK: Supple. No JVD or lymphadenopathy. No thyromegaly. CHEST: Clear bilaterally. COR: S1 and S2. No murmur. ABDOMEN: Soft. Bowel sounds present. EXTREMITIES: No edema. IMPRESSION 1. Multiple wounds. Continue with local care. 2. Bipolar. 3. Debilitated. 4. Discharge planning is a problem. Continue with local care. Off antibiotics, stable. No new recommendations. Job#: [id number]
[2018-08-11] VITALS (7 sets, daily range): BP systolic 122–162; BP diastolic 69–92
--- NOTE | 2018-08-11 06:11 | NUR ---
PT IS RESTING IN BED WITH 1:1 SITTER AT BEDSIDE. NO ACUTE EVENT OCCURRED THROUGHOUT THE NIGHT. NO RESPIRATORY DISTRESS NOTED. BED IN LOWEST POSITION, LOCKED, AND CALL LIGHT WITHIN REACH. WILL CONTINUE TO MONITOR.
--- NOTE | 2018-08-11 08:15 | NUR ---
Pt received resting in bed with sitter at bedside for safety precautions. Alert and oriented x3 with periods of confusion, agitation. Oriented to staff and surroundings, and encouraged to press call solorio if help needed. Pt verbalized understanding of teaching. Refused Meds. Fall precautions maintained. Call solorio within reach. Will monitor.
[2018-08-11] MEDS: HYDRALAZINE HCL 100 MG TABLET PO SCH ×3 (08:16→21:00)
[2018-08-11] MEDS: MEMANTINE 10 MG TAB PO SCH ×2 (08:16→15:03)
[2018-08-11] MEDS: DOCUSATE SODIUM 100 MG CAP PO SCH ×2 (08:16→15:02)
[2018-08-11] MEDS: NIFEDIPINE CR 30 MG TAB PO SCH ×2 (08:16→21:00)
[2018-08-11] MEDS: ARTIFICIAL TEARS (OPTH) 15 ML BTL OU SCH ×2 (08:17→15:02)
[2018-08-11] MEDS: QUETIAPINE FUMARATE 25 MG TAB PO SCH ×3 (08:17→21:00)
[2018-08-12] VITALS (8 sets, daily range): BP systolic 125–176; BP diastolic 63–97
--- NOTE | 2018-08-12 05:25 | NUR ---
Patient laying in bed with HOB slightly elevated. Confused. Sitter at the bedside. No sob noted. No acute distress noted. Bed at low position and locked. Patient stable at this time and will continue to monitor.
--- NOTE | 2018-08-12 08:15 | NUR ---
Pt received resting in bed. Refused all AM meds. Emotional support given. Explained to pt the disadvantages of refusal of meds. Sitter at bedside. Will monitor
[2018-08-12] MEDS: NIFEDIPINE CR 30 MG TAB PO SCH ×2 (08:20→21:41)
[2018-08-12] MEDS: MEMANTINE 10 MG TAB PO SCH ×3 (08:20→21:41)
[2018-08-12] MEDS: ARTIFICIAL TEARS (OPTH) 15 ML BTL OU SCH ×3 (08:20→21:41)
[2018-08-12] MEDS: DOCUSATE SODIUM 100 MG CAP PO SCH ×2 (08:20→17:00)
[2018-08-12] MEDS: HYDRALAZINE HCL 100 MG TABLET PO SCH ×3 (08:20→21:41)
[2018-08-12] MEDS: QUETIAPINE FUMARATE 25 MG TAB PO SCH ×3 (08:20→21:42)
[2018-08-12] MEDS ORDERED: METOPROLOL TARTRATE 25 MG TAB PO SCH (14:30)
--- NOTE | 2018-08-12 20:50 | NUR ---
RECEIVED PT IN BED ALERT .NO ACUTE DISTRESS NOTED .SITTER AT THE BEDSIDE .CALL LIGHT WITH IN REACH .CONTINUE TO MONITOR
[2018-08-12] MEDS ORDERED: LORAZEPAM INJ 2 MG/ML VIAL IM PRN (21:30)
[2018-08-12] MEDS ORDERED: LORAZEPAM 0.5 MG TAB PO PRN (21:30)
[2018-08-12] MEDS ORDERED: QUETIAPINE FUMARATE 25 MG TAB PO PRN (21:30)
[2018-08-12] MEDS ORDERED: MAGNESIUM HYDROXIDE 30 ML UDC PO PRN (21:30)
[2018-08-12] MEDS: METOPROLOL TARTRATE 25 MG TAB PO SCH (21:42)
[2018-08-13 04:00] VITALS: BP 137/70
--- NOTE | 2018-08-13 05:47 | NUR ---
PT RESTING .SITTER NEAR THE BED ,NO ACUTE DISTRESS NOTED .CALL LIGHT IN REACH
[2018-08-13 07:05] VITALS: BP 142/70
[2018-08-13 07:20] VITALS: BP 142/70
--- NOTE | 2018-08-13 07:26 | NUR ---
REPORT GIVEN TO THE ONCOMING NURSE .
--- NOTE | 2018-08-13 07:35 | NUR ---
IM-Progress note OVERNIGHT: No events. REVIEW OF SYSTEMS: Unobtainable. PHYSICAL EXAMINATION VITAL SIGNS: Reviewed. GENERAL APPEARANCE: A tired-appearing man, resting in bed. HEENT: Anicteric. CARDIOVASCULAR: Normal S1 and S2. LUNGS: Moderate breath sounds. ABDOMEN: Soft and nontender. EXTREMITIES: No edema. SKIN: Multiple ulcers, stage 3, left face, left chest, and knees. PSYCHIATRIC: Flat affect. LABS: Reviewed. MEDICATIONS: Reviewed. ASSESSMENT: An 82-year-old man with: 1. Acute psychosis and bipolar disorder. 2. Fall and physical deconditioning. 3. Electrolyte derangement. PLAN 1. Continue sitter. 2. Continue guardianship papers. 3. Continue medical treatment. 07/02 cont current care; comfortable; 07/03 no events; cont care; 07/04 cont care; 07/09 cont supportive care; check labs in am. 07/10 FAY and hypokalemia- encourage to increase water intake to 8 glasses daily, replace K; BMP in am. 07/11 f/u labs; cont sitter; 07/12 Large BM; cont sitter; f/u guardianship. 07/13 cont care; 07/14 cont supportive care; med adjustments by psych. 07/15 check labs in am; doing ok 07/16 cont supportive care; 07/17 no events; check K. 07/18 supportive care; 07/19 continue medicines; 07/20 cont care; doing ok; cont meds and sitter; 07/21 no issues; cont care; check labs soon. 07/22 no events; cont care 07/23 labs rev'd; 07/24 cont care; 07/25 doing ok; sitter; 07/26 no events; cont care and await guardianship papers. 07/27 doing well; cont care; 07/28 cont care. check labs on Monday. 07/29 cont care; 07/30 at 1155am: no change; continue sitter; supportive care. 07/31 @ 609am: no events; cont care; 08/01 stable; cont care. 08/02 no events; stable; cont sitter; 08/09 cont supportive care; labs rev'd; cont sitter; await guardianship papers. 08/10 continue care; no issues 08/11 cont care 08/12 rising BP- adjust meds; 08/13 cont care. Uvaldo Michel MD, PhD.
--- NOTE | 2018-08-13 07:39 | NUR ---
RECEIVED PATIENT RESTING IN BED. NO S/S OF DISTRESS NOTED. NO S/S OF PAIN NOTED. SITTER AT BEDSIDE. CALL LIGHT WITHIN REACH. BED IN THE LOWEST POSITION.
[2018-08-13] MEDS ORDERED: HYDRALAZINE HCL 100 MG TABLET PO SCH (09:00)
[2018-08-13] MEDS: QUETIAPINE FUMARATE 25 MG TAB PO SCH ×3 (09:40→21:04)
[2018-08-13] MEDS: NIFEDIPINE CR 30 MG TAB PO SCH ×2 (09:40→20:55)
[2018-08-13] MEDS: MEMANTINE 10 MG TAB PO SCH ×2 (09:40→21:03)
[2018-08-13] MEDS: ARTIFICIAL TEARS (OPTH) 15 ML BTL OU SCH ×2 (09:41→17:00)
[2018-08-13] MEDS: METOPROLOL TARTRATE 25 MG TAB PO SCH ×2 (09:41→21:03)
[2018-08-13] MEDS: HYDRALAZINE HCL 100 MG TABLET PO SCH ×3 (09:41→20:56)
[2018-08-13 10:53] VITALS: BP 99/55
--- NOTE | 2018-08-13 15:13 | Progress Note ---
DATE: August 13, 2018 PSYCHIATRIC PROGRESS NOTE Patient evaluated and events noted. Patient is in the room. He is sleeping but easily arousable. He refuses to answer any questions at this time. Sitter is in the room who reported that patient has been inappropriate, making statement to medical and nursing staff. He has been yelling, screaming. He has been verbally abusive towards staff. He is eating well, sleeping well. He has not received any p.r.n. IM medications. He is getting Seroquel schedule and no serious side effects seen or recorded. ASSESSMENT: Unspecified psychosis/dementia. PLANS 1. To increase Seroquel from 25 mg p.o. 3 times a day to 25 mg p.o. 4 times a day. 2. Increase Namenda from 5 mg p.o. b.i.d. to 5 mg p.o. daily and 10 mg p.o. at bedtime. 3. Continue with Ativan p.r.n. p.o. 4. Continue with Haldol p.r.n. IM. 5. Continue with Seroquel 25 mg p.o. q.6 hours p.r.n. 6. Monitor for agitation and mood. 7. Discuss with nursing staff. Dictated by BERNARD Segundo Job#: [id number] KARYNA
[2018-08-13 15:40] VITALS: BP 107/63
[2018-08-13] MEDS: HALOPERIDOL LACTATE 5 MG/ML VIAL IM PRN (17:08)
[2018-08-13 20:00] VITALS: BP 111/58
[2018-08-13] MEDS: DOCUSATE SODIUM 100 MG CAP PO SCH (21:04)
[2018-08-14] VITALS (7 sets, daily range): BP systolic 93–157; BP diastolic 51–87
--- NOTE | 2018-08-14 07:25 | NUR ---
RECEIVED PATIENT RESTING IN BED. NO S/S OF DISTRESS NOTED. NO SIGNS OF PAIN NOTED AT THIS TIME. SITTER AT BEDSIDE. CALL LIGHT WITHIN REACH. BED IN THE LOWEST POSITION.
[2018-08-14] MEDS: ARTIFICIAL TEARS (OPTH) 15 ML BTL OU SCH ×2 (09:00→17:04)
[2018-08-14] MEDS: HYDRALAZINE HCL 100 MG TABLET PO SCH ×3 (10:00→20:47)
[2018-08-14] MEDS: NIFEDIPINE CR 30 MG TAB PO SCH ×2 (10:00→20:47)
[2018-08-14] MEDS: METOPROLOL TARTRATE 25 MG TAB PO SCH ×2 (10:00→20:53)
[2018-08-14] MEDS: QUETIAPINE FUMARATE 25 MG TAB PO SCH ×4 (10:00→20:53)
[2018-08-14] MEDS: MEMANTINE 10 MG TAB PO SCH ×2 (10:00→20:53)
[2018-08-14] MEDS: DOCUSATE SODIUM 100 MG CAP PO SCH ×2 (10:00→17:12)
--- NOTE | 2018-08-14 19:25 | NUR ---
REPORT GIVEN TO ONCOMING NURSE. PATIENT IS RESTING IN BED. NO ACUTE DISTRESS NOTED. SITTER AT BEDSIDE. CALL LIGHT WITHIN REACH. BED IN THE LOWEST POSITION.
[2018-08-15 02:20] VITALS: BP 128/71
[2018-08-15 05:07] VITALS: BP 148/71
[2018-08-15 05:29] LABS: BASOPHILS # (AUTO) 0.1 (0.0-0.1); EOSINOPHILS # (AUTO) 0.4 (0.0-0.4); EOSINOPHILS % 6.5 % (0.0-6.0); HEMATOCRIT 33.2 % (38.2-49.6); HEMOGLOBIN 10.6 g/dL (14.0-18.0); LYMPHOCYTES # (AUTO) 1.6 (1.0-3.2); LYMPHOCYTES % 26.5 % (18.0-39.1); MEAN CORPUSCULAR HEMOGLOBIN 27.5 pg (28-32); MEAN CORPUSCULAR HGB CONC 31.9 g/dL (31-35); MEAN CORPUSCULAR VOLUME 86.2 fL (81-99); MONOCYTES # (AUTO) 0.8 (0.2-0.8); MONOCYTES % 13.3 % (4.4-11.3); NEUTROPHILS # (AUTO) 3.2 (2.1-6.9); NEUTROPHILS % 52.5 % (38.7-80.0); PLATELET COUNT 213 x10e3/uL (140-360); RED BLOOD COUNT 3.85 x10e6/uL (4.3-5.7)
[2018-08-15 05:47] LABS: ANION GAP 12.8 mmol/L (8-16); BLOOD UREA NITROGEN 26 mg/dL (7-26); BUN/CREATININE RATIO 28 (6-25); CALCIUM 9.5 mg/dL (8.4-10.2); CARBON DIOXIDE 24 mmol/L (22-29); CHLORIDE 107 mmol/L (98-107); CREATININE, SERUM 0.93 mg/dL (0.72-1.25); EST GLOMERULAR FILTRATION RATE > 60 ML/MIN (60-); GLUCOSE 95 mg/dL (74-118); POTASSIUM 3.8 mmol/L (3.5-5.1); SODIUM 140 mmol/L (136-145)
[2018-08-15 08:00] VITALS: BP 131/74
--- NOTE | 2018-08-15 08:21 | NUR ---
IM-Progress note OVERNIGHT: No events. REVIEW OF SYSTEMS: Unobtainable. PHYSICAL EXAMINATION VITAL SIGNS: Reviewed. GENERAL APPEARANCE: A tired-appearing man, resting in bed. HEENT: Anicteric. CARDIOVASCULAR: Normal S1 and S2. LUNGS: Moderate breath sounds. ABDOMEN: Soft and nontender. EXTREMITIES: No edema. SKIN: Multiple ulcers, stage 3, left face, left chest, and knees. PSYCHIATRIC: Flat affect. LABS: Reviewed. MEDICATIONS: Reviewed. ASSESSMENT: An 82-year-old man with: 1. Acute psychosis and bipolar disorder. 2. Fall and physical deconditioning. 3. Electrolyte derangement. PLAN 1. Continue sitter. 2. Continue guardianship papers. 3. Continue medical treatment. 07/02 cont current care; comfortable; 07/03 no events; cont care; 07/04 cont care; 07/09 cont supportive care; check labs in am. 07/10 FYA and hypokalemia- encourage to increase water intake to 8 glasses daily, replace K; BMP in am. 07/11 f/u labs; cont sitter; 07/12 Large BM; cont sitter; f/u guardianship. 07/13 cont care; 07/14 cont supportive care; med adjustments by psych. 07/15 check labs in am; doing ok 07/16 cont supportive care; 07/17 no events; check K. 07/18 supportive care; 07/19 continue medicines; 07/20 cont care; doing ok; cont meds and sitter; 07/21 no issues; cont care; check labs soon. 07/22 no events; cont care 07/23 labs rev'd; 07/24 cont care; 07/25 doing ok; sitter; 07/26 no events; cont care and await guardianship papers. 07/27 doing well; cont care; 07/28 cont care. check labs on Monday. 07/29 cont care; 07/30 at 1155am: no change; continue sitter; supportive care. 07/31 @ 609am: no events; cont care; 08/01 stable; cont care. 08/02 no events; stable; cont sitter; 08/09 cont supportive care; labs rev'd; cont sitter; await guardianship papers. 08/10 continue care; no issues 08/11 cont care 08/12 rising BP- adjust meds; 08/13 cont care. 08/14 no change. Uvaldo Michel MD, PhD.
[2018-08-15 08:30] VITALS: BP 131/74
[2018-08-15] MEDS: ARTIFICIAL TEARS (OPTH) 15 ML BTL OU SCH ×2 (08:30→16:44)
[2018-08-15] MEDS: DOCUSATE SODIUM 100 MG CAP PO SCH ×2 (08:30→16:44)
[2018-08-15] MEDS: HYDRALAZINE HCL 100 MG TABLET PO SCH ×3 (08:30→21:00)
--- NOTE | 2018-08-15 08:30 | NUR ---
Pt received resting in bed with sitter at bedside for safety. Alert and oriented x3 with periods of confusion/forgetfulness. Pt oriented to staff and surroundings, and encouraged to press call solorio if help needed. All meds given as ordered. Pt verbalized understanding of teaching. Fall precautions maintained. Call solorio within reach. Will monitor.
[2018-08-15] MEDS: MEMANTINE 10 MG TAB PO SCH ×2 (08:31→21:00)
[2018-08-15] MEDS: METOPROLOL TARTRATE 25 MG TAB PO SCH ×2 (08:31→21:00)
[2018-08-15] MEDS: NIFEDIPINE CR 30 MG TAB PO SCH ×2 (08:31→21:00)
[2018-08-15] MEDS: QUETIAPINE FUMARATE 25 MG TAB PO SCH ×4 (08:31→21:00)
[2018-08-15 13:05] VITALS: BP 107/56
--- NOTE | 2018-08-15 13:07 | Progress Note ---
DATE: August 15, 2018 PSYCHIATRIC PROGRESS NOTE Patient evaluated and events noted. Patient is in the room with a sitter. He is alert, awake and oriented to situation. He is intermittently agitated, yelling out. He is not combative. He is eating well. He is uncooperative and refuses to answer questions. The patient is taking his medication with encouragement, and no serious side effects are seen or reported. ASSESSMENT: Unspecified psychosis/dementia. PLAN 1. Continue Seroquel 25 mg p.o. 4 times a day. 2. Continue Namenda 5 mg p.o. daily and 10 mg at bedtime. 3. Continue with Haldol 2 mg IM q.6 h. p.r.n. 4. Continue Ativan p.r.n. p.o. and IM. 5. Continue Seroquel p.r.n. p.o. 6. Monitor for mood and agitation. 7. Supportive therapy. Dictated by BERNARD Segundo. Job#: [id number]
[2018-08-15 16:14] VITALS: BP 95/51
--- NOTE | 2018-08-15 19:30 | NUR ---
RECEIVED CHANGE OF SHIFT REPORT FROM am NURSE. WALKING ROUNDS COMPLETED.
--- NOTE | 2018-08-15 23:00 | NUR ---
Patient very confused and becoming combative. Patient refusing BP and refusing all meds. Patient given IM injection to help patient rest.
--- NOTE | 2018-08-16 06:39 | NUR ---
Patient resting quitly at this time.
[2018-08-16 08:00] VITALS: BP 144/72
[2018-08-16 08:55] VITALS: BP 144/72
[2018-08-16] MEDS: HYDRALAZINE HCL 100 MG TABLET PO SCH ×3 (08:55→21:00)
[2018-08-16] MEDS: MEMANTINE 10 MG TAB PO SCH ×2 (08:55→21:00)
[2018-08-16] MEDS: ARTIFICIAL TEARS (OPTH) 15 ML BTL OU SCH ×2 (08:55→16:40)
[2018-08-16] MEDS: DOCUSATE SODIUM 100 MG CAP PO SCH ×2 (08:55→16:41)
[2018-08-16] MEDS: METOPROLOL TARTRATE 25 MG TAB PO SCH ×2 (08:55→21:00)
[2018-08-16] MEDS: QUETIAPINE FUMARATE 25 MG TAB PO SCH ×4 (08:56→21:00)
[2018-08-16] MEDS: NIFEDIPINE CR 30 MG TAB PO SCH (08:56)
--- NOTE | 2018-08-16 08:56 | NUR ---
Pt received resting in bed. Pt took all his meds. Sitter at bedside. Emotional support given. Will monitor
[2018-08-16 12:00] VITALS: BP 120/60
[2018-08-16 15:57] VITALS: BP 97/59
--- NOTE | 2018-08-16 19:35 | NUR ---
Sitter at bedside. Handoff given to oncoming shift.
--- NOTE | 2018-08-16 19:39 | NUR ---
Received change of shift report from AM nurse. Walking rounds completed.
[2018-08-16 20:00] VITALS: BP 110/63
[2018-08-17] VITALS: BP 105/68
--- NOTE | 2018-08-17 | NUR ---
Patient toke all meds. 1:1 sitter at bedside. No noted changes in patient condition. Encouraged fluids.
--- NOTE | 2018-08-17 05:28 | NUR ---
Patient in bed resting quitly at this time.
--- NOTE | 2018-08-17 07:30 | NUR ---
PATIENT IN BED WITH HEAD OF BED ELEVATED. REQUESTED AND RECEIVED HIS URINAL, VOIDED CLEAR YELLOW URINE. 1;1 SITTER AT BED SIDE. BED IN LOWER POSITION, CALL LIGHT AT REACH.
[2018-08-17 07:35] VITALS: BP 153/90
[2018-08-17 08:06] VITALS: BP 153/90
[2018-08-17] MEDS: DOCUSATE SODIUM 100 MG CAP PO SCH ×2 (09:23→17:57)
[2018-08-17] MEDS: HYDRALAZINE HCL 100 MG TABLET PO SCH ×3 (09:23→21:00)
[2018-08-17] MEDS: METOPROLOL TARTRATE 25 MG TAB PO SCH ×2 (09:24→21:00)
[2018-08-17] MEDS: NIFEDIPINE CR 30 MG TAB PO SCH (09:24)
[2018-08-17] MEDS: MEMANTINE 10 MG TAB PO SCH ×2 (09:24→21:00)
[2018-08-17] MEDS: QUETIAPINE FUMARATE 25 MG TAB PO SCH ×4 (09:24→21:00)
[2018-08-17] MEDS: ARTIFICIAL TEARS (OPTH) 15 ML BTL OU SCH ×2 (09:47→17:45)
--- NOTE | 2018-08-17 12:00 | NUR ---
PATIENT ASSISTED TO THE RESTROOM AND BACK TO BED. HAD A MODERATE BM. BED IN LOWER POSITION, CALL LIGHT AT REACH, SITTER AT BED SIDE.
[2018-08-17 12:30] VITALS: BP 122/65
--- NOTE | 2018-08-17 16:19 | NUR ---
PATIENT IN BED RESTING WITH EYES CLOSED, NO RESPIRATORY DISTRESS OBSERVED. CALL LIGHT AT REACH.
--- NOTE | 2018-08-17 16:45 | Progress Note ---
DATE: August 17, 2018 PSYCHIATRIC PROGRESS NOTE Patient evaluated and events noted. Patient is in the room, lying down on the bed with a sitter in the room. He is refusing to answer questions. He is calm at this time. As per staff he is intermittently restless, yelling out, cussing, and he is not combative. His last injection was on the . He is getting scheduled Seroquel and Namenda. He is eating well as per staff. He is receiving his medication and no serious side effect seen. ASSESSMENT: Unspecified psychosis/dementia. PLAN 1. Continue with Seroquel 25 mg p.o. 4 times a day. 2. Increase Namenda from 5 daily and 10 nightly to 10 b.i.d. 3. Continue with Haldol p.r.n. IM. 4. Continue with Ativan p.r.n. p.o. and IM. 5. Continue with Seroquel p.r.n. p.o. 6. Monitor for mood and agitation. 7. Supportive therapy. Dictated by: BERNARD Segundo Job#: [id number]
[2018-08-17 19:58] VITALS: BP 144/65
[2018-08-18] VITALS (9 sets, daily range): BP systolic 100–155; BP diastolic 55–87
--- NOTE | 2018-08-18 06:31 | NUR ---
PT IS SLEEPING IN BED WITH 1:1 SITTER AT BEDSIDE. NO ACUTE EVENT OCCURRED THROUGHOUT THE NIGHT. BED IN LOWEST POSITION, LOCKED, AND CALL LIGHT WITHIN REACH. WILL CONTINUE TO MONITOR.
--- NOTE | 2018-08-18 07:03 | NUR ---
PT RESTING IN BED COMFORTABLY. SITTER IS AT BEDSIDE AT ALL TIMES. PT IS AA0X3 AT THIS TIME. DENIES PAIN. NO IV ACCESS (MD AWARE). WILL CONTINUE TO CARE FOR PT AT THIS TIME. SIDE RAILSX2, BED WHEELS LOCKED, CALL LIGHT IS WITHIN EASY REACH, INSTRUCTED TO CALL FOR ASSISTANCE IF NEEDED
[2018-08-18] MEDS: HYDRALAZINE HCL 100 MG TABLET PO SCH ×3 (09:34→21:00)
[2018-08-18] MEDS: DOCUSATE SODIUM 100 MG CAP PO SCH ×2 (09:34→18:24)
[2018-08-18] MEDS: QUETIAPINE FUMARATE 25 MG TAB PO SCH ×4 (09:35→21:33)
[2018-08-18] MEDS: NIFEDIPINE CR 30 MG TAB PO SCH (09:35)
[2018-08-18] MEDS: METOPROLOL TARTRATE 25 MG TAB PO SCH ×2 (09:35→21:33)
[2018-08-18] MEDS: ARTIFICIAL TEARS (OPTH) 15 ML BTL OU SCH ×2 (09:35→18:24)
[2018-08-18] MEDS: MEMANTINE 10 MG TAB PO SCH ×2 (09:35→21:33)
--- NOTE | 2018-08-18 14:39 | NUR ---
IM-Progress note OVERNIGHT: No events. REVIEW OF SYSTEMS: Unobtainable. PHYSICAL EXAMINATION VITAL SIGNS: Reviewed. GENERAL APPEARANCE: A tired-appearing man, resting in bed. HEENT: Anicteric. CARDIOVASCULAR: Normal S1 and S2. LUNGS: Moderate breath sounds. ABDOMEN: Soft and nontender. EXTREMITIES: No edema. SKIN: Multiple ulcers, stage 3, left face, left chest, and knees. PSYCHIATRIC: Flat affect. LABS: Reviewed. MEDICATIONS: Reviewed. ASSESSMENT: An 82-year-old man with: 1. Acute psychosis and bipolar disorder. 2. Fall and physical deconditioning. 3. Electrolyte derangement. PLAN 1. Continue sitter. 2. Continue guardianship papers. 3. Continue medical treatment. 07/02 cont current care; comfortable; 07/03 no events; cont care; 07/04 cont care; 07/09 cont supportive care; check labs in am. 07/10 FAY and hypokalemia- encourage to increase water intake to 8 glasses daily, replace K; BMP in am. 07/11 f/u labs; cont sitter; 07/12 Large BM; cont sitter; f/u guardianship. 07/13 cont care; 07/14 cont supportive care; med adjustments by psych. 07/15 check labs in am; doing ok 07/16 cont supportive care; 07/17 no events; check K. 07/18 supportive care; 07/19 continue medicines; 07/20 cont care; doing ok; cont meds and sitter; 07/21 no issues; cont care; check labs soon. 07/22 no events; cont care 07/23 labs rev'd; 07/24 cont care; 07/25 doing ok; sitter; 07/26 no events; cont care and await guardianship papers. 07/27 doing well; cont care; 07/28 cont care. check labs on Monday. 07/29 cont care; 07/30 at 1155am: no change; continue sitter; supportive care. 07/31 @ 609am: no events; cont care; 08/01 stable; cont care. 08/02 no events; stable; cont sitter; 08/09 cont supportive care; labs rev'd; cont sitter; await guardianship papers. 08/10 continue care; no issues 08/11 cont care 08/12 rising BP- adjust meds; 08/13 cont care. 08/14 cont care. 08/15 doing ok; labs rev'd. 08/16 Hypotension- reduce CCB; monitor 08/17 cont care 08/18 no events; Uvaldo Michel MD, PhD.
--- NOTE | 2018-08-18 19:25 | NUR ---
Received patient from nurse, patient in bed, introduced self to patient and patient made aware of plan of care for the night verbalized understanding. patient is alert and oriented now, safety and fall precautions maintained: bed in lowest position and locked, needed items beside bed and call solorio placed close to patient, patient instructed to use it to call nurses for any assistance needed patient verbalized understanding, patient is currently stable will continue to monitor.
--- NOTE | 2018-08-18 20:33 | NUR ---
Received patient from nurse, patient in bed, introduced self to patient and patient made aware of plan of care for the night verbalized understanding. patient is alert and oriented now, safety and fall precautions maintained: bed in lowest position and locked, needed items beside bed and call solorio placed close to patient, patient instructed to use it to call nurses for any assistance needed patient verbalized understanding, patient is currently stable and has one staff member at bedside monitoring patient for safety.
[2018-08-19] VITALS (7 sets, daily range): BP systolic 90–144; BP diastolic 51–69
--- NOTE | 2018-08-19 07:11 | NUR ---
Patient condition throughout the night was stable, patient endorsed to next shift for continuity of care.
--- NOTE | 2018-08-19 07:29 | NUR ---
PATIENT IN BED RESTING WITH NO S/S OF PAIN OR DISCOMFORT. 1;1 SITTER AT BED SIDE, CALL LIGHT AT REACH.
[2018-08-19] MEDS: HYDRALAZINE HCL 100 MG TABLET PO SCH ×3 (09:45→20:23)
[2018-08-19] MEDS: ARTIFICIAL TEARS (OPTH) 15 ML BTL OU SCH ×2 (09:45→17:44)
[2018-08-19] MEDS: DOCUSATE SODIUM 100 MG CAP PO SCH ×2 (09:45→17:44)
[2018-08-19] MEDS: QUETIAPINE FUMARATE 25 MG TAB PO SCH ×4 (09:46→20:18)
[2018-08-19] MEDS: METOPROLOL TARTRATE 25 MG TAB PO SCH ×2 (09:46→20:22)
[2018-08-19] MEDS: MEMANTINE 10 MG TAB PO SCH ×2 (09:46→20:18)
[2018-08-19] MEDS: NIFEDIPINE CR 30 MG TAB PO SCH (09:46)
--- NOTE | 2018-08-19 12:10 | NUR ---
Visit made by the Spiritual Care Department Pastoral Visitor, Concha Murray. PV provided pastoral presence, prayer, communion, hospitality, and supportive listening. Pastoral Visitor informed pt/family of the scope of [employer] and availability. TISHA DE LUNA Supervisor [facility] O: [phone] Pager: [phone] ([phone] number calling from)
--- NOTE | 2018-08-19 16:04 | NUR ---
PATIENT IN BED RESTING WITH SITTER AT BED SIDE. DRESSING INTACT TO MULTIPLE WOUNDS. BED IN LOWER POSITION, CALL LIGHT AT REACH.
[2018-08-19] MEDS: HALOPERIDOL LACTATE 5 MG/ML VIAL IM PRN (19:33)
--- NOTE | 2018-08-19 19:33 | NUR ---
Patient very aggressive now, spitting and swinging hands at staff members, patient was encouraged to verbalized concerns but kept on yelling and using bad words without stating concerns, charge was called and came to speak to patient but patient continued to be aggressive, at this time patient is at risk to injure self because he wants to get out of bed and also injurious to staff because he is swinging at staff, ordered haldol was administered, patient is being monitored closely at this time.
[2018-08-20] VITALS (7 sets, daily range): BP systolic 113–171; BP diastolic 53–82
--- NOTE | 2018-08-20 07:09 | NUR ---
patient endorsed to next shift for continuity of care.
[2018-08-20] MEDS: HYDRALAZINE HCL 100 MG TABLET PO SCH ×3 (08:30→21:00)
[2018-08-20] MEDS: ARTIFICIAL TEARS (OPTH) 15 ML BTL OU SCH ×2 (08:30→18:37)
[2018-08-20] MEDS: METOPROLOL TARTRATE 25 MG TAB PO SCH ×2 (08:31→21:09)
[2018-08-20] MEDS: NIFEDIPINE CR 30 MG TAB PO SCH (08:31)
[2018-08-20] MEDS: DOCUSATE SODIUM 100 MG CAP PO SCH ×2 (08:32→18:37)
[2018-08-20] MEDS: MEMANTINE 10 MG TAB PO SCH ×2 (08:32→21:09)
[2018-08-20] MEDS: QUETIAPINE FUMARATE 25 MG TAB PO SCH ×4 (08:32→21:09)
--- NOTE | 2018-08-20 20:00 | NUR ---
pt received. pt assessed. no ss of distress noted. no co pain at time. sitter at bedside. will cont to follow poc. call solorio within reach.
[2018-08-21] VITALS (7 sets, daily range): BP systolic 103–138; BP diastolic 58–74
--- NOTE | 2018-08-21 05:35 | NUR ---
pt resting. no ss of distress noted. call solorio within reach.
--- NOTE | 2018-08-21 08:13 | Progress Note ---
DATE: August 20, 2018 PSYCHIATRIC PROGRESS NOTE Patient evaluated and events noted. Patient is in the room with a sitter. He is alert, awake and oriented to self and situation. He is continuing to be irritable and uncooperative. He denies having any issue at this time. He is not agitated or combative. He is intermittently yelling out as per the sitter, but he has not been combative. He is eating and sleeping well, taking his medications. No serious side effects seen or reported. ASSESSMENT: Unspecified psychosis/dementia. PLAN 1. Continue with Seroquel 25 mg p.o. 4 times a day. 2. Continue Namenda 10 mg p.o. b.i.d. 3. Continue with Haldol, Ativan, Seroquel p.r.n. 4. Monitor for mood and agitation. 5. Discussed with the nursing staff. Dictated by: BERNARD Segundo Job#: [id number]
[2018-08-21] MEDS: HALOPERIDOL LACTATE 5 MG/ML VIAL IM PRN (08:55)
[2018-08-21] MEDS: NIFEDIPINE CR 30 MG TAB PO SCH (09:00)
[2018-08-21] MEDS: HYDRALAZINE HCL 100 MG TABLET PO SCH ×3 (09:00→21:00)
[2018-08-21] MEDS: METOPROLOL TARTRATE 25 MG TAB PO SCH ×2 (09:00→21:00)
[2018-08-21] MEDS: MEMANTINE 10 MG TAB PO SCH ×2 (09:00→21:00)
[2018-08-21] MEDS: QUETIAPINE FUMARATE 25 MG TAB PO SCH ×4 (09:00→21:00)
[2018-08-21] MEDS: DOCUSATE SODIUM 100 MG CAP PO SCH ×2 (09:00→17:35)
[2018-08-21] MEDS: ARTIFICIAL TEARS (OPTH) 15 ML BTL OU SCH ×2 (10:36→17:35)
--- NOTE | 2018-08-21 19:00 | NUR ---
patient recieved awake, alert, up to bathroom with assistance. vss. no c/o pain noted. pm assessment complete. 1:1 remains at patients side for safety. 1:1 instructed to call for assistance when needed.
[2018-08-22] VITALS (8 sets, daily range): BP systolic 101–156; BP diastolic 57–75
--- NOTE | 2018-08-22 07:18 | NUR ---
RECEIVED PATIENT RESTING IN BED. NO ACUTE DISTRESS NOTED. SITTER AT BEDSIDE. CALL LIGHT WITHIN REACH. BED IN THE LOWEST POSITION.
--- NOTE | 2018-08-22 08:17 | NUR ---
IM-Progress note OVERNIGHT: No events. REVIEW OF SYSTEMS: Unobtainable. PHYSICAL EXAMINATION VITAL SIGNS: Reviewed. GENERAL APPEARANCE: A tired-appearing man, resting in bed. HEENT: Anicteric. CARDIOVASCULAR: Normal S1 and S2. LUNGS: Moderate breath sounds. ABDOMEN: Soft and nontender. EXTREMITIES: No edema. SKIN: Multiple ulcers, stage 3, left face, left chest, and knees. PSYCHIATRIC: Flat affect. LABS: Reviewed. MEDICATIONS: Reviewed. ASSESSMENT: An 82-year-old man with: 1. Acute psychosis and bipolar disorder. 2. Fall and physical deconditioning. 3. Electrolyte derangement. PLAN 1. Continue sitter. 2. Continue guardianship papers. 3. Continue medical treatment. 07/02 cont current care; comfortable; 07/03 no events; cont care; 07/04 cont care; 07/09 cont supportive care; check labs in am. 07/10 FAY and hypokalemia- encourage to increase water intake to 8 glasses daily, replace K; BMP in am. 07/11 f/u labs; cont sitter; 07/12 Large BM; cont sitter; f/u guardianship. 07/13 cont care; 07/14 cont supportive care; med adjustments by psych. 07/15 check labs in am; doing ok 07/16 cont supportive care; 07/17 no events; check K. 07/18 supportive care; 07/19 continue medicines; 07/20 cont care; doing ok; cont meds and sitter; 07/21 no issues; cont care; check labs soon. 07/22 no events; cont care 07/23 labs rev'd; 07/24 cont care; 07/25 doing ok; sitter; 07/26 no events; cont care and await guardianship papers. 07/27 doing well; cont care; 07/28 cont care. check labs on Monday. 07/29 cont care; 07/30 at 1155am: no change; continue sitter; supportive care. 07/31 @ 609am: no events; cont care; 08/01 stable; cont care. 08/02 no events; stable; cont sitter; 08/09 cont supportive care; labs rev'd; cont sitter; await guardianship papers. 08/10 continue care; no issues 08/11 cont care 08/12 rising BP- adjust meds; 08/13 cont care. 08/14 cont care. 08/15 doing ok; labs rev'd. 08/16 Hypotension- reduce CCB; monitor 08/17 cont care 08/18 no events; 08/19 doing ok; cont sitter 08/20 cont care; 08/21 no issues; cont care. 08/22 no events; doing ok; Uvaldo Michel MD, PhD.
[2018-08-22] MEDS: HYDRALAZINE HCL 100 MG TABLET PO SCH ×3 (09:42→20:18)
[2018-08-22] MEDS: DOCUSATE SODIUM 100 MG CAP PO SCH ×2 (09:42→16:17)
[2018-08-22] MEDS: ARTIFICIAL TEARS (OPTH) 15 ML BTL OU SCH ×2 (09:42→16:17)
[2018-08-22] MEDS: NIFEDIPINE CR 30 MG TAB PO SCH (09:43)
[2018-08-22] MEDS: MEMANTINE 10 MG TAB PO SCH ×2 (09:43→20:18)
[2018-08-22] MEDS: METOPROLOL TARTRATE 25 MG TAB PO SCH ×2 (09:43→20:18)
[2018-08-22] MEDS: QUETIAPINE FUMARATE 25 MG TAB PO SCH ×4 (09:43→20:18)
--- NOTE | 2018-08-22 19:00 | NUR ---
patient recieved awake, alert, lying quietly in bed. vss. no c/o pain noted. pm assessment complete. 1:1 noted at the bedside. 1:1 instructed to call for assistance when needed.
--- NOTE | 2018-08-22 19:18 | NUR ---
REPORT GIVEN TO ONCOMING NURSE. PATIENT IS RESTING IN BED. RESPIRATIONS EVEN AND UNLABORED. SITTER AT BEDSIDE. CALL LIGHT WITHIN REACH. BED IN THE LOWEST POSITION.
[2018-08-23 00:04] VITALS: BP 110/55
[2018-08-23 04:00] VITALS: BP 106/57
[2018-08-23 07:17] VITALS: BP 128/70
--- NOTE | 2018-08-23 07:17 | NUR ---
RECEIVED PATIENT RESTING IN BED. NO S/S OF DISTRESS NOTED. SITTER AT BEDSIDE. CALL LIGHT WITHIN REACH. BED IN THE LOWEST POSITION.
[2018-08-23 07:53] LABS: BASOPHILS # (AUTO) 0.1 (0.0-0.1); BASOPHILS % 1.1 % (0.0-1.0); EOSINOPHILS # (AUTO) 0.4 (0.0-0.4); EOSINOPHILS % 6.4 % (0.0-6.0); HEMATOCRIT 32.5 % (38.2-49.6); HEMOGLOBIN 10.4 g/dL (14.0-18.0); LYMPHOCYTES # (AUTO) 1.7 (1.0-3.2); LYMPHOCYTES % 27.7 % (18.0-39.1); MEAN CORPUSCULAR HEMOGLOBIN 28.1 pg (28-32); MEAN CORPUSCULAR VOLUME 87.8 fL (81-99); MONOCYTES # (AUTO) 0.8 (0.2-0.8); NEUTROPHILS # (AUTO) 3.3 (2.1-6.9); NEUTROPHILS % 52.6 % (38.7-80.0); PLATELET COUNT 212 x10e3/uL (140-360); RED CELL DISTRIBUTION WIDTH 14.6 % (11.7-14.4)
[2018-08-23 08:10] LABS: BLOOD UREA NITROGEN 26 mg/dL (7-26); BUN/CREATININE RATIO 35 (6-25); CALCIUM 9.3 mg/dL (8.4-10.2); CARBON DIOXIDE 25 mmol/L (22-29); CHLORIDE 111 mmol/L (98-107); CREATININE, SERUM 0.75 mg/dL (0.72-1.25); EST GLOMERULAR FILTRATION RATE > 60 ML/MIN (60-); GLUCOSE 95 mg/dL (74-118); MAGNESIUM 1.9 MG/DL (1.3-2.1); PHOSPHORUS 3.4 MG/DL (2.3-4.7); SODIUM 142 mmol/L (136-145)
[2018-08-23] MEDS: METOPROLOL TARTRATE 25 MG TAB PO SCH ×2 (08:29→20:09)
[2018-08-23] MEDS: MEMANTINE 10 MG TAB PO SCH ×2 (08:29→20:09)
[2018-08-23] MEDS: DOCUSATE SODIUM 100 MG CAP PO SCH ×2 (08:29→17:51)
[2018-08-23] MEDS: ARTIFICIAL TEARS (OPTH) 15 ML BTL OU SCH ×2 (08:29→17:51)
[2018-08-23] MEDS: HYDRALAZINE HCL 100 MG TABLET PO SCH ×3 (08:29→20:09)
[2018-08-23] MEDS: NIFEDIPINE CR 30 MG TAB PO SCH (08:29)
[2018-08-23] MEDS: QUETIAPINE FUMARATE 25 MG TAB PO SCH ×4 (08:30→20:09)
[2018-08-23 08:46] VITALS: BP 128/70
[2018-08-23 15:24] VITALS: BP 105/55
--- NOTE | 2018-08-23 17:30 | NUR ---
WAS CONTACTED BY ALLIGATOR TRAPPER AND TOLD THAT THE CONSTABLE CAME TO HOSPITAL TODAY TO SERVE PAPERS TO PT AND WAS TOLD BY FROM DESK THAT PATIENT WAS NOT HERE. I ASKED HIM IF HE CAN PLEASE SEND THEM BACK AND CALL ME ON MY PERSONAL PHONE SO I CAN PERSONALLY TAKE THEM TO THE PATIENT TO GET SERVED PAPERS FOR COURT AND WE CAN CONTINUE THE PROCESS FOR GUARDIANSHIP. A;ERTED NURSING MANAGEMENT ABOUT THIS SITUATION IN CASE [facility] RETURNS AND I AM NOT CONTACTED.
--- NOTE | 2018-08-23 19:02 | NUR ---
REPORT GIVEN TO ONCOMING NURSE. PATIENT IS RESTING IN BED. NO ACUTE DISTRESS NOTED. SITTER AT BEDSIDE. CALL LIGHT WITHIN REACH. BED IN THE LOWEST POSITION.
--- NOTE | 2018-08-23 19:10 | NUR ---
patient recieved awake, alert, lying quietly in bed. vss. no c/o pain noted. 1:1 sitter noted at the bedside for safety. pm assessment complete. 1:1 sitter instructed to call for assistance when needed.
[2018-08-23 20:00] VITALS: BP 107/54
[2018-08-24] VITALS (7 sets, daily range): BP systolic 113–161; BP diastolic 56–79
[2018-08-24] MEDS: HYDRALAZINE HCL 100 MG TABLET PO SCH ×3 (08:38→20:24)
[2018-08-24] MEDS: METOPROLOL TARTRATE 25 MG TAB PO SCH ×2 (08:38→20:24)
[2018-08-24] MEDS: QUETIAPINE FUMARATE 25 MG TAB PO SCH ×4 (08:38→20:25)
[2018-08-24] MEDS: MEMANTINE 10 MG TAB PO SCH ×2 (08:38→20:25)
[2018-08-24] MEDS: DOCUSATE SODIUM 100 MG CAP PO SCH ×2 (08:38→17:24)
[2018-08-24] MEDS: NIFEDIPINE CR 30 MG TAB PO SCH (08:38)
[2018-08-24] MEDS: ARTIFICIAL TEARS (OPTH) 15 ML BTL OU SCH ×2 (08:40→17:24)
--- NOTE | 2018-08-24 13:32 | NUR ---
CALLED MR CHUA AND ASKED IF HE WAS ABLE TO GET [facility] OF [facility], HE STATES HE DID YESTERDAY AND GAVE MY NUMBER TO CONTACT FOR ASSISTANCE IN THE PROCESS, ADVISED I WOULD BE IN BUILDING TOMORROW BUT IF HE COMES I CAN BE AT THE BUILDING WITHIN 10 MINUTES OF CALL. HE STATES HE WILL PASS ALONG THE MESSAGE.
--- NOTE | 2018-08-24 19:15 | NUR ---
Received pt lying in bed 45 degrees. Alert to name. No acute distress noted. Sitter at bedside.
[2018-08-25] VITALS (8 sets, daily range): BP systolic 105–149; BP diastolic 54–80
[2018-08-25] MEDS: MEMANTINE 10 MG TAB PO SCH ×2 (08:57→20:39)
[2018-08-25] MEDS: HYDRALAZINE HCL 100 MG TABLET PO SCH ×3 (08:57→20:39)
[2018-08-25] MEDS: ARTIFICIAL TEARS (OPTH) 15 ML BTL OU SCH ×2 (08:57→17:56)
[2018-08-25] MEDS: DOCUSATE SODIUM 100 MG CAP PO SCH ×2 (08:57→17:56)
[2018-08-25] MEDS: METOPROLOL TARTRATE 25 MG TAB PO SCH ×2 (08:57→20:39)
[2018-08-25] MEDS: NIFEDIPINE CR 30 MG TAB PO SCH (08:58)
[2018-08-25] MEDS: QUETIAPINE FUMARATE 25 MG TAB PO SCH ×4 (08:58→20:39)
--- NOTE | 2018-08-25 19:45 | NUR ---
Pt resting in bed, semi abreu's position, alert and oriented x3. Breathing even, unlabored. Skin warm, dry to touch. Denies any discomfort/distress. Sitter at bedside. Will continue to monitor.
[2018-08-26 04:18] VITALS: BP 118/67
[2018-08-26] MEDS: ACETAMINOPHEN 325 MG TAB PO PRN (04:50)
--- NOTE | 2018-08-26 05:00 | NUR ---
Pt given bed bath. Linens changed.
--- NOTE | 2018-08-26 07:30 | NUR ---
patient resting in bed, not in any distress, call light in reach, bed in lowest position, bed alarm ON
[2018-08-26] MEDS: ARTIFICIAL TEARS (OPTH) 15 ML BTL OU SCH ×2 (08:22→17:00)
[2018-08-26] MEDS: NIFEDIPINE CR 30 MG TAB PO SCH (08:23)
[2018-08-26] MEDS: HYDRALAZINE HCL 100 MG TABLET PO SCH ×3 (08:23→20:18)
[2018-08-26] MEDS: MEMANTINE 10 MG TAB PO SCH ×2 (08:23→20:19)
[2018-08-26] MEDS: DOCUSATE SODIUM 100 MG CAP PO SCH ×2 (08:23→17:12)
[2018-08-26] MEDS: QUETIAPINE FUMARATE 25 MG TAB PO SCH ×4 (08:23→20:19)
[2018-08-26] MEDS: METOPROLOL TARTRATE 25 MG TAB PO SCH ×2 (08:23→20:19)
[2018-08-26 08:27] VITALS: BP 120/57
[2018-08-26 09:58] VITALS: BP 120/57
[2018-08-26 12:45] VITALS: BP 114/63
[2018-08-26 17:11] VITALS: BP 105/57
--- NOTE | 2018-08-26 18:15 | NUR ---
patient resting in bed, Alert with no distress, tolerated with dinner
[2018-08-26 19:16] VITALS: BP 126/60
--- NOTE | 2018-08-26 20:45 | NUR ---
Pt resting comfortably in bed, semi-abreu's position, watching tv. Sitter at bedside. Denies any distress/discomfort. Provided popsicle per pt's request.
[2018-08-27] VITALS (7 sets, daily range): BP systolic 112–134; BP diastolic 59–70
--- NOTE | 2018-08-27 07:31 | NUR ---
PATIENT IS AWAKE AND IN STABLE CONDITION WITH NO S/S OF RESPIRATORY DISTRESS. NO PAIN VOICED. SITTER PRESENT IN THE ROOM. BED ALARM ON. CALL LIGHT IS WITHIN REACH, INSTRUCTED TO CALL FOR ASSISTANCE NEEDED.
[2018-08-27] MEDS: QUETIAPINE FUMARATE 25 MG TAB PO SCH ×4 (09:00→21:46)
[2018-08-27] MEDS: MEMANTINE 10 MG TAB PO SCH ×2 (09:00→21:46)
[2018-08-27] MEDS: NIFEDIPINE CR 30 MG TAB PO SCH (09:00)
[2018-08-27] MEDS: METOPROLOL TARTRATE 25 MG TAB PO SCH ×2 (09:00→21:46)
[2018-08-27] MEDS: DOCUSATE SODIUM 100 MG CAP PO SCH ×2 (09:00→17:41)
[2018-08-27] MEDS: ARTIFICIAL TEARS (OPTH) 15 ML BTL OU SCH ×2 (09:00→17:00)
[2018-08-27] MEDS: HYDRALAZINE HCL 100 MG TABLET PO SCH ×3 (09:00→21:46)
--- NOTE | 2018-08-27 09:23 | NUR ---
PATIENT REFUSED TO TAKE MORNING MEDICATIONS. PATIENT STARTED TO YELL AND SPIT AT SITTER MORE THAN ONCE.
--- NOTE | 2018-08-27 19:14 | NUR ---
PATIENT IS IN STABLE CONDITION WITH NO S/S OF RESPIRATORY DISTRESS. NO PAIN VOICED AT THIS TIME. SITTER PRESENT IN ROOM. CALL LIGHT IS WITHIN REACH, INSTRUCTED TO CALL FOR ASSISTANCE NEEDED. REPORT GIVEN TO ONCOMING NURSE.
--- NOTE | 2018-08-27 21:41 | Progress Note ---
DATE: August 27, 2018 PSYCHIATRIC PROGRESS NOTE Patient evaluated and events noted. Patient is in the room with a sitter. He is alert, awake, and oriented to situation. He is intermittently agitated and restless. He is yelling out and attempted to hit staff as per sitter. He is taking his medications. He has not received any p.r.n. IM since the 21 of August. He has not received any p.r.n. Seroquel. He is cooperative and taking his medication and does not appear to be having hallucinations. He refused to answer question regarding suicidal ideation. No serious side effects seen. ASSESSMENT: Unspecified psychosis/dementia. PLAN: To: 1. Continue with Seroquel schedule. 2. Continue with Namenda. 3. Continue p.r.n. Ativan, Haldol, and Seroquel p.r.n. 4. Monitor for mood and agitation. Dictated by BERNARD Segundo Job#: [id number]
[2018-08-28] VITALS (7 sets, daily range): BP systolic 104–161; BP diastolic 55–70
--- NOTE | 2018-08-28 06:23 | NUR ---
IM-Progress note OVERNIGHT: No events. REVIEW OF SYSTEMS: Unobtainable. PHYSICAL EXAMINATION VITAL SIGNS: Reviewed. GENERAL APPEARANCE: A tired-appearing man, resting in bed. HEENT: Anicteric. CARDIOVASCULAR: Normal S1 and S2. LUNGS: Moderate breath sounds. ABDOMEN: Soft and nontender. EXTREMITIES: No edema. SKIN: Multiple ulcers, stage 3, left face, left chest, and knees. PSYCHIATRIC: Flat affect. LABS: Reviewed. MEDICATIONS: Reviewed. ASSESSMENT: An 82-year-old man with: 1. Acute psychosis and bipolar disorder. 2. Fall and physical deconditioning. 3. Electrolyte derangement. PLAN 1. Continue sitter. 2. Continue guardianship papers. 3. Continue medical treatment. 07/02 cont current care; comfortable; 07/03 no events; cont care; 07/04 cont care; 07/09 cont supportive care; check labs in am. 07/10 FAY and hypokalemia- encourage to increase water intake to 8 glasses daily, replace K; BMP in am. 07/11 f/u labs; cont sitter; 07/12 Large BM; cont sitter; f/u guardianship. 07/13 cont care; 07/14 cont supportive care; med adjustments by psych. 07/15 check labs in am; doing ok 07/16 cont supportive care; 07/17 no events; check K. 07/18 supportive care; 07/19 continue medicines; 07/20 cont care; doing ok; cont meds and sitter; 07/21 no issues; cont care; check labs soon. 07/22 no events; cont care 07/23 labs rev'd; 07/24 cont care; 07/25 doing ok; sitter; 07/26 no events; cont care and await guardianship papers. 07/27 doing well; cont care; 07/28 cont care. check labs on Monday. 07/29 cont care; 07/30 at 1155am: no change; continue sitter; supportive care. 07/31 @ 609am: no events; cont care; 08/01 stable; cont care. 08/02 no events; stable; cont sitter; 08/09 cont supportive care; labs rev'd; cont sitter; await guardianship papers. 08/10 continue care; no issues 08/11 cont care 08/12 rising BP- adjust meds; 08/13 cont care. 08/14 cont care. 08/15 doing ok; labs rev'd. 08/16 Hypotension- reduce CCB; monitor 08/17 cont care 08/18 no events; 08/19 doing ok; cont sitter 08/20 cont care; 08/21 no issues; cont care. 08/22 no events; doing ok; 08/23 check labs; cont sitter. 08/24 cont care; stable; 08/25 cont care 08/26 some neck pain- tylenol 08/27 cont supportive care; ont care. Uvaldo Michel MD, PhD.
--- NOTE | 2018-08-28 07:00 | NUR ---
PATIENT IS IN STABLE CONDITION WITH NO S/S OF RESPIRATORY DISTRESS. NO PAIN VOICED. SITTER IN ROOM. CALL LIGHT IS WITHIN REACH, PATIENT INSTRUCTED TO CALL FOR ASSISTANCE NEEDED.
[2018-08-28] MEDS: ARTIFICIAL TEARS (OPTH) 15 ML BTL OU SCH ×2 (09:00→16:58)
[2018-08-28] MEDS: HYDRALAZINE HCL 100 MG TABLET PO SCH ×3 (09:22→21:00)
[2018-08-28] MEDS: DOCUSATE SODIUM 100 MG CAP PO SCH ×2 (09:22→16:58)
[2018-08-28] MEDS: MEMANTINE 10 MG TAB PO SCH ×2 (09:23→21:12)
[2018-08-28] MEDS: QUETIAPINE FUMARATE 25 MG TAB PO SCH ×4 (09:23→21:12)
[2018-08-28] MEDS: METOPROLOL TARTRATE 25 MG TAB PO SCH ×2 (09:23→21:12)
[2018-08-28] MEDS: NIFEDIPINE CR 30 MG TAB PO SCH (09:23)
--- NOTE | 2018-08-28 14:14 | NUR ---
PT SERVED PAPERS FROM [employer]. NOW THAT HE HAS BEEN SERVED THE REMANUFACTURING TECHNICIAN JESS BUCKNER MACHELLE GET A COURT DATE AND REQUEST A GUARDIAN BE ASSIGNED. SOON THAT HAPPENS WE CAN WORK WITH THE GUARDIAN TO GET PLACEMENT.
--- NOTE | 2018-08-28 14:16 | NUR ---
CALLED [employer] OPERATORVALENTE BUCKNER AND CONFIRMED THAT PAPERS WERE SERVED TO PATIENT.
[2018-08-28] MEDS: HALOPERIDOL LACTATE 5 MG/ML VIAL IM PRN (14:53)
--- NOTE | 2018-08-28 14:55 | NUR ---
PATIENT IS SPITTING UP AT STAFF, YELLING, AND CURSING AT STAFF MEMBERS- IV HALDOL ADMINISTERED TO PATIENT.
--- NOTE | 2018-08-28 19:14 | NUR ---
PATIENT IS IN STABLE CONDITION WITH NO S/S OF RESPIRATORY DISTRESS AND HAS APPROPRIATE BEHAVIOR AT THIS TIME. NO PAIN VOICED. SITTER PRESENT IN THE ROOM. CALL LIGHT IS WITHIN REACH, PATIENT INSTRUCTED TO CALL FOR ASSISTANCE NEEDED. ONCOMING NURSE GIVEN REPORT.
[2018-08-29] VITALS (7 sets, daily range): BP systolic 97–148; BP diastolic 52–76
--- NOTE | 2018-08-29 08:00 | NUR ---
IM-Progress note OVERNIGHT: No events. REVIEW OF SYSTEMS: Unobtainable. PHYSICAL EXAMINATION VITAL SIGNS: Reviewed. GENERAL APPEARANCE: A tired-appearing man, resting in bed. HEENT: Anicteric. CARDIOVASCULAR: Normal S1 and S2. LUNGS: Moderate breath sounds. ABDOMEN: Soft and nontender. EXTREMITIES: No edema. SKIN: Multiple ulcers, stage 3, left face, left chest, and knees. PSYCHIATRIC: Flat affect. LABS: Reviewed. MEDICATIONS: Reviewed. ASSESSMENT: An 82-year-old man with: 1. Acute psychosis and bipolar disorder. 2. Fall and physical deconditioning. 3. Electrolyte derangement. PLAN 1. Continue sitter. 2. Continue guardianship papers. 3. Continue medical treatment. Uvaldo Michel MD, PhD.
--- NOTE | 2018-08-29 09:35 | NUR ---
Pt received resting in bed. Alert and oriented x2-3 with sitter at bedside for safety. Precautions maintained. Call solorio within reach. All meds given as ordered. Will monitor.
[2018-08-29] MEDS: HYDRALAZINE HCL 100 MG TABLET PO SCH ×3 (09:44→20:57)
[2018-08-29] MEDS: DOCUSATE SODIUM 100 MG CAP PO SCH ×2 (09:44→18:18)
[2018-08-29] MEDS: ARTIFICIAL TEARS (OPTH) 15 ML BTL OU SCH ×2 (09:44→17:29)
[2018-08-29] MEDS: MEMANTINE 10 MG TAB PO SCH ×2 (09:45→21:04)
[2018-08-29] MEDS: QUETIAPINE FUMARATE 25 MG TAB PO SCH ×4 (09:45→21:04)
[2018-08-29] MEDS: NIFEDIPINE CR 30 MG TAB PO SCH (09:45)
[2018-08-29] MEDS: METOPROLOL TARTRATE 25 MG TAB PO SCH ×2 (09:45→20:57)
--- NOTE | 2018-08-29 19:15 | NUR ---
Patient visited in room during nursing rounds. Patient alert and oriented x2 (person and place). Patient does not seem to be agitated at this time. Bed alarm active. No IV access. No sitter per MD order. Will monitor closely.
--- NOTE | 2018-08-29 19:32 | NUR ---
Handoff given to oncoming nurse. Walking rounds done
[2018-08-30] VITALS (7 sets, daily range): BP systolic 105–148; BP diastolic 63–80
--- NOTE | 2018-08-30 07:14 | NUR ---
IM-Progress note OVERNIGHT: No events. REVIEW OF SYSTEMS: Unobtainable. PHYSICAL EXAMINATION VITAL SIGNS: Reviewed. GENERAL APPEARANCE: A tired-appearing man, resting in bed. HEENT: Anicteric. CARDIOVASCULAR: Normal S1 and S2. LUNGS: Moderate breath sounds. ABDOMEN: Soft and nontender. EXTREMITIES: No edema. SKIN: Multiple ulcers, stage 3, left face, left chest, and knees. PSYCHIATRIC: Flat affect. LABS: Reviewed. MEDICATIONS: Reviewed. ASSESSMENT: An 82-year-old man with: 1. Acute psychosis and bipolar disorder. 2. Fall and physical deconditioning. 3. Electrolyte derangement. PLAN 1. Continue sitter. 2. Continue guardianship papers. 3. Continue medical treatment. Relative hypotension- reduce antiHTN meds; Uvaldo Michel MD, PhD.
[2018-08-30] MEDS: MEMANTINE 10 MG TAB PO SCH ×2 (08:55→21:15)
[2018-08-30] MEDS: DOCUSATE SODIUM 100 MG CAP PO SCH ×2 (08:55→17:58)
[2018-08-30] MEDS: HYDRALAZINE HCL 100 MG TABLET PO SCH ×3 (08:55→21:00)
[2018-08-30] MEDS: METOPROLOL TARTRATE 25 MG TAB PO SCH ×2 (08:55→21:15)
[2018-08-30] MEDS: ARTIFICIAL TEARS (OPTH) 15 ML BTL OU SCH ×2 (08:55→17:58)
--- NOTE | 2018-08-30 08:55 | NUR ---
Pt resting comfortably in bed. Call solorio within reach. All meds given as ordered. Fall precautions maintained. Sitter discontinued. Bed alarm on. Will monitor
[2018-08-30] MEDS: NIFEDIPINE CR 30 MG TAB PO SCH (08:56)
[2018-08-30] MEDS: QUETIAPINE FUMARATE 25 MG TAB PO SCH ×4 (08:56→21:15)
[2018-08-31] VITALS (8 sets, daily range): BP systolic 104–145; BP diastolic 57–82
--- NOTE | 2018-08-31 07:32 | NUR ---
PATIENT ASSISTED WITH URINAL, VOIDED 200CC OF CLEAR YELLOW URINE. REPOSITIONED IN BED, DRESSING INTACT TO LEFT FACE, WOUNDS TO BOTH KNEES OPEN TO AIR. BED IN LOWER POSITION, CALL LIGHT AT REACH.
--- NOTE | 2018-08-31 07:37 | NUR ---
IM-Progress note OVERNIGHT: No events. REVIEW OF SYSTEMS: Unobtainable. PHYSICAL EXAMINATION VITAL SIGNS: Reviewed. GENERAL APPEARANCE: A tired-appearing man, resting in bed. HEENT: Anicteric. CARDIOVASCULAR: Normal S1 and S2. LUNGS: Moderate breath sounds. ABDOMEN: Soft and nontender. EXTREMITIES: No edema. SKIN: Multiple ulcers, stage 3, left face, left chest, and knees. PSYCHIATRIC: Flat affect. LABS: Reviewed. MEDICATIONS: Reviewed. ASSESSMENT: An 82-year-old man with: 1. Acute psychosis and bipolar disorder. 2. Fall and physical deconditioning. 3. Electrolyte derangement. PLAN 1. Continue sitter. 2. Continue guardianship papers. 3. Continue medical treatment. Relative hypotension- reduce antiHTN meds; Check labs; Uvaldo Michel MD, PhD.
[2018-08-31 08:11] LABS: BASOPHILS # (AUTO) 0.1 (0.0-0.1); BASOPHILS % 1.1 % (0.0-1.0); EOSINOPHILS # (AUTO) 0.4 (0.0-0.4); EOSINOPHILS % 6.9 % (0.0-6.0); HEMATOCRIT 33.7 % (38.2-49.6); HEMOGLOBIN 10.5 g/dL (14.0-18.0); LYMPHOCYTES # (AUTO) 1.7 (1.0-3.2); LYMPHOCYTES % 31.1 % (18.0-39.1); MEAN CORPUSCULAR HEMOGLOBIN 27.8 pg (28-32); MEAN CORPUSCULAR HGB CONC 31.2 g/dL (31-35); MEAN CORPUSCULAR VOLUME 89.2 fL (81-99); MONOCYTES # (AUTO) 0.7 (0.2-0.8); MONOCYTES % 12.1 % (4.4-11.3); NEUTROPHILS # (AUTO) 2.7 (2.1-6.9); NEUTROPHILS % 48.6 % (38.7-80.0); PLATELET COUNT 193 x10e3/uL (140-360); RED BLOOD COUNT 3.78 x10e6/uL (4.3-5.7); RED CELL DISTRIBUTION WIDTH 14.9 % (11.7-14.4)
[2018-08-31 08:26] LABS: ANION GAP 11.9 mmol/L (8-16); BLOOD UREA NITROGEN 31 mg/dL (7-26); BUN/CREATININE RATIO 37 (6-25); CALCIUM 9.1 mg/dL (8.4-10.2); CARBON DIOXIDE 24 mmol/L (22-29); CHLORIDE 107 mmol/L (98-107); CREATININE, SERUM 0.84 mg/dL (0.72-1.25); EST GLOMERULAR FILTRATION RATE > 60 ML/MIN (60-); GLUCOSE 95 mg/dL (74-118); MAGNESIUM 1.9 MG/DL (1.3-2.1); PHOSPHORUS 3.8 MG/DL (2.3-4.7); POTASSIUM 3.9 mmol/L (3.5-5.1); SODIUM 139 mmol/L (136-145)
[2018-08-31] MEDS: DOCUSATE SODIUM 100 MG CAP PO SCH ×2 (09:52→17:46)
[2018-08-31] MEDS: MEMANTINE 10 MG TAB PO SCH ×2 (09:52→20:20)
[2018-08-31] MEDS: METOPROLOL TARTRATE 25 MG TAB PO SCH ×2 (09:52→20:20)
[2018-08-31] MEDS: HYDRALAZINE HCL 100 MG TABLET PO SCH ×3 (09:52→20:19)
[2018-08-31] MEDS: ARTIFICIAL TEARS (OPTH) 15 ML BTL OU SCH ×2 (09:52→17:46)
[2018-08-31] MEDS: NIFEDIPINE CR 30 MG TAB PO SCH (09:53)
[2018-08-31] MEDS: QUETIAPINE FUMARATE 25 MG TAB PO SCH ×4 (09:53→20:20)
--- NOTE | 2018-08-31 11:29 | NUR ---
PATIENT IN BED RESTING WITH NO RESPIRATORY DISTRESS. BED IN LOWER POSITION, CALL LIGHT AT REACH.
--- NOTE | 2018-08-31 16:45 | NUR ---
PATIENT INAPPROPRIATE AND LOUD, REFUSING PHYSICAL THERAPY. REORIENTED,CALM AT THIS TIME, IN BED WITH CALL LIGHT AT REACH.
--- NOTE | 2018-08-31 19:58 | NUR ---
PT IS RESTING IN BED. NO RESPIRATORY DISTRESS NOTED. BED IN THE LOWEST POSITION, LOCKED, AND CALL LIGHT WITHIN REACH. WILL CONTINUE TO MONITOR.
[2018-09-01] VITALS (8 sets, daily range): BP systolic 98–175; BP diastolic 51–77
--- NOTE | 2018-09-01 06:21 | NUR ---
PT IS RESTING IN BED. NO ACUTE EVENT OCCURRED THROUGHOUT THE NIGHT. WILL CONTINUE TO MONITOR.
--- NOTE | 2018-09-01 07:20 | NUR ---
IM-Progress note OVERNIGHT: No events. REVIEW OF SYSTEMS: Unobtainable. PHYSICAL EXAMINATION VITAL SIGNS: Reviewed. GENERAL APPEARANCE: A tired-appearing man, resting in bed. HEENT: Anicteric. CARDIOVASCULAR: Normal S1 and S2. LUNGS: Moderate breath sounds. ABDOMEN: Soft and nontender. EXTREMITIES: No edema. SKIN: Multiple ulcers, stage 3, left face, left chest, and knees. PSYCHIATRIC: Flat affect. LABS: Reviewed. MEDICATIONS: Reviewed. ASSESSMENT: An 82-year-old man with: 1. Acute psychosis and bipolar disorder. 2. Fall and physical deconditioning. 3. Electrolyte derangement. PLAN 1. Continue sitter. 2. Continue guardianship papers. 3. Continue medical treatment. Relative hypotension- reduce antiHTN meds; Check labs; Hemodynamically stable labs ok; cont care; PRN sitter Uvaldo Michel MD, PhD.
--- NOTE | 2018-09-01 07:40 | NUR ---
RECEIVED PATIENT RESTING IN BED. RESPIRATIONS EVEN AND UNLABORED, NO ACUTE DISTRESS NOTED. CALL LIGHT WITHIN REACH. BED IN THE LOWEST POSITION. BED ALARM ON.
[2018-09-01] MEDS: ARTIFICIAL TEARS (OPTH) 15 ML BTL OU SCH ×2 (08:42→17:06)
[2018-09-01] MEDS: METOPROLOL TARTRATE 25 MG TAB PO SCH ×2 (08:42→20:39)
[2018-09-01] MEDS: HYDRALAZINE HCL 100 MG TABLET PO SCH ×3 (08:42→20:39)
[2018-09-01] MEDS: NIFEDIPINE CR 30 MG TAB PO SCH (08:42)
[2018-09-01] MEDS: MEMANTINE 10 MG TAB PO SCH ×2 (08:42→20:40)
[2018-09-01] MEDS: DOCUSATE SODIUM 100 MG CAP PO SCH ×2 (08:42→17:06)
[2018-09-01] MEDS: QUETIAPINE FUMARATE 25 MG TAB PO SCH ×4 (08:42→20:40)
--- NOTE | 2018-09-01 19:18 | NUR ---
REPORT GIVEN TO ONCOMING NURSE. PATIENT IS RESTING IN BED, NO S/S OF DISTRESS NOTED. CALL LIGHT WITHIN REACH. BED IN THE LOWEST POSITION. BED ALARM ON.
[2018-09-02 04:00] VITALS: BP 141/78
--- NOTE | 2018-09-02 06:57 | NUR ---
IM-Progress note OVERNIGHT: No events. REVIEW OF SYSTEMS: Unobtainable. PHYSICAL EXAMINATION VITAL SIGNS: Reviewed. GENERAL APPEARANCE: A tired-appearing man, resting in bed. HEENT: Anicteric. CARDIOVASCULAR: Normal S1 and S2. LUNGS: Moderate breath sounds. ABDOMEN: Soft and nontender. EXTREMITIES: No edema. SKIN: Multiple ulcers, stage 3, left face, left chest, and knees. PSYCHIATRIC: Flat affect. LABS: Reviewed. MEDICATIONS: Reviewed. ASSESSMENT: An 82-year-old man with: 1. Acute psychosis and bipolar disorder. 2. Fall and physical deconditioning. 3. Electrolyte derangement. PLAN 1. Continue sitter. 2. Continue guardianship papers. 3. Continue medical treatment. Relative hypotension- reduce antiHTN meds; Check labs; Hemodynamically stable labs ok; cont care; PRN sitter No issues; continue care; Uvaldo Michel MD, PhD.
[2018-09-02 07:56] VITALS: BP 140/73
[2018-09-02] MEDS: MEMANTINE 10 MG TAB PO SCH ×2 (08:37→20:40)
[2018-09-02] MEDS: HYDRALAZINE HCL 100 MG TABLET PO SCH ×3 (08:37→20:40)
[2018-09-02] MEDS: ARTIFICIAL TEARS (OPTH) 15 ML BTL OU SCH ×2 (08:37→17:30)
[2018-09-02] MEDS: METOPROLOL TARTRATE 25 MG TAB PO SCH ×2 (08:37→20:40)
[2018-09-02] MEDS: DOCUSATE SODIUM 100 MG CAP PO SCH ×2 (08:37→17:31)
[2018-09-02] MEDS: QUETIAPINE FUMARATE 25 MG TAB PO SCH ×4 (08:38→20:41)
[2018-09-02] MEDS: NIFEDIPINE CR 30 MG TAB PO SCH (08:38)
[2018-09-02 09:00] VITALS: BP 140/73
[2018-09-02 11:55] VITALS: BP 121/69
[2018-09-02 16:11] VITALS: BP 113/59
[2018-09-02 20:00] VITALS: BP 123/65
[2018-09-03] VITALS: BP 112/59
[2018-09-03 04:00] VITALS: BP 115/68
--- NOTE | 2018-09-03 07:36 | NUR ---
IM-Progress note OVERNIGHT: No events. REVIEW OF SYSTEMS: Unobtainable. PHYSICAL EXAMINATION VITAL SIGNS: Reviewed. GENERAL APPEARANCE: A tired-appearing man, resting in bed. HEENT: Anicteric. CARDIOVASCULAR: Normal S1 and S2. LUNGS: Moderate breath sounds. ABDOMEN: Soft and nontender. EXTREMITIES: No edema. SKIN: Multiple ulcers, stage 3, left face, left chest, and knees. PSYCHIATRIC: Flat affect. LABS: Reviewed. MEDICATIONS: Reviewed. ASSESSMENT: An 82-year-old man with: 1. Acute psychosis and bipolar disorder. 2. Fall and physical deconditioning. 3. Electrolyte derangement. PLAN 1. Continue sitter. 2. Continue guardianship papers. 3. Continue medical treatment. Relative hypotension- reduce antiHTN meds; Check labs; Hemodynamically stable labs ok; cont care; PRN sitter No issues; continue care; Cont supportive care; Uvaldo Michel MD, PhD.
--- NOTE | 2018-09-03 08:20 | NUR ---
patient sitting up in bed, eating break fast, no distress noted, denies any pain
[2018-09-03] MEDS: ARTIFICIAL TEARS (OPTH) 15 ML BTL OU SCH ×2 (09:39→18:19)
[2018-09-03] MEDS: DOCUSATE SODIUM 100 MG CAP PO SCH ×2 (09:40→17:16)
[2018-09-03] MEDS: HYDRALAZINE HCL 100 MG TABLET PO SCH ×3 (09:40→20:11)
[2018-09-03] MEDS: QUETIAPINE FUMARATE 25 MG TAB PO SCH ×4 (09:40→20:12)
[2018-09-03] MEDS: METOPROLOL TARTRATE 25 MG TAB PO SCH ×2 (09:40→20:12)
[2018-09-03] MEDS: MEMANTINE 10 MG TAB PO SCH ×2 (09:40→20:12)
[2018-09-03] MEDS: NIFEDIPINE CR 30 MG TAB PO SCH (09:40)
[2018-09-03 10:40] VITALS: BP 123/71
[2018-09-03 12:00] VITALS: BP 127/60
[2018-09-03 13:50] LABS: HEMATOCRIT 34.7 % (38.2-49.6); HEMOGLOBIN 11.2 g/dL (14.0-18.0); MEAN CORPUSCULAR HEMOGLOBIN 28.5 pg (28-32); MEAN CORPUSCULAR HGB CONC 32.3 g/dL (31-35); MEAN CORPUSCULAR VOLUME 88.3 fL (81-99); PLATELET COUNT 232 x10e3/uL (140-360); RED BLOOD COUNT 3.93 x10e6/uL (4.3-5.7)
[2018-09-03 14:13] LABS: ANION GAP 11.8 mmol/L (8-16); BLOOD UREA NITROGEN 30 mg/dL (7-26); BUN/CREATININE RATIO 35 (6-25); CALCIUM 9.4 mg/dL (8.4-10.2); CARBON DIOXIDE 25 mmol/L (22-29); CHLORIDE 110 mmol/L (98-107); CREATININE, SERUM 0.86 mg/dL (0.72-1.25); EST GLOMERULAR FILTRATION RATE > 60 ML/MIN (60-); GLUCOSE 85 mg/dL (74-118); POTASSIUM 3.8 mmol/L (3.5-5.1); SODIUM 143 mmol/L (136-145)
[2018-09-03 16:00] VITALS: BP 104/51
[2018-09-03 16:49] LABS: EOSINOPHILS % (MANUAL) 7 % (0-7); LYMPHOCYTES % (MANUAL) 30 % (19-48); MONOCYTES % (MANUAL) 8 % (3.4-9.0); NEUTROPHILS % (MANUAL) 52 % (40-74); PLATELET ESTIMATE ADEQUATE; PLATELET MORPHOLOGY COMMENT NORMAL; RBC MORPHOLOGY COMMENT NORMAL
--- NOTE | 2018-09-03 19:10 | NUR ---
Bedside rounds complete with morning nurse. Pt lying in bed 60 degrees. Alert to name. Denies pain at this time. No acute distress noted.
[2018-09-03 20:00] VITALS: BP 139/72
[2018-09-04] VITALS (7 sets, daily range): BP systolic 105–177; BP diastolic 57–97
[2018-09-04] MEDS: MEMANTINE 10 MG TAB PO SCH ×2 (08:11→21:11)
[2018-09-04] MEDS: HYDRALAZINE HCL 100 MG TABLET PO SCH ×3 (08:11→21:11)
[2018-09-04] MEDS: DOCUSATE SODIUM 100 MG CAP PO SCH ×2 (08:11→18:05)
[2018-09-04] MEDS: ARTIFICIAL TEARS (OPTH) 15 ML BTL OU SCH ×2 (08:11→15:16)
[2018-09-04] MEDS: QUETIAPINE FUMARATE 25 MG TAB PO SCH ×4 (08:11→21:11)
[2018-09-04] MEDS: METOPROLOL TARTRATE 25 MG TAB PO SCH ×2 (08:11→21:11)
[2018-09-04] MEDS: NIFEDIPINE CR 30 MG TAB PO SCH (08:11)
--- NOTE | 2018-09-04 10:35 | NUR ---
Pt received resting in bed. Alert and oriented x2-3 bed alarm on. Pt can be inappropriate at times. All meds given as ordered. Call solorio within reach. Will monitor
--- NOTE | 2018-09-04 15:26 | NUR ---
SPOKE WITH MRS [employer] WARRANT OFFICER TO GET UPDATE, SHE STATES THE COURT HAS ASSIGNED A SEMIC[employer] WAF[employer] ETCH OPERATOR WALKER MARES WHO WILL COME SEE PT AND THE COURT IS WANTING THE FAMILY IN [facility] [facility] TO BE ATTEMPTED TO BE CONTACTED ONE MORE TIME VIA THE CATEGORY MANAGER BEFORE THEY WILL PRECEDE TO COURT. WILL UPDATE SW WHEN THEY GET MORE INFORMATION AND MR MARES GIVEN INFORMATION TO CONTACT ME TO VISIT WITH PATIENT.
--- NOTE | 2018-09-04 18:25 | NUR ---
Pt resting comfortably in bed. Emotional support given. Will endorse to next shift
[2018-09-05] VITALS (8 sets, daily range): BP systolic 91–143; BP diastolic 52–78
--- NOTE | 2018-09-05 07:10 | NUR ---
PATIENT IS AWAKE AND IN STABLE CONDITION WITH NO S/S OF RESPIRATORY DISTRESS. PATIENT IS DEMONSTRATING APPROPRIATE BEHAVIOR. NO PAIN VOICED. BED ALARM ON. CALL LIGHT IS WITHIN REACH, INSTRUCTED TO CALL FOR ASSISTANCE NEEDED.
--- NOTE | 2018-09-05 07:31 | NUR ---
IM-Progress note OVERNIGHT: No events. REVIEW OF SYSTEMS: Unobtainable. PHYSICAL EXAMINATION VITAL SIGNS: Reviewed. GENERAL APPEARANCE: A tired-appearing man, resting in bed. HEENT: Anicteric. CARDIOVASCULAR: Normal S1 and S2. LUNGS: Moderate breath sounds. ABDOMEN: Soft and nontender. EXTREMITIES: No edema. SKIN: Multiple ulcers, stage 3, left face, left chest, and knees. PSYCHIATRIC: Flat affect. LABS: Reviewed. MEDICATIONS: Reviewed. ASSESSMENT: An 82-year-old man with: 1. Acute psychosis and bipolar disorder. 2. Fall and physical deconditioning. 3. Electrolyte derangement. PLAN 1. Continue sitter. 2. Continue guardianship papers. 3. Continue medical treatment. Relative hypotension- reduce antiHTN meds; Check labs; Hemodynamically stable labs ok; cont care; PRN sitter No issues; continue care; Cont supportive care; Labile BP ; monitor Supportive care; Uvaldo Michel MD, PhD.
[2018-09-05] MEDS: ARTIFICIAL TEARS (OPTH) 15 ML BTL OU SCH ×2 (09:00→17:00)
[2018-09-05] MEDS: DOCUSATE SODIUM 100 MG CAP PO SCH ×2 (09:10→17:00)
[2018-09-05] MEDS: QUETIAPINE FUMARATE 25 MG TAB PO SCH ×4 (09:10→21:28)
[2018-09-05] MEDS: NIFEDIPINE CR 30 MG TAB PO SCH (09:17)
[2018-09-05] MEDS: METOPROLOL TARTRATE 25 MG TAB PO SCH ×2 (09:18→21:28)
[2018-09-05] MEDS: HYDRALAZINE HCL 100 MG TABLET PO SCH ×3 (09:18→21:28)
[2018-09-05] MEDS: MEMANTINE 10 MG TAB PO SCH ×2 (09:18→21:28)
--- NOTE | 2018-09-05 18:48 | NUR ---
PATIENT IS RESTING IN BED- IN STABLE CONDITION WITH NO S/S OF RESPIRATORY DISTRESS. NO PAIN VOICED. BED ALARM ON. CALL LIGHT IS WITHIN REACH, INSTRUCTED TO CALL FOR ASSISTANCE NEEDED. REPORT GIVEN TO ONCOMING NURSE.
--- NOTE | 2018-09-05 19:12 | NUR ---
PATIENT IS IN STABLE CONDITION WITH NO S/S OF RESPIRATORY DISTRESS. NO PAIN VOICED. BED ALARM ON. CALL LIGHT IS WITHIN REACH, INSTRUCTED TO CALL FOR ASSISTANCE NEEDED. REPORT GIVEN TO ONCOMING NURSE.
--- NOTE | 2018-09-05 19:20 | NUR ---
Received pt in bed watching tv. Awake and alert. No s/s of resp distress. No complaints. Denies pain at this time. Call light within reach and instructed to call for assistance. Bed alarm on.
--- NOTE | 2018-09-05 22:30 | NUR ---
Patient completed 50% of meal. Addendum: 09/05/18 at 2342 by Howard Todd RN Assisted with feeding.
[2018-09-06 00:33] VITALS: BP 100/65
[2018-09-06 05:31] VITALS: BP 126/78
--- NOTE | 2018-09-06 06:45 | NUR ---
IM-Progress note OVERNIGHT: No events. REVIEW OF SYSTEMS: Unobtainable. PHYSICAL EXAMINATION VITAL SIGNS: Reviewed. GENERAL APPEARANCE: A tired-appearing man, resting in bed. HEENT: Anicteric. CARDIOVASCULAR: Normal S1 and S2. LUNGS: Moderate breath sounds. ABDOMEN: Soft and nontender. EXTREMITIES: No edema. SKIN: Multiple ulcers, stage 3, left face, left chest, and knees. PSYCHIATRIC: Flat affect. LABS: Reviewed. MEDICATIONS: Reviewed. ASSESSMENT: An 82-year-old man with: 1. Acute psychosis and bipolar disorder. 2. Fall and physical deconditioning. 3. Electrolyte derangement. PLAN 1. Continue sitter. 2. Continue guardianship papers. 3. Continue medical treatment. Relative hypotension- reduce antiHTN meds; Check labs; Hemodynamically stable labs ok; cont care; PRN sitter No issues; continue care; Cont supportive care; Labile BP ; monitor Supportive care; No issues; cont care; Uvaldo Michel MD, PhD.
--- NOTE | 2018-09-06 07:11 | NUR ---
PATIENT IS IN STABLE CONDITION WITH NO S/S OF RESPIRATORY DISTRESS. NO PAIN VOICED. PATIENT'S BED ALARM ON. DIAPER APPLIED. CALL LIGHT IS WITHIN REACH, INSTRUCTED TO CALL FOR ASSISTANCE NEEDED.
[2018-09-06 07:50] VITALS: BP 137/78
[2018-09-06] MEDS: ARTIFICIAL TEARS (OPTH) 15 ML BTL OU SCH ×2 (08:34→17:00)
[2018-09-06] MEDS: MEMANTINE 10 MG TAB PO SCH ×2 (08:34→21:00)
[2018-09-06] MEDS: DOCUSATE SODIUM 100 MG CAP PO SCH ×2 (08:34→17:00)
[2018-09-06] MEDS: HYDRALAZINE HCL 100 MG TABLET PO SCH ×3 (08:34→21:00)
[2018-09-06] MEDS: METOPROLOL TARTRATE 25 MG TAB PO SCH ×2 (08:34→21:00)
[2018-09-06] MEDS: QUETIAPINE FUMARATE 25 MG TAB PO SCH ×4 (08:35→21:00)
[2018-09-06] MEDS: NIFEDIPINE CR 30 MG TAB PO SCH (08:35)
--- NOTE | 2018-09-06 10:58 | NUR ---
WC FOLLOW UP Pt visited for wc progress. 1- Left Buccal - Resolved 2. Left 1st met Head - Resolved 3- Right 5th Met Head - Resolved 4- Left Chest - 1x0.5x<0.1 100% granulation - pink periwound/ intact 5- Right Knee- Amberg and With Scar Tissue - no open skin- Healing 6- Left Knee - Amberg and With Scar Tissue - no open skin- Healing 7- Right Elbow - Resolved 8 - Sacral - Blanchable Erythema - no open skin Dressing change provided to left chest ulcer. Puricol and Covered with dressing as prescribed. Tolerated procedure well without pain or discomfort. Bed to lowest position and 3 side rails up. Call solorio within reach. JOSE Air Mattress in place and heel protectors at bedside. Cristino Score 18 Recommendation: Continue current treatment plan. Addendum: 09/06/18 at 1108 by Bishop Vallecillo RN Amended: Links added.
[2018-09-06 11:37] VITALS: BP 117/68
[2018-09-06 15:48] VITALS: BP 105/62
--- NOTE | 2018-09-06 19:16 | NUR ---
PATIENT IS RESTING IN BED- IN STABLE CONDITION WITH NO S/S OF RESPIRATORY DISTRESS. PATIENT IS ACTING APPROPRIATE AND NON-VIOLENT. NO PAIN VOICED. PATIENT EATING HIS ICE CREAM. BED ALARM ON. CALL LIGHT IS WITHIN REACH, INSTRUCTED TO CALL FOR ASSISTANCE NEEDED. REPORT GIVEN TO ONCOMING NURSE.
--- NOTE | 2018-09-06 19:16 | NUR ---
REPORT RECEIVED FROM OFF GOING NURSE, PT RESTING IN BED WITH HOB ELEVATED, NO DISTRESS NOTED, BED ALARM ACTIVATED NO NEEDS VOICED, CALL LIGHT IN REACH, INSTRUCTED TO CALL WITH NEEDS, PT INTERMITTENTLY SPEAKS IN [place] AT TIMES WITH MILD AGITATION NOTED, PT BEING MONITORED
[2018-09-06] MEDS: HALOPERIDOL LACTATE 5 MG/ML VIAL IM PRN (19:48)
--- NOTE | 2018-09-06 19:58 | NUR ---
PRN GIVEN FOR AGITATION AND COMBATIVE BEHAVIORS WITH STAFF AND ADLs, PT DIFFICULT TO REDIRECT, PT AMBULATED TO BED WITH STANDBY ASSIST, PT CONTINUES TO CURSE AND STRIKE STAFF, PT BEING MONITORED
[2018-09-06] MEDS ORDERED: LORAZEPAM INJ 2 MG/ML VIAL IM NR (20:30)
--- NOTE | 2018-09-06 20:52 | NUR ---
PRN GIVEN FOR AGITATION, SITTER AT BEDSIDE, PT CONTINUES TO HAVE AGITATION THAT IS DIFFICULT TO REDIRECT, PT YELLING AND CURSING STAFF, PT BEING MONITORED
--- NOTE | 2018-09-07 05:40 | NUR ---
PT RESTING IN BED WITH EYES CLOSED, BED ALARM ACTIVATED, NO DISTRESS NOTED, CALL LIGHT IN REACH
--- NOTE | 2018-09-07 06:54 | NUR ---
IM-Progress note OVERNIGHT: Agitated REVIEW OF SYSTEMS: Unobtainable. PHYSICAL EXAMINATION VITAL SIGNS: Reviewed. GENERAL APPEARANCE: A tired-appearing man, resting in bed. HEENT: Anicteric. CARDIOVASCULAR: Normal S1 and S2. LUNGS: Moderate breath sounds. ABDOMEN: Soft and nontender. EXTREMITIES: No edema. SKIN: Multiple ulcers, stage 3, left face, left chest, and knees. PSYCHIATRIC: Flat affect. LABS: Reviewed. MEDICATIONS: Reviewed. ASSESSMENT: An 82-year-old man with: 1. Acute psychosis and bipolar disorder. 2. Fall and physical deconditioning. 3. Electrolyte derangement. PLAN 1. Continue sitter. 2. Continue guardianship papers. 3. Continue medical treatment. Relative hypotension- reduce antiHTN meds; Check labs; Hemodynamically stable labs ok; cont care; PRN sitter No issues; continue care; Cont supportive care; Labile BP ; monitor Supportive care; No issues; cont care; Agitated overnight- ativan administered; Uvaldo Michel MD, PhD.
--- NOTE | 2018-09-07 08:10 | NUR ---
Pt received resting in bed. Alert and oriented x2-3. Oriented to staff and surroundings. Emotional support given. Fall precautions maintained. Call solorio within reach. Will monitor
[2018-09-07] MEDS: ARTIFICIAL TEARS (OPTH) 15 ML BTL OU SCH ×2 (09:00→17:00)
[2018-09-07 09:03] VITALS: BP 135/74
[2018-09-07 09:40] VITALS: BP 135/74
[2018-09-07] MEDS: DOCUSATE SODIUM 100 MG CAP PO SCH ×2 (11:51→17:00)
[2018-09-07] MEDS: HYDRALAZINE HCL 100 MG TABLET PO SCH ×3 (11:51→20:45)
[2018-09-07] MEDS: NIFEDIPINE CR 30 MG TAB PO SCH (11:52)
[2018-09-07] MEDS: QUETIAPINE FUMARATE 25 MG TAB PO SCH ×4 (11:52→21:00)
[2018-09-07] MEDS: MEMANTINE 10 MG TAB PO SCH ×2 (11:52→21:00)
[2018-09-07] MEDS: METOPROLOL TARTRATE 25 MG TAB PO SCH ×2 (11:52→20:50)
[2018-09-07 13:37] VITALS: BP 156/98
--- NOTE | 2018-09-07 14:26 | Progress Note ---
DATE: September 07, 2018 PSYCHIATRIC PROGRESS NOTE Patient evaluated and events noted. Patient is in the room. He is alert, awake and oriented to situation. He stated he is doing okay. He denies any depression or anxiety. He denies any hallucinations. He is calm and not agitated at this time. However, as per nursing staff the patient is very agitated. The records show that he received Haldol p.r.n. IM last night and Ativan p.r.n. IM. He was agitated last night. He is receiving his medication and no side effects seen or reported. ASSESSMENT: Unspecified psychosis/unspecified dementia. PLAN: Adjust schedule. Continue with Namenda. Continue with Haldol and Seroquel p.r.n. Monitor for mood and agitation. DICTATED BY BERNARD REES Job#: [id number] RI
[2018-09-07 16:56] VITALS: BP_SYST 60
--- NOTE | 2018-09-07 19:10 | NUR ---
REPORT RECEIVED FROM OFF GOING NURSE, PT SITTING UP IN BED ALERT, NO DISTRESS NOTED, PT COOPERATIVE, BED LOCKED AND LOW, BED ALARM ACTIVATED, CALL LIGHT IN REACH, INSTRUCTED TO CALL WITH NEEDS
[2018-09-07 20:00] VITALS: BP_SYST 128; BP_SYST 142; BP_DIAS 142; BP_DIAS 74
[2018-09-08] VITALS (7 sets, daily range): BP systolic 105–140; BP diastolic 61–67
--- NOTE | 2018-09-08 06:05 | NUR ---
PT RESTING IN BED WITH EYES CLOSED, NO DISTRESS NOTED, CALL LIGHT IN REACH
[2018-09-08] MEDS: MEMANTINE 10 MG TAB PO SCH ×2 (08:27→21:00)
[2018-09-08] MEDS: ARTIFICIAL TEARS (OPTH) 15 ML BTL OU SCH ×2 (08:27→17:00)
[2018-09-08] MEDS: HYDRALAZINE HCL 100 MG TABLET PO SCH (08:27)
[2018-09-08] MEDS: DOCUSATE SODIUM 100 MG CAP PO SCH ×2 (08:27→17:00)
[2018-09-08] MEDS: METOPROLOL TARTRATE 25 MG TAB PO SCH ×2 (08:27→21:00)
--- NOTE | 2018-09-08 08:27 | NUR ---
Pt resting in bed. Call solorio within reach. All meds given as ordered. Bed alarm on. Will monitor
[2018-09-08] MEDS: QUETIAPINE FUMARATE 25 MG TAB PO SCH ×3 (08:28→21:00)
[2018-09-08] MEDS: NIFEDIPINE CR 30 MG TAB PO SCH (08:28)
[2018-09-08] MEDS: HYDRALAZINE HCL 25 MG TAB PO SCH ×2 (15:00→21:00)
--- NOTE | 2018-09-08 19:00 | NUR ---
REPORT RECEIVED FROM OFF GOING NURSE, PT SITTING UP IN BED ALERT, NO DISTRESS NOTED, BED LOCKED AND LOW, CALL LIGHT IN REACH, INSTRUCTED TO CALL WITH NEEDS, BED ALARM ACTIVATED
[2018-09-08] MEDS: BALSAM PERU/CASTOR OIL 60 GM OINT...G. TP SCH (21:00)
[2018-09-09] VITALS (7 sets, daily range): BP systolic 119–144; BP diastolic 63–76
--- NOTE | 2018-09-09 06:32 | NUR ---
IM-Progress note OVERNIGHT: Agitated REVIEW OF SYSTEMS: Unobtainable. PHYSICAL EXAMINATION VITAL SIGNS: Reviewed. GENERAL APPEARANCE: A tired-appearing man, resting in bed. HEENT: Anicteric. CARDIOVASCULAR: Normal S1 and S2. LUNGS: Moderate breath sounds. ABDOMEN: Soft and nontender. EXTREMITIES: No edema. SKIN: Multiple ulcers, stage 3, left face, left chest, and knees. PSYCHIATRIC: Flat affect. LABS: Reviewed. MEDICATIONS: Reviewed. ASSESSMENT: An 82-year-old man with: 1. Acute psychosis and bipolar disorder. 2. Fall and physical deconditioning. 3. Electrolyte derangement. PLAN 1. Continue sitter. 2. Continue guardianship papers. 3. Continue medical treatment. Relative hypotension- reduce antiHTN meds; Check labs; Hemodynamically stable labs ok; cont care; PRN sitter No issues; continue care; Cont supportive care; Labile BP ; monitor Supportive care; No issues; cont care; Agitated overnight- ativan administered; cont care; Check labs tomorrow; Uvaldo Michel MD, PhD.
--- NOTE | 2018-09-09 07:19 | NUR ---
REPORT GIVEN TO ON COMING NURSE, PT RESTING IN BED ALERT, NO DISTRESS NOTED, BED LOCKED AND LOW, BED ALARM ACTIVATED, CALL LIGHT IN REACH, INSTRUCTED TO CALL WITH NEEDS
[2018-09-09] MEDS: DOCUSATE SODIUM 100 MG CAP PO SCH ×2 (08:26→17:00)
[2018-09-09] MEDS: HYDRALAZINE HCL 25 MG TAB PO SCH ×3 (08:26→21:42)
[2018-09-09] MEDS: MEMANTINE 10 MG TAB PO SCH ×2 (08:26→21:42)
[2018-09-09] MEDS: METOPROLOL TARTRATE 25 MG TAB PO SCH ×2 (08:26→21:42)
[2018-09-09] MEDS: QUETIAPINE FUMARATE 25 MG TAB PO SCH ×3 (08:27→21:42)
[2018-09-09] MEDS: NIFEDIPINE CR 30 MG TAB PO SCH (08:27)
[2018-09-09] MEDS: BALSAM PERU/CASTOR OIL 60 GM OINT...G. TP SCH ×2 (09:00→21:42)
[2018-09-09] MEDS: ARTIFICIAL TEARS (OPTH) 15 ML BTL OU SCH ×2 (10:58→17:00)
[2018-09-10] VITALS (8 sets, daily range): BP systolic 110–143; BP diastolic 56–80
[2018-09-10 06:17] LABS: HEMATOCRIT 32.9 % (38.2-49.6); HEMOGLOBIN 10.3 g/dL (14.0-18.0); MEAN CORPUSCULAR HEMOGLOBIN 27.8 pg (28-32); MEAN CORPUSCULAR HGB CONC 31.3 g/dL (31-35); MEAN CORPUSCULAR VOLUME 88.9 fL (81-99); PLATELET COUNT 198 x10e3/uL (140-360); RED CELL DISTRIBUTION WIDTH 14.7 % (11.7-14.4)
[2018-09-10 06:32] LABS: ANION GAP 11.7 mmol/L (8-16); BLOOD UREA NITROGEN 26 mg/dL (7-26); BUN/CREATININE RATIO 31 (6-25); CALCIUM 9.2 mg/dL (8.4-10.2); CARBON DIOXIDE 24 mmol/L (22-29); CHLORIDE 109 mmol/L (98-107); CREATININE, SERUM 0.83 mg/dL (0.72-1.25); EST GLOMERULAR FILTRATION RATE > 60 ML/MIN (60-); GLUCOSE 93 mg/dL (74-118); POTASSIUM 3.7 mmol/L (3.5-5.1); SODIUM 141 mmol/L (136-145)
--- NOTE | 2018-09-10 08:45 | NUR ---
Pt received resting in bed. All meds given as ordered. Emotional support given. Fall precautions maintained. call solorio within reach. Will monitor
[2018-09-10] MEDS: ARTIFICIAL TEARS (OPTH) 15 ML BTL OU SCH ×2 (08:52→17:00)
[2018-09-10] MEDS: METOPROLOL TARTRATE 25 MG TAB PO SCH ×2 (08:53→21:20)
[2018-09-10] MEDS: NIFEDIPINE CR 30 MG TAB PO SCH (08:53)
[2018-09-10] MEDS: BALSAM PERU/CASTOR OIL 60 GM OINT...G. TP SCH ×2 (08:53→21:21)
[2018-09-10] MEDS: DOCUSATE SODIUM 100 MG CAP PO SCH ×2 (08:53→17:00)
[2018-09-10] MEDS: MEMANTINE 10 MG TAB PO SCH ×2 (08:53→21:20)
[2018-09-10] MEDS: QUETIAPINE FUMARATE 25 MG TAB PO SCH ×3 (08:53→21:20)
[2018-09-10] MEDS: HYDRALAZINE HCL 25 MG TAB PO SCH ×3 (08:53→21:20)
[2018-09-10 08:59] LABS: EOSINOPHILS % (MANUAL) 6 % (0-7); HYPOCHROMASIA SLIGHT; LYMPHOCYTES % (MANUAL) 33 % (19-48); MONOCYTES % (MANUAL) 16 % (3.4-9.0); NEUTROPHILS % (MANUAL) 43 % (40-74); PLATELET ESTIMATE ADEQUATE; PLATELET MORPHOLOGY COMMENT NORMAL; RBC MORPHOLOGY COMMENT NORMAL
--- NOTE | 2018-09-10 13:14 | NUR ---
IM-Progress note OVERNIGHT: Agitated REVIEW OF SYSTEMS: Unobtainable. PHYSICAL EXAMINATION VITAL SIGNS: Reviewed. GENERAL APPEARANCE: A tired-appearing man, resting in bed. HEENT: Anicteric. CARDIOVASCULAR: Normal S1 and S2. LUNGS: Moderate breath sounds. ABDOMEN: Soft and nontender. EXTREMITIES: No edema. SKIN: Multiple ulcers, stage 3, left face, left chest, and knees. PSYCHIATRIC: Flat affect. LABS: Reviewed. MEDICATIONS: Reviewed. ASSESSMENT: An 82-year-old man with: 1. Acute psychosis and bipolar disorder. 2. Fall and physical deconditioning. 3. Electrolyte derangement. PLAN 1. Continue sitter. 2. Continue guardianship papers. 3. Continue medical treatment. Relative hypotension- reduce antiHTN meds; Check labs; Hemodynamically stable labs ok; cont care; PRN sitter No issues; continue care; Cont supportive care; Labile BP ; monitor Supportive care; No issues; cont care; Agitated overnight- ativan administered; cont care; Check labs tomorrow; labs rev'd and normal; Uvaldo Michel MD, PhD.
--- NOTE | 2018-09-10 19:40 | NUR ---
Received pt in bed watching tv. No S/S of resp distress. Call light within reach and instructed to call for assistance. Pt verbalized understanding.
[2018-09-11] VITALS (8 sets, daily range): BP systolic 115–150; BP diastolic 58–80
--- NOTE | 2018-09-11 08:50 | NUR ---
Pt received resting in bed. No c/o pain or discomfort noted or voiced. All meds given as ordered. Call solorio within reach. Will monitor
[2018-09-11] MEDS: ARTIFICIAL TEARS (OPTH) 15 ML BTL OU SCH ×2 (08:53→17:00)
[2018-09-11] MEDS: DOCUSATE SODIUM 100 MG CAP PO SCH ×2 (08:54→17:00)
[2018-09-11] MEDS: MEMANTINE 10 MG TAB PO SCH ×2 (08:54→21:06)
[2018-09-11] MEDS: METOPROLOL TARTRATE 25 MG TAB PO SCH ×2 (08:54→21:05)
[2018-09-11] MEDS: NIFEDIPINE CR 30 MG TAB PO SCH (08:54)
[2018-09-11] MEDS: HYDRALAZINE HCL 25 MG TAB PO SCH ×3 (08:54→21:50)
[2018-09-11] MEDS: QUETIAPINE FUMARATE 25 MG TAB PO SCH ×3 (08:55→21:06)
[2018-09-11] MEDS: BALSAM PERU/CASTOR OIL 60 GM OINT...G. TP SCH ×2 (08:55→21:06)
[2018-09-11] MEDS: HALOPERIDOL LACTATE 5 MG/ML VIAL IM PRN (14:30)
--- NOTE | 2018-09-11 14:30 | NUR ---
Pt requested to ambulate around the unit, upon arrival to next unit ([facility]) pt attempting to open the door, and leave via stairs. Pt stated that he needed to go home. Assisted pt into wheelchair, and returned to room. Pt given Haldol as ordered. Pt placed on one to one observation. Nurse poultry farm supervisor & attending notified. Will monitor
[2018-09-12 06:10] VITALS: BP 170/91
[2018-09-12 08:28] VITALS: BP 174/90
[2018-09-12 09:00] VITALS: BP 174/90
[2018-09-12] MEDS: BALSAM PERU/CASTOR OIL 60 GM OINT...G. TP SCH ×2 (09:00→20:35)
[2018-09-12] MEDS: QUETIAPINE FUMARATE 25 MG TAB PO SCH ×3 (09:00→20:35)
[2018-09-12] MEDS: ARTIFICIAL TEARS (OPTH) 15 ML BTL OU SCH ×2 (09:00→16:40)
[2018-09-12] MEDS: NIFEDIPINE CR 30 MG TAB PO SCH (09:00)
[2018-09-12] MEDS: METOPROLOL TARTRATE 25 MG TAB PO SCH ×2 (09:00→20:35)
[2018-09-12] MEDS: MEMANTINE 10 MG TAB PO SCH ×2 (09:00→20:35)
[2018-09-12] MEDS: HYDRALAZINE HCL 25 MG TAB PO SCH ×3 (09:00→20:35)
[2018-09-12] MEDS: DOCUSATE SODIUM 100 MG CAP PO SCH ×2 (09:00→17:14)
--- NOTE | 2018-09-12 09:00 | NUR ---
Pt received resting in chair with sitter at bedside. Alert and oriented x3 but trying to leave unit stating that he wants to go home. All meds given as ordered. Emotional support given. Call solorio within reach. Will monitor
--- NOTE | 2018-09-12 09:14 | NUR ---
IM-Progress note OVERNIGHT: Agitated REVIEW OF SYSTEMS: Unobtainable. PHYSICAL EXAMINATION VITAL SIGNS: Reviewed. GENERAL APPEARANCE: A tired-appearing man, resting in bed. HEENT: Anicteric. CARDIOVASCULAR: Normal S1 and S2. LUNGS: Moderate breath sounds. ABDOMEN: Soft and nontender. EXTREMITIES: No edema. SKIN: Multiple ulcers, stage 3, left face, left chest, and knees. PSYCHIATRIC: Flat affect. LABS: Reviewed. MEDICATIONS: Reviewed. ASSESSMENT: An 82-year-old man with: 1. Acute psychosis and bipolar disorder. 2. Fall and physical deconditioning. 3. Electrolyte derangement. PLAN 1. Continue sitter. 2. Continue guardianship papers. 3. Continue medical treatment. Relative hypotension- reduce antiHTN meds; Check labs; Hemodynamically stable labs ok; cont care; PRN sitter No issues; continue care; Cont supportive care; Labile BP ; monitor Supportive care; No issues; cont care; Agitated overnight- ativan administered; cont care; Check labs tomorrow; labs rev'd and normal; Cont care; Increasing HTN- prn metoprolol IV Uvaldo Michel MD, PhD.
[2018-09-12] MEDS ORDERED: METOPROLOL TARTRATE INJ 1 MG/ML VIAL IV PRN (09:15)
[2018-09-12 12:47] VITALS: BP 91/53
[2018-09-12] MEDS: ZIPRASIDONE 20 MG VIAL IM PRN (14:50)
[2018-09-12 16:21] VITALS: BP 100/50
--- NOTE | 2018-09-12 19:15 | NUR ---
Completed bedside rounds with morning nurse. Pt lying in bed HOB 30 degrees. Alert to name. Denies pain at this time. No acute distress noted.
[2018-09-12 20:45] VITALS: BP 129/68
[2018-09-13 08:00] VITALS: BP 129/73
[2018-09-13] MEDS: HYDRALAZINE HCL 25 MG TAB PO SCH ×3 (09:00→20:22)
[2018-09-13] MEDS: ARTIFICIAL TEARS (OPTH) 15 ML BTL OU SCH ×2 (09:00→16:32)
[2018-09-13] MEDS: NIFEDIPINE CR 30 MG TAB PO SCH (09:00)
[2018-09-13] MEDS: METOPROLOL TARTRATE 25 MG TAB PO SCH ×2 (09:00→20:22)
[2018-09-13] MEDS: MEMANTINE 10 MG TAB PO SCH ×2 (09:00→20:22)
[2018-09-13] MEDS: DOCUSATE SODIUM 100 MG CAP PO SCH ×2 (09:00→16:33)
[2018-09-13] MEDS: QUETIAPINE FUMARATE 25 MG TAB PO SCH ×3 (09:00→20:22)
[2018-09-13] MEDS: BALSAM PERU/CASTOR OIL 60 GM OINT...G. TP SCH ×2 (09:00→20:22)
[2018-09-13 12:00] VITALS: BP 147/92
--- NOTE | 2018-09-13 13:30 | NUR ---
Pt is very agitated at this time. Continuously trying to get out of the bed. Pt is able to to turn of bed alarm. MAG rueda was administered and notified warehouse lead that 1:1 sitter is needed due to his behavior. baggage handling supervisor states she will try to get a sitter in place.
[2018-09-13] MEDS: ZIPRASIDONE 20 MG VIAL IM PRN ×2 (13:40→22:49)
--- NOTE | 2018-09-13 15:00 | NUR ---
Pt has calmed down and is resting quietly after PRN geodon was given.
[2018-09-13 20:45] VITALS: BP 164/79
--- NOTE | 2018-09-14 07:18 | NUR ---
PATIENT IN BED RESTING WITH NO S/S OF PAIN OR DISCOMFORT. SITTER AT BED SIDE. BED IN LOWER POSITION, CALL LIGHT AT REACH.
[2018-09-14 07:25] VITALS: BP 172/75
[2018-09-14 08:52] VITALS: BP 172/95
[2018-09-14] MEDS: HYDRALAZINE HCL 25 MG TAB PO SCH ×3 (09:23→21:00)
[2018-09-14] MEDS: DOCUSATE SODIUM 100 MG CAP PO SCH ×2 (09:23→18:01)
[2018-09-14] MEDS: ARTIFICIAL TEARS (OPTH) 15 ML BTL OU SCH ×2 (09:23→18:01)
[2018-09-14] MEDS: METOPROLOL TARTRATE 25 MG TAB PO SCH ×2 (09:24→21:32)
[2018-09-14] MEDS: BALSAM PERU/CASTOR OIL 60 GM OINT...G. TP SCH ×2 (09:24→21:28)
[2018-09-14] MEDS: NIFEDIPINE CR 30 MG TAB PO SCH (09:24)
[2018-09-14] MEDS: MEMANTINE 10 MG TAB PO SCH ×2 (09:24→21:28)
[2018-09-14] MEDS: QUETIAPINE FUMARATE 25 MG TAB PO SCH ×3 (09:24→21:27)
[2018-09-14 11:48] VITALS: BP 125/60
[2018-09-14 16:00] VITALS: BP 115/56
[2018-09-14] MEDS: ZIPRASIDONE 20 MG VIAL IM PRN (18:20)
--- NOTE | 2018-09-14 18:43 | NUR ---
PATIENT NOTED WITH AGITATION. KICKING, PUNCHING, AND CURSING STAFF. PRN GEODON GIVEN ORDERED. IN BED RESTING AT THIS TIME. 1:1 SITTER AT BED SIDE. CALL LIGHT AT REACH.
--- NOTE | 2018-09-14 19:10 | NUR ---
RECEIVED PT RESTING IN BED WITH EYES OPEN.NO S/S OF DISTRESS NOTED.RESPIRATIONS EVEN/NON LABORED.1:1 SITTER AT THE BEDSIDE.BED IN LOWEST/LOCKED POSITION.WILL CONTINUE TO MONITOR.
[2018-09-14 20:00] VITALS: BP 112/58
[2018-09-14 21:32] VITALS: BP 118/58
[2018-09-15] VITALS (8 sets, daily range): BP systolic 110–184; BP diastolic 58–98
[2018-09-15] MEDS: ZIPRASIDONE 20 MG VIAL IM PRN (06:04)
--- NOTE | 2018-09-15 06:04 | NUR ---
PT NOTED SCREAMING AND NOTED VERY AGITATED KEEPS ON TRYING TO GET OUT OF BED.ATTEMPTED TO REDIRECT PT WITH NO SUCCESS,PT SCREAMING "GET OUT OF HERE" AND TALKS INAPPROPRIATELY TO STAFF MEMBERS.PRN MEDICATION FOR AGITATION GIVEN PER MAR.SITTER AT BEDSIDE.WILL CONTINUE TO MONITOR.
--- NOTE | 2018-09-15 06:53 | NUR ---
IM-Progress note OVERNIGHT: Agitated REVIEW OF SYSTEMS: Unobtainable. PHYSICAL EXAMINATION VITAL SIGNS: Reviewed. GENERAL APPEARANCE: A tired-appearing man, resting in bed. HEENT: Anicteric. CARDIOVASCULAR: Normal S1 and S2. LUNGS: Moderate breath sounds. ABDOMEN: Soft and nontender. EXTREMITIES: No edema. SKIN: Multiple ulcers, stage 3, left face, left chest, and knees. PSYCHIATRIC: Flat affect. LABS: Reviewed. MEDICATIONS: Reviewed. ASSESSMENT: An 82-year-old man with: 1. Acute psychosis and bipolar disorder. 2. Fall and physical deconditioning. 3. Electrolyte derangement. PLAN 1. Continue sitter. 2. Continue guardianship papers. 3. Continue medical treatment. Relative hypotension- reduce antiHTN meds; Check labs; Hemodynamically stable labs ok; cont care; PRN sitter No issues; continue care; Cont supportive care; Labile BP ; monitor Supportive care; No issues; cont care; Agitated overnight- ativan administered; cont care; Check labs tomorrow; labs rev'd and normal; Cont care; Increasing HTN- prn metoprolol IV cont care DOS: 09/15/18; cont supportive care. Uvaldo Michel MD, PhD.
--- NOTE | 2018-09-15 06:53 | NUR ---
DOS: 09/14/18 at 9am IM-Progress note OVERNIGHT: Agitated REVIEW OF SYSTEMS: Unobtainable. PHYSICAL EXAMINATION VITAL SIGNS: Reviewed. GENERAL APPEARANCE: A tired-appearing man, resting in bed. HEENT: Anicteric. CARDIOVASCULAR: Normal S1 and S2. LUNGS: Moderate breath sounds. ABDOMEN: Soft and nontender. EXTREMITIES: No edema. SKIN: Multiple ulcers, stage 3, left face, left chest, and knees. PSYCHIATRIC: Flat affect. LABS: Reviewed. MEDICATIONS: Reviewed. ASSESSMENT: An 82-year-old man with: 1. Acute psychosis and bipolar disorder. 2. Fall and physical deconditioning. 3. Electrolyte derangement. PLAN 1. Continue sitter. 2. Continue guardianship papers. 3. Continue medical treatment. Relative hypotension- reduce antiHTN meds; Check labs; Hemodynamically stable labs ok; cont care; PRN sitter No issues; continue care; Cont supportive care; Labile BP ; monitor Supportive care; No issues; cont care; Agitated overnight- ativan administered; cont care; Check labs tomorrow; labs rev'd and normal; Cont care; Increasing HTN- prn metoprolol IV cont care Uvaldo Michel MD, PhD.
--- NOTE | 2018-09-15 07:03 | NUR ---
REPORT GIVEN TO ONCOMING NURSE,WALKING ROUNDS MADE.PT SLEEPING IN BED WITH EYES CLOSED.RESPIRATIONS EVEN/NON LABORED.
[2018-09-15] MEDS: ARTIFICIAL TEARS (OPTH) 15 ML BTL OU SCH ×2 (08:35→17:00)
[2018-09-15] MEDS: QUETIAPINE FUMARATE 25 MG TAB PO SCH ×3 (08:35→21:50)
[2018-09-15] MEDS: HYDRALAZINE HCL 25 MG TAB PO SCH ×3 (08:35→21:50)
[2018-09-15] MEDS: METOPROLOL TARTRATE 25 MG TAB PO SCH ×2 (08:35→21:50)
[2018-09-15] MEDS: MEMANTINE 10 MG TAB PO SCH ×2 (08:35→21:50)
[2018-09-15] MEDS: DOCUSATE SODIUM 100 MG CAP PO SCH ×2 (08:35→17:00)
[2018-09-15] MEDS: BALSAM PERU/CASTOR OIL 60 GM OINT...G. TP SCH ×2 (08:35→21:51)
[2018-09-15] MEDS: NIFEDIPINE CR 30 MG TAB PO SCH (08:35)
--- NOTE | 2018-09-15 08:35 | NUR ---
PATIENT NOTED WITH AGITATION IN AM. ASSISTED TO THE RESTROOM REQUESTED, HAD A MALL BM. ASSISTED BACK TO BED BY 2 STAFFS. AM MEDICATIONS GIVEN ORDERED, PATIENT TOLERATED THEM WELL. BED ALARM ACTIVATED AND BREAKFAST SERVED. PATIENT STATED THAT HE DOES NOT NEED HELP. CALL LIGHT GIVEN, PATIENT INSTRUCTED TO CALL FOR ASSISTANCE NEEDED WITH RETURN DEMONSTRATION.
--- NOTE | 2018-09-15 09:40 | NUR ---
AT AROUND 0930 PATIENT OBSERVED ON THE FLOOR LAYING ON HIS RIGHT SIDE BETWEEN THE BED SIDE AND THE SIDE TABLE. BED ALARM APPLIED, BUT DID NOT SOUNDED OFF. WHEN ASKED WHAT HAPPEN, PATIENT STATED "I DON'T KNOW". HEAD TO TOE ASSESSMENT PERFORMED. PATIENT ASSISTED BACK TO BED BY THREE STAFFS, DENIED PAIN AT THIS TIME. V/S 96.8-67-18-88/50. VP SITE NOTIFIED. NOTIFIED OF FALL AND V/S, NEW ORDER RECEIVED FOR CT OF THE HEAD. BED IN LOWER POSITION, CALL LIGHT AT REACH. BED ALARM REACTIVATED AND VERIFIED. PCT SITTING AT BED SIDE FOR CLOSE MONITORING.
--- NOTE | 2018-09-15 10:00 | NUR ---
PATIENT OFF UNIT TO RADIOLOGY. V/S AT THIS TIME 96.5-70-110/68/18-97% ON RA.
--- NOTE | 2018-09-15 10:25 | NUR ---
PATIENT BACK TO UNIT FROM RADIOLOGY, REQUESTED AND RECEIVED CRANBERRY JUICE. REPOSITIONED IN BED ,CALL LIGHT AT EASY REACH, BED ALARM ACTIVATED. V/S 96.8-75-18-127/75-97%. WILL CLOSELY MONITOR PATIENT.
--- NOTE | 2018-09-15 10:52 | Diagnostic Imaging Report ---
Exam: Head CT without contrast History: Trauma, fall Comparison studies: Head CT 06/01/2018 Technique: Axial images were obtained from the skull base to the vertex. Coronal and sagittal images reconstructed from the axial data. Dose modulation, iterative reconstruction, and/or weight based adjustment of the mA/kV was utilized to reduce the radiation dose to as low as reasonably achievable. Radiation dose: Total DLP: 921 mGy*cm. Estimated effective dose: DLP x 0.015 Intravenous contrast: None Findings: Scalp: No abnormalities. Bones: No fractures, blastic or lytic lesions. Brain sulci: Mildly prominent. Ventricles: Moderate compensatory dilatation of the right temporal horn due to temporal lobe volume loss. Mild compensatory dilatation of the remaining ventricles. No hydrocephalus. Extra-axial spaces: No masses, no fluid collection. Parenchyma: No mass, acute hemorrhage or acute or chronic cortical vascular infarcts. Scattered hypodensities in the supratentorial white matter are nonspecific most compatible with chronic microvascular ischemic changes. Chronic lacunar infarcts in the bilateral singh radiata, left subinsular region and right globus pallidus are unchanged. Disproportionate volume loss within the right anteromedial temporal lobe and along the right hippocampus is unchanged. This finding is nonspecific but may reflect sequela of prior nonspecific limbic encephalitis, mesial temporal sclerosis (especially there is a history of seizures) or possibly be neurodegenerative in etiology. Sellar/suprasellar region: No abnormalities. Craniocervical junction: Patent foramen magnum. No Chiari one malformation. Incidental findings: Atherosclerotic calcifications in the carotid siphons. Bilateral lens replacements for previous cataract surgery. IMPRESSION: No acute abnormalities. Chronic findings: 1. Mild chronic microvascular ischemic changes with chronic lacunar infarcts as described. 2. Mild generalized volume loss with nonspecific disproportionate right anteromedial temporal lobe and hippocampal volume loss as described. Signed by: Dr. Brian García M.D. on 09/15/2018 10:49 AM
--- NOTE | 2018-09-15 12:22 | NUR ---
IN BED RESTING WITH NO RESPIRATORY DISTRESS OBSERVED. PATIENT HAS A 1:1 SITTER AT THIS TIME. BED IN LOWER POSITION, CALL LIGHT AT REACH. CALL LIGHT ACTIVATED.
--- NOTE | 2018-09-15 15:30 | NUR ---
PATIENT SITTING UP IN BED TALKING TO 1:1 SITTER. ATE 100% OF LUNCH. DENIED PAIN OR DISCOMFORT. CALL LIGHT AT REACH.
--- NOTE | 2018-09-15 19:06 | NUR ---
RECEIVED PT RESTING IN BED SLEEPING WITH EYES CLOSED.RESPIRATIONS EVEN/NON LABORED.1:1 SITTER AT THE BEDSIDE.BED IN LOWEST/LOCKED POSITION.WILL CONTINUE TO MONITOR.
[2018-09-16 04:00] VITALS: BP 134/66
[2018-09-16 07:20] VITALS: BP 118/66
--- NOTE | 2018-09-16 07:20 | NUR ---
ASSISTED WITH COMPLETE BED BATH, WARM BLANKET PROVIDED. IN BED WITH CALL LIGHT AT REACH. 1:1 SITTER AT BED SIDE.
[2018-09-16 07:45] VITALS: BP 118/66
[2018-09-16] MEDS: HYDRALAZINE HCL 25 MG TAB PO SCH ×3 (09:00→21:00)
[2018-09-16] MEDS: ARTIFICIAL TEARS (OPTH) 15 ML BTL OU SCH ×2 (09:00→17:34)
[2018-09-16] MEDS: NIFEDIPINE CR 30 MG TAB PO SCH (09:00)
[2018-09-16] MEDS: DOCUSATE SODIUM 100 MG CAP PO SCH ×2 (10:00→17:34)
[2018-09-16] MEDS: MEMANTINE 10 MG TAB PO SCH ×2 (10:00→21:48)
[2018-09-16] MEDS: QUETIAPINE FUMARATE 25 MG TAB PO SCH ×3 (10:00→21:48)
[2018-09-16] MEDS: METOPROLOL TARTRATE 25 MG TAB PO SCH ×2 (10:00→21:48)
[2018-09-16] MEDS: BALSAM PERU/CASTOR OIL 60 GM OINT...G. TP SCH ×2 (10:00→21:49)
[2018-09-16 12:30] VITALS: BP 97/56
[2018-09-16 15:50] VITALS: BP 96/60
--- NOTE | 2018-09-16 16:33 | NUR ---
PATIENT ASSISTED TO THE RESTROOM AND BACK TO BED. HAD A MODERATE BM. CALL LIGHT AT REACH, SITTER AT BED SIDE.
--- NOTE | 2018-09-16 17:29 | NUR ---
IM-Progress note OVERNIGHT: fell REVIEW OF SYSTEMS: Unobtainable. PHYSICAL EXAMINATION VITAL SIGNS: Reviewed. GENERAL APPEARANCE: A tired-appearing man, resting in bed. HEENT: Anicteric. CARDIOVASCULAR: Normal S1 and S2. LUNGS: Moderate breath sounds. ABDOMEN: Soft and nontender. EXTREMITIES: No edema. SKIN: Multiple ulcers, stage 3, left face, left chest, and knees. PSYCHIATRIC: Flat affect. LABS: Reviewed. MEDICATIONS: Reviewed. ASSESSMENT: An 82-year-old man with: 1. Acute psychosis and bipolar disorder. 2. Fall and physical deconditioning. 3. Electrolyte derangement. PLAN 1. Continue sitter. 2. Continue guardianship papers. 3. Continue medical treatment. Relative hypotension- reduce antiHTN meds; Check labs; Hemodynamically stable labs ok; cont care; PRN sitter No issues; continue care; Cont supportive care; Labile BP ; monitor Supportive care; No issues; cont care; Agitated overnight- ativan administered; cont care; Check labs tomorrow; labs rev'd and normal; Cont care; Increasing HTN- prn metoprolol IV cont care No more falls; CT head negative. Uvaldo Michel MD, PhD.
[2018-09-16 19:02] VITALS: BP 103/53
[2018-09-17] VITALS (7 sets, daily range): BP systolic 103–139; BP diastolic 52–75
--- NOTE | 2018-09-17 01:30 | Progress Note ---
DATE: September 14, 2018 PSYCHIATRIC PROGRESS NOTE Patient is in the room with a sitter. He is alert, awake, and oriented to situation. He stated he is doing okay. He denies any depression. He denies any anxiety. He denies any hallucination. He denies any side effects of medication. As per nursing staff, patient is intermittently agitated. He is getting his p.r.n. IM medication at night. ASSESSMENT: 1. Unspecified psychosis. 2. Unspecified dementia. PLAN: 1. To increase Seroquel from 50 mg p.o. nightly to 75 mg p.o. nightly. 2. Continue with Namenda. 3. Continue with Seroquel twice a day. 4. Continue with Geodon p.r.n. IM. 5. Monitor for agitation. 6. Continue with Seroquel p.r.n. p.o.. Dictated by BERNARD Segundo Job#: [id number]
[2018-09-17 05:55] LABS: HEMATOCRIT 34.6 % (38.2-49.6); MEAN CORPUSCULAR HEMOGLOBIN 28.4 pg (28-32); MEAN CORPUSCULAR HGB CONC 31.8 g/dL (31-35); MEAN CORPUSCULAR VOLUME 89.4 fL (81-99); PLATELET COUNT 164 x10e3/uL (140-360); RED BLOOD COUNT 3.87 x10e6/uL (4.3-5.7); RED CELL DISTRIBUTION WIDTH 14.7 % (11.7-14.4)
[2018-09-17 06:15] LABS: ANION GAP 14.6 mmol/L (8-16); BLOOD UREA NITROGEN 38 mg/dL (7-26); BUN/CREATININE RATIO 36 (6-25); CALCIUM 9.3 mg/dL (8.4-10.2); CARBON DIOXIDE 20 mmol/L (22-29); CHLORIDE 109 mmol/L (98-107); CREATININE, SERUM 1.06 mg/dL (0.72-1.25); EST GLOMERULAR FILTRATION RATE > 60 ML/MIN (60-); GLUCOSE 87 mg/dL (74-118); POTASSIUM 3.6 mmol/L (3.5-5.1); SODIUM 140 mmol/L (136-145)
--- NOTE | 2018-09-17 07:11 | NUR ---
received pt lying in bed with eyes closed, Resp even and unlabored. call light within reach. 1:1 sitter at bedside. bed in low and locked position, bed alarm on.
[2018-09-17] MEDS: ARTIFICIAL TEARS (OPTH) 15 ML BTL OU SCH ×2 (10:15→17:12)
[2018-09-17] MEDS: DOCUSATE SODIUM 100 MG CAP PO SCH ×2 (10:16→17:12)
[2018-09-17] MEDS: NIFEDIPINE CR 30 MG TAB PO SCH (10:16)
[2018-09-17] MEDS: QUETIAPINE FUMARATE 25 MG TAB PO SCH ×3 (10:16→20:29)
[2018-09-17] MEDS: BALSAM PERU/CASTOR OIL 60 GM OINT...G. TP SCH ×2 (10:16→22:11)
[2018-09-17] MEDS: MEMANTINE 10 MG TAB PO SCH ×2 (10:16→20:29)
[2018-09-17] MEDS: HYDRALAZINE HCL 25 MG TAB PO SCH ×3 (10:16→21:30)
[2018-09-17] MEDS: METOPROLOL TARTRATE 25 MG TAB PO SCH ×2 (10:16→21:30)
[2018-09-17 10:37] LABS: BAND NEUTROPHILS % (MANUAL) 2 %; EOSINOPHILS % (MANUAL) 2 % (0-7); LYMPHOCYTES % (MANUAL) 26 % (19-48); MONOCYTES % (MANUAL) 13 % (3.4-9.0); NEUTROPHILS % (MANUAL) 57 % (40-74)
[2018-09-17 10:38] LABS: PLATELET ESTIMATE ADEQUATE; RBC MORPHOLOGY COMMENT NORMAL
[2018-09-17 10:39] LABS: ANISOCYTOSIS SLIGHT; SMUDGE CELLS FEW
--- NOTE | 2018-09-17 19:09 | NUR ---
IM-Progress note OVERNIGHT: no events REVIEW OF SYSTEMS: Unobtainable. PHYSICAL EXAMINATION VITAL SIGNS: Reviewed. GENERAL APPEARANCE: A tired-appearing man, resting in bed. HEENT: Anicteric. CARDIOVASCULAR: Normal S1 and S2. LUNGS: Moderate breath sounds. ABDOMEN: Soft and nontender. EXTREMITIES: No edema. SKIN: Multiple ulcers, stage 3, left face, left chest, and knees. PSYCHIATRIC: Flat affect. LABS: Reviewed. MEDICATIONS: Reviewed. ASSESSMENT: An 82-year-old man with: 1. Acute psychosis and bipolar disorder. 2. Fall and physical deconditioning. 3. Electrolyte derangement. PLAN 1. Continue sitter. 2. Continue guardianship papers. 3. Continue medical treatment. Relative hypotension- reduce antiHTN meds; Check labs; Hemodynamically stable labs ok; cont care; PRN sitter No issues; continue care; Cont supportive care; Labile BP ; monitor Supportive care; No issues; cont care; Agitated overnight- ativan administered; cont care; Check labs tomorrow; labs rev'd and normal; Cont care; Increasing HTN- prn metoprolol IV cont care No more falls; CT head negative. Agitated- meds per psych; cont supportive care; Uvaldo Michel MD, PhD.
--- NOTE | 2018-09-17 19:15 | NUR ---
RECEIVED PT IN BED AWAKE AND ALERT. NO S/S OF DISTRESS. DENIES PAIN AT THIS TIME. NO S/S OF RESP DISTRESS. CALL LIGHT WITHIN REACH AND INSTRUCTED TO CALL FOR ASSISTANCE.
[2018-09-17] MEDS: ZIPRASIDONE 20 MG VIAL IM PRN (19:40)
--- NOTE | 2018-09-17 19:45 | NUR ---
PT SWINGING PUNCHES X8, [id number], AND USING FOUL LANGUAGE WITH EACH INTERACTIONS. UNABLE TO KEEP PT IN BED AND PT IS RISK FOR FALLS. BED ALARM ON.
--- NOTE | 2018-09-17 19:50 | NUR ---
GEODONE PRN GIVEN. TOLERATED MED WELL. MENDEZ.
--- NOTE | 2018-09-17 23:56 | NUR ---
PT REFUSED 0000 V/S CHECK.
--- NOTE | 2018-09-18 01:11 | NUR ---
PT ATTEMPTED TO GET OUT BED. POSITIONED PT BACK TO BED. AND INSTRUCTED TO STAY IN BED. BED ALARM ON.
--- NOTE | 2018-09-18 03:44 | NUR ---
PT FOUND OUTSIDE OF THE ROOM ATTEMPTING TO LEAVE FLOOR WITH WALKER. DIRECTED PT BACK TO ROOM. INSTRUCTED TO STAY IN BED. PT VERBALIZED UNDERSTANDING.
[2018-09-18 04:00] VITALS: BP 130/72
--- NOTE | 2018-09-18 07:10 | NUR ---
Received patient laying in bed awake and alert to himself, he is yelling at the sitter who is at the bedside, patient is agitated at this time. However, he was pleasant when speaking to me. Will continue to monitor patient closely, he denies needing anything at this time.
[2018-09-18 07:47] VITALS: BP 149/70
[2018-09-18] MEDS: BALSAM PERU/CASTOR OIL 60 GM OINT...G. TP SCH ×2 (09:00→21:00)
[2018-09-18] MEDS: ARTIFICIAL TEARS (OPTH) 15 ML BTL OU SCH ×2 (09:00→17:40)
[2018-09-18] MEDS: NIFEDIPINE CR 30 MG TAB PO SCH (09:10)
[2018-09-18] MEDS: DOCUSATE SODIUM 100 MG CAP PO SCH ×2 (09:10→17:40)
[2018-09-18] MEDS: MEMANTINE 10 MG TAB PO SCH ×2 (09:10→21:11)
[2018-09-18] MEDS: METOPROLOL TARTRATE 25 MG TAB PO SCH ×2 (09:10→21:11)
[2018-09-18] MEDS: HYDRALAZINE HCL 25 MG TAB PO SCH ×3 (09:10→21:12)
[2018-09-18] MEDS: QUETIAPINE FUMARATE 25 MG TAB PO SCH ×3 (09:10→21:11)
--- NOTE | 2018-09-18 09:10 | NUR ---
Patient took AM medications but is easily agitated and demanding, raising voice to myself and sitter at the bedside. He has no complaints and denies needing anything. Will continue to monitor. Will obtain UA ordered by
[2018-09-18 12:01] VITALS: BP 108/58
[2018-09-18 15:50] VITALS: BP 127/63
--- NOTE | 2018-09-18 17:30 | NUR ---
patient is sitting up in bed awake and eating dinner. Sitter at the bedside. Patient continues to intermittently yell and make sexual comments toward staff, easily agitated. Patient took PO medications without problems, denies needing anything, will continue to monitor.
[2018-09-18 18:12] LABS: BILIRUBIN,URINE NEGATIVE (NEGATIVE); CLARITY,URINE CLEAR (CLEAR); COLOR,URINE YELLOW (YELLOW); KETONES,URINE NEGATIVE (NEGATIVE); LEUKOCYTE ESTERASE ,URINE TRACE (NEGATIVE); NITRITE,URINE NEGATIVE (NEGATIVE); PROTEIN,URINE DIPSTICK NEGATIVE (NEGATIVE); URINE UROBILINOGEN 0.2 mg/dL (0.2 - 1)
[2018-09-18 18:35] LABS: RBC,URINE 0-5 /HPF (0-5); WBC,URINE (MAN) 0-5 /HPF (0-5)
[2018-09-18 18:36] LABS: BACTERIA,URINE FEW /HPF; EPITHELIAL CELLS,URINE FEW /LPF
[2018-09-18 20:00] VITALS: BP 129/68
--- NOTE | 2018-09-18 20:37 | NUR ---
RECEIVED PT LYING IN THE BED SLEEPING .NO ACUTE DIS TRESS NOTED .SITTER AT THE BEDSIDE .CALL LIGHT WITH IN REACH .CONTINUE TO MONITOR E
[2018-09-18 21:15] VITALS: BP 128/68
[2018-09-19] VITALS (8 sets, daily range): BP systolic 88–141; BP diastolic 52–79
--- NOTE | 2018-09-19 06:33 | NUR ---
IM-Progress note OVERNIGHT: no events REVIEW OF SYSTEMS: Unobtainable. PHYSICAL EXAMINATION VITAL SIGNS: Reviewed. GENERAL APPEARANCE: A tired-appearing man, resting in bed. HEENT: Anicteric. CARDIOVASCULAR: Normal S1 and S2. LUNGS: Moderate breath sounds. ABDOMEN: Soft and nontender. EXTREMITIES: No edema. SKIN: Multiple ulcers, stage 3, left face, left chest, and knees. PSYCHIATRIC: Flat affect. LABS: Reviewed. MEDICATIONS: Reviewed. ASSESSMENT: An 82-year-old man with: 1. Acute psychosis and bipolar disorder. 2. Fall and physical deconditioning. 3. Electrolyte derangement. PLAN 1. Continue sitter. 2. Continue guardianship papers. 3. Continue medical treatment. Relative hypotension- reduce antiHTN meds; Check labs; Hemodynamically stable labs ok; cont care; PRN sitter No issues; continue care; Cont supportive care; Labile BP ; monitor Supportive care; No issues; cont care; Agitated overnight- ativan administered; cont care; Check labs tomorrow; labs rev'd and normal; Cont care; Increasing HTN- prn metoprolol IV cont care No more falls; CT head negative. Agitated- meds per psych; cont supportive care; Low grade fevers; labs rev'd; check UA. UA negative; Uvaldo Michel MD, PhD.
--- NOTE | 2018-09-19 07:25 | NUR ---
PATIENT IN BED RESTING WITH EYES CLOSED, NO S/S OF DISCOMFORT NOTED. SITTER AT BED SIDE, BED IN LOWER POSITION, CALL LIGHT AT REACH.
--- NOTE | 2018-09-19 07:25 | NUR ---
REPORT GIVEN TO THE ONCOMING NURSE.
[2018-09-19] MEDS: DOCUSATE SODIUM 100 MG CAP PO SCH ×2 (09:00→17:47)
[2018-09-19] MEDS: HYDRALAZINE HCL 25 MG TAB PO SCH ×3 (09:00→21:00)
[2018-09-19] MEDS: METOPROLOL TARTRATE 25 MG TAB PO SCH ×2 (09:00→21:00)
[2018-09-19] MEDS: NIFEDIPINE CR 30 MG TAB PO SCH (09:00)
[2018-09-19] MEDS: QUETIAPINE FUMARATE 25 MG TAB PO SCH ×3 (09:00→21:00)
[2018-09-19] MEDS: MEMANTINE 10 MG TAB PO SCH ×2 (09:00→21:00)
[2018-09-19] MEDS: BALSAM PERU/CASTOR OIL 60 GM OINT...G. TP SCH ×2 (11:48→21:00)
[2018-09-19] MEDS: ARTIFICIAL TEARS (OPTH) 15 ML BTL OU SCH ×2 (11:48→17:47)
--- NOTE | 2018-09-19 11:49 | NUR ---
PATIENT REFUSED HIS AM MEDICATIONS AFTER 3 ATTEMPTS. IN BED RESTING WITH EYES CLOSED, NO RESPIRATORY DISTRESS OBSERVED. CALL LIGHT AT REACH, SITTER AT BED SIDE.
--- NOTE | 2018-09-19 16:00 | NUR ---
PATIENT ASSISTED WITH COMPLETE BED BATH, REPOSITIONED IN BED. CALL LIGHT AT REACH, SITTER AT BED SIDE.
--- NOTE | 2018-09-19 20:07 | NUR ---
RECEIVED PT IN BED AOX1 .PT IS VERY AGITATED SITTER AT THE SIDE OF THE BED .CONTINUE TO MONITOR .
--- NOTE | 2018-09-20 06:46 | NUR ---
PT AGITATED PT CLAM DOWN AFTER GIVING THE NIGHT MEDICINE .SITTER AT THE BEDSIDE .CALL LIGHT WITH IN REACH AND CONTINUE TO MONITOR
--- NOTE | 2018-09-20 07:19 | NUR ---
REPORT GIVEN TO THE ONCOMING NURSE.
--- NOTE | 2018-09-20 07:35 | NUR ---
PATIENT YELLING AND BEING VERBALLY ABUSIVE, GOT OUT OF BED, ASSISTED BACK TO BED BY 2 STAFFS, REDIRECTED. ASSISTED WITH URINAL, VOIDED 150 CC OF CLEAR YELLOW URINE. DIAPER CHANGED, IN BED WITH CALL LIGHT AT REACH. BED ALARM ACTIVATED.
[2018-09-20 07:40] VITALS: BP 173/89
[2018-09-20 08:03] VITALS: BP 173/89
[2018-09-20] MEDS: MEMANTINE 10 MG TAB PO SCH ×2 (08:05→21:55)
[2018-09-20] MEDS: DOCUSATE SODIUM 100 MG CAP PO SCH ×2 (08:05→18:52)
[2018-09-20] MEDS: METOPROLOL TARTRATE 25 MG TAB PO SCH ×2 (08:05→21:55)
[2018-09-20] MEDS: HYDRALAZINE HCL 25 MG TAB PO SCH ×3 (08:05→21:00)
[2018-09-20] MEDS: QUETIAPINE FUMARATE 25 MG TAB PO SCH ×3 (08:06→21:55)
[2018-09-20] MEDS: NIFEDIPINE CR 30 MG TAB PO SCH (08:06)
[2018-09-20] MEDS: BALSAM PERU/CASTOR OIL 60 GM OINT...G. TP SCH ×2 (09:33→21:55)
[2018-09-20] MEDS: ARTIFICIAL TEARS (OPTH) 15 ML BTL OU SCH ×2 (09:33→17:31)
--- NOTE | 2018-09-20 11:21 | NUR ---
PATIENT IN BED RESTING WITH NO S/S OF DISCOMFORT. SITTER AT BED SIDE, CALL LIGHT AT REACH.
[2018-09-20 11:46] VITALS: BP 94/53
[2018-09-20 16:05] VITALS: BP 109/54
[2018-09-20 20:00] VITALS: BP 111/66
[2018-09-21] VITALS: BP 100/55
[2018-09-21] MEDS: ARTIFICIAL TEARS (OPTH) 15 ML BTL OU SCH ×2 (07:37→16:01)
[2018-09-21] MEDS: NIFEDIPINE CR 30 MG TAB PO SCH (07:37)
[2018-09-21] MEDS: HYDRALAZINE HCL 25 MG TAB PO SCH ×3 (07:37→21:03)
[2018-09-21] MEDS: METOPROLOL TARTRATE 25 MG TAB PO SCH ×2 (07:37→21:07)
[2018-09-21 07:52] VITALS: BP 104/55
--- NOTE | 2018-09-21 09:01 | Progress Note ---
DATE: September 19, 2018 PSYCHIATRIC PROGRESS NOTE Patient was evaluated and events noted. Patient is in the room. He is alert, awake and oriented to self and situation. He continues to be receiving care and uncooperative. He is cursing. He has been agitated and hitting staff. He refused to answer questions. ASSESSMENT: Unspecified psychosis with dementia. PLAN: Increase Seroquel from 25 mg p.o. b.i.d. to 50 mg p.o. b.i.d. Continue with 75 mg p.o. at bedtime of Seroquel. Continue other medications. Monitor for agitation. DICTATED BY BERNARD REES Job#: [id number]
[2018-09-21 09:45] VITALS: BP 104/55
[2018-09-21] MEDS: QUETIAPINE FUMARATE 25 MG TAB PO SCH ×3 (09:48→21:08)
[2018-09-21] MEDS: DOCUSATE SODIUM 100 MG CAP PO SCH ×2 (09:48→17:00)
[2018-09-21] MEDS: MEMANTINE 10 MG TAB PO SCH ×2 (09:48→21:08)
[2018-09-21] MEDS: BALSAM PERU/CASTOR OIL 60 GM OINT...G. TP SCH ×2 (09:48→21:08)
--- NOTE | 2018-09-21 09:50 | NUR ---
Pt received resting in bed. Alert and oriented x3 but can be combative, and agitated if he does not get his way. Oriented to staff and surroundings. Encouraged to press call solorio if help needed. Call solorio within reach. All meds given as ordered. Will monitor
[2018-09-21 12:32] VITALS: BP 112/58
[2018-09-21 20:00] VITALS: BP 135/68
--- NOTE | 2018-09-21 21:00 | NUR ---
PT IS AGITATED .SITTER AT THE BEDSIDE .PT HAS TAKEN ALL NIGHT MEDICINE .CALL LIGHT WITH INN REACH .CONTINUE TO MONITOR
[2018-09-22] VITALS: BP 115/59
--- NOTE | 2018-09-22 06:42 | NUR ---
PT RESTED DURING THE NIGHT .NO ACUTE DISTRESS NOTED SITTER AT THE BEDSIDE
--- NOTE | 2018-09-22 07:12 | NUR ---
REPORT GIVEN TO THE ONCOMING NURSE.
[2018-09-22 08:10] VITALS: BP 115/59
[2018-09-22] MEDS: ARTIFICIAL TEARS (OPTH) 15 ML BTL OU SCH ×2 (09:00→16:24)
--- NOTE | 2018-09-22 09:30 | NUR ---
Pt received resting in bed. On one to one observation due to h/o bipolar, and pt wanting to leave unit. Pt is alert and oriented x2-3. Meds given as ordered. Will monitor
--- NOTE | 2018-09-22 11:15 | NUR ---
Visit made by the Spiritual Care Department Pastoral Visitor, Concha Murray. PV provided pastoral presence, hospitality, and supportive listening. Pastoral Visitor informed pt/family of the scope of [employer] and availability. TISHA DE LUNA Primary Care Coordinator Spiritual Care Department O: [phone] Pager: [phone] ([phone] number calling from)
[2018-09-22] MEDS: HYDRALAZINE HCL 25 MG TAB PO SCH ×3 (11:57→21:00)
[2018-09-22] MEDS: DOCUSATE SODIUM 100 MG CAP PO SCH ×2 (11:57→18:26)
[2018-09-22] MEDS: NIFEDIPINE CR 30 MG TAB PO SCH (11:58)
[2018-09-22] MEDS: METOPROLOL TARTRATE 25 MG TAB PO SCH ×2 (11:58→21:00)
[2018-09-22] MEDS: BALSAM PERU/CASTOR OIL 60 GM OINT...G. TP SCH ×2 (11:58→21:00)
[2018-09-22] MEDS: MEMANTINE 10 MG TAB PO SCH ×2 (11:58→21:00)
[2018-09-22] MEDS: QUETIAPINE FUMARATE 25 MG TAB PO SCH ×3 (11:58→21:00)
[2018-09-22 15:17] VITALS: BP 158/89
[2018-09-22 18:38] VITALS: BP 125/67
--- NOTE | 2018-09-22 18:41 | NUR ---
Pt resting in bed with sitter at bedside. Meds given as ordered. Will endorse to next shift
[2018-09-22 20:00] VITALS: BP 140/70
--- NOTE | 2018-09-22 23:02 | NUR ---
Patient laying in bed with HOB slightly elevated. AAO x 1. Patient reports of pain 0/10. No SOB noted. Sitter at the bedside. No acute distress noted. Bed at low position and locked. Patient in stable condition and will continue to monitor.
[2018-09-23] VITALS: BP 114/77
[2018-09-23 04:00] VITALS: BP 125/73
[2018-09-23 07:57] VITALS: BP 158/78
[2018-09-23 08:30] VITALS: BP 158/78
--- NOTE | 2018-09-23 08:30 | NUR ---
Pt received resting in bed with sitter at bedside. All meds given as ordered. Fall precautions maintained. Emotional support given. Will monitor
[2018-09-23] MEDS: ARTIFICIAL TEARS (OPTH) 15 ML BTL OU SCH ×2 (08:31→17:00)
[2018-09-23] MEDS: HYDRALAZINE HCL 25 MG TAB PO SCH ×3 (08:31→21:00)
[2018-09-23] MEDS: METOPROLOL TARTRATE 25 MG TAB PO SCH ×2 (08:31→21:00)
[2018-09-23] MEDS: MEMANTINE 10 MG TAB PO SCH ×2 (08:31→21:00)
[2018-09-23] MEDS: DOCUSATE SODIUM 100 MG CAP PO SCH ×2 (08:31→18:20)
[2018-09-23] MEDS: QUETIAPINE FUMARATE 25 MG TAB PO SCH ×3 (08:32→21:00)
[2018-09-23] MEDS: NIFEDIPINE CR 30 MG TAB PO SCH (08:32)
[2018-09-23] MEDS: BALSAM PERU/CASTOR OIL 60 GM OINT...G. TP SCH ×2 (08:32→21:00)
--- NOTE | 2018-09-23 09:58 | NUR ---
IM-Progress note OVERNIGHT: no events REVIEW OF SYSTEMS: Unobtainable. PHYSICAL EXAMINATION VITAL SIGNS: Reviewed. GENERAL APPEARANCE: A tired-appearing man, resting in bed. HEENT: Anicteric. CARDIOVASCULAR: Normal S1 and S2. LUNGS: Moderate breath sounds. ABDOMEN: Soft and nontender. EXTREMITIES: No edema. SKIN: Multiple ulcers, stage 3, left face, left chest, and knees. PSYCHIATRIC: Flat affect. LABS: Reviewed. MEDICATIONS: Reviewed. ASSESSMENT: An 82-year-old man with: 1. Acute psychosis and bipolar disorder. 2. Fall and physical deconditioning. 3. Electrolyte derangement. PLAN 1. Continue sitter. 2. Continue guardianship papers. 3. Continue medical treatment. Relative hypotension- reduce antiHTN meds; Check labs; Hemodynamically stable labs ok; cont care; PRN sitter No issues; continue care; Cont supportive care; Labile BP ; monitor Supportive care; No issues; cont care; Agitated overnight- ativan administered; cont care; Check labs tomorrow; labs rev'd and normal; Cont care; Increasing HTN- prn metoprolol IV cont care No more falls; CT head negative. Agitated- meds per psych; cont supportive care; Low grade fevers; labs rev'd; check UA. UA negative; cont care Monitor BP cont care; labs pending; Uvaldo Michel MD, PhD.
--- NOTE | 2018-09-23 19:00 | NUR ---
patient recieved awake, sitting up in bed. patient easily angered and very loud with staff at times. patient frequently attempting to get oob. patient required frequent redirection. 1:1 sitter at the bedside for safety. pm assessment complete. sitter instructed to call for assistance when needed.
[2018-09-23 20:00] VITALS: BP 122/67
[2018-09-23 22:00] VITALS: BP 122/67
[2018-09-24] VITALS: BP 133/74
[2018-09-24 04:00] VITALS: BP 106/57
[2018-09-24 05:47] LABS: HEMATOCRIT 32.2 % (38.2-49.6); HEMOGLOBIN 10.3 g/dL (14.0-18.0); MEAN CORPUSCULAR HEMOGLOBIN 28.1 pg (28-32); MEAN CORPUSCULAR VOLUME 87.7 fL (81-99); PLATELET COUNT 181 x10e3/uL (140-360); RED BLOOD COUNT 3.67 x10e6/uL (4.3-5.7); RED CELL DISTRIBUTION WIDTH 14.1 % (11.7-14.4)
[2018-09-24 06:14] LABS: ANION GAP 11.7 mmol/L (8-16); BLOOD UREA NITROGEN 21 mg/dL (7-26); BUN/CREATININE RATIO 23 (6-25); CALCIUM 9.1 mg/dL (8.4-10.2); CARBON DIOXIDE 23 mmol/L (22-29); CHLORIDE 111 mmol/L (98-107); CREATININE, SERUM 0.91 mg/dL (0.72-1.25); EST GLOMERULAR FILTRATION RATE > 60 ML/MIN (60-); GLUCOSE 100 mg/dL (74-118); POTASSIUM 3.7 mmol/L (3.5-5.1); SODIUM 142 mmol/L (136-145)
[2018-09-24 06:48] LABS: EOSINOPHILS % (MANUAL) 4 % (0-7); LYMPHOCYTES % (MANUAL) 22 % (19-48); MONOCYTES % (MANUAL) 11 % (3.4-9.0); NEUTROPHILS % (MANUAL) 63 % (40-74); PLATELET ESTIMATE ADEQUATE; PLATELET MORPHOLOGY COMMENT NORMAL
[2018-09-24 06:49] LABS: RBC MORPHOLOGY COMMENT NORMAL
[2018-09-24 07:56] VITALS: BP 108/58
[2018-09-24] MEDS: NIFEDIPINE CR 30 MG TAB PO SCH (08:29)
[2018-09-24] MEDS: HYDRALAZINE HCL 25 MG TAB PO SCH ×3 (08:29→21:00)
[2018-09-24] MEDS: ARTIFICIAL TEARS (OPTH) 15 ML BTL OU SCH ×2 (09:00→17:00)
[2018-09-24] MEDS: METOPROLOL TARTRATE 25 MG TAB PO SCH ×2 (09:00→21:00)
[2018-09-24] MEDS: DOCUSATE SODIUM 100 MG CAP PO SCH ×2 (09:00→17:23)
[2018-09-24] MEDS: BALSAM PERU/CASTOR OIL 60 GM OINT...G. TP SCH ×2 (09:20→21:00)
--- NOTE | 2018-09-24 09:43 | NUR ---
IM-Progress note OVERNIGHT: no events REVIEW OF SYSTEMS: Unobtainable. PHYSICAL EXAMINATION VITAL SIGNS: Reviewed. GENERAL APPEARANCE: A tired-appearing man, resting in bed. HEENT: Anicteric. CARDIOVASCULAR: Normal S1 and S2. LUNGS: Moderate breath sounds. ABDOMEN: Soft and nontender. EXTREMITIES: No edema. SKIN: Multiple ulcers, stage 3, left face, left chest, and knees. PSYCHIATRIC: Flat affect. LABS: Reviewed. MEDICATIONS: Reviewed. ASSESSMENT: An 82-year-old man with: 1. Acute psychosis and bipolar disorder. 2. Fall and physical deconditioning. 3. Electrolyte derangement. PLAN 1. Continue sitter. 2. Continue guardianship papers. 3. Continue medical treatment. labs rev'd and wnl Uvaldo Michel MD, PhD.
[2018-09-24] MEDS: QUETIAPINE FUMARATE 25 MG TAB PO SCH ×2 (13:03→18:07)
[2018-09-24] MEDS: MEMANTINE 10 MG TAB PO SCH ×2 (13:04→21:00)
[2018-09-24 15:42] LABS: BILIRUBIN,URINE NEGATIVE (NEGATIVE); CLARITY,URINE SL CLOUDY (CLEAR); COLOR,URINE YELLOW (YELLOW); KETONES,URINE NEGATIVE (NEGATIVE); LEUKOCYTE ESTERASE ,URINE NEGATIVE (NEGATIVE); NITRITE,URINE NEGATIVE (NEGATIVE); PROTEIN,URINE DIPSTICK NEGATIVE (NEGATIVE); URINE UROBILINOGEN 0.2 mg/dL (0.2 - 1)
[2018-09-24 15:57] LABS: BACTERIA,URINE MODERATE /HPF; EPITHELIAL CELLS,URINE MANY /LPF; MUCUS,URINE MODERATE (RARE); RBC,URINE 0-5 /HPF (0-5)
[2018-09-24 17:44] VITALS: BP 114/57
--- NOTE | 2018-09-24 18:57 | NUR ---
PATIENT IS RESTING IN BED-IN STABLE CONDITION WITH NO S/S OF RESPIRATORY DISTRESS. NO PAIN VOICED. SITTER PRESENT IN ROOM. CALL LIGHT IS WITHIN REACH, PATIENT INSTRUCTED TO CALL FOR ASSISTANCE NEEDED. REPORT GIVEN TO ONCOMING NURSE.
[2018-09-24 20:00] VITALS: BP 130/58
--- NOTE | 2018-09-24 20:00 | NUR ---
INITIAL ASSESSMENT COMPLETE, CALL LIGHT IN REACH, PT HAS ONE ON ONE SITTER AT BEDSIDE, PT CAN BE ARGUMENTITIVE AND CONFRINTATIONAL. VS STABLE, NO DISTRESS NOTED, PT WALKED AROUND ROOM WITH WALKER,
[2018-09-24] MEDS: QUETIAPINE FUMARATE 100 MG TAB PO SCH (21:00)
[2018-09-24] MEDS ORDERED: QUETIAPINE FUMARATE 25 MG TAB PO SCH (21:00)
[2018-09-25] VITALS (7 sets, daily range): BP systolic 95–129; BP diastolic 55–71
--- NOTE | 2018-09-25 06:20 | NUR ---
pt in bed, sitter at bedside, vs stable, no distress noted
--- NOTE | 2018-09-25 06:26 | NUR ---
IM-Progress note OVERNIGHT: no events REVIEW OF SYSTEMS: Unobtainable. PHYSICAL EXAMINATION VITAL SIGNS: Reviewed. GENERAL APPEARANCE: A tired-appearing man, resting in bed. HEENT: Anicteric. CARDIOVASCULAR: Normal S1 and S2. LUNGS: Moderate breath sounds. ABDOMEN: Soft and nontender. EXTREMITIES: No edema. SKIN: Multiple ulcers, stage 3, left face, left chest, and knees. PSYCHIATRIC: Flat affect. LABS: Reviewed. MEDICATIONS: Reviewed. ASSESSMENT: An 82-year-old man with: 1. Acute psychosis and bipolar disorder. 2. Fall and physical deconditioning. 3. Electrolyte derangement. PLAN 1. Continue sitter. 2. Continue guardianship papers. 3. Continue medical treatment. labs rev'd and wnl cont care. Uvaldo Michel MD, PhD.
--- NOTE | 2018-09-25 07:15 | NUR ---
PATIENT IN STABLE CONDITION WITH NO S/S OF RESPIRATORY DISTRESS. NO PAIN VOICED. BED ALARM APPLIED. SITTER PRESENT IN ROOM. CALL LIGHT IS WITHIN REACH, INSTRUCTED TO CALL FOR ASSISTANCE.
[2018-09-25] MEDS: ARTIFICIAL TEARS (OPTH) 15 ML BTL OU SCH ×2 (09:00→16:53)
[2018-09-25] MEDS: BALSAM PERU/CASTOR OIL 60 GM OINT...G. TP SCH ×2 (09:06→21:00)
[2018-09-25] MEDS: MEMANTINE 10 MG TAB PO SCH ×2 (09:18→19:43)
[2018-09-25] MEDS: NIFEDIPINE CR 30 MG TAB PO SCH (09:18)
[2018-09-25] MEDS: METOPROLOL TARTRATE 25 MG TAB PO SCH ×2 (09:18→21:00)
[2018-09-25] MEDS: DOCUSATE SODIUM 100 MG CAP PO SCH ×2 (09:18→17:17)
[2018-09-25] MEDS: QUETIAPINE FUMARATE 25 MG TAB PO SCH ×2 (09:18→17:17)
[2018-09-25] MEDS: HYDRALAZINE HCL 25 MG TAB PO SCH ×3 (09:18→21:00)
--- NOTE | 2018-09-25 19:22 | NUR ---
PATIENT BEING INAPPROPRIATE AND CUSSING AT STAFF MEMBERS. PATIENT IS IN STABLE CONDITION WITH NO S/S OF RESPIRATORY DISTRESS. NO SITTER. BED ALARM APPLIED. CALL LIGHT IS WITHIN REACH, INSTRUCTED TO CALL FOR ASSISTANCE. REPORT GIVEN TO ONCOMING NURSE.
[2018-09-25] MEDS: QUETIAPINE FUMARATE 100 MG TAB PO SCH (19:43)
[2018-09-25] MEDS: ACETAMINOPHEN 325 MG TAB PO PRN (19:43)
[2018-09-25] MEDS: ZIPRASIDONE 20 MG VIAL IM PRN (20:39)
[2018-09-26] VITALS (8 sets, daily range): BP systolic 108–161; BP diastolic 62–79
--- NOTE | 2018-09-26 06:29 | NUR ---
IM-Progress note OVERNIGHT: no events REVIEW OF SYSTEMS: Unobtainable. PHYSICAL EXAMINATION VITAL SIGNS: Reviewed. GENERAL APPEARANCE: A tired-appearing man, resting in bed. HEENT: Anicteric. CARDIOVASCULAR: Normal S1 and S2. LUNGS: Moderate breath sounds. ABDOMEN: Soft and nontender. EXTREMITIES: No edema. SKIN: Multiple ulcers, stage 3, left face, left chest, and knees. PSYCHIATRIC: Flat affect. LABS: Reviewed. MEDICATIONS: Reviewed. ASSESSMENT: An 82-year-old man with: 1. Acute psychosis and bipolar disorder. 2. Fall and physical deconditioning. 3. Electrolyte derangement. PLAN 1. Continue sitter. 2. Continue guardianship papers. 3. Continue medical treatment. cont supportive care. cont care. Uvaldo Michel MD, PhD.
--- NOTE | 2018-09-26 08:30 | Progress Note ---
DATE: September 24, 2018 PSYCHIATRIC PROGRESS NOTE Patient is in the room. He is calm, but he has been getting p.r.n. and IM medications. He especially was agitated last night. He got p.r.n. medications. Patient is verbally aggressive. He is making threatening comments to staff. He is hitting staff at times and resting care. He is receiving his medications and no side effects are seen or recorded. ASSESSMENT: Unspecified psychosis with unspecified dementia. PLAN: Increase Seroquel 75 mg p.o. at bedtime to 100 mg p.o. at bedtime. Continue with other medications. Monitor for mood. Supportive therapy. DICTATED BY BERNARD REES Job#: [id number]
[2018-09-26] MEDS: NIFEDIPINE CR 30 MG TAB PO SCH (09:22)
[2018-09-26] MEDS: DOCUSATE SODIUM 100 MG CAP PO SCH ×2 (09:22→16:28)
[2018-09-26] MEDS: MEMANTINE 10 MG TAB PO SCH ×2 (09:22→21:50)
[2018-09-26] MEDS: METOPROLOL TARTRATE 25 MG TAB PO SCH ×2 (09:22→21:50)
[2018-09-26] MEDS: HYDRALAZINE HCL 25 MG TAB PO SCH ×3 (09:22→21:50)
[2018-09-26] MEDS: BALSAM PERU/CASTOR OIL 60 GM OINT...G. TP SCH ×2 (09:23→21:50)
[2018-09-26] MEDS: QUETIAPINE FUMARATE 25 MG TAB PO SCH ×2 (09:23→16:28)
[2018-09-26] MEDS: ARTIFICIAL TEARS (OPTH) 15 ML BTL OU SCH ×2 (09:28→17:00)
[2018-09-26] MEDS: ZIPRASIDONE 20 MG VIAL IM PRN ×2 (09:36→17:45)
--- NOTE | 2018-09-26 14:39 | NUR ---
SPOKE WITH PROFESSIONAL BASS FISHER TO GET UPDATE ON PROGRESS OF GUARDIAN[facility] REFERRAL. HE STATES THE NIECE IN [facility] HAS BEEN CONTACTING THEM VIA EMAIL BACK AND FORTH INQUIRING ABOUT HIS ASSETS AND THE POSSIBILITY OF TAKING HIM BACK TO [facility] TO CARE FOR HIM THEMSELVES. THE RADIOLOGIC THERAPIST STATES THEY ARE GIVING ALL THE EMAILS TO THE COURT AND AN UPDATE FROM ME INCLUDING AN APPROXIMATE BALANCE DUE HERE AND THE COURT WILL DETERMINE IF THEY WILL MOVE FORWARD WITH ISSUING A COURT DATE AND NOTIFYING THE FAMILY SO THEY CAN BE AT THE COURT TO REPRESENT THE PT IF THEY CHOOSE.
--- NOTE | 2018-09-26 16:00 | NUR ---
PA for psychiatry was here and made aware that pt was very agitated today and PRN medication was given. Medications did not help pt calm down. PA added new medications for agitation/anxiety and first dose was given today. Bed alarm in place to bed. Pt room is near nurses station.
[2018-09-26] MEDS: LORAZEPAM 0.5 MG TAB PO SCH (16:28)
--- NOTE | 2018-09-26 16:44 | Progress Note ---
DATE: September 26, 2018 PSYCHIATRIC PROGRESS NOTE Patient evaluated and events noted. Patient is in the room. He is calm, cooperative. Oriented to situation. He states that he is doing fairly okay. He denies depression, denies anxiety, denies any hallucination. He denies any side effects of medications. As per nursing staff, patient has been very restless, anxious, planning to leave the hospital. He received p.r.n. Geodon, but it did not help as per the nurse. They report that patient gets more anxious and agitated toward the eveningtime. ASSESSMENT: Unspecified psychosis and unspecified dementia. PLAN 1. Continue with Seroquel 50 mg p.o. twice a day. 2. Continue with Namenda 10 mg p.o. b.i.d. 3. Continue with Seroquel 100 mg p.o. nightly. 4. Add Ativan 0.5 mg p.o. twice a day at lunch and dinnertime. 5. Add Ativan p.r.n. IM. 6. Add Ativan p.r.n. p.o. 7. Monitor for agitation. Dictated by: BERNARD Segundo Job#: [id number]
--- NOTE | 2018-09-26 19:20 | NUR ---
Completed bedside rounds with morning nurse. Pt alert, lying in bed 60 degrees. No s/s of pain at this time. No acute distress noted. Call solorio within reach.
[2018-09-26] MEDS: QUETIAPINE FUMARATE 100 MG TAB PO SCH (21:50)
[2018-09-27] VITALS: BP 115/77
[2018-09-27 04:00] VITALS: BP 148/73
[2018-09-27 08:00] VITALS: BP 140/71
[2018-09-27] MEDS: QUETIAPINE FUMARATE 25 MG TAB PO SCH ×2 (09:00→17:00)
[2018-09-27] MEDS: HYDRALAZINE HCL 25 MG TAB PO SCH ×4 (09:00→20:42)
[2018-09-27] MEDS: METOPROLOL TARTRATE 25 MG TAB PO SCH ×3 (09:00→20:43)
[2018-09-27] MEDS: BALSAM PERU/CASTOR OIL 60 GM OINT...G. TP SCH ×2 (09:00→20:31)
[2018-09-27] MEDS: NIFEDIPINE CR 30 MG TAB PO SCH (09:00)
[2018-09-27] MEDS: DOCUSATE SODIUM 100 MG CAP PO SCH ×2 (09:00→17:00)
[2018-09-27] MEDS: ARTIFICIAL TEARS (OPTH) 15 ML BTL OU SCH ×2 (09:00→17:00)
[2018-09-27] MEDS: MEMANTINE 10 MG TAB PO SCH ×2 (09:00→20:31)
[2018-09-27] MEDS: LORAZEPAM 0.5 MG TAB PO SCH ×2 (12:00→17:00)
--- NOTE | 2018-09-27 14:05 | NUR ---
Pt became very agitated after his neighbor came to see him this afternoon. Pt became combative and trying to get out of the bed and saying he wants to go home. PRN IM ativan was administered because pt would not take PO ativan.
[2018-09-27] MEDS: LORAZEPAM INJ 2 MG/ML VIAL IM PRN (14:06)
[2018-09-27 16:06] VITALS: BP 135/83
--- NOTE | 2018-09-27 19:10 | NUR ---
REPORT RECEIVED FROM OFF GOING NURSE, PT RESTING IN BED WITH EYES CLOSED, NO DISTRESS NOTED, CALL LIGHT IN REACH, BED ALARM ACTIVATED
--- NOTE | 2018-09-27 19:48 | NUR ---
IM-Progress note OVERNIGHT: no events REVIEW OF SYSTEMS: Unobtainable. PHYSICAL EXAMINATION VITAL SIGNS: Reviewed. GENERAL APPEARANCE: A tired-appearing man, resting in bed. HEENT: Anicteric. CARDIOVASCULAR: Normal S1 and S2. LUNGS: Moderate breath sounds. ABDOMEN: Soft and nontender. EXTREMITIES: No edema. SKIN: Multiple ulcers, stage 3, left face, left chest, and knees. PSYCHIATRIC: Flat affect. LABS: Reviewed. MEDICATIONS: Reviewed. ASSESSMENT: An 82-year-old man with: 1. Acute psychosis and bipolar disorder. 2. Fall and physical deconditioning. 3. Electrolyte derangement. PLAN 1. Continue sitter. 2. Continue guardianship papers. 3. Continue medical treatment. cont supportive care. cont care. supportive care. 09/27 Doing well; cont psych care; await guardianship papers Uvaldo Michel MD, PhD.
[2018-09-27 20:00] VITALS: BP 158/87
[2018-09-27] MEDS: QUETIAPINE FUMARATE 100 MG TAB PO SCH ×2 (20:31→20:43)
[2018-09-27] MEDS: LORAZEPAM 0.5 MG TAB PO PRN (20:41)
[2018-09-28] VITALS (8 sets, daily range): BP systolic 94–132; BP diastolic 52–79
--- NOTE | 2018-09-28 06:48 | NUR ---
IM-Progress note OVERNIGHT: no events REVIEW OF SYSTEMS: Unobtainable. PHYSICAL EXAMINATION VITAL SIGNS: Reviewed. GENERAL APPEARANCE: A tired-appearing man, resting in bed. HEENT: Anicteric. CARDIOVASCULAR: Normal S1 and S2. LUNGS: Moderate breath sounds. ABDOMEN: Soft and nontender. EXTREMITIES: No edema. SKIN: Multiple ulcers, stage 3, left face, left chest, and knees. PSYCHIATRIC: Flat affect. LABS: Reviewed. MEDICATIONS: Reviewed. ASSESSMENT: An 82-year-old man with: 1. Acute psychosis and bipolar disorder. 2. Fall and physical deconditioning. 3. Electrolyte derangement. PLAN 1. Continue sitter. 2. Continue guardianship papers. 3. Continue medical treatment. cont supportive care. cont care. supportive care. 09/27 Doing well; cont psych care; await guardianship papers 09/28 cont care; no events; Uvaldo Michel MD, PhD.
--- NOTE | 2018-09-28 07:12 | NUR ---
RECEIVED PATIENT RESTING IN BED WITH EYES CLOSED. NO ACUTE DISTRESS NOTED. CALL LIGHT WITHIN REACH. BED IN THE LOWEST POSITION. BED ALARM ON.
[2018-09-28] MEDS: ARTIFICIAL TEARS (OPTH) 15 ML BTL OU SCH ×2 (09:42→17:04)
[2018-09-28] MEDS: BALSAM PERU/CASTOR OIL 60 GM OINT...G. TP SCH ×2 (09:43→20:41)
[2018-09-28] MEDS: HYDRALAZINE HCL 25 MG TAB PO SCH ×3 (09:43→20:40)
[2018-09-28] MEDS: METOPROLOL TARTRATE 25 MG TAB PO SCH ×2 (09:43→20:40)
[2018-09-28] MEDS: QUETIAPINE FUMARATE 25 MG TAB PO SCH ×2 (09:43→15:44)
[2018-09-28] MEDS: MEMANTINE 10 MG TAB PO SCH ×2 (09:43→20:41)
[2018-09-28] MEDS: NIFEDIPINE CR 30 MG TAB PO SCH (09:43)
[2018-09-28] MEDS: DOCUSATE SODIUM 100 MG CAP PO SCH ×2 (09:43→17:04)
[2018-09-28] MEDS: LORAZEPAM 0.5 MG TAB PO SCH ×2 (12:02→17:04)
[2018-09-28] MEDS: ZIPRASIDONE 20 MG VIAL IM PRN (14:45)
--- NOTE | 2018-09-28 15:55 | Progress Note ---
DATE: September 28, 2018 PSYCHIATRIC PROGRESS NOTE Patient is in the room. He is calm and watching TV. He states he is doing fine. He wants to go home. He has been very agitated. Attempted to hit staff and nursing staff. He is receiving p.r.n. IM medications in the afternoon. He is eating well per evidence of clean plate. He is taking his medications and no serious side effects seen. MENTAL STATUS: This patient is alert, awake and oriented to self and situation. He is calm at this time. He reports feeling okay. He is not having any suicide ideation or hallucinations. He has been and agitated. Getting p.r.n. medications only when agitated. Insight and judgment are poor. Limited. ASSESSMENT: Unspecified psychosis and unspecified dementia. PLAN: Increase Seroquel to 50 mg p.o. 3 times a day with meals. Haldol at bedtime. Continue 5 mg p.o. b.i.d. Continue with Ativan 0.5 mg p.o. twice a day. Continue Ativan p.r.n. IM. Continue Ativan p.r.n. Continue Geodon p.r.n. IM. Continue with Seroquel p.r.n. p.o. Monitor for agitation. DICTATED BY BERNARD REES Job#: [id number]
[2018-09-28] MEDS ORDERED: QUETIAPINE FUMARATE 25 MG TAB PO SCH (16:30)
--- NOTE | 2018-09-28 19:30 | NUR ---
REPORT RECEIVED FROM OFF GOING NURSE, PT RESTING IN BED WITH 1:1 SITTER AT SIDE, PT AGITATED AND YELLING AT STAFF, NO NEEDS, VOICED, CALL LIGHT IN REACH, BED ALARM ACTIVATED, PT HAS ATTEMPTED TO DEACTIVATE BED ALARM PRIOR TO ACTIVATION, PT BEING MONITORED
--- NOTE | 2018-09-28 19:30 | NUR ---
REPORT GIVEN TO ONCOMING NURSE. PATIENT IS RESTING IN BED. NO S/S OF DISTRESS NOTED. CALL LIGHT WITHIN REACH. BED IN THE LOWEST POSITION.
[2018-09-28] MEDS: QUETIAPINE FUMARATE 100 MG TAB PO SCH (20:41)
[2018-09-28] MEDS: LORAZEPAM INJ 2 MG/ML VIAL IM PRN (22:55)
[2018-09-29] VITALS (8 sets, daily range): BP systolic 96–120; BP diastolic 51–77
--- NOTE | 2018-09-29 05:51 | NUR ---
PT RESTING IN BED ALERT, NO DISTRESS NOTED, SITTER AT BEDSIDE, CALL LIGHT IN REACH, PT BEING MONITORED
--- NOTE | 2018-09-29 07:40 | NUR ---
RECEIVED PATIENT RESTING IN BED, NO ACUTE DISTRESS NOTED. CALL LIGHT WITHIN REACH. BED IN THE LOWEST POSITION. BED ALARM ON.
[2018-09-29] MEDS: ARTIFICIAL TEARS (OPTH) 15 ML BTL OU SCH ×2 (08:37→17:22)
[2018-09-29] MEDS: HYDRALAZINE HCL 25 MG TAB PO SCH ×3 (08:37→20:30)
[2018-09-29] MEDS: QUETIAPINE FUMARATE 25 MG TAB PO SCH ×3 (08:37→17:22)
[2018-09-29] MEDS: BALSAM PERU/CASTOR OIL 60 GM OINT...G. TP SCH ×2 (08:38→20:31)
[2018-09-29] MEDS: MEMANTINE 10 MG TAB PO SCH ×2 (08:38→20:30)
[2018-09-29] MEDS: METOPROLOL TARTRATE 25 MG TAB PO SCH ×2 (08:38→20:31)
[2018-09-29] MEDS: DOCUSATE SODIUM 100 MG CAP PO SCH ×2 (08:38→17:22)
[2018-09-29] MEDS: NIFEDIPINE CR 30 MG TAB PO SCH (08:38)
[2018-09-29] MEDS: LORAZEPAM 0.5 MG TAB PO SCH ×2 (12:14→17:22)
--- NOTE | 2018-09-29 12:30 | NUR ---
IM-Progress note OVERNIGHT: no events REVIEW OF SYSTEMS: Unobtainable. PHYSICAL EXAMINATION VITAL SIGNS: Reviewed. GENERAL APPEARANCE: A tired-appearing man, resting in bed. HEENT: Anicteric. CARDIOVASCULAR: Normal S1 and S2. LUNGS: Moderate breath sounds. ABDOMEN: Soft and nontender. EXTREMITIES: No edema. SKIN: Multiple ulcers, stage 3, left face, left chest, and knees. PSYCHIATRIC: Flat affect. LABS: Reviewed. MEDICATIONS: Reviewed. ASSESSMENT: An 82-year-old man with: 1. Acute psychosis and bipolar disorder. 2. Fall and physical deconditioning. 3. Electrolyte derangement. PLAN 1. Continue sitter. 2. Continue guardianship papers. 3. Continue medical treatment. cont supportive care. cont care. supportive care. 09/27 Doing well; cont psych care; await guardianship papers 09/28 cont care; no events; 09/29 monitor BP Uvaldo Michel MD, PhD.
[2018-09-29] MEDS: LORAZEPAM INJ 2 MG/ML VIAL IM PRN (13:55)
[2018-09-29] MEDS: ZIPRASIDONE 20 MG VIAL IM PRN (14:13)
--- NOTE | 2018-09-29 19:10 | NUR ---
REPORT RECEIVED FROM OFF GOING NURSE, PT RESTING IN BED WITH EYES CLOSED, NO DISTRESS NOTED, CALL LIGHT IN REACH, SITTER AT BEDSDIE, BED ALARM ACTIVATED
--- NOTE | 2018-09-29 19:14 | NUR ---
REPORT GIVEN TO ONCOMING NURSE, PATIENT IS RESTING IN BED. RESPIRATIONS EVEN AND UNLABORED, NO ACUTE DISTRESS NOTED. CALL LIGHT WITHIN REACH. BED IN THE LOWEST POSITION.
[2018-09-29] MEDS: QUETIAPINE FUMARATE 100 MG TAB PO SCH (20:30)
[2018-09-30] VITALS (8 sets, daily range): BP systolic 100–131; BP diastolic 55–72
--- NOTE | 2018-09-30 05:10 | NUR ---
PT RESTING IN BED WITH EYES CLOSED, NO DISTRESS NOTED, RISE AND FALL OF CHEST BREATHING NOTED, SITTER AT BEDSIDE, CALL LIGHT IN REACH
--- NOTE | 2018-09-30 07:08 | NUR ---
RECEIVED PATIENT RESTING IN BED. RESPIRATIONS EVEN AND UNLABORED. NO ACUTE DISTRESS NOTED. CALL LIGHT WITHIN REACH. BED IN THE LOWEST POSITION. BED ALARM ON.
--- NOTE | 2018-09-30 07:44 | NUR ---
IM-Progress note OVERNIGHT: no events REVIEW OF SYSTEMS: Unobtainable. PHYSICAL EXAMINATION VITAL SIGNS: Reviewed. GENERAL APPEARANCE: A tired-appearing man, resting in bed. HEENT: Anicteric. CARDIOVASCULAR: Normal S1 and S2. LUNGS: Moderate breath sounds. ABDOMEN: Soft and nontender. EXTREMITIES: No edema. SKIN: Multiple ulcers, stage 3, left face, left chest, and knees. PSYCHIATRIC: Flat affect. LABS: Reviewed. MEDICATIONS: Reviewed. ASSESSMENT: An 82-year-old man with: 1. Acute psychosis and bipolar disorder. 2. Fall and physical deconditioning. 3. Electrolyte derangement. PLAN 1. Continue sitter. 2. Continue guardianship papers. 3. Continue medical treatment. cont supportive care. cont care. supportive care. 09/27 Doing well; cont psych care; await guardianship papers 09/28 cont care; no events; 09/29 monitor BP 09/30 labs soon. Uvaldo Michel MD, PhD.
[2018-09-30] MEDS: QUETIAPINE FUMARATE 25 MG TAB PO SCH ×3 (08:30→17:30)
[2018-09-30] MEDS: HYDRALAZINE HCL 25 MG TAB PO SCH ×3 (09:04→21:00)
[2018-09-30] MEDS: METOPROLOL TARTRATE 25 MG TAB PO SCH ×2 (09:04→21:40)
[2018-09-30] MEDS: NIFEDIPINE CR 30 MG TAB PO SCH (09:04)
[2018-09-30] MEDS: DOCUSATE SODIUM 100 MG CAP PO SCH ×2 (09:04→17:30)
[2018-09-30] MEDS: MEMANTINE 10 MG TAB PO SCH ×2 (09:04→21:40)
[2018-09-30] MEDS: BALSAM PERU/CASTOR OIL 60 GM OINT...G. TP SCH ×2 (09:04→21:40)
[2018-09-30] MEDS: ARTIFICIAL TEARS (OPTH) 15 ML BTL OU SCH ×2 (09:04→17:30)
[2018-09-30] MEDS: LORAZEPAM 0.5 MG TAB PO SCH ×2 (12:28→17:30)
[2018-09-30] MEDS: LORAZEPAM INJ 2 MG/ML VIAL IM PRN (13:50)
--- NOTE | 2018-09-30 13:50 | NUR ---
PATIENT GETTING AGITATED, MEDICATED WITH ATIVAN IM ORDERED ON EMAR.
--- NOTE | 2018-09-30 18:58 | NUR ---
REPORT GIVEN TO ONCOMING NURSE. PATIENT IS IN STABLE CONDITION. NO ACUTE DISTRESS NOTED. SITTER AT BEDSIDE. CALL LIGHT WITHIN REACH. BED IN THE LOWEST POSITION.
--- NOTE | 2018-09-30 19:26 | NUR ---
Patient received lying in bed. AAO x 1. Sitter at bedside. Patient had no c/o pain. No signs of respiratory distress. Bed locked and in lowest position. Bed rails up x 2. Patient instructed to call for assistance when needed. Call light within reach.
[2018-09-30] MEDS: QUETIAPINE FUMARATE 100 MG TAB PO SCH (21:40)
[2018-10-01] VITALS (8 sets, daily range): BP systolic 116–129; BP diastolic 58–72
--- NOTE | 2018-10-01 07:23 | NUR ---
Patient resting comfortably. Shift report given to oncoming nurse.
--- NOTE | 2018-10-01 07:32 | NUR ---
IM-Progress note OVERNIGHT: no events REVIEW OF SYSTEMS: Unobtainable. PHYSICAL EXAMINATION VITAL SIGNS: Reviewed. GENERAL APPEARANCE: A tired-appearing man, resting in bed. HEENT: Anicteric. CARDIOVASCULAR: Normal S1 and S2. LUNGS: Moderate breath sounds. ABDOMEN: Soft and nontender. EXTREMITIES: No edema. SKIN: Multiple ulcers, stage 3, left face, left chest, and knees. PSYCHIATRIC: Flat affect. LABS: Reviewed. MEDICATIONS: Reviewed. ASSESSMENT: An 82-year-old man with: 1. Acute psychosis and bipolar disorder. 2. Fall and physical deconditioning. 3. Electrolyte derangement. PLAN 1. Continue sitter. 2. Continue guardianship papers. 3. Continue medical treatment. cont supportive care. cont care. supportive care. 09/27 Doing well; cont psych care; await guardianship papers 09/28 cont care; no events; 09/29 monitor BP 09/30 labs soon. 10/01 no events; supportive care. Uvaldo Michel MD, PhD.
[2018-10-01] MEDS: METOPROLOL TARTRATE 25 MG TAB PO SCH ×2 (09:40→21:00)
[2018-10-01] MEDS: HYDRALAZINE HCL 25 MG TAB PO SCH ×3 (09:40→21:00)
[2018-10-01] MEDS: ARTIFICIAL TEARS (OPTH) 15 ML BTL OU SCH ×2 (09:40→17:39)
[2018-10-01] MEDS: QUETIAPINE FUMARATE 25 MG TAB PO SCH ×3 (09:40→17:39)
[2018-10-01] MEDS: BALSAM PERU/CASTOR OIL 60 GM OINT...G. TP SCH ×2 (09:40→21:00)
[2018-10-01] MEDS: DOCUSATE SODIUM 100 MG CAP PO SCH ×2 (09:40→17:40)
[2018-10-01] MEDS: NIFEDIPINE CR 30 MG TAB PO SCH (09:40)
[2018-10-01] MEDS: MEMANTINE 10 MG TAB PO SCH ×2 (09:40→20:57)
[2018-10-01] MEDS: LORAZEPAM 0.5 MG TAB PO SCH ×2 (12:15→17:40)
--- NOTE | 2018-10-01 15:46 | NUR ---
TEXTED DOCTOR NEEDING A LETTER ABOUT SAFEST WAY TO TRAVEL PER FAMILY REQUEST.
--- NOTE | 2018-10-01 18:46 | NUR ---
PT REMAIN STABLE, IN BED, NO DISTRESS NOTED. SAFETY MAINTAINED ALL SHIFT
--- NOTE | 2018-10-01 19:27 | NUR ---
Patient received lying in bed. AAO x 1. No acute distress noted. Fall precautions maintained. Call light within reach.
[2018-10-01] MEDS: QUETIAPINE FUMARATE 100 MG TAB PO SCH (20:57)
[2018-10-01] MEDS: LORAZEPAM INJ 2 MG/ML VIAL IM PRN (21:03)
--- NOTE | 2018-10-01 21:10 | NUR ---
Patient agitated and attempting to get out of room. Medication given as per eMAR. Will continue to monitor.
[2018-10-01] MEDS: ZIPRASIDONE 20 MG VIAL IM PRN (22:55)
[2018-10-02 05:56] VITALS: BP 144/81
--- NOTE | 2018-10-02 07:19 | NUR ---
Shift report given to oncoming nurse. Patient in stable condition.
[2018-10-02] MEDS: QUETIAPINE FUMARATE 25 MG TAB PO SCH ×3 (07:30→17:50)
--- NOTE | 2018-10-02 08:02 | Progress Note ---
DATE: October 01, 2018 PSYCHIATRIC PROGRESS NOTE Patient is evaluated and events noted. Patient is lying on the bed. He is alert, awake and oriented to situation. He is calm at this time. He denies any depression or anxiety. He denies any suicidal ideation. He denies any hallucination. He denies any problems with his medication. The patient is intermittently verbally aggressive. He is taking his medication, and no side effects are seen. He denies any side effects. ASSESSMENT 1. Unspecified psychosis. 2. Unspecified dementia. PLAN 1. Continue Seroquel 50 mg p.o. 3 times a day. 2. Continue Ativan 0.5 mg p.o. twice a day. 3. Continue Namenda 10 mg p.o. b.i.d. 4. Continue Ativan 0.5 mg IM q.6 h. p.r.n. 5. Continue Geodon p.r.n. IM. 6. Continue Ativan 0.5 mg p.o. q.6 h. p.r.n. 7. Continue with Seroquel p.r.n. p.o. 8. Monitor for agitation. DICTATED BY: BERNARD Segundo Job#: [id number]
[2018-10-02 08:06] VITALS: BP 136/76
--- NOTE | 2018-10-02 08:26 | NUR ---
IM-Progress note OVERNIGHT: no events REVIEW OF SYSTEMS: Unobtainable. PHYSICAL EXAMINATION VITAL SIGNS: Reviewed. GENERAL APPEARANCE: A tired-appearing man, resting in bed. HEENT: Anicteric. CARDIOVASCULAR: Normal S1 and S2. LUNGS: Moderate breath sounds. ABDOMEN: Soft and nontender. EXTREMITIES: No edema. SKIN: Multiple ulcers, stage 3, left face, left chest, and knees. PSYCHIATRIC: Flat affect. LABS: Reviewed. MEDICATIONS: Reviewed. ASSESSMENT: An 82-year-old man with: 1. Acute psychosis and bipolar disorder. 2. Fall and physical deconditioning. 3. Electrolyte derangement. PLAN 1. Continue sitter. 2. Continue guardianship papers. 3. Continue medical treatment. cont supportive care. cont care. supportive care. 09/27 Doing well; cont psych care; await guardianship papers 09/28 cont care; no events; 09/29 monitor BP 09/30 labs soon. 10/01 no events; supportive care. 10/02 no events; cont care. Uvaldo Michel MD, PhD.
[2018-10-02] MEDS: BALSAM PERU/CASTOR OIL 60 GM OINT...G. TP SCH ×2 (09:00→20:25)
[2018-10-02] MEDS: HYDRALAZINE HCL 25 MG TAB PO SCH ×4 (09:00→20:24)
[2018-10-02] MEDS: DOCUSATE SODIUM 100 MG CAP PO SCH ×2 (09:00→17:50)
[2018-10-02] MEDS: ARTIFICIAL TEARS (OPTH) 15 ML BTL OU SCH ×2 (09:00→17:50)
[2018-10-02 11:49] VITALS: BP 143/75
[2018-10-02] MEDS: METOPROLOL TARTRATE 25 MG TAB PO SCH ×2 (12:35→20:24)
[2018-10-02] MEDS: LORAZEPAM 0.5 MG TAB PO SCH ×2 (12:35→17:50)
[2018-10-02] MEDS: MEMANTINE 10 MG TAB PO SCH ×2 (12:35→20:25)
[2018-10-02] MEDS: NIFEDIPINE CR 30 MG TAB PO SCH (12:35)
[2018-10-02] MEDS: LORAZEPAM 0.5 MG TAB PO PRN (14:20)
[2018-10-02] MEDS: LORAZEPAM INJ 2 MG/ML VIAL IM PRN ×2 (14:20→20:41)
[2018-10-02 16:05] VITALS: BP 146/75
--- NOTE | 2018-10-02 16:36 | Progress Note ---
DATE: October 02, 2018 PSYCHIATRIC PROGRESS NOTE Patient evaluated and events noted. Patient is in the room with a sitter. He is alert, awake and oriented to situation. He is calm but verbally aggressive. He is restless, trying to leave the bed. He is inappropriate verbally. He has been getting p.r.n. medication. He denies depression. He denies any hallucination. He denies any suicidal ideation. He is taking his medication and denies any side effects. Discussed with Case Management, who report that patient's family member requests that he be traveled to [facility] and they will take over his care. However, they are requesting a letter indicating that he is able to travel to [facility]. Due to his agitation, patient will not be able to travel through commercial airplane. He will need medical care through air ambulance. ASSESSMENT: Unspecified psychosis and unspecified dementia. PLAN 1. Continue with Seroquel 50 mg p.o. 3 times a day. 2. Continue with Seroquel 100 mg p.o. nightly. 3. Continue with Namenda 10 mg p.o. b.i.d. 4. Continue with Ativan p.r.n. p.o. 5. Continue with Geodon p.r.n. IM. 6. Continue with Ativan p.r.n. IM. 7. Continue with Seroquel p.r.n. p.o. 8. Monitor for agitation. 9. Discussed with Dr. Feliz. Dictated by: BERNARD Segundo Job#: [id number]
[2018-10-02] MEDS: ZIPRASIDONE 20 MG VIAL IM PRN (18:15)
--- NOTE | 2018-10-02 19:25 | NUR ---
Patient received watching TV in bed. No signs of pain, agitation or respiratory distress. Fall precautions maintained. Call light within reach.
[2018-10-02 20:00] VITALS: BP 178/94
[2018-10-02] MEDS: QUETIAPINE FUMARATE 100 MG TAB PO SCH (20:25)
[2018-10-03] VITALS (8 sets, daily range): BP systolic 108–142; BP diastolic 63–79
--- NOTE | 2018-10-03 05:36 | NUR ---
IM-Progress note OVERNIGHT: no events REVIEW OF SYSTEMS: Unobtainable. PHYSICAL EXAMINATION VITAL SIGNS: Reviewed. GENERAL APPEARANCE: A tired-appearing man, resting in bed. HEENT: Anicteric. CARDIOVASCULAR: Normal S1 and S2. LUNGS: Moderate breath sounds. ABDOMEN: Soft and nontender. EXTREMITIES: No edema. SKIN: Multiple ulcers, stage 3, left face, left chest, and knees. PSYCHIATRIC: Flat affect. LABS: Reviewed. MEDICATIONS: Reviewed. ASSESSMENT: An 82-year-old man with: 1. Acute psychosis and bipolar disorder. 2. Fall and physical deconditioning. 3. Electrolyte derangement. PLAN 1. Continue sitter. 2. Continue guardianship papers. 3. Continue medical treatment. cont supportive care. cont care. supportive care. 09/27 Doing well; cont psych care; await guardianship papers 09/28 cont care; no events; 09/29 monitor BP 09/30 labs soon. 10/01 no events; supportive care. 10/02 no events; cont care. 10/03 check labs; Uvaldo Michel MD, PhD.
[2018-10-03 06:22] LABS: BASOPHILS # (AUTO) 0.1 (0.0-0.1); BASOPHILS % 0.8 % (0.0-1.0); EOSINOPHILS # (AUTO) 0.3 (0.0-0.4); EOSINOPHILS % 4.5 % (0.0-6.0); HEMATOCRIT 31.9 % (38.2-49.6); HEMOGLOBIN 10.2 g/dL (14.0-18.0); LYMPHOCYTES # (AUTO) 1.5 (1.0-3.2); LYMPHOCYTES % 19.8 % (18.0-39.1); MEAN CORPUSCULAR HEMOGLOBIN 28.3 pg (28-32); MEAN CORPUSCULAR VOLUME 88.4 fL (81-99); MONOCYTES # (AUTO) 0.9 (0.2-0.8); MONOCYTES % 11.8 % (4.4-11.3); NEUTROPHILS # (AUTO) 4.7 (2.1-6.9); NEUTROPHILS % 62.7 % (38.7-80.0); PLATELET COUNT 246 x10e3/uL (140-360); RED BLOOD COUNT 3.61 x10e6/uL (4.3-5.7); RED CELL DISTRIBUTION WIDTH 13.5 % (11.7-14.4)
--- NOTE | 2018-10-03 06:55 | NUR ---
Shift report given to oncoming nurse. Walking rounds done.
[2018-10-03 06:59] LABS: ANION GAP 11.4 mmol/L (8-16); BLOOD UREA NITROGEN 28 mg/dL (7-26); BUN/CREATININE RATIO 29 (6-25); CALCIUM 8.3 mg/dL (8.4-10.2); CARBON DIOXIDE 23 mmol/L (22-29); CHLORIDE 108 mmol/L (98-107); CREATININE, SERUM 0.97 mg/dL (0.72-1.25); EST GLOMERULAR FILTRATION RATE > 60 ML/MIN (60-); GLUCOSE 100 mg/dL (74-118); POTASSIUM 4.4 mmol/L (3.5-5.1); SODIUM 138 mmol/L (136-145)
--- NOTE | 2018-10-03 07:31 | NUR ---
PATIENT SITTING UP IN BED WATCHING TV, DENIED PAIN. REDNESS REMAINS TO BOTH KNEES. LEFT FACE AND RIGHT CHEST. URINAL EMPTIED AND CLEANSED. BED IN LOWER POSITION, CALL LIGHT AT REACH. BED ALARM ACTIVATED.
[2018-10-03] MEDS: QUETIAPINE FUMARATE 25 MG TAB PO SCH ×3 (07:55→16:30)
[2018-10-03] MEDS: HYDRALAZINE HCL 25 MG TAB PO SCH ×3 (09:21→21:00)
[2018-10-03] MEDS: ARTIFICIAL TEARS (OPTH) 15 ML BTL OU SCH ×2 (09:21→17:00)
[2018-10-03] MEDS: DOCUSATE SODIUM 100 MG CAP PO SCH ×2 (09:22→17:00)
[2018-10-03] MEDS: BALSAM PERU/CASTOR OIL 60 GM OINT...G. TP SCH ×2 (09:22→21:00)
[2018-10-03] MEDS: METOPROLOL TARTRATE 25 MG TAB PO SCH ×2 (09:22→21:00)
[2018-10-03] MEDS: MEMANTINE 10 MG TAB PO SCH ×2 (09:22→21:00)
[2018-10-03] MEDS: NIFEDIPINE CR 30 MG TAB PO SCH (09:22)
[2018-10-03] MEDS: LORAZEPAM INJ 2 MG/ML VIAL IM PRN (09:35)
--- NOTE | 2018-10-03 09:35 | NUR ---
PATIENT NOTED WITH AGITATION, IN BED WITH BED ALARM ACTIVATED AND TAPED. PATIENT REMOVED THE TAPE AND DEACTIVATED THE BED ALARM. UPON ARRIVAL WITH PRN MEDICATION, PATIENT OBSERVED ON THE FLOOR AT BED SIDE SITTING ON THE BUTTOCKS. WHEN ASKED WHAT HAPPENED, PATIENT STATED "I AM FINE ", BUT CONTINUED TO BE AGITATED. ASSISTED BACK TO BED BY THREE STAFFS. HEAD TO TOE ASSESSMENT DONE. PRN MEDICATION ADMINISTERED ORDERED. BED ALARM REACTIVATED. 1:1 SITTER AT BED SIDE AT THIS TIME. CALLED AND MESSAGE LEFT TO VOICE MAIL. AWAITING CALL BACK. BED IN LOWER POSITION, CALL LIGHT AT REACH. V/S [id number]/70 96% ON RA
--- NOTE | 2018-10-03 11:08 | NUR ---
CALL BACK RECEIVED FROM DR LUO. NOTIFIED OF PATIENT'S FALL, NEW ORDER RECEIVED. PATIENT REMAINS IN BED, SITTER AT BED SIDE. CALL LIGHT AT REACH. V/S 97.7-84-18-124/65 AND 97% ON RA.
[2018-10-03] MEDS: LORAZEPAM 0.5 MG TAB PO SCH ×2 (12:15→21:00)
--- NOTE | 2018-10-03 12:42 | NUR ---
PATIENT OFF UNIT TO RADIOLOGY.
--- NOTE | 2018-10-03 13:10 | NUR ---
PATIENT BACK TO UNIT FROM RADIOLOGY. BED IN LOWER POSITION, BED ALARM ACTIVATED. REQUESTED AND RECEIVED A CUP OF JUICE. CALL LIGHT AT REACH.
--- NOTE | 2018-10-03 13:40 | Diagnostic Imaging Report ---
Exam: Head CT without contrast History: Trauma, fall Comparison studies: Head CT is 06/01/2018 and 09/15/2018. Technique: Axial images were obtained from the skull base to the vertex. Coronal and sagittal images reconstructed from the axial data. Dose modulation, iterative reconstruction, and/or weight based adjustment of the mA/kV was utilized to reduce the radiation dose to as low as reasonably achievable. Radiation dose: Total DLP: 832 mGy*cm. Estimated effective dose: DLP x 0.015 Intravenous contrast: None Findings: Exam is somewhat limited artifacts related to patient motion. Scalp: No abnormalities. Bones: No fractures, blastic or lytic lesions. Brain sulci: Mildly prominent. Ventricles: Moderate compensatory dilatation with slightly greater compensatory dilatation along the right temporal horn. No hydrocephalus. Extra-axial spaces: No masses, no fluid collection. Parenchyma: No mass, acute hemorrhage or acute or chronic cortical vascular infarcts. Scattered hypodensities in the supratentorial white matter are nonspecific most compatible with chronic microvascular ischemic changes. Small chronic lacunar infarcts in the bilateral singh radiata, left subinsular region are again identified. Previous small lacunar insult in the right globus pallidus and a be present but obscured by artifacts. Asymmetric disproportionate volume loss along the right medial temporal lobe and hippocampus are unchanged. This finding is nonspecific but may reflect sequela of prior nonspecific limbic encephalitis, mesial temporal sclerosis (especially there is a history of seizures) or possibly be neurodegenerative in etiology in the appropriate clinical setting. Sellar/suprasellar region: No abnormalities. Craniocervical junction: Patent foramen magnum. No Chiari one malformation. Incidental findings: Atherosclerotic calcifications in the carotid siphons. Lens replacement related to prior cataract surgery. 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 IMPRESSION: Exam limited by artifacts related to patient motion. No gross acute abnormalities. Chronic findings: 1. Mild chronic microvascular ischemic changes with small chronic lacunar infarcts as described. 2. Generalized volume loss with unchanged nonspecific disproportionate right anteromedial temporal lobe volume loss. Signed by: Dr. Brian García M.D. on 10/03/2018 1:36 PM
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
--- NOTE | 2018-10-03 16:45 | NUR ---
PATIENT HAS A NEW BED LOW 10 INCHES OFF THE GROUND WITH ALARM LOCKED. IN BED RESTING WITH NO S/S OF PAIN OR DISCOMFORT. CALL LIGHT AT REACH.
--- NOTE | 2018-10-03 20:00 | NUR ---
RECEIVED PT IN BED SLEEPING .NO ACUTE DISTRESS NOTED .REDNESS TO THE BILATERAL KNEE .SITTER TO THE BEDSIDE
[2018-10-03] MEDS: QUETIAPINE FUMARATE 100 MG TAB PO SCH (21:00)
--- NOTE | 2018-10-04 | NUR ---
PT AGITATED AND TRYING TO GET OUT OF THE BED AND MEDICATED WITH ATIVAN .PT RESTING .NO SITTER AT THIS TIME.BED ALRM ON .
--- NOTE | 2018-10-04 06:37 | NUR ---
PT WAS AGITATED DURING THE BEGINNING OF THE SHIFT .NOW PT RESTING .NO ACUTE DISTRESS NOTED . CALL LIGHT WITH IN REACH CONTINUE TO MONITOR
--- NOTE | 2018-10-04 07:27 | NUR ---
REPORT GIVEN TO THE ON COMING NURSE.
[2018-10-04] MEDS: QUETIAPINE FUMARATE 25 MG TAB PO SCH ×3 (07:30→15:51)
[2018-10-04 07:35] VITALS: BP 137/85
--- NOTE | 2018-10-04 07:35 | NUR ---
RECEIVED PATIENT RESTING IN BED. NO ACUTE DISTRESS NOTED. CALL LIGHT WITHIN REACH. BED IN THE LOWEST POSITION. BED ALARM ON
--- NOTE | 2018-10-04 08:52 | NUR ---
CALLED [facility] AT [phone], [facility] [phone] AND [facility] [phone] TO GET QUOTES FOR TRANSPORT HOME TO [facility]. WILL PROVIDE INFORMATION TO ALL PARTIES INVOLVED IN ATTEMPTING TO GET PT BACK TO HIS FAMILY IN [facility].
[2018-10-04] MEDS: ARTIFICIAL TEARS (OPTH) 15 ML BTL OU SCH ×2 (09:43→17:00)
[2018-10-04] MEDS: DOCUSATE SODIUM 100 MG CAP PO SCH ×2 (09:43→17:00)
[2018-10-04] MEDS: MEMANTINE 10 MG TAB PO SCH ×2 (09:43→21:00)
[2018-10-04] MEDS: BALSAM PERU/CASTOR OIL 60 GM OINT...G. TP SCH ×2 (09:43→21:00)
[2018-10-04] MEDS: HYDRALAZINE HCL 25 MG TAB PO SCH ×3 (09:43→21:00)
[2018-10-04] MEDS: LORAZEPAM 0.5 MG TAB PO SCH ×3 (09:43→21:00)
[2018-10-04] MEDS: NIFEDIPINE CR 30 MG TAB PO SCH (09:43)
[2018-10-04] MEDS: METOPROLOL TARTRATE 25 MG TAB PO SCH ×2 (09:43→21:00)
[2018-10-04 09:45] VITALS: BP 137/85
[2018-10-04 12:00] VITALS: BP 113/71
[2018-10-04] MEDS: WATER STERILE 10 ML VIAL INJ PRN (12:45)
[2018-10-04] MEDS: ZIPRASIDONE 20 MG VIAL IM PRN (12:45)
[2018-10-04 16:00] VITALS: BP 102/57
--- NOTE | 2018-10-04 19:42 | NUR ---
patient recieved awake, alert, lying quietly in bed. vss. no c/o pain noted. pm assessment complete. patient remains on low bed for safety.
[2018-10-04 20:00] VITALS: BP 141/73
[2018-10-04] MEDS: QUETIAPINE FUMARATE 100 MG TAB PO SCH (21:00)
[2018-10-05] VITALS (7 sets, daily range): BP systolic 103–157; BP diastolic 55–80
--- NOTE | 2018-10-05 06:06 | NUR ---
IM-Progress note OVERNIGHT: no events REVIEW OF SYSTEMS: Unobtainable. PHYSICAL EXAMINATION VITAL SIGNS: Reviewed. GENERAL APPEARANCE: A tired-appearing man, resting in bed. HEENT: Anicteric. CARDIOVASCULAR: Normal S1 and S2. LUNGS: Moderate breath sounds. ABDOMEN: Soft and nontender. EXTREMITIES: No edema. SKIN: Multiple ulcers, stage 3, left face, left chest, and knees. PSYCHIATRIC: Flat affect. LABS: Reviewed. MEDICATIONS: Reviewed. ASSESSMENT: An 82-year-old man with: 1. Acute psychosis and bipolar disorder. 2. Fall and physical deconditioning. 3. Electrolyte derangement. PLAN 1. Continue sitter. 2. Continue guardianship papers. 3. Continue medical treatment. cont supportive care. cont care. supportive care. 09/27 Doing well; cont psych care; await guardianship papers 09/28 cont care; no events; 09/29 monitor BP 09/30 labs soon. 10/01 no events; supportive care. 10/02 no events; cont care. 10/03 check labs; 10/04 fall- CT brain negatiave; sitter; cont care. Uvaldo Michel MD, PhD.
--- NOTE | 2018-10-05 08:20 | NUR ---
Pt received resting in low boy bed. Alert and oriented x2-3, with sitter PRN order due to attempts to Elope. Oriented to staff and surroundings. Encouraged to press call solorio if help needed. Call solorio within reach. All meds given as ordered. Will monitor
[2018-10-05] MEDS: ARTIFICIAL TEARS (OPTH) 15 ML BTL OU SCH ×2 (08:23→16:10)
[2018-10-05] MEDS: QUETIAPINE FUMARATE 25 MG TAB PO SCH (08:23)
[2018-10-05] MEDS: NIFEDIPINE CR 30 MG TAB PO SCH (08:24)
[2018-10-05] MEDS: LORAZEPAM 0.5 MG TAB PO SCH ×3 (08:24→20:19)
[2018-10-05] MEDS: METOPROLOL TARTRATE 25 MG TAB PO SCH ×2 (08:24→20:19)
[2018-10-05] MEDS: HYDRALAZINE HCL 25 MG TAB PO SCH ×3 (08:24→20:19)
[2018-10-05] MEDS: BALSAM PERU/CASTOR OIL 60 GM OINT...G. TP SCH ×2 (08:24→20:21)
[2018-10-05] MEDS: MEMANTINE 10 MG TAB PO SCH ×2 (08:24→20:19)
[2018-10-05] MEDS: DOCUSATE SODIUM 100 MG CAP PO SCH ×2 (08:24→16:10)
--- NOTE | 2018-10-05 09:47 | Progress Note ---
DATE: October 04, 2018 PSYCHIATRIC PROGRESS NOTE Patient evaluated and events noted. Patient is in the room. He is alert and awake. He is very inappropriate, making sexually inappropriate statements. He denies any suicidal ideation. He is getting p.r.n. medication. He is yelling and screaming out at times. He is receiving medication. No serious side effects seen. ASSESSMENT 1. Unspecified psychosis. 2. Unspecified dementia with behavioral disturbances. 3. History of bipolar. PLAN 1. Increase Seroquel from 75 mg 3 times a day and 100 mg at bedtime to 100 mg 4 times a day. 2. Continue Ativan 0.5 mg p.o. 3 times a day. 3. Continue Namenda 10 mg p.o. b.i.d. 4. Continue with Geodon p.r.n. IM. 5. Continue with Seroquel p.r.n. p.o. 6. Monitor for agitation. ADDENDUM: Letter has been signed. Dictated by: BERNARD Segundo Job#: [id number]
[2018-10-05] MEDS: QUETIAPINE FUMARATE 100 MG TAB PO SCH ×3 (14:55→20:19)
[2018-10-05] MEDS: WATER STERILE 10 ML VIAL INJ PRN (15:58)
[2018-10-05] MEDS: ZIPRASIDONE 20 MG VIAL IM PRN (15:58)
--- NOTE | 2018-10-05 18:25 | NUR ---
Pt resting in bed sitter used as PRN due to pt attempting to elope, and agitation. All meds given as ordered. Call solorio within reach. Will endorse to next shift
--- NOTE | 2018-10-05 19:30 | NUR ---
patient recieved awake, alert, sitting up on side of bed. vss. no c/o pain noted. pm assessment complete. patient remains in low bed with bed alarm on for safety.
[2018-10-06] VITALS: BP 121/59
[2018-10-06] MEDS: ZIPRASIDONE 20 MG VIAL IM PRN ×2 (02:35→14:47)
[2018-10-06] MEDS: WATER STERILE 10 ML VIAL INJ PRN ×2 (02:35→14:47)
--- NOTE | 2018-10-06 02:35 | NUR ---
patient medicated with geodon 10 mg im for agitation. patient very angry, agitated, loud with staff. and patient refuses to stay in bed.
--- NOTE | 2018-10-06 04:00 | NUR ---
patient appears to be resting quietly. no signs of pain/discomfort noted.
--- NOTE | 2018-10-06 07:28 | NUR ---
IM-Progress note OVERNIGHT: no events REVIEW OF SYSTEMS: Unobtainable. PHYSICAL EXAMINATION VITAL SIGNS: Reviewed. GENERAL APPEARANCE: A tired-appearing man, resting in bed. HEENT: Anicteric. CARDIOVASCULAR: Normal S1 and S2. LUNGS: Moderate breath sounds. ABDOMEN: Soft and nontender. EXTREMITIES: No edema. SKIN: Multiple ulcers, stage 3, left face, left chest, and knees. PSYCHIATRIC: Flat affect. LABS: Reviewed. MEDICATIONS: Reviewed. ASSESSMENT: An 82-year-old man with: 1. Acute psychosis and bipolar disorder. 2. Fall and physical deconditioning. 3. Electrolyte derangement. PLAN 1. Continue sitter. 2. Continue guardianship papers. 3. Continue medical treatment. cont supportive care. cont care. supportive care. 09/27 Doing well; cont psych care; await guardianship papers 09/28 cont care; no events; 09/29 monitor BP 09/30 labs soon. 10/01 no events; supportive care. 10/02 no events; cont care. 10/03 check labs; 10/04 fall- CT brain negatiave; sitter; 10/05 cont care. 10/06 d/c planning; Uvaldo Michel MD, PhD.
[2018-10-06 07:50] VITALS: BP 121/59
--- NOTE | 2018-10-06 07:50 | NUR ---
Pt received resting in bed. Call solorio within reach. Will monitor
[2018-10-06 08:00] VITALS: BP 138/66
[2018-10-06 12:00] VITALS: BP 147/78
[2018-10-06] MEDS: MEMANTINE 10 MG TAB PO SCH ×2 (12:24→19:48)
[2018-10-06] MEDS: QUETIAPINE FUMARATE 100 MG TAB PO SCH ×4 (12:24→19:48)
[2018-10-06] MEDS: LORAZEPAM 0.5 MG TAB PO SCH ×3 (12:24→19:48)
[2018-10-06] MEDS: DOCUSATE SODIUM 100 MG CAP PO SCH ×2 (12:24→17:00)
[2018-10-06] MEDS: HYDRALAZINE HCL 25 MG TAB PO SCH ×3 (12:24→19:48)
[2018-10-06] MEDS: METOPROLOL TARTRATE 25 MG TAB PO SCH ×2 (12:24→19:48)
[2018-10-06] MEDS: ARTIFICIAL TEARS (OPTH) 15 ML BTL OU SCH ×2 (12:24→17:00)
[2018-10-06] MEDS: BALSAM PERU/CASTOR OIL 60 GM OINT...G. TP SCH ×2 (12:24→19:49)
[2018-10-06] MEDS: NIFEDIPINE CR 30 MG TAB PO SCH (12:24)
--- NOTE | 2018-10-06 15:23 | NUR ---
Pt attempting to leave room. All meds given including Geodon. Will closely monitor
[2018-10-06 16:00] VITALS: BP 117/58
--- NOTE | 2018-10-06 19:10 | NUR ---
REPORT RECEIVED FROM OFF GOING NURSE, PT RESTING IN BED WITH EYES CLOSED, NO DISTRESS NOTED, BED LOCKED AND LOW, BED ALARM ACTIVATED, CALL LIGHT IN REACH, PT BEING MONITORED
[2018-10-06 20:00] VITALS: BP 138/72
[2018-10-07] VITALS (8 sets, daily range): BP systolic 104–153; BP diastolic 56–81
[2018-10-07] MEDS: ZIPRASIDONE 20 MG VIAL IM PRN (00:23)
--- NOTE | 2018-10-07 04:41 | NUR ---
IM-Progress note OVERNIGHT: no events REVIEW OF SYSTEMS: Unobtainable. PHYSICAL EXAMINATION VITAL SIGNS: Reviewed. GENERAL APPEARANCE: A tired-appearing man, resting in bed. HEENT: Anicteric. CARDIOVASCULAR: Normal S1 and S2. LUNGS: Moderate breath sounds. ABDOMEN: Soft and nontender. EXTREMITIES: No edema. SKIN: Multiple ulcers, stage 3, left face, left chest, and knees. PSYCHIATRIC: Flat affect. LABS: Reviewed. MEDICATIONS: Reviewed. ASSESSMENT: An 82-year-old man with: 1. Acute psychosis and bipolar disorder. 2. Fall and physical deconditioning. 3. Electrolyte derangement. 4.Fall PLAN 1. Continue sitter. 2. Continue guardianship papers. 3. Continue medical treatment. 4.CT brain negative cont supportive care. cont care. supportive care. 09/27 Doing well; cont psych care; await guardianship papers 10/07 cont care f/u lab;s Uvaldo Michel MD, PhD.
--- NOTE | 2018-10-07 05:42 | NUR ---
PT RESTING IN BED WITH EYES CLOSED, NO DISTRESS NO DISTRESS NOTED, CALL LIGHT IN REACH, BED ALARM ACTIVATED
[2018-10-07] MEDS: ARTIFICIAL TEARS (OPTH) 15 ML BTL OU SCH ×2 (08:38→17:39)
[2018-10-07] MEDS: HYDRALAZINE HCL 25 MG TAB PO SCH ×3 (08:38→22:00)
[2018-10-07] MEDS: METOPROLOL TARTRATE 25 MG TAB PO SCH ×2 (08:39→22:00)
[2018-10-07] MEDS: NIFEDIPINE CR 30 MG TAB PO SCH (08:39)
[2018-10-07] MEDS: BALSAM PERU/CASTOR OIL 60 GM OINT...G. TP SCH ×2 (09:00→22:00)
--- NOTE | 2018-10-07 09:00 | NUR ---
Pt received resting in bed. Alert and oriented x2-3 with bed alarm on. All meds given as ordered. Call solorio within reach. Will monitor closely.
[2018-10-07] MEDS: QUETIAPINE FUMARATE 100 MG TAB PO SCH ×4 (09:01→22:00)
[2018-10-07] MEDS: MEMANTINE 10 MG TAB PO SCH ×2 (09:01→22:00)
[2018-10-07] MEDS: LORAZEPAM 0.5 MG TAB PO SCH ×3 (09:01→20:45)
[2018-10-07] MEDS: DOCUSATE SODIUM 100 MG CAP PO SCH ×2 (09:01→17:39)
--- NOTE | 2018-10-07 19:20 | NUR ---
Completed bedside rounds with morning nurse. Pt alert to name. Lying in bed HOB 45 degrees. No distress noted. Call solorio within reach. Bed monitor on. Will continue to monitor.
[2018-10-08] VITALS (7 sets, daily range): BP systolic 92–128; BP diastolic 55–76
--- NOTE | 2018-10-08 07:30 | NUR ---
RECEIVED PATIENT RESTING IN BED. NO ACUTE DISTRESS NOTED. CALL LIGHT WITHIN REACH. BED IN THE LOWEST POSITION. BED ALARM ON.
[2018-10-08] MEDS: NIFEDIPINE CR 30 MG TAB PO SCH (08:10)
[2018-10-08] MEDS: HYDRALAZINE HCL 25 MG TAB PO SCH ×3 (08:10→23:01)
[2018-10-08] MEDS: LORAZEPAM 0.5 MG TAB PO SCH ×3 (09:01→23:00)
[2018-10-08] MEDS: DOCUSATE SODIUM 100 MG CAP PO SCH ×2 (09:01→16:32)
[2018-10-08] MEDS: METOPROLOL TARTRATE 25 MG TAB PO SCH ×2 (09:02→23:00)
[2018-10-08] MEDS: BALSAM PERU/CASTOR OIL 60 GM OINT...G. TP SCH ×2 (09:02→23:01)
[2018-10-08] MEDS: MEMANTINE 10 MG TAB PO SCH ×2 (09:02→23:00)
[2018-10-08] MEDS: QUETIAPINE FUMARATE 100 MG TAB PO SCH ×4 (09:02→23:01)
[2018-10-08] MEDS: ARTIFICIAL TEARS (OPTH) 15 ML BTL OU SCH ×2 (09:03→16:32)
[2018-10-08] MEDS: ZIPRASIDONE 20 MG VIAL IM PRN ×2 (14:03→23:30)
[2018-10-08] MEDS: WATER STERILE 10 ML VIAL INJ PRN ×2 (14:03→23:30)
--- NOTE | 2018-10-08 17:12 | NUR ---
IM-Progress note OVERNIGHT: no events REVIEW OF SYSTEMS: Unobtainable. PHYSICAL EXAMINATION VITAL SIGNS: Reviewed. GENERAL APPEARANCE: A tired-appearing man, resting in bed. HEENT: Anicteric. CARDIOVASCULAR: Normal S1 and S2. LUNGS: Moderate breath sounds. ABDOMEN: Soft and nontender. EXTREMITIES: No edema. SKIN: Multiple ulcers, stage 3, left face, left chest, and knees. PSYCHIATRIC: Flat affect. LABS: Reviewed. MEDICATIONS: Reviewed. ASSESSMENT: An 82-year-old man with: 1. Acute psychosis and bipolar disorder. 2. Fall and physical deconditioning. 3. Electrolyte derangement. 4.Fall PLAN 1. Continue sitter. 2. Continue guardianship papers. 3. Continue medical treatment. 4.CT brain negative cont supportive care. cont care. supportive care. 09/27 Doing well; cont psych care; await guardianship papers 10/07 cont care f/u lab;s 10/08 cont care; Uvaldo Michel MD, PhD.
--- NOTE | 2018-10-08 19:45 | NUR ---
REPORT GIVEN TO ONCOMING NURSE, PATIENT IS RESTING IN BED. NO ACUTE DISTRESS NOTED, RESPIRATIONS EVEN AND UNLABORED. CALL LIGHT WITHIN REACH. BED IN THE LOWEST POSITION. BED ALARM ON.
[2018-10-09] VITALS (8 sets, daily range): BP systolic 94–158; BP diastolic 54–82
--- NOTE | 2018-10-09 06:53 | NUR ---
REPORT GIVEN TO AM NURSE. PATIENT CONTINUE RESTING IN THE BED, BED IS POSITION VERY CLOSE TO THE FLOOR WITH MATS SECURED ON BOTH SIDES OF THE BED. CALL LIGHT IN REACH.
--- NOTE | 2018-10-09 06:57 | NUR ---
IM-Progress note OVERNIGHT: no events REVIEW OF SYSTEMS: Unobtainable. PHYSICAL EXAMINATION VITAL SIGNS: Reviewed. GENERAL APPEARANCE: A tired-appearing man, resting in bed. HEENT: Anicteric. CARDIOVASCULAR: Normal S1 and S2. LUNGS: Moderate breath sounds. ABDOMEN: Soft and nontender. EXTREMITIES: No edema. SKIN: Multiple ulcers, stage 3, left face, left chest, and knees. PSYCHIATRIC: Flat affect. LABS: Reviewed. MEDICATIONS: Reviewed. ASSESSMENT: An 82-year-old man with: 1. Acute psychosis and bipolar disorder. 2. Fall and physical deconditioning. 3. Electrolyte derangement. 4.Fall PLAN 1. Continue sitter. 2. Continue guardianship papers. 3. Continue medical treatment. 4.CT brain negative Doing well; cont psych care; await guardianship papers Uvaldo Michel MD, PhD.
--- NOTE | 2018-10-09 07:09 | NUR ---
RECEIVED PATIENT RESTING IN BED. RESPIRATIONS EVEN AND UNLABORED, NO DISTRESS NOTED. CALL LIGHT WITHIN REACH. BED IN THE LOWEST POSITION.
[2018-10-09] MEDS: HYDRALAZINE HCL 25 MG TAB PO SCH ×3 (09:02→21:00)
[2018-10-09] MEDS: DOCUSATE SODIUM 100 MG CAP PO SCH ×2 (09:02→16:53)
[2018-10-09] MEDS: LORAZEPAM 0.5 MG TAB PO SCH ×3 (09:02→21:41)
[2018-10-09] MEDS: MEMANTINE 10 MG TAB PO SCH ×2 (09:02→21:42)
[2018-10-09] MEDS: METOPROLOL TARTRATE 25 MG TAB PO SCH ×2 (09:02→21:42)
[2018-10-09] MEDS: ARTIFICIAL TEARS (OPTH) 15 ML BTL OU SCH ×2 (09:02→16:53)
[2018-10-09] MEDS: NIFEDIPINE CR 30 MG TAB PO SCH (09:03)
[2018-10-09] MEDS: BALSAM PERU/CASTOR OIL 60 GM OINT...G. TP SCH ×2 (09:03→21:42)
[2018-10-09] MEDS: QUETIAPINE FUMARATE 100 MG TAB PO SCH ×4 (09:03→21:42)
[2018-10-09] MEDS: WATER STERILE 10 ML VIAL INJ PRN (14:35)
[2018-10-09] MEDS: ZIPRASIDONE 20 MG VIAL IM PRN (14:35)
--- NOTE | 2018-10-09 15:05 | NUR ---
Visit made by the Spiritual Care Department Pastoral Visitor, Concha Murray. Pt sleeping soundly and no family present. Pastoral Visitor left a card describing availability of repair cameraman and instructions on how to contact a repair cameraman. TISHA DE LUNA [employer]imator Spiritual Care Department O: [phone] Pager: [phone] ([phone] number calling from)
--- NOTE | 2018-10-09 16:57 | Progress Note ---
DATE: October 09, 2018 PSYCHIATRIC PROGRESS NOTE Patient evaluated and events noted. Patient is in the room. He is calm and sleeping but easily arousable. He said he is doing okay. He denies any depression or anxiety. Denies any hallucinations. Denies any suicidal ideation. He is getting p.r.n. medication intermittently. No side effects seen or reported. ASSESSMENT 1. Unspecified psychosis. 2. Unspecified dementia with behavioral disturbances. PLAN 1. Continue with Geodon 10 mg IM q.8 h. p.r.n. 2. Continue with Seroquel 100 mg p.o. 4 times a day. 3. Continue Ativan 0.5 mg 3 times a day. 4. Continue Namenda 10 mg p.o. b.i.d. 5. Continue with Seroquel 25 mg p.o. q.6 h. p.r.n. 6. Monitor for agitation. Dictated by: BERNARD Segundo Job#: [id number]
--- NOTE | 2018-10-09 19:08 | NUR ---
REPORT GIVEN TO ONCOMING NURSE, PATIENT IS RESTING IN BED WITH EYES CLOSED. RESPIRATIONS EVEN AND UNLABORED, NO ACUTE DISTRESS NOTED. CALL LIGHT WITHIN REACH. BED IN THE LOWEST POSITION. BED ALARM ON.
[2018-10-10] VITALS (7 sets, daily range): BP systolic 97–122; BP diastolic 55–63
--- NOTE | 2018-10-10 06:59 | NUR ---
IM-Progress note OVERNIGHT: no events REVIEW OF SYSTEMS: Unobtainable. PHYSICAL EXAMINATION VITAL SIGNS: Reviewed. GENERAL APPEARANCE: A tired-appearing man, resting in bed. HEENT: Anicteric. CARDIOVASCULAR: Normal S1 and S2. LUNGS: Moderate breath sounds. ABDOMEN: Soft and nontender. EXTREMITIES: No edema. SKIN: Multiple ulcers, stage 3, left face, left chest, and knees. PSYCHIATRIC: Flat affect. LABS: Reviewed. MEDICATIONS: Reviewed. ASSESSMENT: An 82-year-old man with: 1. Acute psychosis and bipolar disorder. 2. Fall and physical deconditioning. 3. Electrolyte derangement. 4.Fall PLAN 1. Continue sitter. 2. Continue guardianship papers. 3. Continue medical treatment. 4.CT brain negative Doing well; cont psych care; await guardianship papers check labs; Uvaldo Michel MD, PhD.
[2018-10-10 07:21] LABS: BASOPHILS # (AUTO) 0.1 (0.0-0.1); BASOPHILS % 0.9 % (0.0-1.0); EOSINOPHILS # (AUTO) 0.3 (0.0-0.4); EOSINOPHILS % 4.1 % (0.0-6.0); HEMATOCRIT 33.8 % (38.2-49.6); HEMOGLOBIN 10.6 g/dL (14.0-18.0); LYMPHOCYTES # (AUTO) 1.6 (1.0-3.2); LYMPHOCYTES % 21.3 % (18.0-39.1); MEAN CORPUSCULAR HEMOGLOBIN 28.1 pg (28-32); MEAN CORPUSCULAR HGB CONC 31.4 g/dL (31-35); MEAN CORPUSCULAR VOLUME 89.7 fL (81-99); MONOCYTES # (AUTO) 0.7 (0.2-0.8); MONOCYTES % 8.8 % (4.4-11.3); NEUTROPHILS # (AUTO) 4.8 (2.1-6.9); NEUTROPHILS % 64.6 % (38.7-80.0); PLATELET COUNT 230 x10e3/uL (140-360); RED BLOOD COUNT 3.77 x10e6/uL (4.3-5.7); RED CELL DISTRIBUTION WIDTH 13.8 % (11.7-14.4)
[2018-10-10 07:41] LABS: CALCIUM 8.9 mg/dL (8.4-10.2); CREATININE, SERUM 1.16 mg/dL (0.72-1.25); MAGNESIUM 1.9 MG/DL (1.3-2.1); PHOSPHORUS 3.3 MG/DL (2.3-4.7)
[2018-10-10] MEDS: METOPROLOL TARTRATE 25 MG TAB PO SCH ×2 (09:00→21:00)
[2018-10-10] MEDS: ARTIFICIAL TEARS (OPTH) 15 ML BTL OU SCH ×2 (09:00→17:00)
[2018-10-10] MEDS: NIFEDIPINE CR 30 MG TAB PO SCH (09:00)
[2018-10-10] MEDS: HYDRALAZINE HCL 25 MG TAB PO SCH ×3 (09:00→21:00)
[2018-10-10] MEDS: LORAZEPAM 0.5 MG TAB PO SCH ×3 (09:30→21:00)
[2018-10-10] MEDS: BALSAM PERU/CASTOR OIL 60 GM OINT...G. TP SCH ×2 (09:30→21:00)
[2018-10-10] MEDS: DOCUSATE SODIUM 100 MG CAP PO SCH ×2 (09:30→18:01)
[2018-10-10] MEDS: MEMANTINE 10 MG TAB PO SCH ×2 (09:30→21:00)
[2018-10-10] MEDS: QUETIAPINE FUMARATE 100 MG TAB PO SCH ×4 (09:30→21:00)
--- NOTE | 2018-10-10 09:30 | NUR ---
Pt received resting in bed. Alert and oriented x2 in a low boy bed. Oriented to staff and surroundings. Encouraged to press call solorio if help needed but pt needs frequent reorientation due to forgetfulness. All meds given as ordered. Call solorio within reach. Will monitor closely.
--- NOTE | 2018-10-10 12:37 | Progress Note ---
DATE: October 05, 2018 PSYCHIATRIC PROGRESS NOTE Patient evaluated and events noted. Patient is in the room. He is calm. He had his eyes closed but arousable and says he is doing okay. He denies any . Denies any problems with sleep or appetite. He is doing better and is less inappropriate. He is taking medications, and no serous side effects are seen or reported. ASSESSMENT 1. Unspecified psychosis. 2. Unspecified dementia with behavioral disturbances. 3. History of bipolar. PLAN 1. Continue with Seroquel 100 mg p.o. 4 times a day. 2. Continue p.r.n. Geodon. 3. Continue Ativan 0.5 mg p.o. 3 times a day. 4. Monitor for mood and agitation. DICTATED BY: BERNARD Segundo Job#: [id number]
--- NOTE | 2018-10-10 14:38 | NUR ---
WILL FAX CLINICALS TO [facility] TO SEE IF THEY CAN ACCEPT THE PATIENT FOR [facility] PLACEMENT. FAMILY IS NOT GOING TO TRANSPORT TO [facility] AND NEEDS PLACEMENT LOCALLY.
--- NOTE | 2018-10-10 19:41 | NUR ---
Received change of shift report from AM nurse. Walking rounds completed.
--- NOTE | 2018-10-10 23:00 | NUR ---
Patient in bed on low bed. Calling out at times. Denies pain at this time. Continue monitor.
[2018-10-11] VITALS (7 sets, daily range): BP systolic 95–139; BP diastolic 55–75
--- NOTE | 2018-10-11 02:55 | NUR ---
Patient resting quitly at this time.
--- NOTE | 2018-10-11 06:36 | NUR ---
IM-Progress note OVERNIGHT: no events REVIEW OF SYSTEMS: Unobtainable. PHYSICAL EXAMINATION VITAL SIGNS: Reviewed. GENERAL APPEARANCE: A tired-appearing man, resting in bed. HEENT: Anicteric. CARDIOVASCULAR: Normal S1 and S2. LUNGS: Moderate breath sounds. ABDOMEN: Soft and nontender. EXTREMITIES: No edema. SKIN: Multiple ulcers, stage 3, left face, left chest, and knees. PSYCHIATRIC: Flat affect. LABS: Reviewed. MEDICATIONS: Reviewed. ASSESSMENT: An 82-year-old man with: 1. Acute psychosis and bipolar disorder. 2. Fall and physical deconditioning. 3. Electrolyte derangement. 4.Fall PLAN 1. Continue sitter. 2. Continue guardianship papers. 3. Continue medical treatment. 4.CT brain negative Doing well; cont psych care; await guardianship papers check labs; Labs rev'd; will need to recheck renal function in 3 days; Uvaldo Michel MD, PhD.
--- NOTE | 2018-10-11 07:50 | NUR ---
Pt received resting in bed. Call solorio within reach. Pt is low boy bed. Safety precautions maintained. Will monitor
[2018-10-11] MEDS: ARTIFICIAL TEARS (OPTH) 15 ML BTL OU SCH ×2 (09:00→17:00)
[2018-10-11] MEDS: QUETIAPINE FUMARATE 100 MG TAB PO SCH ×4 (13:00→20:18)
[2018-10-11] MEDS: BALSAM PERU/CASTOR OIL 60 GM OINT...G. TP SCH ×2 (13:17→20:18)
[2018-10-11] MEDS: NIFEDIPINE CR 30 MG TAB PO SCH (13:17)
[2018-10-11] MEDS: DOCUSATE SODIUM 100 MG CAP PO SCH ×2 (13:17→18:00)
[2018-10-11] MEDS: LORAZEPAM 0.5 MG TAB PO SCH ×3 (13:17→20:17)
[2018-10-11] MEDS: MEMANTINE 10 MG TAB PO SCH ×2 (13:17→20:17)
[2018-10-11] MEDS: METOPROLOL TARTRATE 25 MG TAB PO SCH ×2 (13:17→20:17)
[2018-10-11] MEDS: HYDRALAZINE HCL 25 MG TAB PO SCH ×3 (13:17→20:16)
--- NOTE | 2018-10-11 14:00 | NUR ---
[facility] DENIED-NO BED. WILL ATTEMPT TO PLACE AT [facility].
--- NOTE | 2018-10-11 19:02 | NUR ---
Pt resting comfortably in bed. Pt is in good spirits today. Requesting sweets as usual. Emotional support given. Ice cream given as requested. Call solorio within reach. Will endorse to next shift
--- NOTE | 2018-10-11 19:24 | NUR ---
Received change of shift report from AM nurse. Walking rounds completed.
[2018-10-12] VITALS (7 sets, daily range): BP systolic 93–138; BP diastolic 56–72
--- NOTE | 2018-10-12 05:58 | NUR ---
Patient resting quitly with no c/o at this time. Continue monitor.
--- NOTE | 2018-10-12 06:19 | NUR ---
IM-Progress note OVERNIGHT: no events REVIEW OF SYSTEMS: Unobtainable. PHYSICAL EXAMINATION VITAL SIGNS: Reviewed. GENERAL APPEARANCE: A tired-appearing man, resting in bed. HEENT: Anicteric. CARDIOVASCULAR: Normal S1 and S2. LUNGS: Moderate breath sounds. ABDOMEN: Soft and nontender. EXTREMITIES: No edema. SKIN: Multiple ulcers, stage 3, left face, left chest, and knees. PSYCHIATRIC: Flat affect. LABS: Reviewed. MEDICATIONS: Reviewed. ASSESSMENT: An 82-year-old man with: 1. Acute psychosis and bipolar disorder. 2. Fall and physical deconditioning. 3. Electrolyte derangement. 4.Fall PLAN 1. Continue sitter. 2. Continue guardianship papers. 3. Continue medical treatment. 4.CT brain negative Doing well; cont psych care; await guardianship papers check labs; Labs rev'd; will need to recheck renal function in 3 days; 1-25 Supportive care. Uvaldo Michel MD, PhD.
--- NOTE | 2018-10-12 07:06 | NUR ---
RECEIVED PATIENT RESTING IN BED. NO ACUTE DISTRESS NOTED. CALL LIGHT WITHIN REACH. BED IN THE LOWEST POSITION. BED ALARM ON.
[2018-10-12] MEDS: HYDRALAZINE HCL 25 MG TAB PO SCH ×3 (07:50→21:00)
[2018-10-12] MEDS: NIFEDIPINE CR 30 MG TAB PO SCH (07:51)
--- NOTE | 2018-10-12 08:48 | NUR ---
[facility] STATES THEY HAVE AN AVAILABLE BED WILL SEND CLINICALS FOR REVIEW.
[2018-10-12] MEDS: ARTIFICIAL TEARS (OPTH) 15 ML BTL OU SCH ×2 (09:00→17:00)
--- NOTE | 2018-10-12 09:07 | Progress Note ---
DATE: October 11, 2018 PSYCHIATRIC PROGRESS NOTE Patient evaluated and events noted. Patient is in the room. He is alert, awake, and oriented to self. He is confused and restless, getting p.r.n. medication. He is compliant with his medications. He continues to be inappropriate, making sexually inappropriate statements at times. He is taking his medications, and no serious side effects are seen. He denies any suicidal ideation. He denies any hallucinations. I spoke to case management and was informed that the patient's family members decline to have him return to [facility]. He is now seeking placement at senior living facility. ASSESSMENT 1. Unspecified psychosis. 2. Unspecified dementia with behavioral disturbances. 3. History of bipolar. PLAN 1. Add Provera 2.5 mg p.o. daily. 2. Continue Seroquel 100 mg p.o. 4 times a day. 3. Continue with Ativan 0.5 mg p.o. 3 times a day. 4. Continue Namenda 10 mg p.o. b.i.d. 5. Continue Geodon p.r.n. IM. 6. Continue Seroquel p.r.n. p.o. 7. Monitor for agitation. Depakote has been used in the past, but the patient did not tolerate it for mood stabilizer. DICTATED BY: BERNARD Segundo Job#: [id number]
[2018-10-12] MEDS: DOCUSATE SODIUM 100 MG CAP PO SCH ×2 (09:20→17:06)
[2018-10-12] MEDS: LORAZEPAM 0.5 MG TAB PO SCH ×3 (09:20→21:00)
[2018-10-12] MEDS: MEMANTINE 10 MG TAB PO SCH ×2 (09:21→21:00)
[2018-10-12] MEDS: MEDROXYPROGESTERONE ACETATE 2.5 MG TAB PO SCH (09:21)
[2018-10-12] MEDS: METOPROLOL TARTRATE 25 MG TAB PO SCH ×2 (09:21→21:00)
[2018-10-12] MEDS: BALSAM PERU/CASTOR OIL 60 GM OINT...G. TP SCH ×2 (09:21→21:00)
[2018-10-12] MEDS: QUETIAPINE FUMARATE 100 MG TAB PO SCH ×4 (09:21→21:00)
--- NOTE | 2018-10-12 13:24 | Progress Note ---
DATE: October 12, 2018 PSYCHIATRIC PROGRESS NOTE Patient is found in the room. He is sleeping but easily arousable. He is irritable but somewhat cooperative. He denies depression. Denies anxiety. Denies any hallucinations. He is calm at the time of the assessment. He has not received any p.r.n. IM medication for the last 48 to 72 hours. He has not been exhibiting any inappropriate behaviors per nursing staff. He is receiving his medications and denies any side effects. As per case management, he is being evaluated for placement in a detention facility. MENTAL STATUS EXAMINATION: The patient is an elderly male. Mood is poor. Denies any suicidal or homicidal ideation. Denies any hallucinations. Thought process is concrete. No delusion is elicited. Insight and judgment are limited. Psychomotor state is passive. ASSESSMENT 1. Unspecified psychosis. 2. Unspecified dementia with behavioral disturbances. 3. History of bipolar. PLAN 1. Continue Provera 2.5 mg p.o. daily. 2. Continue Seroquel 100 mg p.o. 4 times a day. 3. Continue Ativan 0.5 mg p.o. 3 times a day. 4. Continue Namenda 10 mg p.o. b.i.d. 5. Continue Seroquel p.r.n. IM. 6. Continue Seroquel p.r.n. p.o. 7. Monitor for agitation and mood. DICTATED BY: BERNARD Segundo Job#: [id number]
--- NOTE | 2018-10-12 19:02 | NUR ---
REPORT GIVEN TO ONCOMING NURSE, PATIENT IS IN STABLE CONDITION. RESPIRATIONS EVEN AND UNLABORED, NO ACUTE DISTRESS NOTED. CALL LIGHT WITHIN REACH. BED IN THE LOWEST POSITION. BED ALARM ON.
--- NOTE | 2018-10-12 19:31 | NUR ---
Received change of shift report from AM nurse. Walking rounds completed.
[2018-10-13 05:30] VITALS: BP 116/58
--- NOTE | 2018-10-13 06:34 | NUR ---
Esteban resting quitly at this time.
--- NOTE | 2018-10-13 07:06 | NUR ---
RECEIVED PATIENT RESTING IN BED WITH EYES CLOSED. NO ACUTE DISTRESS NOTED. CALL LIGHT WITHIN REACH. BED IN THE LOWEST POSITION. BED ALARM ON.
[2018-10-13 07:25] VITALS: BP 148/67
[2018-10-13] MEDS: ARTIFICIAL TEARS (OPTH) 15 ML BTL OU SCH ×2 (08:50→16:42)
[2018-10-13] MEDS: HYDRALAZINE HCL 25 MG TAB PO SCH ×3 (08:50→20:48)
[2018-10-13] MEDS: DOCUSATE SODIUM 100 MG CAP PO SCH ×2 (08:50→16:42)
[2018-10-13] MEDS: LORAZEPAM 0.5 MG TAB PO SCH ×3 (08:50→20:47)
[2018-10-13] MEDS: BALSAM PERU/CASTOR OIL 60 GM OINT...G. TP SCH ×2 (08:51→20:48)
[2018-10-13] MEDS: MEDROXYPROGESTERONE ACETATE 2.5 MG TAB PO SCH (08:51)
[2018-10-13] MEDS: NIFEDIPINE CR 30 MG TAB PO SCH (08:51)
[2018-10-13] MEDS: QUETIAPINE FUMARATE 100 MG TAB PO SCH ×4 (08:51→20:47)
[2018-10-13] MEDS: MEMANTINE 10 MG TAB PO SCH ×2 (08:51→20:47)
[2018-10-13] MEDS: METOPROLOL TARTRATE 25 MG TAB PO SCH ×2 (08:51→20:48)
[2018-10-13 12:00] VITALS: BP 148/67
[2018-10-13 15:07] VITALS: BP 115/56
--- NOTE | 2018-10-13 16:29 | NUR ---
PAGED DR. ZAPATA TO RENEW GEODON ORDER. PATIENT IS STARTING TO GET AGITATED.
[2018-10-13 16:40] VITALS: BP 120/64
--- NOTE | 2018-10-13 17:20 | NUR ---
IM-Progress note OVERNIGHT: no events REVIEW OF SYSTEMS: Unobtainable. PHYSICAL EXAMINATION VITAL SIGNS: Reviewed. GENERAL APPEARANCE: A tired-appearing man, resting in bed. HEENT: Anicteric. CARDIOVASCULAR: Normal S1 and S2. LUNGS: Moderate breath sounds. ABDOMEN: Soft and nontender. EXTREMITIES: No edema. SKIN: Multiple ulcers, stage 3, left face, left chest, and knees. PSYCHIATRIC: Flat affect. LABS: Reviewed. MEDICATIONS: Reviewed. ASSESSMENT: An 82-year-old man with: 1. Acute psychosis and bipolar disorder. 2. Fall and physical deconditioning. 3. Electrolyte derangement. 4.Fall PLAN 1. Continue sitter. 2. Continue guardianship papers. 3. Continue medical treatment. 4.CT brain negative Doing well; cont psych care; await guardianship papers check labs; Labs rev'd; will need to recheck renal function in 3 days; 10-12 Supportive care. 10-13 cont care Uvaldo Michel MD, PhD.
--- NOTE | 2018-10-13 17:25 | NUR ---
PAGED DR. ZAPATA AGAIN TO RENEW PATIENT'S GEODON.
--- NOTE | 2018-10-13 17:36 | NUR ---
PA FOR DR. ZAPATA RETURNED CALL. HERNAN GONCALVES.
[2018-10-13] MEDS ORDERED: ZIPRASIDONE 20 MG VIAL IM PRN (17:45)
--- NOTE | 2018-10-13 19:27 | NUR ---
REPORT GIVEN TO ONCOMING NURSE. PATIENT IS RESTING IN BED WITH EYES OPEN, NO ACUTE DISTRESS NOTED. CALL LIGHT WITHIN REACH. BED IN THE LOWEST POSITION. BED ALARM ON.
[2018-10-13] MEDS: WATER STERILE 10 ML VIAL INJ PRN (19:35)
--- NOTE | 2018-10-13 19:36 | NUR ---
PATIENT IS AGITATED TRYING TO GET OUT OF BED. MEDICATED WITH GEODON PRN.
[2018-10-13 20:00] VITALS: BP 131/68
[2018-10-14] VITALS (7 sets, daily range): BP systolic 105–150; BP diastolic 60–97
[2018-10-14] MEDS ORDERED: NIFEDIPINE CR 30 MG TAB PO SCH (06:00)
--- NOTE | 2018-10-14 07:04 | NUR ---
RECEIVED PATIENT RESTING IN BED. NO ACUTE DISTRESS NOTED. CALL LIGHT WITHIN REACH. BED IN THE LOWEST POSITION. BED ALARM ON.
[2018-10-14] MEDS: LORAZEPAM 0.5 MG TAB PO SCH ×3 (08:12→22:54)
[2018-10-14] MEDS: MEMANTINE 10 MG TAB PO SCH ×2 (08:12→22:54)
[2018-10-14] MEDS: MEDROXYPROGESTERONE ACETATE 2.5 MG TAB PO SCH (08:12)
[2018-10-14] MEDS: QUETIAPINE FUMARATE 100 MG TAB PO SCH ×4 (08:12→22:54)
[2018-10-14] MEDS: DOCUSATE SODIUM 100 MG CAP PO SCH ×2 (08:12→16:33)
[2018-10-14] MEDS: ARTIFICIAL TEARS (OPTH) 15 ML BTL OU SCH ×2 (08:12→16:33)
[2018-10-14] MEDS: NIFEDIPINE CR 30 MG TAB PO SCH (08:12)
[2018-10-14] MEDS: HYDRALAZINE HCL 25 MG TAB PO SCH ×3 (08:12→21:00)
[2018-10-14] MEDS: BALSAM PERU/CASTOR OIL 60 GM OINT...G. TP SCH ×2 (08:12→21:10)
[2018-10-14] MEDS: METOPROLOL TARTRATE 25 MG TAB PO SCH ×2 (08:12→22:54)
[2018-10-14 12:17] LABS: ANION GAP 12.8 mmol/L (8-16); BLOOD UREA NITROGEN 21 mg/dL (7-26); BUN/CREATININE RATIO 27 (6-25); CALCIUM 8.8 mg/dL (8.4-10.2); CARBON DIOXIDE 22 mmol/L (22-29); CHLORIDE 109 mmol/L (98-107); CREATININE, SERUM 0.79 mg/dL (0.72-1.25); EST GLOMERULAR FILTRATION RATE > 60 ML/MIN (60-); GLUCOSE 87 mg/dL (74-118); POTASSIUM 3.8 mmol/L (3.5-5.1); SODIUM 140 mmol/L (136-145)
--- NOTE | 2018-10-14 18:56 | NUR ---
IM-Progress note OVERNIGHT: no events REVIEW OF SYSTEMS: Unobtainable. PHYSICAL EXAMINATION VITAL SIGNS: Reviewed. GENERAL APPEARANCE: A tired-appearing man, resting in bed. HEENT: Anicteric. CARDIOVASCULAR: Normal S1 and S2. LUNGS: Moderate breath sounds. ABDOMEN: Soft and nontender. EXTREMITIES: No edema. SKIN: Multiple ulcers, stage 3, left face, left chest, and knees. PSYCHIATRIC: Flat affect. LABS: Reviewed. MEDICATIONS: Reviewed. ASSESSMENT: An 82-year-old man with: 1. Acute psychosis and bipolar disorder. 2. Fall and physical deconditioning. 3. Electrolyte derangement. 4.Fall PLAN 1. Continue sitter. 2. Continue guardianship papers. 3. Continue medical treatment. 4.CT brain negative Doing well; cont psych care; await guardianship papers check labs; Labs rev'd; will need to recheck renal function in 3 days; 10-12 Supportive care. 10-13 cont care 10/14 labs rev'd; cont care; Uvaldo Michel MD, PhD.
--- NOTE | 2018-10-14 18:59 | NUR ---
REPORT GIVEN TO ONCOMING NURSE. PATIENT IS RESTING IN BED. NO ACUTE DISTRESS NOTED. CALL LIGHT WITHIN REACH. BED IN THE LOWEST POSITION. BED ALARM ON.
[2018-10-15] VITALS (7 sets, daily range): BP systolic 113–135; BP diastolic 58–84
--- NOTE | 2018-10-15 07:46 | NUR ---
IM-Progress note OVERNIGHT: no events REVIEW OF SYSTEMS: Unobtainable. PHYSICAL EXAMINATION VITAL SIGNS: Reviewed. GENERAL APPEARANCE: A tired-appearing man, resting in bed. HEENT: Anicteric. CARDIOVASCULAR: Normal S1 and S2. LUNGS: Moderate breath sounds. ABDOMEN: Soft and nontender. EXTREMITIES: No edema. SKIN: Multiple ulcers, stage 3, left face, left chest, and knees. PSYCHIATRIC: Flat affect. LABS: Reviewed. MEDICATIONS: Reviewed. ASSESSMENT: An 82-year-old man with: 1. Acute psychosis and bipolar disorder. 2. Fall and physical deconditioning. 3. Electrolyte derangement. 4.Fall PLAN 1. Continue sitter. 2. Continue guardianship papers. 3. Continue medical treatment. 4.CT brain negative Doing well; cont psych care; await guardianship papers check labs; Labs rev'd; will need to recheck renal function in 3 days; 10-12 Supportive care. 10-13 cont care 10/14 labs rev'd; cont care; 10/15 cont care; Uvaldo Michel MD, PhD.
--- NOTE | 2018-10-15 07:50 | NUR ---
Pt received resting in bed. Alert and oriented x2-3. Oriented to staff and surroundings. Encouraged to press call solorio if help needed. Emotional support given. Will monitor
[2018-10-15] MEDS: HYDRALAZINE HCL 25 MG TAB PO SCH ×3 (12:41→21:00)
[2018-10-15] MEDS: LORAZEPAM 0.5 MG TAB PO SCH ×3 (12:41→21:00)
[2018-10-15] MEDS: DOCUSATE SODIUM 100 MG CAP PO SCH ×2 (12:41→17:57)
[2018-10-15] MEDS: ARTIFICIAL TEARS (OPTH) 15 ML BTL OU SCH ×2 (12:41→17:57)
[2018-10-15] MEDS: METOPROLOL TARTRATE 25 MG TAB PO SCH ×2 (12:42→21:00)
[2018-10-15] MEDS: MEDROXYPROGESTERONE ACETATE 2.5 MG TAB PO SCH (12:42)
[2018-10-15] MEDS: MEMANTINE 10 MG TAB PO SCH ×2 (12:42→21:00)
[2018-10-15] MEDS: QUETIAPINE FUMARATE 100 MG TAB PO SCH ×4 (12:42→21:00)
[2018-10-15] MEDS: BALSAM PERU/CASTOR OIL 60 GM OINT...G. TP SCH ×2 (12:42→21:00)
[2018-10-15] MEDS: NIFEDIPINE CR 30 MG TAB PO SCH (12:42)
--- NOTE | 2018-10-15 15:04 | NUR ---
FAXED CLINICAL TO [facility] IN [place]. [facility] DENIED PT. WAITING ON MALINA TO RETURN CALL FOR ACCEPT OR DECLINE.
--- NOTE | 2018-10-15 15:06 | Progress Note ---
DATE: October 15, 2018 PSYCHIATRIC PROGRESS NOTE Patient was evaluated and events noted. Patient is in the room. He is calm and cooperative. He is alert, awake and oriented to situation. He continues to be inappropriate, making sexual explicit statements to the nursing staff. He is calmer. He is somewhat agitated and combative. He denies any depression. He has anxiety. He is still inappropriate. Claims like he is like a "del real." He denies any hallucinations. Denies any side effects to the medication. He reports intermittent sleep problems. ASSESSMENT 1. Unspecified psychosis. 2. Unspecified dementia with behavioral disturbances. 3. History of bipolar. PLAN: Increase Provera to 5 mg p.o. daily. Continue Namenda 10 mg p.o. b.i.d. Continue with Seroquel 25 mg p.o. q.6 h. p.r.n. Continue with Seroquel 100 mg p.o. 4 times a day. Continue Geodon p.r.n. IM. Continue Ativan 0.5 mg p.o. 3 times a day. Monitor for agitation and mood. Patient is waiting for placement. DICTATED BY BERNARD REES Job#: [id number] ZAYRA
--- NOTE | 2018-10-15 19:00 | NUR ---
Received change of shift report from AM nurse. Walking round completed.
--- NOTE | 2018-10-15 23:39 | NUR ---
Patient given night meds but is now requesting to go home. Patient agitated. Refused to stay in bed. Up in w/c at nurses station.
[2018-10-16] VITALS (8 sets, daily range): BP systolic 104–152; BP diastolic 58–78
--- NOTE | 2018-10-16 06:34 | NUR ---
Patient resting quitly in bed. No c/o at this time.
[2018-10-16] MEDS: DOCUSATE SODIUM 100 MG CAP PO SCH ×2 (08:38→18:24)
[2018-10-16] MEDS: METOPROLOL TARTRATE 25 MG TAB PO SCH ×2 (08:38→20:35)
[2018-10-16] MEDS: ARTIFICIAL TEARS (OPTH) 15 ML BTL OU SCH ×2 (08:38→18:24)
[2018-10-16] MEDS: MEMANTINE 10 MG TAB PO SCH ×2 (08:38→20:35)
[2018-10-16] MEDS: LORAZEPAM 0.5 MG TAB PO SCH ×3 (08:38→20:35)
[2018-10-16] MEDS: HYDRALAZINE HCL 25 MG TAB PO SCH ×3 (08:38→20:31)
[2018-10-16] MEDS: MEDROXYPROGESTERONE ACETATE 2.5 MG TAB PO SCH (08:39)
[2018-10-16] MEDS: NIFEDIPINE CR 30 MG TAB PO SCH (08:39)
[2018-10-16] MEDS: BALSAM PERU/CASTOR OIL 60 GM OINT...G. TP SCH ×2 (08:39→20:36)
[2018-10-16] MEDS: QUETIAPINE FUMARATE 100 MG TAB PO SCH ×4 (08:39→20:35)
--- NOTE | 2018-10-16 08:39 | NUR ---
Pt received resting in bed. Alert and oriented x2-3 in low boy bed. All meds given as ordered. Call solorio within reach. Will monitor
--- NOTE | 2018-10-16 19:00 | NUR ---
patient recieved lying quietly in bed. vss. no c/o pain noted. bed remains on low bed with bed alarm on for safety. pm assessment complete.
[2018-10-17] VITALS (8 sets, daily range): BP systolic 102–166; BP diastolic 62–89
--- NOTE | 2018-10-17 | NUR ---
patient appears to be sleeping. no c/o pain noted. bed remains low and bed alarm on for patient safety.
--- NOTE | 2018-10-17 07:00 | NUR ---
SHIFT REPORT RECEIVED FROM NIGHT RN. PT DENIES NEEDS AT THIS TIME.
--- NOTE | 2018-10-17 09:54 | NUR ---
IM-Progress note DOS: 10/16/18 at 8am OVERNIGHT: no events REVIEW OF SYSTEMS: Unobtainable. PHYSICAL EXAMINATION VITAL SIGNS: Reviewed. GENERAL APPEARANCE: A tired-appearing man, resting in bed. HEENT: Anicteric. CARDIOVASCULAR: Normal S1 and S2. LUNGS: Moderate breath sounds. ABDOMEN: Soft and nontender. EXTREMITIES: No edema. SKIN: Multiple ulcers, stage 3, left face, left chest, and knees. PSYCHIATRIC: Flat affect. LABS: Reviewed. MEDICATIONS: Reviewed. ASSESSMENT: An 82-year-old man with: 1. Acute psychosis and bipolar disorder. 2. Fall and physical deconditioning. 3. Electrolyte derangement. 4.Fall PLAN 1. Continue sitter. 2. Continue guardianship papers. 3. Continue medical treatment. 4.CT brain negative Doing well; cont psych care; await guardianship papers check labs; Labs rev'd; will need to recheck renal function in 3 days; 10-12 Supportive care. 10-13 cont care 10/14 labs rev'd; cont care; 10/15 cont care; 10/16 no events; cont care; Uvaldo Michel MD, PhD.
--- NOTE | 2018-10-17 09:55 | NUR ---
IM-Progress note OVERNIGHT: no events REVIEW OF SYSTEMS: Unobtainable. PHYSICAL EXAMINATION VITAL SIGNS: Reviewed. GENERAL APPEARANCE: A tired-appearing man, resting in bed. HEENT: Anicteric. CARDIOVASCULAR: Normal S1 and S2. LUNGS: Moderate breath sounds. ABDOMEN: Soft and nontender. EXTREMITIES: No edema. SKIN: Multiple ulcers, stage 3, left face, left chest, and knees. PSYCHIATRIC: Flat affect. LABS: Reviewed. MEDICATIONS: Reviewed. ASSESSMENT: An 82-year-old man with: 1. Acute psychosis and bipolar disorder. 2. Fall and physical deconditioning. 3. Electrolyte derangement. 4.Fall PLAN 1. Continue sitter. 2. Continue guardianship papers. 3. Continue medical treatment. 4.CT brain negative Doing well; cont psych care; await guardianship papers check labs; 10/17 cont care Uvaldo Michel MD, PhD.
[2018-10-17] MEDS: HYDRALAZINE HCL 25 MG TAB PO SCH ×3 (09:58→20:11)
[2018-10-17] MEDS: MEMANTINE 10 MG TAB PO SCH ×2 (09:58→20:11)
[2018-10-17] MEDS: LORAZEPAM 0.5 MG TAB PO SCH ×3 (09:58→20:11)
[2018-10-17] MEDS: METOPROLOL TARTRATE 25 MG TAB PO SCH ×2 (09:58→20:11)
[2018-10-17] MEDS: ARTIFICIAL TEARS (OPTH) 15 ML BTL OU SCH ×2 (09:58→17:14)
[2018-10-17] MEDS: DOCUSATE SODIUM 100 MG CAP PO SCH ×2 (09:58→17:14)
[2018-10-17] MEDS: MEDROXYPROGESTERONE ACETATE 2.5 MG TAB PO SCH (09:59)
[2018-10-17] MEDS: BALSAM PERU/CASTOR OIL 60 GM OINT...G. TP SCH ×2 (09:59→20:11)
[2018-10-17] MEDS: QUETIAPINE FUMARATE 100 MG TAB PO SCH ×4 (09:59→20:11)
[2018-10-17] MEDS: NIFEDIPINE CR 30 MG TAB PO SCH (09:59)
--- NOTE | 2018-10-17 15:13 | NUR ---
CM called [facility] to follow up. They believe he has been denied. They are verifying and will call back. [facility] [address] [place] [address]
--- NOTE | 2018-10-17 15:57 | NUR ---
BERNARD called [facility] back and requested update on acceptance status. Spoke with Shan and she stated [facility] has denied patient. Notified case filler, Laquita Brooks RN. [facility] [address] [place] [address]
--- NOTE | 2018-10-17 19:33 | NUR ---
PT IS RESTING IN BED. NO RESPIRATORY DISTRESS NOTED. BED IN THE LOWEST POSITION, LOCKED, BED ALARM ON, AND CALL LIGHT WITHIN REACH. WILL CONTINUE TO MONITOR.
[2018-10-18] VITALS (7 sets, daily range): BP systolic 109–143; BP diastolic 62–75
--- NOTE | 2018-10-18 | NUR ---
PT REFUSE MIDNIGHT VITALS. WILL CONTINUE TO MONITOR.
--- NOTE | 2018-10-18 07:00 | NUR ---
SHIFT REPORT RECEIVED FROM NIGHT RN WHILE ROUNDING. PT DENIES NEEDS AT THIS TIME.
[2018-10-18] MEDS: ARTIFICIAL TEARS (OPTH) 15 ML BTL OU SCH ×2 (09:22→16:55)
[2018-10-18] MEDS: BALSAM PERU/CASTOR OIL 60 GM OINT...G. TP SCH ×2 (09:23→20:35)
[2018-10-18] MEDS: QUETIAPINE FUMARATE 100 MG TAB PO SCH ×4 (09:23→20:35)
[2018-10-18] MEDS: DOCUSATE SODIUM 100 MG CAP PO SCH ×2 (09:23→16:55)
[2018-10-18] MEDS: LORAZEPAM 0.5 MG TAB PO SCH ×3 (09:23→20:35)
[2018-10-18] MEDS: METOPROLOL TARTRATE 25 MG TAB PO SCH ×2 (09:23→20:35)
[2018-10-18] MEDS: HYDRALAZINE HCL 25 MG TAB PO SCH ×3 (09:23→20:35)
[2018-10-18] MEDS: MEDROXYPROGESTERONE ACETATE 2.5 MG TAB PO SCH (09:23)
[2018-10-18] MEDS: NIFEDIPINE CR 30 MG TAB PO SCH (09:23)
[2018-10-18] MEDS: MEMANTINE 10 MG TAB PO SCH (16:55)
--- NOTE | 2018-10-18 23:58 | NUR ---
IM-Progress note OVERNIGHT: no events REVIEW OF SYSTEMS: Unobtainable. PHYSICAL EXAMINATION VITAL SIGNS: Reviewed. GENERAL APPEARANCE: A tired-appearing man, resting in bed. HEENT: Anicteric. CARDIOVASCULAR: Normal S1 and S2. LUNGS: Moderate breath sounds. ABDOMEN: Soft and nontender. EXTREMITIES: No edema. SKIN: Multiple ulcers, stage 3, left face, left chest, and knees. PSYCHIATRIC: Flat affect. LABS: Reviewed. MEDICATIONS: Reviewed. ASSESSMENT: An 82-year-old man with: 1. Acute psychosis and bipolar disorder. 2. Fall and physical deconditioning. 3. Electrolyte derangement. 4.Fall PLAN 1. Continue sitter. 2. Continue guardianship papers. 3. Continue medical treatment. 4.CT brain negative Doing well; cont psych care; await guardianship papers check labs; 10/17 cont care 10/18 doing ok; Uvaldo Michel MD, PhD.
[2018-10-19] VITALS (7 sets, daily range): BP systolic 98–132; BP diastolic 54–75
--- NOTE | 2018-10-19 06:35 | NUR ---
IM-Progress note OVERNIGHT: no events REVIEW OF SYSTEMS: Unobtainable. PHYSICAL EXAMINATION VITAL SIGNS: Reviewed. GENERAL APPEARANCE: A tired-appearing man, resting in bed. HEENT: Anicteric. CARDIOVASCULAR: Normal S1 and S2. LUNGS: Moderate breath sounds. ABDOMEN: Soft and nontender. EXTREMITIES: No edema. SKIN: Multiple ulcers, stage 3, left face, left chest, and knees. PSYCHIATRIC: Flat affect. LABS: Reviewed. MEDICATIONS: Reviewed. ASSESSMENT: An 82-year-old man with: 1. Acute psychosis and bipolar disorder. 2. Fall and physical deconditioning. 3. Electrolyte derangement. 4.Fall PLAN 1. Continue sitter. 2. Continue guardianship papers. 3. Continue medical treatment. 4.CT brain negative Doing well; cont psych care; await guardianship papers check labs; 10/17 cont care 10/18 doing ok; 10/19 cont care. Uvaldo Michel MD, PhD.
--- NOTE | 2018-10-19 08:35 | NUR ---
Pt received resting in bed. Alert and oriented x2-3. Pt in good spirits, conversed politely. Oriented to staff and surroundings. Encouraged to press call solorio if help needed. All meds given as ordered. Emotional support given. Will monitor
[2018-10-19] MEDS: METOPROLOL TARTRATE 25 MG TAB PO SCH ×2 (08:38→21:00)
[2018-10-19] MEDS: LORAZEPAM 0.5 MG TAB PO SCH ×3 (08:38→21:00)
[2018-10-19] MEDS: MEMANTINE 10 MG TAB PO SCH ×2 (08:38→18:59)
[2018-10-19] MEDS: HYDRALAZINE HCL 25 MG TAB PO SCH ×3 (08:38→21:00)
[2018-10-19] MEDS: DOCUSATE SODIUM 100 MG CAP PO SCH ×2 (08:38→18:59)
[2018-10-19] MEDS: ARTIFICIAL TEARS (OPTH) 15 ML BTL OU SCH ×2 (08:38→18:59)
[2018-10-19] MEDS: MEDROXYPROGESTERONE ACETATE 2.5 MG TAB PO SCH (08:39)
[2018-10-19] MEDS: BALSAM PERU/CASTOR OIL 60 GM OINT...G. TP SCH ×2 (08:39→21:00)
[2018-10-19] MEDS: NIFEDIPINE CR 30 MG TAB PO SCH (08:39)
[2018-10-19] MEDS: QUETIAPINE FUMARATE 100 MG TAB PO SCH ×4 (08:39→21:00)
--- NOTE | 2018-10-19 10:51 | NUR ---
10/17 sent clinical and initiated eval with [facility]. 10/18 David Beau with [facility] called and stated they declined pt due to behavior. 10/19 intiatiating eval with [address] [address] fax: [phone]
--- NOTE | 2018-10-19 14:39 | Progress Note ---
DATE: October 19, 2018 PSYCHIATRIC PROGRESS NOTE Patient was evaluated and events noted. Patient is in the room. He is calm and cooperative. He is lying on the bed. He is alert, awake and oriented to situation. He states that he is feeling okay. He denies depression. Denies anxiety. He is calm and cooperative. He denies any suicidal or homicidal ideation. He denies any hallucinations. He is not interested in lunch at this time. He is not touching his lunch claiming that he did not like the food. He denies any issue with sleep. Denies any side effects from the medications. ASSESSMENT 1. Unspecified psychosis. 2. Unspecified dementia with behavioral disturbances. 3. History of bipolar. PLAN: Continue with Seroquel 100 mg 4 times a day. Continue Namenda 10 mg b.i.d. Continue Ativan 0.5 mg 3 times a day. Continue Proair 5 mg p.o. daily. Continue Geodon 10 mg IM q.8 h. p.r.n. Continue Seroquel 25 mg p.o. q.6 h. p.r.n. Monitor for mood. Supportive therapy. DICTATED BY BERNARD REES Job#: [id number] ZAYRA
--- NOTE | 2018-10-19 19:00 | NUR ---
patient recieved awake, alert, lying quietly in bed. vss. no c/o pain noted. pm assessment complete. bed remains on low bed with side rails up x 3 and bed alarm on for safety.
[2018-10-20] VITALS (8 sets, daily range): BP systolic 112–131; BP diastolic 56–80
[2018-10-20] MEDS: QUETIAPINE FUMARATE 100 MG TAB PO SCH ×4 (09:00→21:00)
[2018-10-20] MEDS: MEDROXYPROGESTERONE ACETATE 2.5 MG TAB PO SCH (09:00)
[2018-10-20] MEDS: LORAZEPAM 0.5 MG TAB PO SCH ×3 (09:00→21:00)
[2018-10-20] MEDS: BALSAM PERU/CASTOR OIL 60 GM OINT...G. TP SCH ×2 (09:00→21:00)
[2018-10-20] MEDS: HYDRALAZINE HCL 25 MG TAB PO SCH ×3 (09:00→21:00)
[2018-10-20] MEDS: DOCUSATE SODIUM 100 MG CAP PO SCH ×2 (09:00→17:34)
[2018-10-20] MEDS: NIFEDIPINE CR 30 MG TAB PO SCH (09:00)
[2018-10-20] MEDS: METOPROLOL TARTRATE 25 MG TAB PO SCH ×2 (09:00→21:00)
[2018-10-20] MEDS: MEMANTINE 10 MG TAB PO SCH ×2 (09:00→17:35)
--- NOTE | 2018-10-20 10:32 | NUR ---
IM-Progress note OVERNIGHT: no events REVIEW OF SYSTEMS: Unobtainable. PHYSICAL EXAMINATION VITAL SIGNS: Reviewed. GENERAL APPEARANCE: A tired-appearing man, resting in bed. HEENT: Anicteric. CARDIOVASCULAR: Normal S1 and S2. LUNGS: Moderate breath sounds. ABDOMEN: Soft and nontender. EXTREMITIES: No edema. SKIN: Multiple ulcers, stage 3, left face, left chest, and knees. PSYCHIATRIC: Flat affect. LABS: Reviewed. MEDICATIONS: Reviewed. ASSESSMENT: An 82-year-old man with: 1. Acute psychosis and bipolar disorder. 2. Fall and physical deconditioning. 3. Electrolyte derangement. 4.Fall PLAN 1. Continue sitter. 2. Continue guardianship papers. 3. Continue medical treatment. 4.CT brain negative Doing well; cont psych care; await guardianship papers check labs; 10/17 cont care 10/18 doing ok; 10/19 cont care. 10/20 check labs; Uvaldo Michel MD, PhD.
[2018-10-20 11:16] LABS: BASOPHILS % 0.7 % (0.0-1.0); EOSINOPHILS # (AUTO) 0.4 (0.0-0.4); EOSINOPHILS % 5.9 % (0.0-6.0); HEMATOCRIT 32.3 % (38.2-49.6); HEMOGLOBIN 10.2 g/dL (14.0-18.0); LYMPHOCYTES # (AUTO) 1.4 (1.0-3.2); LYMPHOCYTES % 22.5 % (18.0-39.1); MEAN CORPUSCULAR HEMOGLOBIN 27.6 pg (28-32); MEAN CORPUSCULAR HGB CONC 31.6 g/dL (31-35); MEAN CORPUSCULAR VOLUME 87.5 fL (81-99); MONOCYTES # (AUTO) 0.8 (0.2-0.8); NEUTROPHILS # (AUTO) 3.5 (2.1-6.9); NEUTROPHILS % 57.7 % (38.7-80.0); PLATELET COUNT 191 x10e3/uL (140-360); RED BLOOD COUNT 3.69 x10e6/uL (4.3-5.7); RED CELL DISTRIBUTION WIDTH 14.4 % (11.7-14.4)
[2018-10-20 11:30] LABS: ANION GAP 9.9 mmol/L (8-16); BLOOD UREA NITROGEN 27 mg/dL (7-26); BUN/CREATININE RATIO 27 (6-25); CALCIUM 8.7 mg/dL (8.4-10.2); CARBON DIOXIDE 23 mmol/L (22-29); CHLORIDE 111 mmol/L (98-107); CREATININE, SERUM 0.99 mg/dL (0.72-1.25); EST GLOMERULAR FILTRATION RATE > 60 ML/MIN (60-); GLUCOSE 90 mg/dL (74-118); POTASSIUM 3.9 mmol/L (3.5-5.1); SODIUM 140 mmol/L (136-145)
[2018-10-20] MEDS: ARTIFICIAL TEARS (OPTH) 15 ML BTL OU SCH ×2 (12:30→17:34)
--- NOTE | 2018-10-20 19:00 | NUR ---
patient recieved awake, alert, lying quietly in bed. vss. no c/o pain noted. pm assessment complete. bed low, side rails up x 3, call solorio placed within reach. patient instructed to call for assistance when needed.
[2018-10-21] VITALS: BP 140/69
[2018-10-21 04:00] VITALS: BP 157/84
[2018-10-21 08:00] VITALS: BP 141/85
[2018-10-21 08:29] VITALS: BP 141/85
[2018-10-21] MEDS: HYDRALAZINE HCL 25 MG TAB PO SCH ×2 (09:02→17:44)
[2018-10-21] MEDS: LORAZEPAM 0.5 MG TAB PO SCH ×2 (09:02→17:44)
[2018-10-21] MEDS: DOCUSATE SODIUM 100 MG CAP PO SCH ×2 (09:02→17:44)
[2018-10-21] MEDS: METOPROLOL TARTRATE 25 MG TAB PO SCH (09:03)
[2018-10-21] MEDS: NIFEDIPINE CR 30 MG TAB PO SCH (09:04)
[2018-10-21] MEDS: MEDROXYPROGESTERONE ACETATE 2.5 MG TAB PO SCH (09:04)
[2018-10-21] MEDS: MEMANTINE 10 MG TAB PO SCH ×2 (09:04→17:44)
[2018-10-21] MEDS: BALSAM PERU/CASTOR OIL 60 GM OINT...G. TP SCH (09:05)
[2018-10-21] MEDS: QUETIAPINE FUMARATE 100 MG TAB PO SCH ×3 (09:05→17:44)
[2018-10-21] MEDS: ARTIFICIAL TEARS (OPTH) 15 ML BTL OU SCH ×2 (09:19→17:44)
[2018-10-21 11:18] VITALS: BP 134/76
--- NOTE | 2018-10-21 15:08 | NUR ---
Student Life Coordinator from [facility] contacted RN regarding possible placement. SW obtain the contact number of containers sales representative, Flakito. SW left two messages for [facility] [employer] [phone] requesting a call back.
[2018-10-21 15:21] VITALS: BP 128/74
--- NOTE | 2018-10-21 15:40 | NUR ---
Flakito with [facility] (his number [phone]) accepting pt. Stated when nurse calls report she will receive the room number, [facility] [address] [place] [address] Call report to : [phone] [address] with Ling at the facility. Notified SHARON Cordon RN of acceptance Notified Sayra Smith of acceptance. RTF initiated and take to nurse.
--- NOTE | 2018-10-21 17:00 | NUR ---
Received call from it security administrator of [facility] to say pt has been accepted to facility. Notified and received order to discharge order to transfer to [facility]. Report called to facility.
--- NOTE | 2018-10-21 21:54 | NUR ---
Called [facility] for return of speciality bed; information given for return, confirmation #[id number]
--- NOTE | 2018-10-22 07:00 | NUR ---
Late note: On 10/21/18 CM spoke to Natasha RN, pt nurse and notified her that [facility] [employer] work msw just notified CM that [employer] [address] [id number], [place] [address], is the person for prison to contact for consents. His name and number is on the RTF initiated earlier for who to contact.
== END 2018-10-21 18:14 | DRG 592 ==
LOC: ER 14:00 → ERHOLD 17:07 → MED/SURG3 20:46
PROVIDERS: ADMIT Internal Medicine; ATTEND Internal Medicine
DX: L89.813 Pressure ulcer of head, stage 3 (principal); J69.0 Pneumonitis due to inhalation of food and vomit; E43 Unspecified severe protein-calorie malnutrition; F23 Brief psychotic disorder; E87.1 Hypo-osmolality and hyponatremia; E87.0 Hyperosmolality and hypernatremia; F03.91 Unspecified dementia, unspecified severity, with behavioral disturbance; N17.9 Acute kidney failure, unspecified; L97.829 Non-pressure chronic ulcer of other part of left lower leg with unspecified severity; L97.819 Non-pressure chronic ulcer of other part of right lower leg with unspecified severity; L89.893 Pressure ulcer of other site, stage 3; L98.499 Non-pressure chronic ulcer of skin of other sites with unspecified severity; E86.0 Dehydration; F44.89 Other dissociative and conversion disorders; F31.9 Bipolar disorder, unspecified; K21.9 Gastro-esophageal reflux disease without esophagitis; D64.9 Anemia, unspecified; F11.90 Opioid use, unspecified, uncomplicated; Z68.20 Body mass index [BMI] 20.0-20.9, adult; Z87.891 Personal history of nicotine dependence; E87.6 Hypokalemia; L98.429 Non-pressure chronic ulcer of back with unspecified severity; I10 Essential (primary) hypertension; L89.151 Pressure ulcer of sacral region, stage 1; D63.8 Anemia in other chronic diseases classified elsewhere; R53.81 Other malaise; I95.9 Hypotension, unspecified; F10.20 Alcohol dependence, uncomplicated; M54.2 Cervicalgia; R50.9 Fever, unspecified; W19.XXXA Unspecified fall, initial encounter; Y92.230 Patient room in hospital as the place of occurrence of the external cause
CPT/HCPCS: 36415; 70450; 71045; 71046; 72170; 80048; 80053; 80061; 80164; 80307; 80320; 81001; 82550; 82553; 82948; 83605; 83735; 84100; 84132; 84295; 84484; 85007; 85014; 85018; 85025; 85027; 85610; 85730; 87040; 87071; 87205; 93005; 96361; 96367; 96376; 97139; 99284; J0692; J1630; J2060; J2270; J2543; J3370; J3411; J3480; J3486; J7030; J7050